=== PATIENT | female | born 1960 | race Caucasian/White ===

== ENCOUNTER → 2017-12-04 11:34 | Outpatient (POV) | payer MEDICARE, SELFPAY | PROVIDERS: Visit Provider Internal Medicine | DX: Z00.00 Encounter for general adult medical examination without abnormal findings (principal) ==

== ENCOUNTER → 2018-03-19 13:28 | Outpatient (REF) | payer MEDICARE, MEDICAID, SELFPAY ==
[2018-03-19 20:08] LABS: Amphetamine/Metha Screen,Urine Negative ng/mL (<1000); Barbiturates Screen,Urine Negative ng/mL (<200); Benzodiazepines Screen,Urine Negative ng/mL (200); Cannabinoid Screen,Urine Negative ng/mL (<50); Cocaine Screen,Urine Negative ng/g (<300); Methadone Screen,Urine Negative ng/mL (<300); Opiate Screen,Urine Negative ng/mL (<300); Phencyclidine Screen,Urine Negative ng/mL (<25)
== END ==
LOC: LAB 13:28
PROVIDERS: Visit Provider Emergency Medicine
DX: Z79.899 Other long term (current) drug therapy (principal)
CPT/HCPCS: 80305

== ENCOUNTER → 2018-03-27 09:51 | Outpatient (CLI) | payer MEDICARE, MEDICAID, SELFPAY ==
--- NOTE | 2018-03-27 09:58 | XR_ITS ---
XR hip RT 2-3V w/pelvis HISTORY: ITS.REASON: right hip pain ORDERING PHYSICIAN: Myles Ortiz MD PATIENT AGE: 57 years COMPARISON: 03/23/2017 FINDINGS: No fracture or dislocation is evident. No significant degenerative change. No lytic or blastic change. Unremarkable soft tissues . Right iliac artery stent remains present IMPRESSION: Negative hip
== END ==
PROVIDERS: PCP Emergency Medicine; Visit Provider Orthopaedic Surgery
DX: M25.551 Pain in right hip (principal)
CPT/HCPCS: 73502

== ENCOUNTER → 2018-05-22 15:12 | Outpatient (CLI) | payer MEDICARE, MEDICAID, SELFPAY ==
--- NOTE | 2018-05-22 15:18 | CT_ITS ---
CT lung screening EXAM: CT LUNG LOW DOSE WO CONTRAST HISTORY: 57-year-old female with 40 pack-year smoking history asymptomatic ITS.REASON: H/O NICOTINE DEPENDENCE ORDERING PHYSICIAN: Stanley Stroud MD PATIENT AGE: 57 years COMPARISON: None TECHNIQUE: The exam was performed on a GE Light Speed [address] scanner using 2.90 mGy CTDI. A low dose helical CT CHEST was performed on a multi-detector scanner. All CT scans at the facility use one or more dose reduction, viz: automated exposure control; ma/kV adjustment per patient size (including targeted exams where dose is matched to indication; i.e. head); or iterative reconstruction technique. The LDCT was performed in a facility that meets the criteria for the screening program. Data regarding this exam was submitted to ACR which is an approved registry. The order for this exam indicates that it came as a result of a lung cancer screening counseling shard decision-making visit that included all the elements required of such a visit including smoking cessation. The radiologist interpreting this exam meets the CMS criteria for the LDCT lung cancer screening program. The exam is reported using the Lung-RADS classification scale and reported to the ACR registry. NOTE: This study was performed for the specific purposes of lung cancer screening and is not an alternative to diagnostic chest CT. RADIATION DOSE: CTDI vol(CT dose Index-volume) = 2.90mG DLP (Dose Length Product) = 99.66 mGcm FINDINGS: There are centrilobular emphysematous changes. No suspicious pulmonary nodules are evident. Mild bronchial thickening with hyperinflation. Minimal fibrotic changes in the lung bases. Coronary artery calcifications are present. IMPRESSION: 1. Lung RADS Category: 2, benign 2. Other findings: Emphysema/COPD RECOMMENDATIONS: 12 month LDCT follow-up
== END ==
PROVIDERS: Family Provider Emergency Medicine; PCP Emergency Medicine; Visit Provider Internal Medicine
DX: Z87.891 Personal history of nicotine dependence (principal); Z12.2 Encounter for screening for malignant neoplasm of respiratory organs; F17.210 Nicotine dependence, cigarettes, uncomplicated

== ENCOUNTER → 2018-06-03 10:10 | Outpatient (CLI) | payer MEDICARE, MEDICAID, SELFPAY ==
--- NOTE | 2018-06-03 10:11 | US_ITS ---
US Arterial Ankle Brachial Ind COMPARISON: Lower arterial study 09/25/2016 HISTORY: Known peripheral vascular disease, previous angioplasty. Claudication and rest pain in both legs, current smoking history, hyperlipidemia TECHNIQUE: Segmental blood pressures were obtained in both legs along with Doppler waveform evaluation FINDINGS: The blood pressure right arm is 158. Pressures in the right leg show the thigh be 111 calf 120 posterior tibia 114 and dorsalis pedis 110. The digital pressure is 51. This represent a definite change from the previous study at which time the thigh pressure is 119 calf 126, posterior tibial 128, callus P is 124 and digital pressure 88 there is definite decrease in amplitude of the waveforms in the entire right leg also represent a change from previous study. The right AMERICO is 0.72 The left brachial pressure is 152. Pressures left leg show the thigh be 134 calf 148 posterior tibial 162 and dorsalis pedis 155. The digital pressure is 90. The Doppler waveforms are normal. The left AMERICO is 1.03 IMPRESSION: Definite interval change in size from the right leg with findings suggesting significant arterial obstructive disease right leg likely aortic bifurcation or common iliac artery in location
--- NOTE | 2018-06-03 10:11 | MR_ITS ---
MR lumbar spine wo con, MR 3-d myelogram/MRCP Ordering Physician: Binu Bowers MD Patient Age: 57 years: Female HISTORY: ITS.REASON: lower back pain Back pain for years but all leg numbness and tingling. TECHNIQUE: Sagittal STIR, T1, T2, axial T1 and T2. On 1.5T Siemens wide bore MRI. 3-D MR myelogram image set obtained & performed on MRI workstation. Additional sagittal thin section T2 weighted dataset obtained from this latter acquisition as well (---76 CPT) COMPARISON :Previous MRI lumbar spine 11/15/2013. FINDINGS Vertebral bodies appear intact throughout the lumbar spine. Conus ends appropriately at L1/L2. L5/S1. Degenerative disc space narrowing with only scant discogenic reactive endplate changes... Scant posterior osteophytic ridging and a scant disc prominence/bulge barely evident only slightly indents thecal sac but does not appear to be a significance. Only minor encroachment upon the foramen. This along with some mild facet hypertrophy. Been no significant change since prior study L4/5 disc intact with only scant foraminal disc bulge. Moderate facet hypertrophy and arthropathy. .. Mild, minor foraminal encroachment bilaterally due to these features. L3/4. Disc intact. Mild facet arthropathy. No new findings. L2/3. Disc intact. No foramen widely L1/2 disc intact neural foramen widely patent graft to 12/L1 disc intact. Unremarkable. Survey images and kidneys unremarkable no retroperitoneal findings. I would note some minimal fluid in soft tissues to the left of midline. This is seen just posterior to the left SI joint and posterior margin of the iliac bone. Actually similar appearance was seen before. This is just deep to what appear to be some injection granulomas. This may merely reflects and depending fluid collecting in this region, axial image 39 3-D MRI myelogram image set shows no prominent findings only slight tapering the spinal canal L4/5 due to the moderate facet hypertrophy Posterior atrium IMPRESSION: . No prominent findings. Minor findings both levels below No significant change since 2017 L4/5. Moderate facet hypertrophy. Very minimal foraminal disc bulge. Overall features only slightly slight tapering thecal sac but with no significant spinal stenosis stenosis. No disc herniation L5/S1 stable degenerative cystic changes.. Scant disc osteophyte features and mild facet hypertrophy. No minor foraminal encroachment. Additional note. Incidental again noted a very thin fluid collection between tissue planes., Posterior to the left SI joint and intermediate posterior to the posterior margin of palpable left iliac bone. Likely minor dependent edema.Clinical correlation required is patient tender here? There are some injection granulomas adjacent... . Most likely scant dependent edema collecting here. Doubt of significance but to be noted if patient focally tender. Similar stable, appearance dates back to February 2014 and November 2016 MR
== END ==
PROVIDERS: Family Provider Emergency Medicine; PCP Emergency Medicine; Visit Provider Internal Medicine
DX: I73.9 Peripheral vascular disease, unspecified; G25.81 Restless legs syndrome; M79.604 Pain in right leg
CPT/HCPCS: 72148; 76376; 93922

== ENCOUNTER → 2018-07-30 14:41 | Outpatient (POV) | payer MEDICARE, SELFPAY | PROVIDERS: Family Provider Emergency Medicine; PCP Emergency Medicine; Visit Provider Internal Medicine | DX: Z00.00 Encounter for general adult medical examination without abnormal findings (principal) ==

== ENCOUNTER → 2018-09-25 18:32 | Outpatient (CLI) | payer MEDICARE, SELFPAY ==
[2018-09-25 21:25] LABS: Amphetamine/Metha Screen,Urine Negative ng/mL (<1000); Barbiturates Screen,Urine Negative ng/mL (<200); Benzodiazepines Screen,Urine Negative ng/mL (<200); Cannabinoid Screen,Urine Negative ng/mL (<50); Cocaine Screen,Urine Negative ng/mL (<300); Methadone Screen,Urine Negative ng/mL (<300); Opiate Screen,Urine Negative ng/mL (<300); Phencyclidine Screen,Urine Negative ng/mL (<25)
[2018-10-03 12:14] LABS: Alprazolam Negative (Cutoff=100); Benzodiazepines Positive ng/mL (Cutoff=100); Clonazepam Positive (.); Flurazepam Negative (Cutoff=100); Lorazepam Negative (Cutoff=100); Midazolam Negative (Cutoff=100); Temazepam Negative (Cutoff=100); Triazolam Negative (Cutoff=100)
[2018-10-03 19:50] LABS: Clonazepam Confirm 533 ng/mL (Cutoff=100)
== END ==
PROVIDERS: Visit Provider Emergency Medicine
DX: Z79.899 Other long term (current) drug therapy (principal)
CPT/HCPCS: 80305; 80346

== ENCOUNTER → 2019-02-07 14:56 | Outpatient (CLI) | payer MEDICARE, SELFPAY ==
--- NOTE | 2019-02-07 14:58 | US_ITS ---
US Arterial Ankle Brachial Ind History: ITS.REASON: PAD, claudication, smoker ORDERING PHYSICIAN: Binu Bowers MD PATIENT AGE: 58 years TECHNIQUE: Segmental pressures obtained of both right and left leg. These are compared to brachial blood pressure to yield index at each level sampled including summary AMERICO. The data sheets from the procedure are available in PACS FINDINGS Rest study only performed today No prior studies available for comparison. Blood pressures reported are in millimeters mercury. RIGHT LEG AMERICO = 1.09. RIGHT LEG TBI=0.71 Brachial BP: 154 Thigh BP: 181 Calf BP: 159 Ankle PT: 178 Ankle DP : 180 Digit =116 LEFT LEG AMERICO = 1.01 LEFT LEG TBI= 0.61 Brachial BPD: 164 Thigh BP: 164 Calf BP: 174 Ankle PT:165 Ankle DP: 168 Digit = 100 Pulses and waveforms: Normal IMPRESSION: The ABIs as reported above are within normal limits. Waveforms and pulses are also unremarkable.
== END ==
PROVIDERS: PCP Emergency Medicine; Visit Provider Internal Medicine
DX: I73.9 Peripheral vascular disease, unspecified (principal)
CPT/HCPCS: 93922

== ENCOUNTER → 2019-02-18 13:48 | Outpatient (POV) | payer MEDICARE, SELFPAY | PROVIDERS: Visit Provider Internal Medicine | DX: Z00.00 Encounter for general adult medical examination without abnormal findings (principal) ==

== ENCOUNTER → 2019-03-12 12:57 | Outpatient (CLI) | payer MEDICARE, SELFPAY ==
--- NOTE | 2019-03-12 | CI_ITS ---
Cerebrovascular Exam Indications: 785.9 Bruit. IMPRESSIONS 1. The bilateral vertebral arteries are patent with normal antegrade flow. 2. Study suggests 20-49% stenosis involving the right internal carotid artery. 3. Study suggests 50-69% stenosis involving the left internal carotid artery. History: A bruit of the left carotid artery. Risk factors: Current tobacco use. Hypertension. Carotid duplex study. Complete study and Doppler flow study including spectral analysis, color and lane scale imaging. Height: Height: 170.2cm. Height: 67in. Weight: Weight: 91.6kg. Weight: 201.6lb. Body mass index: BMI: 31.6kg/m^2. Body surface area: BSA: 2.11m^2. Location: Vascular laboratory. Patient status: Outpatient. Tables: Arterial flow: + +--------+--------+ Location V sys V ed + +--------+--------+ Right CCA - proximal 85.6cm/s 25.9cm/s + +--------+--------+ Right CCA - distal 66.8cm/s 22.8cm/s + +--------+--------+ Right ECA 92.1cm/s -------- + +--------+--------+ Right ICA - proximal 73.8cm/s 38cm/s + +--------+--------+ Right ICA - mid 106cm/s 38cm/s + +--------+--------+ Right ICA - distal 124cm/s 57.9cm/s + +--------+--------+ Right vertebral 30.9cm/s -------- + +--------+--------+ Left CCA - proximal 112cm/s 25.4cm/s + +--------+--------+ Left CCA - distal 92.1cm/s 30.3cm/s + +--------+--------+ Left ECA 141cm/s -------- + +--------+--------+ Left ICA - proximal 191cm/s 65.9cm/s + +--------+--------+ Left ICA - mid 166cm/s 50.1cm/s + +--------+--------+ Left ICA - distal 96.6cm/s 33.7cm/s + +--------+--------+ Left vertebral 64cm/s -------- + +--------+--------+ Velocity ratios: + + + + + + Right, V sys Right, V ed Left, V sys Left, V ed + + + + + + Max ICA/dist CCA 1.86 2.54 2.07 2.17 + + + + + + (Report amended ) Electronically signed by: Stefano Cowan [id number]
--- NOTE | 2019-03-12 13:48 | CT_ITS ---
CT lung screening EXAM: CT LUNG LOW DOSE WO CONTRAST HISTORY: Greater than 30 pack-year smoking history asymptomatic for lung cancer ITS.REASON: H/O NICOTINE DEPENDENCE ORDERING PHYSICIAN: Stanley Stroud MD PATIENT AGE: 58 years COMPARISON: 05/22/2018 TECHNIQUE: The exam was performed on a GE Light Speed [address] scanner using 2.90 mGy CTDI. A low dose helical CT CHEST was performed on a multi-detector scanner. All CT scans at the facility use one or more dose reduction, viz: automated exposure control, ma/kV adjustment per patient size (including targeted exams where dose is matched to indication, i.e. head), or iterative reconstruction technique. The LDCT was performed in a facility that meets the criteria for the screening program. Data regarding this exam was submitted to ACR which is an approved registry. The order for this exam indicates that it came as a result of a lung cancer screening counseling shard decision-making visit that included all the elements required of such a visit including smoking cessation. The radiologist interpreting this exam meets the CMS criteria for the LDCT lung cancer screening program. The exam is reported using the Lung-RADS classification scale and reported to the ACR registry. NOTE: This study was performed for the specific purposes of lung cancer screening and is not an alternative to diagnostic chest CT. RADIATION DOSE: CTDI vol(CT dose Index-volume) = 2.90mG DLP (Dose Length Product) = 103.83 mGcm FINDINGS: COPD with centrilobular emphysema. Scattered areas of scarring. Bronchial wall thickening noted there is an 8 mm x 4 tubular opacity in the left lower lobe and may be related to a mildly dilated vessel unchanged. No new suspicious nodules are evident. Coronary artery calcifications are present. IMPRESSION: 1. Lung RADS Category: 2, benign 2. Other findings: COPD/centrilobular emphysema, coronary artery calcifications RECOMMENDATIONS: 12 month LDCT follow-up
== END ==
PROVIDERS: PCP Emergency Medicine; Visit Provider Internal Medicine
DX: R09.89 Other specified symptoms and signs involving the circulatory and respiratory systems (principal); Z12.2 Encounter for screening for malignant neoplasm of respiratory organs; Z87.891 Personal history of nicotine dependence
CPT/HCPCS: 93880

== ENCOUNTER → 2019-04-29 11:34 | Outpatient (POV) | payer MEDICARE, SELFPAY ==
[2019-04-29 11:41] VITALS: BP 128/43; PULSE 80; RESP 18; O2SAT 98; BMI 31.3
--- NOTE | 2019-04-29 12:02 | HMH.PMCON ---
Assessment and Plan (1) Right hip pain Current visit: Yes Status: Chronic Category: Medical Code(s): M25.551 - Pain in right hip (2) Bursitis Current visit: Yes Status: Chronic Qualifiers: Bursitis location: hip Hip bursitis location: trochanteric bursitis Laterality: right Qualified Code(s): M70.61 - Trochanteric bursitis, right hip Category: Medical Code(s): M71.9 - Bursopathy, unspecified - Assessment and plan all Dx Assessment and Plan for all problems:: We will start the patient on diclofenac 75 mg 1 p.o. twice daily. We will also set the patient up for a right greater trochanteric bursa injection. We will also procure a right hip x-ray. Dr. Luevano has reviewed this note and agrees with this plan of care. This note was dictated using voice recognition software and may contain errors or omissions HPI - Data of Consult Consult date: 04/29/19 Requesting Physician: Kirstie Johnson APRN Primary Care Provider: Bud Rob MD - Consult Narrative Reason for consult: Right hip pain History of present illness: Ms. Chamberlain is a 58 year old female who presents today with complaint of right hip pain. Patient has extreme point tenderness over right greater trochanteric bursa. Patient has no recent imaging of this hip. Patient and I discussed anti-inflammatories she is currently not on any. She rates her pain a 5 out of 10. She has a lot of difficulty with walking. CC: Kirstie Johnson APRN [facility] History I have reviewed the patient's past medical history: Yes Medical History: Reports:: Anxiety, Cancer, Chronic Obstructive Pulmonary Disease (COPD), Depression, Gastroesophageal Reflux Disease(GERD) *Have you ever received a pneumonia vaccine?: No *Have you received a flu vaccine this season?: No Other Surgeries: Yes: , Tubal Ligation, Other Amputation: No Fractures: Yes - *Social History Smoking Status: Light tobacco smoker Tobacco Type: cigarettes # Packs/Day (cigarettes): 1 #Yrs smoked (if former smoker): 41 Alcohol Intake: never Alcohol Intake Frequency:: other Substance Use Type: denies use *Occupational Status:: other Housing: house Household Members: spouse *Travel in the last 8 weeks: None - Psychiatric History Pschychiatric History:: Reports:: Anxiety, Depression Family Hx:: Coronary Artery Disease, Diabetes Review of Systems - Review of Systems ROS General: no recent weight change, no fever, no sleep disturbances Respiratory: no cough, no shortness of air, no recurring pulmonary infections Cardiovascular/Peripheral Vascular: No chest pain, No palpitations, no edema, no shortness of breath. Gastrointestinal: no incontinence, normal bowel movements reported Genitourinary: no incontinence Musculoskeletal: Right hip pain Psychiatric: normal mood/ affect Neurological: [denies weakness in extremities], [denies balance issues] Meds Home Medications Medication Instructions Recorded Confirmed Type albuterol sulfate 2.5 mg/3 mL 2.5 mg INHALATION TID ml 11/26/17 04/01/19 History (0.083 %) solution for nebulization aspirin 81 mg tablet,delayed 81 mg PO DAILY 06/25/18 04/01/19 History release ondansetron HCl 4 mg tablet 4 mg PO Q8H PRN #30 tab 06/26/18 04/01/19 Rx clopidogrel 75 mg tablet 75 mg PO DAILY #30 tab 10/08/18 04/01/19 Rx omeprazole 40 mg capsule,delayed 40 mg PO DAILY #90 cap 10/22/18 04/01/19 Rx release clonazepam 0.5 mg tablet 0.5 mg PO TID #90 tab 04/01/19 Rx gabapentin 800 mg tablet 800 mg PO TID #90 tab 04/01/19 Rx lovastatin 20 mg tablet 20 mg PO DAILY #90 tab 04/01/19 Rx albuterol sulfate HFA 90 2 puff INHALATION Q6H #18 g 04/09/19 Rx mcg/actuation aerosol inhaler escitalopram 20 mg tablet 20 mg PO DAILY #90 tab 04/09/19 Rx pantoprazole 40 mg tablet,delayed 40 mg PO DAILY #90 tab 04/09/19 Rx release budesonide-formoterol HFA 160 See Rx Instructions .ROUTE 04/18/19 Rx mcg-4.5 mcg/actuation aerosol .COMPLEX
--- NOTE | 2019-04-29 12:05 | P.CONS_ITS ---
Assessment and Plan (1) Right hip pain Current visit: Yes Status: Chronic Category: Medical Code(s): M25.551 - Pain in right hip (2) Bursitis Current visit: Yes Status: Chronic Qualifiers: Bursitis location: hip Hip bursitis location: trochanteric bursitis Laterality: right Qualified Code(s): M70.61 - Trochanteric bursitis, right hip Category: Medical Code(s): M71.9 - Bursopathy, unspecified - Assessment and plan all Dx Assessment and Plan for all problems:: We will start the patient on diclofenac 75 mg 1 p.o. twice daily. We will also set the patient up for a right greater trochanteric bursa injection. We will also procure a right hip x-ray. Dr. Luevano has reviewed this note and agrees with this plan of care. This note was dictated using voice recognition software and may contain errors or omissions HPI - Data of Consult Consult date: 04/29/19 Requesting Physician: Kirstie Johnson APRN Primary Care Provider: Bud Rob MD - Consult Narrative Reason for consult: Right hip pain History of present illness: Ms. Chamberlain is a 58 year old female who presents today with complaint of right hip pain. Patient has extreme point tenderness over right greater trochanteric burs a. Patient has no recent imaging of this hip. Patient and I discussed anti- inflammatories she is currently not on any. She rates her pain a 5 out of 10. She has a lot of difficulty with walking. CC: Kirstie Johnson APRN [facility] History I have reviewed the patient's past medical history: Yes Medical History: Reports:: Anxiety, Cancer, Chronic Obstructive Pulmonary Disease (COPD), Depression, Gastroesophageal Reflux Disease(GERD) *Have you ever received a pneumonia vaccine?: No *Have you received a flu vaccine this season?: No Other Surgeries: Yes: , Tubal Ligation, Other Amputation: No Fractures: Yes - *Social History Smoking Status: Light tobacco smoker Tobacco Type: cigarettes # Packs/Day (cigarettes): 1 #Yrs smoked (if former smoker): 41 Alcohol Intake: never Alcohol Intake Frequency:: other Substance Use Type: denies use *Occupational Status:: other Housing: house Household Members: spouse *Travel in the last 8 weeks: None - Psychiatric History Pschychiatric History:: Reports:: Anxiety, Depression Family Hx:: Coronary Artery Disease, Diabetes Review of Systems - Review of Systems ROS General: no recent weight change, no fever, no sleep disturbances Respiratory: no cough, no shortness of air, no recurring pulmonary infections Cardiovascular/Peripheral Vascular: No chest pain, No palpitations, no edema, no shortness of breath. Gastrointestinal: no incontinence, normal bowel movements reported Genitourinary: no incontinence Musculoskeletal: Right hip pain Psychiatric: normal mood/ affect Neurological: [denies weakness in extremities], [denies balance issues] Meds Home Medications Medication Instructions Recorded Confirmed Type albuterol sulfate 2.5 mg/3 mL 2.5 mg INHALATION TID ml 11/26/17 04/01/19 H istory (0.083 %) solution for nebulization aspirin 81 mg tablet,delayed 81 mg PO DAILY 06/25/18 04/01/19 History release ondansetron HCl 4 mg tablet 4 mg PO Q8H PRN #30 tab 06/26/18 04/01/19 Rx clopidogrel 75 mg tablet 75 mg PO DAILY #30 tab 10/08/18 04/01/19 Rx omeprazole 40 mg capsule,delayed 40 mg PO DAILY #90 cap 10/22/18 04/01/19 Rx release
--- NOTE | 2019-04-29 12:18 | XR_ITS ---
XR hip RT 2-3V w/pelvis HISTORY: ITS.REASON: RT HIP PAIN ORDERING PHYSICIAN: Kirstie Johnson APRN PATIENT AGE: 58 years COMPARISON: 03/27/2018 FINDINGS: No fracture or dislocation is evident. No significant degenerative change. No lytic or blastic change. Right iliac artery stent in place. IMPRESSION: No change with no acute finding
== END ==
PROVIDERS: PCP Emergency Medicine; Visit Provider Clinical Nurse Specialist Family Health
DX: M25.551 Pain in right hip (principal); M70.61 Trochanteric bursitis, right hip
CPT/HCPCS: 73502; 99202

== ENCOUNTER → 2019-06-03 10:21 | Outpatient (POV) | payer MEDICARE, SELFPAY ==
[2019-06-03 10:32] VITALS: BP 120/69; PULSE 80; RESP 18; O2SAT 98; BMI 31.6
--- NOTE | 2019-06-03 10:36 | HMH.PAINSOAP ---
[facility] Pain Management SOAP Note Subjective:: Patient is a pleasant 58-year-old white female who presents today for follow-up. Patient is being treated for right hip pain. She is now complaining of bilateral hip pain. She has extreme point tenderness over bilateral greater trochanteric bursa. She rates her pain at a 6 out of 10 today. She does say that she got about 70% relief with her previous injection, her pain has returned. Patient says that she thought that her pain is on the right side would relieve the pain on her left side, however since having her last right greater trochanteric bursa injection, her pain has increased on the left side. She would like to do bilateral hip injection. She is continuing an anti-inflammatory, as well as home stretching program. The patient has been taking diclofenac 75 mg 1 p.o. twice daily. She says that she was also taking this with ibuprofen and was informed by her pharmacist to stop taking ibuprofen with the medicine. Patient says that ibuprofen is more effective than diclofenac, so she will discontinue the diclofenac. Review of Systems General: No recent weight changes, no fever, no sleep disturbances Respiratory: No cough, no shortness of air, no recurring pulmonary infections Cardiovascular/peripheral vascular: No chest pain, no palpitations, no edema, no shortness of breath Gastrointestinal: No new onset incontinence, normal bowel movements reported Genitourinary: No new onset incontinence Musculoskeletal: Bilateral hip pain Psychiatric: Normal mood/affect Neurological: [Denies weakness in extremities], [denies balance issues] Objective:: Physical exam General: Alert and oriented x3, no acute distress, pleasant and cooperative, [on room air] Lungs: Respirations even and unlabored, symmetrical chest expansion Eyes: PERRL Musculoskeletal: Range of motion to bilateral lower extremities somewhat guarded secondary to pain, deep tendon reflexes normal, strength in upper and lower extremities [5/5], [abnormal gait noted] Neurological: Speech clear, data reduction technician equal, no gross sensory deficit Assessment:: Bilateral greater trochanteric bursitis Plan:: Given the patient's efficacy of the previous injection, we will schedule the patient for bilateral greater trochanteric bursa injections. The patient will continue with a home stretching program and anti-inflammatories. We will see the patient back in the office after her procedure to reassess her symptoms at that time. She has been instructed to call the office if she has any concerns prior to her next appointment. Dr. Luevano has reviewed this note and agrees with this plan of care. This note was dictated using voice recognition software and make contain errors or omissions.
--- NOTE | 2019-06-03 10:39 | P.CONS_ITS ---
[facility] Pain Management SOAP Note Subjective:: Patient is a pleasant 58-year-old white female who presents today for follow-up. Patient is being treated for right hip pain. She is now complaining of bilateral hip pain. She has extreme point tenderness over bilateral greater trochanteric bursa. She rates her pain at a 6 out of 10 today. She does say that she got about 70% relief with her previous injection, her pain has returned. Patient says that she thought that her pain is on the right side would relieve the pain on her left side, however since having her last right greater trochanteric bursa injection, her pain has increased on the left side. She would like to do bilateral hip injection. She is continuing an anti- inflammatory, as well as home stretching program. The patient has been taking diclofenac 75 mg 1 p.o. twice daily. She says that she was also taking this with ibuprofen and was informed by her pharmacist to stop taking ibuprofen with the medicine. Patient says that ibuprofen is more effective than diclofenac, so she will discontinue the diclofenac. Review of Systems General: No recent weight changes, no fever, no sleep disturbances Respiratory: No cough, no shortness of air, no recurring pulmonary infections Cardiovascular/peripheral vascular: No chest pain, no palpitations, no edema, no shortness of breath Gastrointestinal: No new onset incontinence, normal bowel movements reported Genitourinary: No new onset incontinence Musculoskeletal: Bilateral hip pain Psychiatric: Normal mood/affect Neurological: [Denies weakness in extremities], [denies balance issues] Objective:: Physical exam General: Alert and oriented x3, no acute distress, pleasant and cooperative, [on room air] Lungs: Respirations even and unlabored, symmetrical chest expansion Eyes: PERRL Musculoskeletal: Range of motion to bilateral lower extremities somewhat guarded secondary to pain, deep tendon reflexes normal, strength in upper and lower extremities [5/5], [abnormal gait noted] Neurological: Speech clear, pallet sorter equal, no gross sensory deficit Assessment:: Bilateral greater trochanteric bursitis Plan:: Given the patient's efficacy of the previous injection, we will schedule the patient for bilateral greater trochanteric bursa injections. The patient will continue with a home stretching program and anti-inflammatories. We will see the patient back in the office after her procedure to reassess her symptoms at that time. She has been instructed to call the office if she has any concerns prior to her next appointment. Dr. Luevano has reviewed this note and agrees with this plan of care. This note was dictated using voice recognition software and make contain errors or omissions.
== END ==
PROVIDERS: PCP Emergency Medicine; Visit Provider Clinical Nurse Specialist Family Health
DX: M70.61 Trochanteric bursitis, right hip; M70.62 Trochanteric bursitis, left hip
CPT/HCPCS: 99212

== ENCOUNTER → 2019-07-08 10:49 | Outpatient (POV) | payer MEDICARE, SELFPAY ==
[2019-07-08 11:31] VITALS: BP 105/63; PULSE 89; RESP 18; O2SAT 98; BMI 31.3
--- NOTE | 2019-07-08 12:26 | P.CONS_ITS ---
[facility] Pain Management SOAP Note Subjective:: Patient is a pleasant 58-year-old white female who presents today for follow-up after bilateral bursa injections. Patient is doing well in her hip however she is continually having SI joint pain. She does have an MRI from 2018 that showed SI joint issues. Patient had injections in the past with short-term relief. Patient I had a long discussion about obtaining some new diagnostic imaging. Her pain is a 6 out of 10. It is beginning to affect her activities of daily living. She is continuing home stretching program. She is tried and failed multiple medications along with other conservative measures over the last 6 months. Patient I discussed potential SI joint percutaneous fusion. However we do need to get some new diagnostic imaging prior to this. ROS General: no recent weight change, no fever, no sleep disturbances Respiratory: no cough, no shortness of air, no recurring pulmonary infections Cardiovascular/Peripheral Vascular: No chest pain, No palpitations, no edema, no shortness of breath. Gastrointestinal: no incontinence, normal bowel movements reported Genitourinary: no incontinence Musculoskeletal: Low back pain, SI joint pain, hip pain Psychiatric: normal mood/ affect Neurological: [denies weakness in extremities], [denies balance issues] Objective:: Physical Exam General: Alert and oriented x3, no acute distress, pleasant and cooperative, [on room air] Lungs: Resps E/U, Symmetrical chest expansion, Eyes: PERRL Musculoskeletal: Flexion and extension of lumbar spine somewhat guarded secondary to pain, deep tendon reflexes normal, strength in upper and lower extremities [5/5], abnormal gait noted, positive SI joint compression test positive Dionte test positive Philip's test bilaterally Neurological: speech clear, flower grader equal, no gross sensory deficits Assessment:: Degenerative disc disease lumbar spine with lumbar radiculopathy along with sacroiliitis Plan:: We will schedule an updated MRI of the lower back to determine any worsening issues. Patient I briefly percutaneous SI joint fusion. She may be interested in this in the future. I will follow-up with her after her MRI she is been instructed to call the office if she has any issues prior to her next appointment. Dr. Luevano has reviewed this note and agrees with this plan of care. This note was dictated using voice recognition software and may contain errors or omissions Pain Management Hx Components *Have you ever received a pneumonia vaccine?: Yes *Have you received a flu vaccine this season?: Yes - *Social History *Occupational Status:: other *Travel in the last 8 weeks: None
== END ==
PROVIDERS: PCP Emergency Medicine; Visit Provider Clinical Nurse Specialist Family Health
DX: M51.16 Intervertebral disc disorders with radiculopathy, lumbar region (principal); M46.1 Sacroiliitis, not elsewhere classified
CPT/HCPCS: 99212

== ENCOUNTER → 2019-07-17 12:48 | Outpatient (CLI) | payer MEDICARE, SELFPAY ==
--- NOTE | 2019-07-17 12:49 | MR_ITS ---
PROCEDURE: MR HEAD/BRAIN WO CON CLINICAL INDICATION: headache Severe headache COMPARISON: No exams were available for comparison TECHNIQUE: Routine multiplanar multi echo sequences are performed without gadolinium enhancement. FINDINGS: No midline shift, mass effect, intracranial hemorrhage, or hydrocephalus evident. No evidence of acute infarction. There nonspecific slight increased T2 signal within both right and left aspect of the rey as well as scattered areas of subcortical and periventricular T2 white matter hyperintensities. These are nonspecific and do not demonstrate restricted diffusion. The cerebellopontine angle, cerebellum, and brainstem are unremarkable. The pituitary, optic chiasm, corpus callosum, and craniocervical junction are unremarkable. No mastoid effusion or sinus air-fluid level. IMPRESSION: Nonspecific periventricular and subcortical T2 white matter hyperintensities. These may only be related to ischemic gliotic change from microvascular disease. Included in the differential diagnosis would be migraine headache and demyelinating process. Please correlate with clinical parameters. Otherwise negative MRI of the brain without contrast Dictated by: Stefano Cowan MD 07/17/2019 17:20 Electronically signed by Stefano Cowan MD in [place] 07/17/2019 17:20
--- NOTE | 2019-07-17 12:50 | MR_ITS ---
PROCEDURE: MR LUMBAR SPINE WO CON CLINICAL INDICATION: BACK PAIN Low back pain with bilateral hip and leg pain COMPARISON: SPLUMBWO MR lumbar spine wo con from 06/03/2018 TECHNIQUE: Standard multiplanar multiecho sequences are performed without contrast. 3-D MIP and myelographic images are also rendered and reviewed FINDINGS: Normal alignment. The spinal cord ends at the L1-L2 level. T11-T12: Unremarkable. T12-L1: Unremarkable. L1-L2: Unremarkable. L2-L3: Unremarkable. L3-L4: Mild facet hypertrophic change. L4-5: Mild disc desiccation with minimal bulging disc and mild facet hypertrophic change with mild left foraminal narrowing. L5-S1: Degenerate disc disease. No disc herniation or canal stenosis with no significant change from the previous exam There is a small amount of oval fluid signal intensity within the soft tissue planes posterior to the ilium on the left not significantly changed IMPRESSION: 1. Mild degenerative changes at L3-L4 L4-5 and L5-S1 as detailed above. 2. No disc herniation or canal stenosis. 3. No change in the small subcutaneous fluid collection in the left posterior iliac region Dictated by: Stefano Cowan MD 07/18/2019 08:18 Electronically signed by Stefano Cowan MD in [place] 07/18/2019 08:18
== END ==
PROVIDERS: PCP Emergency Medicine; Visit Provider Clinical Nurse Specialist Family Health
DX: R51 Headache (principal); M54.5 Low back pain
CPT/HCPCS: 70551; 72148; 76376

== ENCOUNTER → 2019-07-29 09:52 | Outpatient (POV) | payer MEDICARE, SELFPAY ==
[2019-07-29 09:59] VITALS: BP 154/64; PULSE 85; RESP 18; O2SAT 97; BMI 31.3
--- NOTE | 2019-07-29 12:32 | HMH.PAINSOAP ---
[facility] Pain Management SOAP Note Subjective:: Patient is a pleasant 58-year-old white female who presents today for follow-up. Patient is having chronic SI joint pain. Worse in the left side. Her MRI from 2018 showed SI joint issues. She is had injections in the past with short-term relief. We had a discussion in regards to a percutaneous SI joint fusion. Patient rates her pain a 7 out of 10 today. She is tried and follow-up failed multiple medications along with other conservative measures over the last 6 months. She had pain for over a year. She is tried and failed medications including anti-inflammatories she is continuing a home stretching program. She is failed physical therapy. ROS General: no recent weight change, no fever, no sleep disturbances Respiratory: no cough, no shortness of air, no recurring pulmonary infections Cardiovascular/Peripheral Vascular: No chest pain, No palpitations, no edema, no shortness of breath. Gastrointestinal: no incontinence, normal bowel movements reported Genitourinary: no incontinence Musculoskeletal: Back pain, SI joint pain Psychiatric: normal mood/ affect Neurological: [denies weakness in extremities], [denies balance issues] Objective:: Physical Exam General: Alert and oriented x3, no acute distress, pleasant and cooperative, [on room air] Lungs: Resps E/U, Symmetrical chest expansion, Eyes: PERRL Musculoskeletal: Flexion and extension of lumbar spine somewhat guarded secondary to pain, deep tendon reflexes normal, strength in upper and lower extremities [5/5], antalgic gait noted, positive SI joint compression test positive Dionte test positive Philip's test on the left side Neurological: speech clear, renal dialysis rn equal, no gross sensory deficits Assessment:: Sacroiliitis chronic SI joint dysfunction Plan:: I will schedule the patient for a left sided percutaneous SI joint fusion. I believe given the efficacy however short-lived of her SI joint blocks I believe it would be of benefit to her. She is interested in moving forward she would like to stay as functional as possible for as long as possible. I will follow-up with the patient after the procedure and reassess her symptoms at that time she is been instructed to call the office if she has any issues prior to her next appointment. Dr. Luevano has reviewed this note and agrees with this plan of care. This note was dictated using voice recognition software and may contain errors or omissions [facility] History I have reviewed the patient's past medical history: Yes Medical History: Reports:: Anxiety, Cancer, Chronic Obstructive Pulmonary Disease (COPD), Depression, Gastroesophageal Reflux Disease(GERD), Hypertension, Peripheral Artery Disease Denies:: Diabetes Mellitus Type 1, Diabetes Mellitus Type 2, Seizures *Have you ever received a pneumonia vaccine?: No *Have you received a flu vaccine this season?: No Other Surgeries: Yes: , Tubal Ligation, Other Amputation: No Fractures: Yes - *Social History Smoking Status: Current every day smoker Tobacco Type: cigarettes # Packs/Day (cigarettes): 1 #Yrs smoked (if former smoker): 41 Alcohol Intake: never Alcohol Intake Frequency:: other Substance Use Type: denies use *Occupational Status:: disabled Housing: house Household Members: none *Travel in the last 8 weeks: None - Psychiatric History Pschychiatric History:: Reports:: Anxiety, Depression Family Hx:: Coronary Artery Disease, Diabetes
--- NOTE | 2019-07-29 12:37 | P.CONS_ITS ---
[facility] Pain Management SOAP Note Subjective:: Patient is a pleasant 58-year-old white female who presents today for follow-up. Patient is having chronic SI joint pain. Worse in the left side. Her MRI from 2018 showed SI joint issues. She is had injections in the past with short-term relief. We had a discussion in regards to a percutaneous SI joint fusion. Patient rates her pain a 7 out of 10 today. She is tried and follow-up failed multiple medications along with other conservative measures over the last 6 months. She had pain for over a year. She is tried and failed medications including anti-inflammatories she is continuing a home stretching program. She is failed physical therapy. ROS General: no recent weight change, no fever, no sleep disturbances Respiratory: no cough, no shortness of air, no recurring pulmonary infections Cardiovascular/Peripheral Vascular: No chest pain, No palpitations, no edema, no shortness of breath. Gastrointestinal: no incontinence, normal bowel movements reported Genitourinary: no incontinence Musculoskeletal: Back pain, SI joint pain Psychiatric: normal mood/ affect Neurological: [denies weakness in extremities], [denies balance issues] Objective:: Physical Exam General: Alert and oriented x3, no acute distress, pleasant and cooperative, [on room air] Lungs: Resps E/U, Symmetrical chest expansion, Eyes: PERRL Musculoskeletal: Flexion and extension of lumbar spine somewhat guarded secondary to pain, deep tendon reflexes normal, strength in upper and lower extremities [5/5], antalgic gait noted, positive SI joint compression test positive Dionte test positive Philip's test on the left side Neurological: speech clear, clearance center manager equal, no gross sensory deficits Assessment:: Sacroiliitis chronic SI joint dysfunction Plan:: I will schedule the patient for a left sided percutaneous SI joint fusion. I believe given the efficacy however short-lived of her SI joint blocks I believe it would be of benefit to her. She is interested in moving forward she would like to stay as functional as possible for as long as possible. I will follow- up with the patient after the procedure and reassess her symptoms at that time she is been instructed to call the office if she has any issues prior to her next appointment. Dr. Luevano has reviewed this note and agrees with this plan of care. This note was dictated using voice recognition software and may contain errors or omissions [facility] History I have reviewed the patient's past medical history: Yes Medical History: Reports:: Anxiety, Cancer, Chronic Obstructive Pulmonary Di sease (COPD), Depression, Gastroesophageal Reflux Disease(GERD), Hypertension, Peripheral Artery Disease Denies:: Diabetes Mellitus Type 1, Diabetes Mellitus Type 2, Seizures *Have you ever received a pneumonia vaccine?: No *Have you received a flu vaccine this season?: No Other Surgeries: Yes: , Tubal Ligation, Other Amputation: No Fractures: Yes - *Social History Smoking Status: Current every day smoker Tobacco Type: cigarettes # Packs/Day (cigarettes): 1 #Yrs smoked (if former smoker): 41 Alcohol Intake: never Alcohol Intake Frequency:: other Substance Use Type: denies use *Occupational Status:: disabled Housing: house Household Members: none *Travel in the last 8 weeks: None - Psychiatric History Pschychiatric History:: Reports:: Anxiety, Depression Family Hx:: Coronary Artery Disease, Diabetes
== END ==
PROVIDERS: PCP Emergency Medicine; Visit Provider Clinical Nurse Specialist Family Health
DX: M46.1 Sacroiliitis, not elsewhere classified (principal)
CPT/HCPCS: 99212

== ENCOUNTER → 2019-09-08 11:20 | Outpatient (POV) | payer MEDICARE, MEDICAID, SELFPAY ==
[2019-09-08 12:06] VITALS: BP 127/60; PULSE 97; RESP 18; O2SAT 98; BMI 31.3
--- NOTE | 2019-09-08 12:31 | HMH.PAINSOAP ---
[facility] Pain Management SOAP Note Subjective:: Patient is a pleasant 58-year-old white female who presents today for follow-up. Patient is awaiting a percutaneous SI joint fusion. Patient has MRI diagnostic imaging that shows SI joint issues along with chronic SI joint pain. She does get short-term relief from injections. She rates her pain an 8 out of 10 she is obviously uncomfortable she is tried and failed multiple medications along with conservative measures over the last 6 months. She is had pain for over a year periodic. She is failed medications anti-inflammatories and is continuing a home stretching program she is also failed physical therapy. She is a positive Dionte test SI joint compression test and Philip's test on the left side. ROS General: no recent weight change, no fever, no sleep disturbances Respiratory: no cough, no shortness of air, no recurring pulmonary infections Cardiovascular/Peripheral Vascular: No chest pain, No palpitations, no edema, no shortness of breath. Gastrointestinal: no new onset incontinence, normal bowel movements reported Genitourinary: no new onset incontinence Musculoskeletal: SI joint pain Psychiatric: normal mood/ affect Neurological: [denies new onset weakness in extremities], [denies new onset balance issues] Objective:: Physical Exam General: Alert and oriented x3, no acute distress, pleasant and cooperative, [on room air] Lungs: Resps E/U, Symmetrical chest expansion, Eyes: PERRL Musculoskeletal: Flexion and extension of lumbar spine somewhat guarded secondary to pain, deep tendon reflexes normal, strength in upper and lower extremities [5/5], [abnormal gait noted] Neurological: speech clear, requisition approver equal, no gross sensory deficits Assessment:: Sacroiliitis chronic Plan:: We will schedule the patient for a left SI joint injection while she is awaiting her cutaneous SI joint fusion. She is been instructed to call the office if she has any issues prior to her next appointment. Dr. Luevano has reviewed this note and agrees with this plan of care. This note was dictated using voice recognition software and may contain errors or omissions [facility] History I have reviewed the patient's past medical history: Yes Medical History: Reports:: Anxiety, Cancer, Chronic Obstructive Pulmonary Disease (COPD), Depression, Gastroesophageal Reflux Disease(GERD), Hypertension, Peripheral Artery Disease Denies:: Diabetes Mellitus Type 1, Diabetes Mellitus Type 2, Seizures *Have you ever received a pneumonia vaccine?: Yes *Have you received a flu vaccine this season?: Yes Other Surgeries: Yes: , Tubal Ligation, Other Amputation: No Fractures: Yes - *Social History Smoking Status: Current every day smoker Tobacco Type: cigarettes # Packs/Day (cigarettes): 1 #Yrs smoked (if former smoker): 41 Alcohol Intake: never Alcohol Intake Frequency:: other Substance Use Type: denies use *Occupational Status:: other Housing: house Household Members: none *Travel in the last 8 weeks: None - Psychiatric History Pschychiatric History:: Reports:: Anxiety, Depression Family Hx:: Coronary Artery Disease, Diabetes
== END ==
PROVIDERS: PCP Emergency Medicine; Visit Provider Clinical Nurse Specialist Family Health
DX: M46.1 Sacroiliitis, not elsewhere classified (principal)
CPT/HCPCS: 99212

== ENCOUNTER → 2019-10-07 10:09 | Outpatient (POV) | payer MEDICARE, MEDICAID, SELFPAY ==
[2019-10-07 10:16] VITALS: BP 114/93; PULSE 91; RESP 18; O2SAT 98; BMI 31.6
--- NOTE | 2019-10-07 10:30 | HMH.PAINSOAP ---
[facility] Pain Management SOAP Note Subjective:: Patient is a pleasant 58-year-old white female presents today for follow-up after corner lock procedure. Patient was doing well for the first week however she states that she was pushing herself a little too hard. Patient had a fall and had increased pain at that time along with some muscle spasms. She we had called our office and was instructed to be seen by her primary care physician however she did not go through with this nor did she go to the emergency room. Patient rates her pain today a 7 out of 10 incisions in regards to the corner lock are well approximated. Stitches have been removed. Patient overall doing well. Patient's symptomology unrelated to the corner lock procedure. We will start her on some anti-inflammatories and muscle relaxers for a week and reassess her symptoms in a week. ROS General: no recent weight change, no fever, no sleep disturbances Respiratory: no cough, no shortness of air, no recurring pulmonary infections Cardiovascular/Peripheral Vascular: No chest pain, No palpitations, no edema, no shortness of breath. Gastrointestinal: no new onset incontinence, normal bowel movements reported Genitourinary: no new onset incontinence Musculoskeletal: Back pain left leg pain, muscle cramps Psychiatric: normal mood/ affect, Neurological: [denies new onset weakness in extremities], [denies new onset balance issues] Objective:: Physical Exam General: Alert and oriented x3, no acute distress, pleasant and cooperative, [on room air] Lungs: Resps E/U, Symmetrical chest expansion, Eyes: PERRL Musculoskeletal: Flexion and extension of lumbar spine somewhat guarded secondary to pain, deep tendon reflexes normal, strength in upper and lower extremities [5/5], [abnormal gait noted] Neurological: speech clear, od grinder operator equal, no gross sensory deficits Assessment:: SI joint dysfunction, chronic sacroiliitis, muscle spasms, recent fall Plan:: We will give the patient a Medrol Dosepak along with some Flexeril 10 mg 1 p.o. 3 times daily as needed we will see her back in 1 week reassess her symptoms at that time I encouraged her to take time to heal into the pushing herself. I will see her back in 1 week she is been instructed to call the office if she has any issues prior to her next appointment. Dr. Luevano has reviewed this note and agrees with this plan of care. This note was dictated using voice recognition software and may contain errors or omissions [facility] History I have reviewed the patient's past medical history: Yes Medical History: Reports:: Anxiety, Cancer (skin ca), Chronic Obstructive Pulmonary Disease (COPD), Depression, Gastroesophageal Reflux Disease(GERD), Hypertension, Peripheral Artery Disease, Peripheral Vascular Disease Denies:: Diabetes Mellitus Type 1, Diabetes Mellitus Type 2, Internal Pacemaker, MRSA, Seizures *Have you ever received a pneumonia vaccine?: Yes *Have you received a flu vaccine this season?: Yes Other Medical History: Denies: Blood Transfusion Reaction Other Surgeries: Yes: , Tubal Ligation, Other. No: Pacemaker Amputation: No Fractures: Yes - *Social History Smoking Status: Current every day smoker Tobacco Type: cigarettes # Packs/Day (cigarettes): 1 #Yrs smoked (if former smoker): 41 Alcohol Intake: never Alcohol Intake Frequency:: other Substance Use Type: denies use *Occupational Status:: other Housing: house Household Members: children, none *Travel in the last 8 weeks: None - Psychiatric History Pschychiatric History:: Reports:: Anxiety, Depression Family Hx:: Coronary Artery Disease, Diabetes
== END ==
PROVIDERS: PCP Emergency Medicine; Visit Provider Clinical Nurse Specialist Family Health
DX: M62.838 Other muscle spasm (principal); Z91.81 History of falling; M46.1 Sacroiliitis, not elsewhere classified
CPT/HCPCS: 99213

== ENCOUNTER → 2019-10-14 11:50 | Outpatient (POV) | payer MEDICARE, MEDICAID, SELFPAY ==
[2019-10-14 12:11] VITALS: BP 126/53; PULSE 92; RESP 18; O2SAT 98; BMI 31.6
--- NOTE | 2019-10-14 12:39 | HMH.PAINSOAP ---
[facility] Pain Management SOAP Note Subjective:: Patient is a pleasant 58-year-old white female who presents today for follow-up. She recently underwent a left SI stabilization procedure. Following the procedure, the patient did have a fall for which she did strike her left knee and her left facial area. Patient says since the fall she has had severe pain. She rates her pain a 6 out of 10 today. At her last visit the patient was given a Medrol Dosepak, along with Flexeril. Patient says she got little to no relief with these therapies. She says that her pain is still there and worsening with each day. Patient does say, however, she is no longer having any numbness or tingling to her left leg. She says she is using a walker to ambulate in her house. Patient says she has to depend on her sister to transport her and her sister is not well at this time. She says she has difficulty getting to her appointments due to no transportation. Patient says she has not had any recent physical therapy. Patient also has not undergone any type of imaging since her fall to her SI joint. She is continuing with anti-inflammatories and a home stretching program. Review of Systems General: No recent weight changes, no fever, no sleep disturbances Respiratory: No cough, no shortness of air, no recurring pulmonary infections Cardiovascular/peripheral vascular: No chest pain, no palpitations, no edema, no shortness of breath Gastrointestinal: No new onset incontinence, normal bowel movements reported Genitourinary: No new onset incontinence Musculoskeletal: Low back pain, left buttock pain Psychiatric: Normal mood/affect Neurological: [Denies weakness in extremities], [denies balance issues] Objective:: Physical exam General: Alert and oriented x3, no acute distress, pleasant and cooperative, [on room air] Lungs: Respirations even and unlabored, symmetrical chest expansion Eyes: PERRL Musculoskeletal: Flexion and extension of lumbar spine somewhat guarded secondary to pain, deep tendon reflexes normal, strength in upper and lower extremities [5/5], [abnormal gait noted] Neurological: Speech clear, radio maintainer equal, no gross sensory deficit Assessment:: SI joint dysfunction, chronic sacroiliitis, muscle spasms, recent fall Plan:: We will order the patient x-ray of her left SI joint. We will also order home health for physical therapy to evaluate and treat patient. Patient would most likely benefit from a SI stabilization belt. We will see the patient back in the clinic in 2 weeks to discuss the results of her x-ray. Patient has been instructed to contact the clinic if she has any concerns before next appointment. Dr. Luevano has reviewed this note and agrees with this plan of care. This note was dictated using voice recognition software and make contain errors or omissions. [facility] History I have reviewed the patient's past medical history: Yes Medical History: Reports:: Anxiety, Cancer, Chronic Obstructive Pulmonary Disease (COPD), Depression, Gastroesophageal Reflux Disease(GERD), Hypertension, Peripheral Artery Disease, Peripheral Vascular Disease Denies:: Diabetes Mellitus Type 1, Diabetes Mellitus Type 2, Internal Pacemaker, MRSA, Seizures *Have you ever received a pneumonia vaccine?: Yes *Have you received a flu vaccine this season?: Yes Other Medical History: Denies: Blood Transfusion Reaction Other Surgeries: Yes: , Tubal Ligation, Other. No: Pacemaker Amputation: No Fractures: Yes - *Social History Smoking Status: Current every day smoker Tobacco Type: cigarettes # Packs/Day (cigarettes): 1 #Yrs smoked (if former smoker): 41 Alcohol Intake: never Alcohol Intake Frequency:: other Substance Use Type: denies use *Occupational Status:: other Housing: house Household Members: children, none *Travel in the last 8 weeks: None - Psychiatric History Pschychiatric History:: Reports:: Anxiety, Depression Family Hx:: Coronary Artery Dise
--- NOTE | 2019-10-14 12:42 | P.CONS_ITS ---
[facility] Pain Management SOAP Note Subjective:: Patient is a pleasant 58-year-old white female who presents today for follow-up. She recently underwent a left SI stabilization procedure. Following the procedure, the patient did have a fall for which she did strike her left knee and her left facial area. Patient says since the fall she has had severe pain. She rates her pain a 6 out of 10 today. At her last visit the patient was given a Medrol Dosepak, along with Flexeril. Patient says she got little to no relief with these therapies. She says that her pain is still there and worsening with each day. Patient does say, however, she is no longer having any numbness or tingling to her left leg. She says she is using a walker to ambulate in her house. Patient says she has to depend on her sister to transport her and her sister is not well at this time. She says she has difficulty getting to her appointments due to no transportation. Patient says she has not had any recent physical therapy. Patient also has not undergone any type of imaging since her fall to her SI joint. She is continuing with anti-inflammatories and a home stretching program. Review of Systems General: No recent weight changes, no fever, no sleep disturbances Respiratory: No cough, no shortness of air, no recurring pulmonary infections Cardiovascular/peripheral vascular: No chest pain, no palpitations, no edema, no shortness of breath Gastrointestinal: No new onset incontinence, normal bowel movements reported Genitourinary: No new onset incontinence Musculoskeletal: Low back pain, left buttock pain Psychiatric: Normal mood/affect Neurological: [Denies weakness in extremities], [denies balance issues] Objective:: Physical exam General: Alert and oriented x3, no acute distress, pleasant and cooperative, [on room air] Lungs: Respirations even and unlabored, symmetrical chest expansion Eyes: PERRL Musculoskeletal: Flexion and extension of lumbar spine somewhat guarded secondary to pain, deep tendon reflexes normal, strength in upper and lower extremities [5/5], [abnormal gait noted] Neurological: Speech clear, ornamental painter equal, no gross sensory deficit Assessment:: SI joint dysfunction, chronic sacroiliitis, muscle spasms, recent fall Plan:: We will order the patient x-ray of her left SI joint. We will also order home health for physical therapy to evaluate and treat patient. Patient would most likely benefit from a SI stabilization belt. We will see the patient back in the clinic in 2 weeks to discuss the results of her x-ray. Patient has been instructed to contact the clinic if she has any concerns before next appointment. Dr. Luevano has reviewed this note and agrees with this plan of care. This note was dictated using voice recognition software and make contain errors or omissions. [facility] History I have reviewed the patient's past medical history: Yes Medical History: Reports:: Anxiety, Cancer, Chronic Obstructive Pulmonary Disease (COPD), Depression, Gastroesophageal Reflux Disease(GERD), Hypertension, Peripheral Artery Disease, Peripheral Vascular Disease Denies:: Diabetes Mellitus Type 1, Diabetes Mellitus Type 2, Internal Pacemaker, MRSA, Seizures *Have you ever received a pneumonia vaccine?: Yes *Have you received a flu vaccine this season?: Yes Other Medical History: Denies: Blood Transfusion Reaction Other Surgeries: Yes: , Tubal Ligation, Other. No: Pacemaker Amputation: No Fractures: Yes - *Social History Smoking Status: Current every day smoker Tobacco Type: cigarettes # Packs/Day (cigarettes): 1 #Yrs smoked (if former
--- NOTE | 2019-10-14 12:44 | XR_ITS ---
PROCEDURE: XR SACROILIAC JOINT BI MIN 3V CLINICAL INDICATION: LOW BCK/LEG PAIN History of sacroiliac fusion. Fall with left-sided pain COMPARISON: MR LUMBAR SPINE WO CON from 07/17/2019 XR PAIN MGT INJ from 09/09/2019 XR PAIN MGT INJ from 09/24/2019 FINDINGS: There is some mild sclerosis of the inferior aspect of the left SI joint. A small sq shaped device overlies the upper aspect of the SI joint along the sacral side. No acute fracture or dislocation is evident. There is a iliac artery stent on the right. IMPRESSION: No acute finding. Mild sclerosis of the left SI joint. A small squared density is noted over the upper aspect of the left SI joint of unknown etiology. Dictated by: Stefano Cowan MD 10/14/2019 15:58 Electronically signed by Stefano Cowan MD in [place] 10/14/2019 15:58
== END ==
LOC: SC.PAIN 11:51 → RAD 12:42
PROVIDERS: PCP Emergency Medicine; Visit Provider Clinical Nurse Specialist Family Health
DX: M54.5 Low back pain (principal); M79.605 Pain in left leg; M79.604 Pain in right leg
CPT/HCPCS: 72202; 99212

== ENCOUNTER → 2019-10-28 09:27 | Outpatient (POV) | payer MEDICARE, MEDICAID, SELFPAY ==
[2019-10-28 09:32] VITALS: BP 164/71; PULSE 86; RESP 18; O2SAT 99; BMI 32.8
--- NOTE | 2019-10-28 11:25 | HMH.PAINSOAP ---
[facility] Pain Management SOAP Note Subjective:: Patient is a pleasant 58-year-old white female who presents today for follow-up after a SI stabilization procedure. Patient is very tearful today. She is crying and having a difficult time dealing with her pa. Patient is being treated for chronic left sacroiliitis. Patient says her sister had a stroke this week and was transferred from [facility] to [facility]. Patient says that she has been walking from the drop-off with the shuttle bus to her sister's room with a walker. She says her pain has progressively gotten worse to the point that she is unable to walk more than 10 feet without having to sit on the walker. She says that her pain is severe and much worse in comparison to her pain before having the SI stabilization procedure. She says that the pain is now radiating from her low back area into her left buttock and down her entire left leg. She says she has numbness and tingli into her left great and second toe and Medial aspect of her left foot.. She says there is also numbness and tingling to Dr. Luevano has reviewed this note and agrees with this plan of care. This note was dictated using voice recognition software and make contain errors or omissions. Patient has contacted the clinic multiple times. She has taken steroids orally, but says she got no relief. She is asking for oral opiates today to get some relief. Patient says that she is not taken any type of oral opiates for more than 10 years and, they make her severely nauseous, however, she says she is willing to try anything to get some relief today. She also says she has taken muscle relaxers and has gotten no relief. Patient says she is continuing to take diclofenac twice daily, as well as Tylenol and ibuprofen every 8 hours. She rates her pain a 10 out of 10 today. Review of Systems General: No recent weight changes, no fever, no sleep disturbances Respiratory: No cough, no shortness of air, no recurring pulmonary infections Cardiovascular/peripheral vascular: No chest pain, no palpitations, no edema, no shortness of breath Gastrointestinal: No new onset incontinence, normal bowel movements reported Genitourinary: No new onset incontinence Musculoskeletal: Low back pain, left buttock pain, left leg pain, left foot pain Psychiatric: Normal mood/affect Neurological: [Denies weakness in extremities], [denies balance issues] Objective:: Physical exam General: Alert and oriented x3, no acute distress, pleasant and cooperative, lumbar Lungs: Respirations even and unlabored, symmetrical chest expansion Eyes: PERRL Musculoskeletal: Flexion and extension of [] spine somewhat guarded secondary to pain, deep tendon reflexes normal, strength in upper and lower extremities [5/5], [abnormal gait noted] Neurological: Speech clear, concrete carpenter equal, no gross sensory deficit Assessment:: Left sacroiliitis, low back pain, lumbar radiculopathy symptoms Plan:: After further discussion with Dr. Luevano, the patient may benefit from a lumbar epidural steroid injection at L4-L5. She is not on anticoagulation therapy. We will schedule her for the injection and see her back in the clinic afterwards to reassess her symptoms. The patient has been educated on taking ibuprofen with diclofenac. Patient says that she will stop taking ibuprofen and continue with diclofenac only. She will continue with a home stretching program. She has been instructed to contact the clinic if she has any concerns before next appointment. Dr. Luevano has reviewed this note and agrees with this plan of care. This note was dictated using voice recognition software and make contain errors or omissions. [facility] History I have reviewed the patient's past medical history: Yes Medical History: Reports:: Anxiety, Cancer, Chronic Obstructive Pulmonary Disease (COPD), Depression, Gastroesophageal Reflux Disease(GERD), Hypertension, Peripheral Artery Disease,
== END ==
PROVIDERS: PCP Emergency Medicine; Visit Provider Clinical Nurse Specialist Family Health
DX: M46.1 Sacroiliitis, not elsewhere classified (principal); M54.5 Low back pain; M54.16 Radiculopathy, lumbar region
CPT/HCPCS: 99212

== ENCOUNTER → 2019-12-08 09:56 | Outpatient (POV) | payer MEDICARE, MEDICAID, SELFPAY ==
[2019-12-08 10:28] VITALS: BP 109/82; PULSE 93; RESP 18; O2SAT 99; BMI 31.3
--- NOTE | 2019-12-08 12:09 | HMH.PAINSOAP ---
[facility] Pain Management SOAP Note Subjective:: Patient is pleasant 59-year-old white female who presents today for follow-up. Patient is having quite a bit of left SI joint pain. Patient had a corner lock fusion in that area. Patient's x-rays show good placement of the implant. Patient had an epidural steroid injection which was not beneficial for her. She rates her pain a 7 out of 10. ROS General: no recent weight change, no fever, no sleep disturbances Respiratory: no cough, no shortness of air, no recurring pulmonary infections Cardiovascular/Peripheral Vascular: No chest pain, No palpitations, no edema, no shortness of breath. Gastrointestinal: no new onset incontinence, normal bowel movements reported Genitourinary: no new onset incontinence Musculoskeletal: Left SI joint pain Psychiatric: normal mood/ affect Neurological: [denies new onset weakness in extremities], [denies new onset balance issues] Objective:: Physical Exam General: Alert and oriented x3, no acute distress, pleasant and cooperative, [on room air] Lungs: Resps E/U, Symmetrical chest expansion, Eyes: PERRL Musculoskeletal: Flexion and extension of lumbar spine somewhat guarded secondary to pain, deep tendon reflexes normal, strength in upper and lower extremities [5/5], [abnormal gait noted] Neurological: speech clear, blood bank technologist equal, no gross sensory deficits Assessment:: Chronic sacroiliitis, pains status post corner lock fusion Plan:: We will do a diagnostic SI joint injection for the patient tomorrow to see if it is truly SI joint pain. If so we will try to manage the symptomology until the bone graft is healed. If not patient would benefit potentially from an MRI of her low back. Dr. Luevano has reviewed this note and agrees with this plan of care. This note was dictated using voice recognition software and may contain errors or omissions [facility] History I have reviewed the patient's past medical history: Yes Medical History: Reports:: Anxiety, Cancer, Chronic Obstructive Pulmonary Disease (COPD), Depression, Gastroesophageal Reflux Disease(GERD), Hypertension, Peripheral Artery Disease, Peripheral Vascular Disease Denies:: Diabetes Mellitus Type 1, Diabetes Mellitus Type 2, Internal Pacemaker, MRSA, Seizures *Have you ever received a pneumonia vaccine?: Yes *Have you received a flu vaccine this season?: Yes Other Medical History: Denies: Blood Transfusion Reaction Other Surgeries: Yes: , Tubal Ligation, Other. No: Pacemaker Amputation: No Fractures: Yes - *Social History Smoking Status: Current every day smoker Tobacco Type: cigarettes # Packs/Day (cigarettes): 1 #Yrs smoked (if former smoker): 41 Alcohol Intake: never Alcohol Intake Frequency:: other Substance Use Type: denies use *Occupational Status:: other Housing: house Household Members: children, none *Travel in the last 8 weeks: None - Psychiatric History Pschychiatric History:: Reports:: Anxiety, Depression Family Hx:: Coronary Artery Disease, Diabetes
== END ==
PROVIDERS: PCP Emergency Medicine; Visit Provider Clinical Nurse Specialist Family Health
DX: M46.1 Sacroiliitis, not elsewhere classified (principal); G89.18 Other acute postprocedural pain; Z72.0 Tobacco use; J44.9 Chronic obstructive pulmonary disease, unspecified; I10 Essential (primary) hypertension; I73.9 Peripheral vascular disease, unspecified
CPT/HCPCS: 99212

== ENCOUNTER → 2019-12-16 10:47 | Outpatient (POV) | payer MEDICARE, SELFPAY ==
[2019-12-16 10:55] VITALS: BP 148/62; PULSE 92; RESP 18; O2SAT 99; BMI 31.3
--- NOTE | 2019-12-16 11:50 | P.CONS_ITS ---
[facility] Pain Management SOAP Note Subjective:: Patient is a pleasant 59-year-old white female who presents today for follow-up after diagnostic SI joint block. Patient got relief temporarily from her SI joint block however her pain has returned. Patient did get more relief than her lumbar epidural steroid injection. Patient rates her pain a 9 out of 10 she is having difficulty walking. Patient did not have an acute fracture we took a picture of her pelvis however I do believe an MRI may be warranted. The patient's pain is not typical for this amount of time postsurgical. An MRI might be warranted to ensure everything is well with the bone graft. Patient has been on multiple anti-inflammatories with no relief. We will start her on t ramadol. ROS General: no recent weight change, no fever, no sleep disturbances Respiratory: no cough, no shortness of air, no recurring pulmonary infections Cardiovascular/Peripheral Vascular: No chest pain, No palpitations, no edema, no shortness of breath. Gastrointestinal: no new onset incontinence, normal bowel movements reported Genitourinary: no new onset incontinence Musculoskeletal: SI joint pain Psychiatric: normal mood/ affect, [denies depression], [denies anxiety] Neurological: [denies new onset weakness in extremities], [denies new onset balance issues] Objective:: Physical Exam General: Alert and oriented x3, no acute distress, pleasant and cooperative, [on room air] Lungs: Resps E/U, Symmetrical chest expansion, Eyes: PERRL Musculoskeletal: Flexion and extension of lumbar spine somewhat guarded secondary to pain, deep tendon reflexes normal, strength in upper and lower extremities [5/5], [abnormal gait noted] positive Philip's test SI joint compression test and Dionte test on the left side Neurological: speech clear, sap bw bi developer equal, no gross sensory deficits Assessment:: Chronic sacroiliitis, post surgery SI joint fusion Plan:: We will order a left SI joint MRI to help determine if there is any issues with the graft and implant. We will start her on tramadol 50 mg 1 p.o. 3 times daily. I will follow-up with her after this reassess her symptoms at that time she is been instructed to call the office if she has any issues prior to her next appointment. Dr. Luevano has reviewed this note and agrees with this plan of care. This note was dictated using voice recognition software and may contain errors or omissions [facility] History I have reviewed the patient's past medical history: Yes Medical History: Reports:: Anxiety, Chronic Obstructive Pulmonary Disease (COPD), Depression, Gastroesophageal Reflux Disease(GERD), Hypertension, Peripheral Artery Disease, Peripheral Vascular Disease Denies:: Cancer, Diabetes Mellitus Type 1, Diabetes Mellitus Type 2, Internal Pacemaker, MRSA, Seizures *Have you ever received a pneumonia vaccine?: Yes *Have you received a flu vaccine this season?: Yes Other Medical History: Denies: Blood Transfusion Reaction Other Surgeries: Yes: , Tubal Ligation, Other. No: Pacemaker Amputation: No Fractures: Yes - *Social History Smoking Status: Current every day smoker Tobacco Type: cigarettes # Packs/Day (cigarettes): 1 #Yrs smoked (if former smoker): 41 Alcohol Intake: never Alcohol Intake Frequency:: other Substance Use Type: denies use *Occupational Status:: other Housing: house Household Members: children, none *Travel in the last 8 weeks: None - Psychiatric History Pschychiatric History:: Reports:: Anxiety, Depression Family Hx:: Coronary Artery Disease, Diabetes
== END ==
PROVIDERS: PCP Emergency Medicine; Visit Provider Clinical Nurse Specialist Family Health
DX: M46.1 Sacroiliitis, not elsewhere classified (principal); Z87.39 Personal history of other diseases of the musculoskeletal system and connective tissue; Z98.890 Other specified postprocedural states; Z72.0 Tobacco use
CPT/HCPCS: 99212

== ENCOUNTER → 2019-12-23 13:30 | Outpatient (CLI) | payer MEDICARE, SELFPAY ==
--- NOTE | 2019-12-23 13:35 | MR_ITS ---
PROCEDURE: MR PELVIS WO CON CLINICAL INDICATION: SI JOINT PAIN Sacroiliac joint pain, prior SI surgery, low back pain with left leg pain numbness and tingling COMPARISON: XR SACROILIAC JOINT BI MIN 3V from 10/14/2019 TECHNIQUE: Routine multiplanar multi echo sequences are performed without gadolinium enhancement. FINDINGS: There are mild osteoarthritic changes of the SI joints with minimal spurring. A small metallic device is noted in the superior aspect of the left SI joint on the radiograph. This shows decreased T1 and T2 signal with some minimal surrounding edema. There is some slight increase T2 signal along the iliac portion of the left SI joint. Small amount fluid signal intensity is present within the subcutaneous tissues just dorsal to the left SI joint which could be related to the recent surgery. No obvious insufficiency fracture. No destructive process. No underlying soft tissue mass in the pelvis. The overlying muscles have an unremarkable appearance. IMPRESSION: 1. Postsurgical changes with implantable metallic device along the posterior aspect of the left SI joint with some minimal surrounding edema 2. Minimal amount of edema along the iliac portion of the left SI joint superiorly. 3. Small fluid collection posterior to the left SI joint which may be postsurgical/small seroma. 4. 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 Dictated by: Stefano Cowan MD 12/25/2019 10:24 Electronically signed by Stefano Cowan MD in [place] 12/25/2019 10:24
== END ==
PROVIDERS: PCP Emergency Medicine; Visit Provider Clinical Nurse Specialist Family Health
DX: M53.3 Sacrococcygeal disorders, not elsewhere classified (principal)
CPT/HCPCS: 72195

== ENCOUNTER → 2019-12-29 10:21 | Outpatient (POV) | payer MEDICARE, MEDICAID, SELFPAY ==
[2019-12-29 10:42] VITALS: BP 111/40; PULSE 86; RESP 18; O2SAT 98; BMI 31.3
--- NOTE | 2019-12-29 11:45 | HMH.PAINSOAP ---
[facility] Pain Management SOAP Note Subjective:: Patient is a pleasant 59-year-old white female who presents today for follow-up after a right SI joint stabilization procedure. Patient is continuing severe low back pain. She underwent the SI stabilization procedure and October. She has not gotten any relief since the procedure. She has had SI injections as well as epidural steroid injections with little to no relief. Patient rates her pain a 7 out of 10 today. She is very tearful. She says that she is not getting any type of relief. She reports the pain to be in her left low back area with radiation into her left hip and left groin. She says the pain does intermittently travel down her left leg as well. She says that she is not getting any relief with [id number] anti-inflammatories or home stretching program. She is also taking tramadol 50 mg 1 tablet p.o. 3 times daily and gabapentin as prescribed by her primary care provider. Review of Systems General: No recent weight changes, no fever, no sleep disturbances Respiratory: No cough, no shortness of air, no recurring pulmonary infections Cardiovascular/peripheral vascular: No chest pain, no palpitations, no edema, no shortness of breath Gastrointestinal: No new onset incontinence, normal bowel movements reported Genitourinary: No new onset incontinence Musculoskeletal: Left low back pain, left hip pain, left leg pain Psychiatric: Normal mood/affect Neurological: [Denies weakness in extremities], [denies balance issues] Objective:: Physical exam General: Alert and oriented x3, no acute distress, pleasant and cooperative, [on room air] Lungs: Respirations even and unlabored, symmetrical chest expansion Eyes: PERRL Musculoskeletal: Flexion and extension of lumbar spine somewhat guarded secondary to pain, deep tendon reflexes normal, strength in upper and lower extremities [5/5], [abnormal gait noted] Neurological: Speech clear, patent searcher equal, no gross sensory deficit Assessment:: Chronic sacroiliitis, post surgery SI joint fusion Plan:: Patient and I had a very long discussion concerning her options. She is continuing to have pain post. She has been very tearful and very emotional at each visit. The patient and I did discuss possible medications to help with her anxiety. She will discuss this with her primary care provider. At this point, the patient and I have discussed possible spinal cord stimulation. She would like to proceed with this. If the patient does not get any relief following the spinal cord stimulator we also discussed possible intrathecal pain therapy. We will proceed with a psychological evaluation for possible intrathecal therapy for spinal cord stimulator therapy. We will see him back in the clinic after her psychological evaluation to reassess her symptoms. She has been instructed to contact the clinic if she has any concerns before her next appointment. Dr. Luevano has reviewed this note and agrees with this plan of care. This note was dictated using voice recognition software and make contain errors or omissions. [facility] History I have reviewed the patient's past medical history: Yes Medical History: Reports:: Anxiety, Chronic Obstructive Pulmonary Disease (COPD), Depression, Gastroesophageal Reflux Disease(GERD), Hypertension, Peripheral Artery Disease, Peripheral Vascular Disease Denies:: Cancer, Diabetes Mellitus Type 1, Diabetes Mellitus Type 2, Internal Pacemaker, MRSA, Seizures *Have you ever received a pneumonia vaccine?: Yes *Have you received a flu vaccine this season?: Yes Other Medical History: Denies: Blood Transfusion Reaction Other Surgeries: Yes: , Tubal Ligation, Other. No: Pacemaker Amputation: No Fractures: Yes - *Social History Smoking Status: Current every day smoker Tobacco Type: cigarettes # Packs/Day (cigarettes): 1 #Yrs smoked (if former smoker): 41 Alcohol Intake: never Alcohol Intake Frequency:: other
== END ==
PROVIDERS: PCP Emergency Medicine; Visit Provider Clinical Nurse Specialist Family Health
DX: M46.1 Sacroiliitis, not elsewhere classified (principal)
CPT/HCPCS: 99212

== ENCOUNTER 2020-02-19 14:09 | Emergency (ER) | payer MEDICARE, SELFPAY ==
[2020-02-19 14:13] VITALS: BP 160/77; PULSE 111; RESP 26; TEMP 37.1; O2SAT 89; BMI 31.6
--- NOTE | 2020-02-19 14:26 | XR_ITS ---
PROCEDURE: XR CHEST PORTABLE CLINICAL HISTORY: cough/respiratory symptoms COMPARISON: CXR CHEST(2 VIEWS-NOT PORTABLE) from 05/27/2017 XR CHEST AP from 07/13/2019 CT ANGIO CHEST from 07/13/2019 XR CHEST 2V from 11/08/2019 FINDINGS: The cardiomediastinal silhouette and pulmonary vascularity are within normal limits. The lungs are clear without infiltrates, suspicious nodules, or pleural effusions. No acute bony abnormalities. IMPRESSION: No acute findings. Dictated by: Stefano Cowan MD 02/19/2020 15:06 Electronically signed by Stfeano Cowan MD in [facility] 02/19/2020 15:06
[2020-02-19 14:39] LABS: Basophils % 0.4 % (0.1-2.0); Eosinophils # 0.1 K/mm3 (0.0-0.4); Eosinophils % 0.7 % (0.1-12.0); Hematocrit 40.5 % (37.0-47.0); Hemoglobin 13.1 g/dL (12.2-16.2); Lymphocytes # 1.6 K/mm3 (0.7-4.5); Lymphocytes % 13.9 % (10-50); Mean Corpuscular HGB Conc 32.2 g/dL (31.8-35.4); Mean Corpuscular Hemoglobin 32.7 pg (27.0-31.2); Mean Corpuscular Volume 101.3 fl (81-99); Mean Platelet Volume 9.9 fl (7.4-10.4); Monocytes # 0.8 K/mm3 (0.1-1.0); Monocytes % 7.2 % (1.7-9.3); Neutrophils % 77.7 % (37.0-80.0); Platelet Count 228 K/mm3 (142-424); Red Cell Distribution Width 14.6 % (11.5-17.5); White Blood Count 11.6 K/mm3 (4.8-10.8)
--- NOTE | 2020-02-19 14:39 | HMH.COUGH ---
Cough Clinic HPI - History of Present Illness Complaint:: Chronic lung disease. Worsening shortness of breath and cough HPI:: The patient has chronic lung disease. She is a smoker. She uses a nebulizer. Her cough and congestion has been worse over the past 5 days. She is a patient Dr. Gonzales. She has not seen him in the office. She has used her nebulizer. Her sputum has yellow-green color. She has had some low-grade fever. She uses nasal O2 at night. Onset (ago): day(s) Severity: similar to prior episodes Treatments prior to arrival: other (She used her nebulizer early this morning) Home Medications: Home Medications Medication Instructions Recorded Confirmed Type albuterol sulfate 2.5 mg INHALATION TID ml 11/26/17 02/19/20 History aspirin 81 mg tablet,delayed 81 mg PO DAILY 06/25/18 02/19/20 History release Diclofenac Sodium [Diclofenac 75mg 75 mg PO BID 05/13/19 02/19/20 History Tab] albuterol sulfate 90 mcg/actuation 2 puff INHALATION Q6H #18 g 10/06/19 02/19/20 Rx aerosol inhaler Cyclobenzaprine HCl [Flexeril 10mg 10 mg PO TID PRN #15 tab 10/07/19 02/19/20 Rx tablet] budesonide-formoterol HFA 160 2 puff INHALATION BID #1 device 10/07/19 02/19/20 Rx mcg-4.5 mcg/actuation aerosol inhaler Escitalopram Oxalate See Rx Instructions .ROUTE .COMPLEX 12/09/19 02/19/20 History Ipratropium/Albuterol Sulfate 3 ml IH Q4H 12/09/19 02/19/20 History [Duoneb 3mL neb] Methocarbamol [Robaxin 500mg Tab*] 500 mg PO TID PRN #90 tab 12/09/19 02/19/20 Rx clonazepam 0.5 mg tablet 0.5 mg PO TID #90 tab 01/05/20 02/19/20 Rx gabapentin 800 mg tablet 800 mg PO TID #90 tab 01/05/20 02/19/20 Rx lovastatin 20 mg tablet See Rx Instructions .ROUTE 02/02/20 02/19/20 Rx .COMPLEX #90 tab Cefdinir [Omnicef 300mg Capsule] 300 mg PO BID #20 cap 02/19/20 Rx Celecoxib [Celebrex 200mg cap] 200 mg PO DAILY 02/19/20 02/19/20 History Omeprazole See Rx Instructions .ROUTE .COMPLEX 02/19/20 02/19/20 History Tramadol HCl [Tramadol 50mg 50 mg PO TID 02/19/20 02/19/20 History Tab] Tramadol HCl [Tramadol 50mg 50 mg PO TID 02/19/20 02/19/20 History Tab] levoFLOXacin [Levaquin 500mg 500 mg PO DAILY 02/19/20 02/19/20 History tab] predniSONE [Deltasone 10mg tablet] 10 mg PO BID 02/19/20 02/19/20 History predniSONE [Deltasone 20mg 20 mg PO BID 02/19/20 02/19/20 History tablet] Allergies/Adverse Reactions: Allergies Allergy/AdvReac Type Severity Reaction Status Date / Time tetanus and diphtheria Allergy Severe I-HIVES Verified 02/19/20 14:13 toxoids [TETANUS & DIPHTHERIA TOXOIDS] atorvastatin AdvReac Intermediate Headache Verified 02/19/20 14:13 Cough Clinic Triage - Symptoms Fever History: Yes Chills: Yes Myalgia: Yes Nasal Drainage: Yes Sore Throat: Yes Productive Cough: Yes Non-productive Cough: No Ear or Sinus Pain: No Joint Pain: No Chest Pain: No Rash: No Shortness of Breath: Yes Nausea or Vomitting: No Headache: Yes Abdominal Pain: No Diarrhea: No - Exposure History Foreign Travel: No Direct Contact with COVID-19 Patient: No - Risk Factors Greater than 60 Years Old: No COPD: Yes Diabetes: No Heart Disease: No Home Oxygen Use: Yes (2) Chronic Renal Disease: No Chronic Liver Disease: No Neurologic/Neurodevelopmental/intellectual disability: No Other Chronic Diseases: No If Female, currently : No Current Smoker: Yes Former Smoker: No [facility] History I have reviewed the patient's past medical history: Yes Medical History: Reports:: Anxiety, Chronic Obstructive Pulmonary Disease (COPD), Depression, Gastroesophageal Reflux Disease(GERD), Hypertension, Peripheral Artery Disease, Peripheral Vascular Disease Denies:: Cancer, Diabetes Mellitus Type 1, Diabetes Mellitus Type 2, Internal Pacemaker, MRSA, Seizures Other Medical History: Denies: Blood Transfusion Reaction Comment: emphysema,depression,DDD Laterality Cases: Left: Other
[2020-02-19 14:40] LABS: Basophils # 0.1 K/mm3 (0-0.2)
[2020-02-19 15:19] LABS: Adenovirus,PCR Not Detected (NotDetected); Bordetella Pertussis Not Detected (NotDetected); Chlamydophila Pneumoniae, PCR Not Detected (NotDetected); Coronavirus 229E Not Detected (NotDetected); Coronavirus NL63 Not Detected (NotDetected); Coronavirus OC43 Not Detected (NotDetected); Coronovirus HKU1,PCR Not Detected (NotDetected); Human Metapneumovirus Not Detected (NotDetected); Influenza A, PCR Not Detected (NotDetected); Influenza AH1, 2009 Not Detected (NotDetected); Influenza AH1, PCR Not Detected (NotDetected); Influenza AH3,PCR Not Detected (NotDetected); Influenza B, PCR Not Detected (NotDetected); Mycoplasma Pneumoniae, PCR Not Detected (NotDetected); Parainfluenza 1, PCR Not Detected (NotDetected); Parainfluenza 2, PCR Not Detected (NotDetected); Parainfluenza 3, PCR Not Detected (NotDetected); Parainfluenza 4, PCR Not Detected (NotDetected); Respiratory Syncytial Virus Not Detected (NotDetected); Rhinovirus/Enterovirus Not Detected (NotDetected)
[2020-02-19 15:44] VITALS: BP 160/77; PULSE 100; RESP 22; TEMP 37.1; O2SAT 92
[2020-02-20 18:04] LABS: Covid-19 Nasal PCR Sendout Lex NOT DETECTED
--- NOTE | 2020-02-20 18:05 | PC.NURSE ---
Notified patient of NEGATIVE COVID results. Attempted to notify Dr Mcmahon as he was ordering physician of COVID swab, no answer, left message. Notified Dr Rob and results fax[facility].
== END 2020-02-19 15:40 | disposition home or self-care (01) ==
PROVIDERS: Emergency Provider Family Medicine; PCP Emergency Medicine
DX: J44.1 Chronic obstructive pulmonary disease with (acute) exacerbation (principal); F41.8 Other specified anxiety disorders; K21.9 Gastro-esophageal reflux disease without esophagitis; I10 Essential (primary) hypertension; F17.210 Nicotine dependence, cigarettes, uncomplicated; Z79.899 Other long term (current) drug therapy; Z88.7 Allergy status to serum and vaccine; Z88.8 Allergy status to other drugs, medicaments and biological substances
CPT/HCPCS: 36415; 71045; 85025; 87275; 87276; 87486; 87581; 87633; 87798; 99201; 99213

== ENCOUNTER → 2020-03-01 09:53 | Outpatient (POV) | payer MEDICARE, SELFPAY ==
[2020-03-01 10:17] VITALS: BP 105/69; PULSE 89; RESP 18; TEMP 36.6; O2SAT 98; BMI 31.3
--- NOTE | 2020-03-01 12:18 | HMH.PAINSOAP ---
[facility] Pain Management SOAP Note Subjective:: Patient is a pleasant 59-year-old white female who presents today for follow-up. Patient had a right SI joint stabilization procedure and since then has had quite severe pain in that area. Her MRI did not show anything acute. Patient is tried and failed injections, anti-inflammatories, steroids, gabapentin, epidural injections. Patient has a unique pain and is unable to tolerate things in that area such as clothing. She will have swelling and discoloration in the area. Patient and I have discussed neurostimulator and she is interested in pursuing this. I do believe it would be of benefit to her. ROS General: no recent weight change, no fever, no sleep disturbances Respiratory: no cough, no shortness of air, no recurring pulmonary infections Cardiovascular/Peripheral Vascular: No chest pain, No palpitations, no edema, no shortness of breath. Gastrointestinal: no new onset incontinence, normal bowel movements reported Genitourinary: no new onset incontinence Musculoskeletal: Left SI joint pain Psychiatric: normal mood/ affect Neurological: [denies new onset weakness in extremities], [denies new onset balance issues] Objective:: Physical Exam General: Alert and oriented x3, no acute distress, pleasant and cooperative, [on room air] Lungs: Resps E/U, Symmetrical chest expansion, Eyes: PERRL Musculoskeletal: Flexion and extension of lumbar spine somewhat guarded secondary to pain, deep tendon reflexes normal, strength in upper and lower extremities [5/5], [abnormal gait noted] Neurological: speech clear, inspector floor sub assembly equal, no gross sensory deficits Assessment:: CRPS, sacroiliitis, postsurgical SI joint fusion Plan:: We will schedule patient for psychological evaluation if she is appropriate we will move forward with a [employer] neurostimulator trial. It is severely impacting her life and her ability to care for herself and others. I will follow-up with the patient after reassess her symptoms at that time. She is not on any anticoagulation therapy. We specifically discussed risk factors for Covid-19 including age, heart or lung disease, diabetes, immunosuppression and travel. We also discussed that NSAIDs may worsen Covid-19 infection symptoms and that they should not be used to treat Covid-19 symptoms. Patient was also informed that corticosteroids in any form oral or injectable will decrease immune response and may increase risk of Covid-[address] Luevano has reviewed this patient's chart and this note and agrees with plan of care. Patient has been instructed to call the office if they have any issues prior to the next appointment. Dr. Luevano has reviewed this note and agrees with this plan of care. This note was dictated using voice recognition software and may contain errors or omissions [facility] History I have reviewed the patient's past medical history: Yes Medical History: Reports:: Anxiety, Chronic Obstructive Pulmonary Disease (COPD), Depression, Gastroesophageal Reflux Disease(GERD), Hypertension, Peripheral Artery Disease, Peripheral Vascular Disease Denies:: Cancer, Diabetes Mellitus Type 1, Diabetes Mellitus Type 2, Internal Pacemaker, MRSA, Seizures *Have you ever received a pneumonia vaccine?: Yes *Have you received a flu vaccine this season?: Yes Other Medical History: Denies: Blood Transfusion Reaction Laterality Cases: Left: Other (SI joint treatment by Dr. Luevano September 2019) Other Surgeries: Yes: , Tubal Ligation, Other. No: Pacemaker Amputation: No Fractures: Yes - *Social History Smoking Status: Current every day smoker Tobacco Type: cigarettes # Packs/Day (cigarettes): 1 #Yrs smoked (if former smoker): 41 Alcohol Intake: never Alcohol Intake Frequency:: other Substance Use Type: denies use *Occupational Status:: other Housing: house Household Members: children, none *Travel in the last 8 weeks: None - Psychiatric History
== END ==
PROVIDERS: PCP Emergency Medicine; Visit Provider Clinical Nurse Specialist Family Health
DX: M46.1 Sacroiliitis, not elsewhere classified (principal); Z98.1 Arthrodesis status
CPT/HCPCS: 99212

== ENCOUNTER → 2020-03-31 16:44 | Outpatient (CLI) | payer MEDICARE, MEDICAID, SELFPAY ==
[2020-03-31 17:29] LABS: Basophils # 0.1 K/mm3 (0-0.2); Basophils % 1.1 % (0.1-2.0); Eosinophils # 0.1 K/mm3 (0.0-0.4); Eosinophils % 0.8 % (0.1-12.0); Hematocrit 47.9 % (37.0-47.0); Lymphocytes # 1.7 K/mm3 (0.7-4.5); Lymphocytes % 20.9 % (10-50); Mean Corpuscular HGB Conc 31.3 g/dL (31.8-35.4); Mean Corpuscular Hemoglobin 31.5 pg (27.0-31.2); Mean Corpuscular Volume 100.8 fl (81-99); Mean Platelet Volume 8.2 fl (7.4-10.4); Monocytes # 0.5 K/mm3 (0.1-1.0); Monocytes % 6.6 % (1.7-9.3); Neutrophils # 5.8 K/mm3 (1.8-7.8); Neutrophils % 70.7 % (37.0-80.0); Platelet Count 265 K/mm3 (142-424); Red Blood Count 4.75 M/mm3 (4.20-5.40); Red Cell Distribution Width 14.5 % (11.5-17.5); White Blood Count 8.1 K/mm3 (4.8-10.8)
[2020-03-31 19:31] LABS: Chloride 96 mmol/L (98-107); Potassium 4.6 mmoL/L (3.5-5.1); Sodium 134 mmol/L (136-145)
[2020-03-31 19:34] LABS: Alanine Aminotransferase 17 U/L (12-78); Albumin Level 4.4 g/dl (3.5-5.0); Albumin/Globulin Ratio 1.6 (1.1-1.8); Alkaline Phosphatase 87 U/L (38-126); Anion Gap 15.6 mEq/L (5-15); Aspartate Amino Transferase 22 U/L (14-36); Bilirubin,Total 0.7 mg/dl (0.2-1.3); Blood Urea Nitrogen 13 mg/dl (7-17); Calcium 9.8 mg/dl (8.4-10.2); Carbon Dioxide 27 mmol/L (22.0-30.0); Cholesterol 246 mg/dl (140-200); Estimated Glomerular Filt Rate 86 ml/min (>60); GFR (African American) 104 ML/MIN (>60); Globulin 2.8 g/dL (1.3-3.2); Glucose 111 mg/dl (74-100); Total Protein,Serum 7.2 g/dl (6.3-8.2); Triglycerides 337 mg/dl (30-150); VLDL Cholesterol 67 mg/dL (0-40)
[2020-03-31 19:35] LABS: HDL Cholesterol 41 mg/dl (40-60)
[2020-03-31 19:46] LABS: Direct LDL Cholesterol 167.08 mg/dL (100-129)
[2020-03-31 19:53] LABS: T4 (Thyroxine) 8.4 ug/dl (5.53-11.0)
[2020-04-01 15:00] LABS: Hemoglobin A1C 5.8 % (4.0-6.0)
[2020-04-02 05:37] LABS: Vitamin B12 245 pg/mL (232-1245)
[2020-04-02 09:29] LABS: Folate 8.7 ng/mL (>3.0); Vitamin D 25 Hydroxy 12.4 ng/mL (30.0-100.0)
== END ==
PROVIDERS: Visit Provider Physician Assistant
DX: I10 Essential (primary) hypertension (principal); D64.9 Anemia, unspecified; R73.09 Other abnormal glucose; E55.9 Vitamin D deficiency, unspecified
CPT/HCPCS: 80053; 80061; 82607; 82652; 82746; 83036; 84436; 85025

== ENCOUNTER → 2020-04-19 13:07 | Outpatient (CLI) | payer MEDICARE, MEDICAID, SELFPAY ==
--- NOTE | 2020-04-19 13:07 | MM_ITS ---
PROCEDURE: MM DIG SCREENING MAMM BI W/CAD Digital Breast Tomosynthesis Included CLINICAL INDICATION: Breast cancer screening There is a history of breast cancer patient's mother. COMPARISON: DIG MAMMO BILAT SCREENING from 07/07/2013 [facility] DIG MAMM-SCREEN GISEL from 07/27/2015 [facility] DIG MAMM-SCREEN GISEL W/CAD from 12/22/2016 TECHNIQUE: Standard CC and MLO images and 3D Tomosynthesis was obtained. R2 CAD reviewed. FINDINGS: The breasts are composed primarily of fat with minimal scattered fibroglandular densities in each breast. There are scattered benign-appearing microcalcifications in each breast. There is stable asymmetric glandular elements upper-outer quadrant left breast. There are fatty replaced nodes in both axilla. There is no suspicious lesion and no suspicious microcalcifications. IMPRESSION: Fibrofatty parenchyma with no suspicious lesions seen BI-RAD Category: 2 Benign Finding(s) FOLLOW-UP: 1YR 1 Year Follow-up (A letter has been sent to the patient regarding results of the study.) Dictated by: Dr. Car Cole MD 04/20/2020 11:[address] Car Cole MD in [place] 04/20/2020 11:01
== END ==
PROVIDERS: PCP Physician Assistant; Visit Provider Emergency Medicine
DX: Z12.31 Encounter for screening mammogram for malignant neoplasm of breast (principal)
CPT/HCPCS: 77063; 77067

== ENCOUNTER → 2020-04-26 14:45 | Outpatient (POV) | payer MEDICARE, MEDICAID, SELFPAY ==
--- NOTE | 2020-04-26 15:31 | HMH.PAINSOAP ---
[facility] Pain Management SOAP Note Subjective:: She is pleasant 59-year-old white female who presents today for follow-up. She had a left SI joint stabilization procedure and since then has had quite severe pain in the area her MRI shows nothing acute. She is tried and failed injective therapy. Anti-inflammatory steroids gabapentin and epidural injections. She did get temporary relief from her epidural injections. We discussed both a neurostimulator and an intrathecal pain pump. She is had an appropriate psychological evaluation. We will move forward with a intrathecal pain pump trial. She is not on any oral opioids. She rates her pain an 8 out of 10. ROS General: no recent weight change, no fever, no sleep disturbances Respiratory: no cough, no shortness of air, no recurring pulmonary infections Cardiovascular/Peripheral Vascular: No chest pain, No palpitations, no edema, no shortness of breath. Gastrointestinal: no new onset incontinence, normal bowel movements reported Genitourinary: no new onset incontinence Musculoskeletal: Back pain, left leg pain Psychiatric: normal mood/ affect, [denies depression], [denies anxiety] Neurological: [denies new onset weakness in extremities], [denies new onset balance issues] Objective:: Physical Exam General: Alert and oriented x3, no acute distress, pleasant and cooperative, [on room air] Lungs: Resps E/U, Symmetrical chest expansion, Eyes: PERRL Musculoskeletal: Flexion and extension of lumbar spine somewhat guarded secondary to pain, deep tendon reflexes normal, strength in upper and lower extremities [5/5], [abnormal gait noted] Neurological: speech clear, radiation safety officer equal, no gross sensory deficits Assessment:: Degenerative disc disease lumbar spine lumbar radiculopathy, postsurgical SI joint fusion, sacroiliitis Plan:: We will move forward with a intrathecal pain pump trial. She has been instructed to call the office if she has any issues prior to next appointment. She is not on any anticoagulation therapy. I will follow-up with her after this reassess her symptoms at that time. Dr. Luevano has reviewed this note and agrees with this plan of care. This note was dictated using voice recognition software and may contain errors or omissions [facility] History I have reviewed the patient's past medical history: Yes Medical History: Reports:: Anxiety, Chronic Obstructive Pulmonary Disease (COPD), Depression, Gastroesophageal Reflux Disease(GERD), Hypertension, Peripheral Artery Disease, Peripheral Vascular Disease Denies:: Cancer, Diabetes Mellitus Type 1, Diabetes Mellitus Type 2, Internal Pacemaker, MRSA, Seizures *Have you ever received a pneumonia vaccine?: No *Have you received a flu vaccine this season?: Yes Other Medical History: Denies: Blood Transfusion Reaction Laterality Cases: Left: Other Other Surgeries: Yes: , Tubal Ligation, Other. No: Pacemaker Amputation: No Fractures: Yes - *Social History Smoking Status: Current every day smoker Tobacco Type: cigarettes # Packs/Day (cigarettes): 1 #Yrs smoked (if former smoker): 41 Alcohol Intake: never Alcohol Intake Frequency:: other Substance Use Type: denies use *Occupational Status:: other Housing: house Household Members: children, none *Travel in the last 8 weeks: None - Psychiatric History Pschychiatric History:: Reports:: Anxiety, Depression Family Hx:: Coronary Artery Disease, Diabetes
[2020-04-26 15:32] VITALS: BP 100/68; PULSE 52; RESP 18; O2SAT 98; BMI 31.3
== END ==
PROVIDERS: PCP Physician Assistant; Visit Provider Clinical Nurse Specialist Family Health
DX: M51.16 Intervertebral disc disorders with radiculopathy, lumbar region (principal); M46.1 Sacroiliitis, not elsewhere classified
CPT/HCPCS: 99212

== ENCOUNTER → 2020-05-03 13:11 | Outpatient (CLI) | payer MEDICARE, MEDICAID, SELFPAY ==
--- NOTE | 2020-05-03 13:11 | CT_ITS ---
PROCEDURE: CT LUNG SCREENING CLINICAL INDICATION: Smoker Forty pack-year smoking history, asymptomatic for lung cancer COMPARISON: LDCTLCAS LDCT FOR LUNG CA SCREEN from 04/23/2017 CT ANGIO CHEST from 07/13/2019 TECHNIQUE: The exam was performed on a GE Light Speed [address] scanner using 2.90 mGy CTDI. A low dose helical CT CHEST was performed on a multi-detector scanner. All CT scans at the facility use one or more dose reduction, viz: automated exposure control, ma/kV adjustment per patient size (including targeted exams where dose is matched to indication, i.e. head), or iterative reconstruction technique. The LDCT was performed in a facility that meets the criteria for the screening program. Data regarding this exam was submitted to ACR which is an approved registry. The order for this exam indicates that it came as a result of a lung cancer screening counseling shard decision-making visit that included all the elements required of such a visit including smoking cessation. The radiologist interpreting this exam meets the CMS criteria for the LDCT lung cancer screening program. The exam is reported using the Lung-RADS classification scale and reported to the ACR registry. NOTE: This study was performed for the specific purposes of lung cancer screening and is not an alternative to diagnostic chest CT. RADIATION DOSE: CTDI vol(CT dose Index-volume) = 2.90mG DLP (Dose Length Product) = 106.03 mGcm Lung Rads Category: FINDINGS: COPD with scattered areas of scarring. Mild bronchial thickening. Old granulomatous disease. 3 mm nodule along the right minor fissure laterally not readily apparent on the previous exam. 6 mm noncalcified nodule left lower lobe image 54 series 4 not significantly changed. The OTHER FINDINGS: Coronary artery calcifications IMPRESSION: Lung rads category 2, benign Recommend annual LD CT Other findings as described above Dictated by: Stefano Cowan MD 05/10/2020 09:31 Electronically signed by Stefano Cowan MD in [facility] 05/10/2020 09:31
== END ==
PROVIDERS: PCP Physician Assistant; Visit Provider Physician Assistant
DX: Z87.891 Personal history of nicotine dependence; Z12.2 Encounter for screening for malignant neoplasm of respiratory organs
CPT/HCPCS: 94060; 94640; 94726; 94729

== ENCOUNTER 2020-05-07 08:32 | Day surgery (SDC) | payer MEDICARE, MEDICAID, SELFPAY ==
[2020-05-07 09:06] VITALS: BP 87/40; PULSE 67; RESP 18; TEMP 36.3; O2SAT 93; BMI 31.3
[2020-05-07 09:40] VITALS: BP 133/52; PULSE 65; RESP 18; TEMP 36.8; O2SAT 97
[2020-05-07 09:41] VITALS: BP 135/58; PULSE 65; RESP 18; TEMP 36.9; O2SAT 98
--- NOTE | 2020-05-07 09:45 | P.PCN_ITS ---
- Procedure Date: 05/07/20 Time: 09:45 Anesthesiologist:: Usama Luevano MD Complications:: None Pre-procedure Diagnosis:: Degenerative disc disease of lumbar spine with lumbar radicular symptoms and sacroiliitis Post-procedure Diagnosis:: Same Indications for Procedure:: This patient is a pleasant 59-year-old white female who we have been treating for left-sided sacroiliitis and low back pain with lumbar radicular symptoms. She is status post left SI joint stabilization. She continues to have some pain down her left leg. She is failed all other therapies including injections, oral medications, physical therapy. She has had a successful psychological evaluation. She presents for intrathecal pump trial today to see if this will help with her residual pain symptoms. Procedure Details:: Pain pump trial Informed consent was obtained and the risk and benefits of the procedure was explained to the patient. The patient was taken to the procedure room and placed prone on the procedure table. Patient was prepped and draped in sterile fashion. C-arm fluoroscopy was used to view the lumbar spine. The skin and subcutaneous tissues were anesthetized using lidocaine. I placed a 18-gauge spinal needle into the L4-5 interspace and advanced until clear CSF was obtained. After this intrathecal catheter was inserted and advanced very easily to the L1 vertebral body. The needle was withdrawn. We were able to freely withdraw clear CSF through the catheter. We then injected intrathecal fentanyl single shot bolus of 25 mcg followed by saline and followed by the previous CSF that was withdrawn. The needle and catheter were then removed and a Band-Aid was placed. Patient tolerated the procedure well with no complications. We reevaluated the patient after 30 minutes to 1 hour. She was also reassessed by physical therapy. This patient did get significant relief of her pain symptoms however she still had some pain while walking. She is better however she is not sure she wants to proceed with intrathecal pain pump at this time. She would like to investigate other options including spinal cord stimulation. I will have her talk to the [employer] sales representative here and we will plan on spinal cord stimulator trial to see if this would help better with her pain symptoms. Plan and Disposition:: We will seek approval and plan on spinal cord stimulator trial to see if this helps better with her left leg pain symptoms.
[2020-05-07 11:25] VITALS: BP 98/50; PULSE 78; RESP 16; O2SAT 93
--- NOTE | 2020-05-07 11:48 | PC.NURSE ---
0945-pt returned to by nursing staff. alert and oriented. c/o pain 8 on a scale 0-10. VS-101/45, 68 ,18, 93%. pt offered breakfast tray and accepted. family at bedside. 0955-pt alert and oriented. assisted to reclining chair. no c/o pain. VS-103/59, 69, 18, 93%. tolerated breakfast with no c/o 1010-pt resting in chair. alert and oriented. no c/o pain VS-100/63, 69, 18, 93%. no needs or concerns at this time 1025-pt resting. no c/o pain. VS 90/52, 74, 18, 92%. without needs or concerns at this time. family at bedside 1047-Dr. Luevano at bedside. 1050-pt ambulating independently with nursing staff. Gait steady. rates pain a 6 on scale of 0-10 with ambulation. MD notified. 1100-PT at bedside for evaluation 1111-Dr. Luevano at bedside to discuss options. 1120-pt sitting in chair. family at bedside. VS 95/48, 76, 18, 93%. no c/o pain with sitting.
== END 2020-05-07 11:25 | disposition home or self-care (01) ==
LOC: SC.PAINP 08:33
PROVIDERS: PCP Physician Assistant; Visit Provider Anesthesiology
DX: M51.16 Intervertebral disc disorders with radiculopathy, lumbar region (principal); M46.1 Sacroiliitis, not elsewhere classified; I10 Essential (primary) hypertension; Z72.0 Tobacco use; J44.9 Chronic obstructive pulmonary disease, unspecified; Z99.81 Dependence on supplemental oxygen; Z95.818 Presence of other cardiac implants and grafts; F41.9 Anxiety disorder, unspecified; F32.9 Major depressive disorder, single episode, unspecified; Z85.828 Personal history of other malignant neoplasm of skin; Z79.899 Other long term (current) drug therapy; Z88.8 Allergy status to other drugs, medicaments and biological substances
CPT/HCPCS: 62323; 96365

== ENCOUNTER → 2020-06-14 07:21 | Outpatient (CLI) | payer MEDICARE, MEDICAID, SELFPAY ==
--- NOTE | 2020-06-14 | CA_ITS ---
APPROVED REPORT Exam: Pharmacologic Technologist: Yelena Jiménez Ht: 5 ft 7 in Wt: 200 lbs BSA: 2.02 m2 HR: 66 bpm BP: 95/58 mmHg Indications: Abnormal lung CT, Leg pain, Shortness of Breath Medical History Medications: Omeprazole,,,,, Aspirin,,,,, Lovastatin,,,,, Gabapentin,,,,, Vitamin B12,,,,, Vitamin D3,,,,, Duoneb,,,,, ClonAZEPAM,,,,, Albuterol,,,,, Vitamin D2,,,,, Umeclidinium,,,,, Budesonide,,,,, Stress Test Details Test: LEXISCAN HR Resting HR: 72 bpm Max Heart Rate (APMHR): 161 bpm Max HR Achieved: 88 bpm Target HR (85% APMHR): 136 bpm % of APMHR: 54 Recovery HR: 75 bpm BP Resting BP: 95.0/58.0 mmHg Max BP: 102.0/54.0 mmHg Recovery BP: 99.0/63.0 mmHg ECG Clinical Exercise duration: 04:06 min Highest Stage Achieved: Stress ECG Conclusion Resting ECG: Sinus rhythm Lexiscan portion completed. Patient complained of shortness of breath during peak infusion. Symptoms: No ectopy Arrhythmias/Ectopy: No ectopy ST-T Changes: Less than 1.[address] depression. Conclusion: Images to follow. Test Summary REST 02:51 . . 72 . 95/ 58 . . Stage 1 . . . . . . . Myoview Injected Stage 1 01:00 . . 85 . . . . Stage 2 01:00 . . 85 . 82/ 61 . . Stage 3 01:00 . . 82 . 91/ 64 . . Stage 4 01:00 . . 81 . 93/ 65 . . Stage 4 01:06 . . 79 . 93/ 65 . Stop exercise at 04:06 RECOVERY 01:00 . . 78 . . . . RECOVERY 02:00 . . 79 . 102/ 54 . . RECOVERY 03:00 . . 78 . 95/ 56 . . RECOVERY 04:00 . . 77 . 95/ 56 . . RECOVERY 04:35 . . 76 . 95/ 56 . . Electronically signed by : Justin Holland, 06/14/2020 19:09:15
--- NOTE | 2020-06-14 07:21 | NM_ITS ---
APPROVED REPORT Exam: Nuclear Stress Test Indication: SOB, CAD, High cholesterol, Tobacco use, Family history Patient Location: Outpatient Stress Tech: Yelena Jiménez SC Tech:Sahara Benton, ARRT, RT (R)(N) Ht: 5 ft 7 in Wt: 200 lbs Bra Size: 40D HR: 66 bpm BP: 95/58 mmHg BSA: 2.02 m2 BMI: 31.3 History: SOB, CAD, High cholesterol, Tobacco use, Family history Procedure: Patient received a 0.4 mg of intravenous Lexiscan, resting heart rate 66 bpm, resting blood pressure 95/58 mmHg, with Lexiscan maximum heart rate achived was 91 bpm which is Less than 85 % of the maximum predicted heart rate and blood pressure was 93/65 mmHg. With Lexiscan, patient denied any complaint of chest pain. Electrocardiogram Resting electrocardiogram showed sinus rhythm, with Lexiscan there is less than 1.[address] segment depression noted from the baseline EKG. The EKG portion of the Lexiscan Myoview is nondiagnostic. Cardiac Stress and Resting SPECT Images: Cardiac Stress and Resting SPECT images were obtained using technetium 99m Myoview 31.6 mCi stress and 10.78 mCi at rest. Gated SPECT for the analysis of segmental wall motion and calculation of the ejection fraction also done. Cardiac stress and resting SPECT images show uniform myocardial activity without segmental perfusion abnormality, computer derived ejection fraction is 61% with no regional wall motion abnormality, right ventricle is normal size and contractility. Conclusion: 1. The EKG portion of the Lexiscan Myoview is nondiagnostic. 2. No scintigraphic evidence of reversible ischemia seen, computer derived ejection fraction is 61% with no regional wall motion abnormality, right ventricle is normal size and contractility. 3. Normal Lexiscan Myoview study. Electronically signed by : Justin Holland, 06/14/2020 19:10:56
--- NOTE | 2020-06-14 07:43 | HMH.ITSHM ---
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 []UMECLIDINIUM OMEPRAZOLE GABAPENTIN ESCITALOPRAM CLONAZEPAM BUDESONIDE ASA ALBUTEROL LOVASTATIN VITMAIN D2 VITAMIN B12 VITAMIN D3
--- NOTE | 2020-06-14 08:54 | CA_ITS ---
APPROVED REPORT EXAM: Comprehensive 2D, Doppler, and color-flow Echocardiogram Poster: Otilia Gibson CRT Ht: 5 ft 7 in Wt: 207lbs BSA: 2.05 BP: 143/60 mmHg Indications: COPD, Shortness of Breath, Hyperlipidemia 2D Dimensions LVOT 1.76 cm (M/F) 1.5-2.5 M-Mode Dimensions RVDd 2.89 cm (0.9-2.6) LVDd 4.28 cm (3.5-5.7) LVDs 2.75 cm (3.5-5.7) IVSd 1.50 cm (0.6-1.1) PWd 0.71 cm (0.6-1.1) EF (Teich) 65.60% FS 35.70% EDV (Teich) 82.20 mL ESV (Teich) 28.30 mL LV Diastology E/A Ratio 0.91 Mitral Valve MV A Velocity 76.00 (40-130 cm/s) Left Ventricle Left atrium is mildly enlarged, left ventricle is normal size, mild concentric left ventricular hypertrophy, visually estimated ejection fraction 55% with no regional wall motion abnormality, grade 1 diastolic dysfunction seen without tissue Doppler evidence of raise left atrial pressure. Right Ventricle Right atrium and right ventricle mildly enlarged with normal contractility. Aortic Valve Aortic valve is minimally thickened and fibrosed, there is no aortic stenosis or aortic insufficiency. Mitral Valve Mitral valve is grossly normal, there is mild mitral regurgitation. Tricuspid Valve Tricuspid valve is grossly normal, there is mild tricuspid regurgitation, tricuspid regurgitation jet velocity is inadequate for calculation of the right ventricular systolic pressure. Pulmonic Valve Pulmonic valve is poorly visualized. Great Vessels Aortic root is normal size. Pericardium No significant pericardial effusion noted. Conclusion 1. Mild biatrial enlargement, normal left ventricular size, mild concentric left ventricular hypertrophy, visually estimated ejection fraction 55% with no regional wall motion abnormality, grade 1 diastolic dysfunction seen without tissue Doppler evidence of raise left atrial pressure. 2. Mildly enlarged right ventricle with normal contractility. 3. Mild mitral and tricuspid regurgitation. 4. No significant pericardial effusion noted. Electronically signed by : Justin Holland, 06/14/2020 18:06:12
--- NOTE | 2020-06-14 08:54 | US_ITS ---
APPROVED REPORT Exam Type: Lower Extremity Segmental Pressures Color Specialist: Otilia Gibson CRT Indications Claudication: PAD Current Smoker Stents in the RLE. Risk Factors History of PAD: Right Hypertension Obesity Current Smoker Pressures/Indices Right Indices Left Indices Brachial 110.00 mmHg Brachial 134.00 mmHg Low Thigh 133.00 mmHg 0.99 Low Thigh 59.00 mmHg 0.44 Calf 157.00 mmHg 1.17 Calf 62.00 mmHg 0.46 Ankle(PT) 165.00 mmHg 1.23 Ankle(PT) 68.00 mmHg 0.51 Ankle(DP) 148.00 mmHg 1.10 Ankle(DP) 83.00 mmHg 0.62 Digit 106.00 mmHg 0.79 Digit 48.00 mmHg 0.36 Findings R AMERICO 1.2 L AMERICO 0.5 R TBI 0.8 L TDI 0.4 Diminished WF and pulses in LLE. Conclusion R AMERICO 1.2 L AMERICO 0.5 R TBI 0.8 L TDI 0.4 Diminished WF and pulses in LLE. Normal WF and pulses in RLE. Moderate arterial disease on the left Electronically signed by : Stefano Cowan MD 06/14/2020 15:30:07
== END ==
PROVIDERS: PCP Emergency Medicine; Visit Provider Urology
DX: E78.5 Hyperlipidemia, unspecified (principal); I10 Essential (primary) hypertension; I25.10 Atherosclerotic heart disease of native coronary artery without angina pectoris; I73.9 Peripheral vascular disease, unspecified; J44.9 Chronic obstructive pulmonary disease, unspecified; R06.02 Shortness of breath; Z72.0 Tobacco use
CPT/HCPCS: 78452; 93017; 93306; 93923; A9502; J2785

== ENCOUNTER 2020-06-28 08:13 | Day surgery (SDC) | payer MEDICARE, MEDICAID, SELFPAY ==
[2020-06-28] VITALS (42 sets, daily range): BP systolic 97–155; BP diastolic 52–84; PULSE 67–89; RESP 15–20; TEMP 36.7–37.6; O2SAT 2–99; BMI 32.4
[2020-06-28 09:03] LABS: Basophils % 0.4 % (0.1-2.0); Eosinophils # 0.1 K/mm3 (0.0-0.4); Eosinophils % 1.3 % (0.1-12.0); Hematocrit 43.8 % (37.0-47.0); Hemoglobin 14.6 g/dL (12.2-16.2); Lymphocytes # 1.9 K/mm3 (0.7-4.5); Lymphocytes % 22.7 % (10-50); Mean Corpuscular HGB Conc 33.3 g/dL (31.8-35.4); Mean Corpuscular Hemoglobin 33.1 pg (27.0-31.2); Mean Corpuscular Volume 99.2 fl (81-99); Monocytes # 0.6 K/mm3 (0.1-1.0); Monocytes % 7.1 % (1.7-9.3); Neutrophils # 5.7 K/mm3 (1.8-7.8); Neutrophils % 68.4 % (37.0-80.0); Platelet Count 258 K/mm3 (142-424); Red Blood Count 4.42 M/mm3 (4.20-5.40); Red Cell Distribution Width 14.6 % (11.5-17.5); White Blood Count 8.4 K/mm3 (4.8-10.8)
[2020-06-28 09:05] LABS: Chloride 101 mmol/L (98-107); Sodium 140 mmol/L (136-145)
[2020-06-28 09:08] LABS: Blood Urea Nitrogen 14 mg/dl (7-17); Creatinine Clearance Estimated 128 mL/min (50-200); Estimated Glomerular Filt Rate 86 ml/min (>60); GFR (African American) 104 ML/MIN (>60)
[2020-06-28 09:09] LABS: Calcium 10.2 mg/dl (8.4-10.2); Carbon Dioxide 27 mmol/L (22.0-30.0); Glucose 109 mg/dl (74-100)
[2020-06-28 09:31] LABS: Coronavirus 19 IgG Antibody Negative (Negative); Coronavirus 19 IgM Antibody Negative (Negative)
--- NOTE | 2020-06-28 10:00 | IR_ITS ---
APPROVED REPORT Mint Wafer Depositor: MIO Fink RT (R) PROCEDURES Catheter placed in the abdominal aorta Bilateral iliofemoral angiogram Left femoral arterial access Left retrograde femoral angiogram Stent deployment to the distal abdominal aorta Stent deployment to the ostial proximal right common iliac artery Stent deployment to th ostial proximal left common iliac artery INDICATION Occluded left common iliac artery, AMERICO 0.5, Louisa class III claudication Informed consent was obtained prior to the procedure. COMPLICATIONS None Estimated Blood Loss: less than 10ml TECHNIQUE 1% lidocaine used anesthetize the right groin right femoral artery was accessed via the Salinger technique and the 5 Guamanian sheath was placed in the right femoral artery. Pigtail catheter was advanced into the abdominal aorta and bilateral iliofemoral angiography was performed. Following this 1% lidocaine used anesthetize the left groin and the left femoral artery was accessed via the Salinger technique. A 6 Guamanian sheath was placed in the left femoral artery. Therapeutic heparin was administered after retrograde femoral angiogram. An advantage wire was used to push in a retrograde manner however could not cannulate back into the aorta therefore a rim catheter was advanced into the right groin and then used to cannulate the left common iliac artery. An advantage wire was then used to push through the occlusion. A balloon was then advanced into the left common femoral artery the wire was removed and antegrade angiography was performed. This demonstrated the balloon was in the true lumen the femoral artery. A 7 mm x 60 mm balloon was deployed in the left common iliac artery. Following this it was pulled back and a wire was placed into the aorta via the right groin. An advantage wire was then used to traverse the opening now created in the left common iliac artery. Following this an 8 mm x 57 mm balloon mounted stent was placed in the ostial left common iliac artery and deployed at 10 nilam reducing the stenosis. Wires were then advanced and a 8 mm x 37 mm stent was placed in the abdominal aorta extending to the ostium of the left common iliac artery and an 8 mm x 57 mm balloon mounted stent was then placed in the aorta extending to the right common iliac artery. Both were simultaneously deployed at 10 nilam opening the aorta and giving antegrade flow into the bilateral common iliac arteries. Excellent angiographic results were obtained. At the end of the procedure the apparatus was removed the groin was reprepped gloves were changed sheath was removed good hemostasis was achieved in the right femoral artery using Perclose device. 2 Perclose devices would not capture the left common femoral artery therefore a 6 Guamanian sheath was upsized to a 7 Guamanian sheath patient was transferred to the postop holding area in stable condition for sheath removal ANGIOGRAPHIC RESULTS The distal abdominal aorta is mildly atheromatous The right common iliac artery has a stent in the ostial proximal segment which is widely patent. The distal segment of the common iliac artery is patent. The right internal iliac artery is patent. The right external iliac artery has a stent in its proximal segment which is widely patent. The right common femoral artery has a mid vessel 50% stenosis. The right profunda femoris and right superficial femoral artery are proximally widely patent The left common iliac artery is ostially and proximally occluded. There is reconstitution in the left external iliac artery which extends the left common femoral artery both of which are widely patent. The left internal iliac artery is patent. The left profunda fe
[2020-06-28 15:02] LABS: CATHL Activated Clotting Time 247 SEC (74-125)
--- NOTE | 2020-06-28 15:55 | HMH.PHACLD ---
Martina Chamberlain has received discharge medication counseling on the following medications: PLAVIX 75MG DAILY. PATIENT HAD PERIPHERAL STENT. BETA SERGIO AND ACEI NOT APPLICABLE. PATIENT ALREADY TAKING ASPIRIN AND LOVASTATIN. PATIENT VERBALIZED UNDERSTANDING AND HAD NO QUESTIONS AT THIS TIME. -THEO CAMPO, PHARMD
--- NOTE | 2020-06-28 18:05 | PC.NURSE ---
PT IS AO*4, SHE ARRIVED TO THE FLOOR FOLLOWING A HEART CATH PROCEDURE INVOLVING BILATERAL FEMORAL APPROACHES. DURING THE PROCEDURE PT RECIEVED 2 STENTS, ONE TO THE RIGHT ILIAC AND ONE TO LEFT ILIAC. STENT SITES ARE CURRENTLY COVERED WITH TEGADERM AND 4*4's, DRESSINGS C/D/I, SITE TO THE LEFT GROIN HAS SOME BRUISING BUT IS SOFT AND NON-TENDER ON PALPATION, NO HEMATOMA NOTED AND HAS NOT EXPERIENCED BLEEDING SINCE ARRIVAL TO THE FLOOR, THE RIGHT GROIN SITE IS SOFT AND NON-TENDER ON PALPATION, NO DRAINAGE OR S/S OF BLEEDING NOTED, PT SPEECH IS CLEAR AND APPROPRIATE. PT DISPLAYS EXPIRATORY WHEEZES BUT DOES NOT C/O SOA. PT HAS SATED IN THE HIGH 90'S ON 2L NC, PT HAS URINATED USING BEDPAN WITH CLEAR YELLOW URINE NOTED, PT WAS KEPT SUPINE UNTIL 545 IN ACCORDANCE WITH PROTOCOL, PT DID NOT NOT TOLERATE WELL C/O BACK PAIN, MEDICATED WITH TYLENOL PER MAR, EFFECTIVENESS NOTED. PT IS NOW RESTING COMFORTABLY WITH HOB AT 30 DEGREES, NO NEEDS AT THIS TIME, WILL CONTINUE TO MONITOR.
--- NOTE | 2020-06-28 21:02 | PC.NURSE ---
RT obtained RA sat=81% at rest, returned pt to 3L NC
[2020-06-29 03:47] VITALS: BMI 32.8
[2020-06-29 03:57] VITALS: BP 123/52; PULSE 71; RESP 18; TEMP 37.1; O2SAT 92
[2020-06-29 07:42] VITALS: BP 132/67; PULSE 80; RESP 17; TEMP 36.5; O2SAT 97
--- NOTE | 2020-06-29 09:05 | PC.NURSE ---
Discharge teaching done with patient and family member, both stated understanding. Patient's bilateral groins checked, noted bruising to left groin that extended to pubic area, soft without hematoma.
[2020-08-26 08:23] LABS: CATHL Activated Clotting Time 173 SEC (74-125)
== END 2020-06-29 09:09 | disposition home or self-care (01) ==
LOC: CATHLAB 08:14 → 2ND 13:00
PROVIDERS: PCP Physician Assistant; Visit Provider Internal Medicine
DX: I74.5 Embolism and thrombosis of iliac artery (principal); I77.1 Stricture of artery; E78.5 Hyperlipidemia, unspecified; I10 Essential (primary) hypertension; I25.10 Atherosclerotic heart disease of native coronary artery without angina pectoris; I70.212 Atherosclerosis of native arteries of extremities with intermittent claudication, left leg; J44.9 Chronic obstructive pulmonary disease, unspecified; Z72.0 Tobacco use; Z88.8 Allergy status to other drugs, medicaments and biological substances; Z88.7 Allergy status to serum and vaccine; Z79.899 Other long term (current) drug therapy; Z79.52 Long term (current) use of systemic steroids
CPT/HCPCS: 37221; 37236; 80048; 85025; 85347; 86328; 99152; 99153; C1725; C1760; C1769; C1876; C1894; J1644; J2405; J2720; Q9966

== ENCOUNTER → 2020-07-07 09:17 | Outpatient (CLI) | payer MEDICARE, MEDICAID, SELFPAY ==
--- NOTE | 2020-07-07 09:19 | CA_ITS ---
APPROVED REPORT [employer] Art Teacher: Holly Jimenes RT(R) Indications Leg Pain Current Smoker CAD Patient had LE angiogram 06/28/20. Patient states she has had a knot in her left groin since the procedure. Risk Factors Hyperlipidemia Current Smoker Findings Groin: Left Negative Findings No evidence of pseudoaneurysm, hematoma, or AV fistula of the left groin. Conclusion No evidence of pseudoaneurysm, hematoma, or AV fistula of the left groin. Electronically signed by : Stefano Cowan MD 07/07/2020 15:58:35
== END ==
PROVIDERS: PCP Physician Assistant; Visit Provider Urology
DX: E78.2 Mixed hyperlipidemia (principal); I10 Essential (primary) hypertension; I25.10 Atherosclerotic heart disease of native coronary artery without angina pectoris; I73.9 Peripheral vascular disease, unspecified; R10.32 Left lower quadrant pain; Z72.0 Tobacco use
CPT/HCPCS: 93926

== ENCOUNTER → 2020-07-12 10:50 | Outpatient (POV) | payer MEDICARE, MEDICAID, SELFPAY ==
[2020-07-12 11:14] VITALS: BP 132/88; PULSE 74; RESP 18; O2SAT 98; BMI 32.8
--- NOTE | 2020-07-12 11:21 | HMH.PAINSOAP ---
[facility] Pain Management SOAP Note Subjective:: Patient is a pleasant 59-year-old white female who presents today for follow-up. Patient had a coronary lock procedure on her left SI joint. Patient continually had pain and difficulty with walking post procedure. Patient failed injections oral medications physical therapy and if intrathecal pain pump trial. An incidental finding showed that she had a significant blockage in her left femoral artery she since has had a stent placed and is doing much better she states that her pain in that left leg has completely resolved. She rates her pain a 4 out of 10 mostly in her low back. At this time she is on Plavix and unable to come off of it. We discussed doing some SI joint injections to benefit her until we will be able to do low back procedures. She would like to move forward with this. Patient is no longer utilizing a walker. ROS General: no recent weight change, no fever, no sleep disturbances Respiratory: no cough, no shortness of air, no recurring pulmonary infections Cardiovascular/Peripheral Vascular: No chest pain, No palpitations, no edema, no shortness of breath. Gastrointestinal: no new onset incontinence, normal bowel movements reported Genitourinary: no new onset incontinence Musculoskeletal: Back pain, SI joint pain Psychiatric: normal mood/ affect Neurological: [denies new onset weakness in extremities], [denies new onset balance issues] Objective:: Physical Exam General: Alert and oriented x3, no acute distress, pleasant and cooperative, [on room air] Lungs: Resps E/U, Symmetrical chest expansion, Eyes: PERRL Musculoskeletal: Flexion and extension of lumbar spine somewhat guarded secondary to pain, deep tendon reflexes normal, strength in upper and lower extremities [5/5], antalgic gait noted Neurological: speech clear, gauge inspector equal, no gross sensory deficits Assessment:: Degenerative disc disease lumbar spine lumbar radiculopathy, sacroiliitis Plan:: We will set the patient for bilateral SI joint injections. We will contact her logistics lead to see how long she will be on her anticoagulation therapy. After this we will move forward with epidural injections. I will follow-up with her after her SI joint injections and reassess her symptoms at that time she has been instructed to call the office if she has any issues prior to her next appointment. Dr. Luevano has reviewed this note and agrees with this plan of care. This note was dictated using voice recognition software and may contain errors or omissions [facility] History I have reviewed the patient's past medical history: Yes Medical History: Reports:: Anxiety, Chronic Obstructive Pulmonary Disease (COPD), Depression, Gastroesophageal Reflux Disease(GERD), Hyperlipidemia, Hypertension, Peripheral Artery Disease, Peripheral Vascular Disease Denies:: Cancer, Diabetes Mellitus Type 1, Diabetes Mellitus Type 2, Internal Pacemaker, MRSA, Seizures *Have you ever received a pneumonia vaccine?: Yes *Have you received a flu vaccine this season?: Yes Other Medical History: Denies: Blood Transfusion Reaction Laterality Cases: Left: Other Other Surgeries: Yes: Angiogram, Cancer Surgery (skin cancer removed from chest and shoulder), , Tubal Ligation, Other (si joint fusion). No: Pacemaker Amputation: No Fractures: Yes - *Social History Smoking Status: Current every day smoker Tobacco Type: cigarettes # Packs/Day (cigarettes): 1 #Yrs smoked (if former smoker): 41 Alcohol Intake: never Alcohol Intake Frequency:: other Substance Use Type: denies use *Occupational Status:: other Housing: apartment Household Members: spouse *Travel in the last 8 weeks: None - Psychiatric History Pschychiatric History:: Reports:: Anxiety, Depression Family Hx:: Cancer, Diabetes, Heart Attack, Hypertension
== END ==
PROVIDERS: PCP Physician Assistant; Visit Provider Clinical Nurse Specialist Family Health
DX: M51.16 Intervertebral disc disorders with radiculopathy, lumbar region (principal); M46.1 Sacroiliitis, not elsewhere classified
CPT/HCPCS: 99212

== ENCOUNTER 2020-07-16 12:01 | Day surgery (SDC) | payer MEDICARE, MEDICAID, SELFPAY ==
[2020-07-16 12:50] VITALS: BP 100/62; PULSE 79; RESP 18; TEMP 36.2; O2SAT 94; BMI 31.3
[2020-07-16 13:15] VITALS: BP 132/87; PULSE 85; RESP 18; O2SAT 98
[2020-07-16 13:17] VITALS: BP 140/74; PULSE 85; RESP 18; O2SAT 98
[2020-07-16 13:28] VITALS: BP 115/66; PULSE 72; RESP 18; O2SAT 97
--- NOTE | 2020-07-16 13:43 | P.PCN_ITS ---
- Procedure Date: 07/16/20 Time: 13:43 Anesthesiologist:: Usama Luevano MD Complications:: None Pre-procedure Diagnosis:: Sacroiliitis Post-procedure Diagnosis:: Same Indications for Procedure:: This patient is a pleasant 59-year-old white female who we have been treating for sacroiliitis. She has had SI joint stabilization of her left SI joint. She did have pain post procedure which radiated to her hip. It was found that she had significant blockage in her left femoral artery. She has a stent that is placed her pain has now resolved down her leg. She has pain across her low renetta k. We will do bilateral SI joint injections today. I am not completely convinced that this may be the source of her pain symptoms. If she does not get any benefit from this we will asked that she come off her Plavix in order to do a lumbar epidural steroid injection under fluoroscopy. Procedure Details:: B/L SI joint injection under fluoroscopy Informed consent was obtained and the risks and benefits of the procedure was explained to the patient. The patient was taken to the procedure room and placed prone on the procedure table. The patient was prepped using ChloraPrep. The skin and subcutaneous tissues overlying the SI joints were anesthetized using lidocaine. I placed a 22-gauge needle first in the left SI joint and second in the right SI joint. Needle placement was confirmed with dye. After this we injected 5 mL bupivacaine 0.25% and Depo-Medrol 40 mg into each SI joint. Patient tolerated the procedure well with no complication. Plan and Disposition:: We will follow-up with her in 2 weeks. Will reevaluate her symptoms at that time. If she does not get any benefit. We will asked that she come off her Plavix for a lumbar epidural steroid injection. This may be the source of her pain as opposed to her SI joints.
== END 2020-07-16 13:29 | disposition home or self-care (01) ==
LOC: SC.PAINP 12:03
PROVIDERS: PCP Physician Assistant; Visit Provider Anesthesiology
DX: M46.1 Sacroiliitis, not elsewhere classified (principal); I10 Essential (primary) hypertension; J44.9 Chronic obstructive pulmonary disease, unspecified; I73.9 Peripheral vascular disease, unspecified; K21.9 Gastro-esophageal reflux disease without esophagitis; I25.10 Atherosclerotic heart disease of native coronary artery without angina pectoris; E78.5 Hyperlipidemia, unspecified; F41.9 Anxiety disorder, unspecified; Z99.81 Dependence on supplemental oxygen; Z72.0 Tobacco use; G25.81 Restless legs syndrome; Z79.899 Other long term (current) drug therapy
CPT/HCPCS: 27096; G0260; J1030; Q9966

== ENCOUNTER 2020-08-13 11:31 | Day surgery (SDC) | payer MEDICARE, MEDICAID, SELFPAY ==
[2020-08-13 12:09] VITALS: BP 90/58; PULSE 67; RESP 18; TEMP 36.7; O2SAT 94; BMI 31.3
[2020-08-13 12:28] VITALS: BP 135/78; PULSE 85; RESP 18; O2SAT 98
[2020-08-13 12:29] VITALS: BP 138/78; PULSE 78; RESP 18
--- NOTE | 2020-08-13 12:32 | HMH.PMPROC ---
- Procedure Date: 08/13/20 Time: 12:32 Anesthesiologist:: Usama Luevano MD Complications:: None Pre-procedure Diagnosis:: Degenerative disc disease of lumbar spine with lumbar radiculopathy symptoms Post-procedure Diagnosis:: Same Indications for Procedure:: This patient is a pleasant 59-year-old white female who we are treating for low back pain with lumbar radiculopathy symptoms. She does have some increasing back pain radiating to both hips. She is doing very well from her SI joint pain. She is walking upright however now when she stands and walks she has some increasing back pain where her back gives out. We will do lumbar epidural steroid injection today to see if this will help with her pain symptoms. She has been off her Plavix for 1 week. Procedure Details:: Lumbar epidural steroid injection under fluoroscopy Informed consent was obtained and the risk and benefits of the procedure was explained to the patient. The patient was taken to the procedure room. The patient was placed prone on the procedure table. The patient was prepped and draped in sterile fashion. C-arm fluoroscopy was used to view the lumbar spine. Skin and subcutaneous tissues were anesthetized using lidocaine. I placed an 18-gauge epidural needle and advanced into the L4-L5 interspace using fluoroscopic guidance and [id number] to air. After confirmation of needle placement in the epidural space with dye I injected 2 mL of lidocaine 1.5% with Depo-Medrol 80 mg. Patient tolerated the procedure well with no complications. Plan and Disposition:: We will follow-up with her in 2 weeks. Will reevaluate her symptoms at that time. She can resume her Plavix tomorrow.
[2020-08-13 12:37] VITALS: BP 98/63; PULSE 68; RESP 20; O2SAT 94
== END 2020-08-13 12:38 | disposition home or self-care (01) ==
LOC: SC.PAINP 11:33
PROVIDERS: PCP Physician Assistant; Visit Provider Anesthesiology
DX: M51.16 Intervertebral disc disorders with radiculopathy, lumbar region (principal); J44.9 Chronic obstructive pulmonary disease, unspecified; I10 Essential (primary) hypertension; Z72.0 Tobacco use; E78.5 Hyperlipidemia, unspecified; F41.9 Anxiety disorder, unspecified; F32.9 Major depressive disorder, single episode, unspecified; Z95.9 Presence of cardiac and vascular implant and graft, unspecified; Z88.7 Allergy status to serum and vaccine; Z88.8 Allergy status to other drugs, medicaments and biological substances; Z79.82 Long term (current) use of aspirin; Z79.899 Other long term (current) drug therapy
CPT/HCPCS: 62323; J1040; Q9966

== ENCOUNTER → 2020-09-02 10:40 | Outpatient (POV) | payer MEDICARE, MEDICAID, SELFPAY ==
[2020-09-02 10:54] VITALS: BP 138/88; PULSE 68; RESP 18; TEMP 36.6; O2SAT 98; BMI 31.3
--- NOTE | 2020-09-02 12:57 | HMH.PAINSOAP ---
[facility] Pain Management SOAP Note Subjective:: Patient is a 59-year-old year presents today for follow-up. The patient is being treated for chronic low back pain with lumbar radiculopathy symptoms. Patient has been undergoing multiple modalities of therapy for her low back pain. She did present to the clinic with increasing low back pain that radiated into both of her hips. She was positive for sacroiliitis at that time and did undergo SI injections which did give her relief. As a result, the patient did have an SI stabilization procedure. Following the SI stabilization procedure, however, the patient's pain did return. As a result, she did undergo lumbar epidural steroid injections for which she did not get any relief. Patient continued to has significant pain in her bilateral lower extremities following the injections and the corner lock procedure. Due to the fact that the server software engineer therapies were not beneficial for her pain, the patient did undergo a psychological evaluation for possible spinal cord stimulation or intrathecal therapy. She did undergo a trial for intrathecal therapy. The trial was successful at that time. Her psychological evaluation was also successful. The patient was having some hesitation at that time undergoing implant of the device. As result, she did follow-up with her primary care provider. She was later found to have an arterial blockage that has since had surgical intervention to the area. Patient has now returned to the clinic for complaints of continued low back pain with radiation into her bilateral hips and lower extremities. Patient's pain is worse with standing and walking or any type of activity. The pain does improve with sitting, however, prolonged sitting causes her to have pain as well. The patient did undergo physical therapy for greater than 6 weeks. She is continuing with a home stretching program. Patient is not interested in oral medications. She says she does not want to get addicted to oral opiates . She has used ice and heat therapies with no benefit. None of the conservative therapies have been beneficial for the patient's pain. Patient says she would like to proceed with the intrathecal pain pump. She has given it a great deal of thought and she thinks this will be beneficial for her pain long-term. Patient says that she did get up to 90% relief during the intrathecal pain pump trial. Patient says that she did do some research regarding the device and has decided that she would like to proceed at this point. The patient is on Xarelto per Dr. Bowers. Patient rates her pain a 7 out of 10 today. Review of Systems General: No recent weight changes, no fever, no sleep disturbances Respiratory: No cough, no shortness of air, no recurring pulmonary infections Cardiovascular/peripheral vascular: No chest pain, no palpitations, no edema, no shortness of breath Gastrointestinal: No new onset incontinence, normal bowel movements reported Genitourinary: No new onset incontinence Musculoskeletal: Low back pain with radiation into bilateral hips and lower extremities Psychiatric: Normal mood/affect Neurological: [Denies weakness in extremities], [denies balance issues] Objective:: Physical exam General: Alert and oriented x3, no acute distress, pleasant and cooperative, [on room air] Lungs: Respirations even and unlabored, symmetrical chest expansion Eyes: PERRL Musculoskeletal: Flexion and extension of lumbar spine somewhat guarded secondary to pain, deep tendon reflexes normal, strength in upper and lower extremities [5/5], [abnormal gait noted] Neurological: Speech clear, material control clerk equal, no gross sensory deficit Assessment:: Degenerative disc disease lumbar spine with lumbar radiculopathy symptoms Plan:: The patient has tried and failed conservative therapies of ice and heat therapies, physical therapy for greater than 6 weeks, and a continued home stretching program. The patient
== END ==
PROVIDERS: PCP Physician Assistant; Visit Provider Clinical Nurse Specialist Family Health
DX: M51.16 Intervertebral disc disorders with radiculopathy, lumbar region (principal)
CPT/HCPCS: 99212

== ENCOUNTER → 2020-09-28 10:19 | Outpatient (CLI) | payer MEDICARE, MEDICAID, SELFPAY ==
[2020-09-28 11:18] LABS: Basophils % 0.4 % (0.1-2.0); Eosinophils # 0.1 K/mm3 (0.0-0.4); Eosinophils % 1.6 % (0.1-12.0); Hematocrit 38.4 % (37.0-47.0); Hemoglobin 14.3 g/dL (12.2-16.2); Lymphocytes % 24.3 % (10-50); Mean Corpuscular HGB Conc 37.2 g/dL (31.8-35.4); Mean Corpuscular Hemoglobin 36.9 pg (27.0-31.2); Mean Corpuscular Volume 99.1 fl (81-99); Mean Platelet Volume 8.1 fl (7.4-10.4); Monocytes # 0.3 K/mm3 (0.1-1.0); Monocytes % 6.4 % (1.7-9.3); Neutrophils # 2.8 K/mm3 (1.8-7.8); Neutrophils % 67.3 % (37.0-80.0); Platelet Count 199 K/mm3 (142-424); Red Blood Count 3.88 M/mm3 (4.20-5.40); Red Cell Distribution Width 14.7 % (11.5-17.5); White Blood Count 4.1 K/mm3 (4.8-10.8)
[2020-09-28 11:51] LABS: Chloride 104 mmol/L (98-107); Potassium 3.9 mmoL/L (3.5-5.1); Sodium 138 mmol/L (136-145)
[2020-09-28 11:54] LABS: Anion Gap 8.9 mEq/L (5-15); Blood Urea Nitrogen 14 mg/dl (7-17); Carbon Dioxide 29 mmol/L (22.0-30.0); Estimated Glomerular Filt Rate 73 ml/min (>60); GFR (African American) 89 ML/MIN (>60)
[2020-09-28 11:55] LABS: Calcium 9.2 mg/dl (8.4-10.2); Glucose 124 mg/dl (74-100)
[2020-09-28 15:26] LABS: Coronavirus 19 IgG Antibody Negative (Negative); Coronavirus 19 IgM Antibody Negative (Negative)
[2020-09-28 16:11] LABS: Amphetamine/Metha Screen,Urine Negative ng/ml (<1000)
[2020-09-28 16:12] LABS: Barbiturates Screen,Urine Negative ng/ml (<200)
[2020-09-28 16:13] LABS: Benzodiazepines Screen,Urine Negative ng/ml (<200)
[2020-09-28 16:15] LABS: Cocaine Screen,Urine Negative ng/ml (<300)
[2020-09-28 17:25] LABS: Cannabinoid Screen,Urine Negative ng/ml (<50)
[2020-09-28 17:26] LABS: Methadone Screen,Urine Negative ng/ml (<300); Opiate Screen,Urine Negative ng/ml (<300)
[2020-09-28 17:29] LABS: Phencyclidine Screen,Urine Negative ng/ml (<25)
== END ==
PROVIDERS: Visit Provider Anesthesiology
DX: Z01.818 Encounter for other preprocedural examination (principal); M51.36 Other intervertebral disc degeneration, lumbar region
CPT/HCPCS: 36415; 80048; 80305; 85025; 86328

== ENCOUNTER 2020-09-29 08:57 | Day surgery (SDC) | payer MEDICARE, MEDICAID, SELFPAY ==
[2020-09-27 14:01] VITALS: BMI 32.4
[2020-09-29 09:20] VITALS: BP 82/62; PULSE 83; RESP 18; TEMP 36.6; O2SAT 96
--- NOTE | 2020-09-29 09:44 | HMH.PMCON ---
Assessment and Plan - Assessment and plan all Dx Assessment and Plan for all problems:: Impression-degenerative disc disease of the lumbar spine with radiculopathy Plan-placement of intrathecal pain pump system today HPI - Data of Consult Patient: new to practice Consult date: 09/29/20 Requesting Physician: Usama Luevano MD Primary Care Provider: CHRIS Mondragon - Consult Narrative History of present illness: Ms. Chamberlain is a 59 year old female with degenerative disc disease of the lumbar spine with radiculopathy. Multiple attempts at pain relief unsuccessful. Patient had a pain pump trial with improvement and she comes in today for placement of that system CC: Usama Luevano MD Chronic back pain [facility] History Medical History: Reports:: Anxiety, Chronic Obstructive Pulmonary Disease (COPD), Coronary Artery Disease, Depression, Gastroesophageal Reflux Disease(GERD), Hyperlipidemia, Hypertension, Peripheral Artery Disease, Peripheral Vascular Disease Denies:: Cancer, Diabetes Mellitus Type 1, Diabetes Mellitus Type 2, Internal Pacemaker, MRSA, Seizures *Have you ever received a pneumonia vaccine?: No *Have you received a flu vaccine this season?: Yes Other Medical History: Denies: Blood Transfusion Reaction Comment:: , Hyperlipidemia COPD with home oxygen at night, anxiety and depression, restless leg syndrome, GERD Laterality Cases: Left: Other Other Surgeries: Yes: Angiogram, Cancer Surgery (skin cancer removed from chest and shoulder), , Tubal Ligation, Other (si joint stabalization). No: Pacemaker Amputation: No Fractures: Yes Comment: Operations, static joint stabilization with cadaver bone, stents and leg placement - *Social History Last grade of school completed: GED Smoking Status: Current every day smoker Tobacco Type: cigarettes # Packs/Day (cigarettes): 1 #Yrs smoked (if former smoker): 41 Alcohol Intake: never Alcohol Intake Frequency:: other Substance Use Type: denies use *Occupational Status:: other Housing: house Household Members: children *Travel in the last 8 weeks: None - Psychiatric History Pschychiatric History:: Reports:: Anxiety, Depression Family Hx:: Cancer, Diabetes, Heart Attack, Hypertension Review of Systems - Review of Systems Review of systems:: pertinent systems reviewed and negative unless documented below Meds Home Medications Medication Instructions Recorded Confirmed Type aspirin 81 mg tablet,delayed 81 mg PO DAILY 06/25/18 09/29/20 History release Ipratropium/Albuterol Sulfate 3 ml IH Q4H 12/09/19 09/27/20 History [Duoneb 3mL neb] Cholecalciferol (Vitamin D3) 1,000 unit PO DAILY 05/07/20 09/27/20 History [Vitamin D3 1,000 Unit Cap] Cyanocobalamin (Vitamin B-12) See Rx Instructions .ROUTE .COMPLEX 05/07/20 09/27/20 History [Vitamin B-12] Ergocalciferol (Vitamin D2) 50,000 unit PO QWEEK 05/07/20 09/27/20 History [Drisdol] Umeclidinium [place] [Incruse 1 inh INHALATION DAILY 06/28/20 09/27/20 History Ellipta] lovastatin 40 mg tablet 40 mg PO QPM #90 tab 07/01/20 09/27/20 Rx budesonide-formoterol HFA 160 2 puff INHALATION BID #1 device 07/06/20 09/27/20 Rx mcg-4.5 mcg/actuation aerosol inhaler clonazepam 0.5 mg tablet 0.5 mg PO TID #90 tab 07/06/20 09/27/20 Rx escitalopram oxalate 20 mg tablet See Rx Instructions .ROUTE 07/06/20 09/29/20 Rx .COMPLEX #90 tab gabapentin 800 mg tablet 800 mg PO TID #90 tab 07/06/20 09/27/20 Rx omeprazole 40 mg capsule,delayed See Rx Instructions .ROUTE 07/06/20 09/29/20 Rx release .COMPLEX #90 cap Rivaroxaban [Xarelto] 2.5 mg PO BID 08/13/20 09/29/20 History Albuterol Sulfate [Proventil Hfa] See Rx Instructions .ROUTE .COMPLEX 09/27/20 09/27/20 History Allergies Allergy/AdvReac Type Severity Reaction Status Date / Time tetanus and diphtheria Allergy Severe I-HIVES Verified 09/27/20 14:05 toxoids [TETANUS & DIPHTHERIA TOXOIDS] atorvastatin AdvReac Intermediate Head
--- NOTE | 2020-09-29 10:27 | SUR.PREOP ---
Stopped Vancomycin at 0921 do to reddness and itching. notified MD. Antibiotic changed to Ancef 2gm
--- NOTE | 2020-09-29 10:30 | HMH.ANESCL ---
[facility] Anesthesia Checklist - Patient Identification Patient Identification: Arm Band, Verbal (Name & ) - Structural Data Admitted From: Home Planned Operative Procedure/s: Placement of intrathecal pain pump Consent for Planned Operative Procedure(s) Verified: Yes Verified Documents: Surgical Consent, History and Physical - NPO Status Verified Time NPO: 20:30 - Chart Verification Results Verified: CBC, BMP - Additional verifications Anesthesia Reactions: Yes (PONV) Hx Blood Transfusions: No Blood Transfusion Reaction: No - Airway Assessment C-Spine Mobility Assessed: Yes (MP 2, ) TMJ Mobility Assessed: Yes Dentition: Poor Dentition (Chipped, broken teeth) - Neurological Assessment Level of Consciousness: Awake, Alert, Appropriate, Follows Commands Hx Seizures: No Numbness or tingling in extremities: No - Anesthesia Plan Anesthesia Risk discussed: Yes ASA Class: III Anesthesia Type: MAC [facility] History I have reviewed the patient's past medical history: Yes Medical History: Reports:: Anxiety, Chronic Obstructive Pulmonary Disease (COPD), Coronary Artery Disease, Depression, Gastroesophageal Reflux Disease(GERD), Hyperlipidemia, Hypertension, Peripheral Artery Disease, Peripheral Vascular Disease Denies:: Cancer, Diabetes Mellitus Type 1, Diabetes Mellitus Type 2, Internal Pacemaker, MRSA, Seizures *Have you ever received a pneumonia vaccine?: No *Have you received a flu vaccine this season?: Yes Other Medical History: Denies: Blood Transfusion Reaction Comment:: Chronic pain Anesthesia experience/problems:: PONV Laterality Cases: Left: Other Other Surgeries: Yes: Angiogram, Cancer Surgery (skin cancer removed from chest and shoulder), , Tubal Ligation, Other (si joint stabalization). No: Pacemaker Amputation: No Fractures: Yes - *Social History Last grade of school completed: GED Smoking Status: Current every day smoker Tobacco Type: cigarettes # Packs/Day (cigarettes): 1 #Yrs smoked (if former smoker): 41 Alcohol Intake: never Alcohol Intake Frequency:: other Substance Use Type: denies use *Occupational Status:: other Housing: house Household Members: children *Travel in the last 8 weeks: None - Psychiatric History Pschychiatric History:: Reports:: Anxiety, Depression Family Hx:: Cancer, Diabetes, Heart Attack, Hypertension
--- NOTE | 2020-09-29 11:58 | HMH.OPNOTE ---
Date of procedure: 09/29/20 Pre-op Diagnosis:: Degenerative disc disease of the lumbar spine with radiculopathy Post-op Diagnosis:: Same Procedure performed:: Placement of pain pump generator Surgeon:: Stevenson Cho MD CLOSED CIRCUIT SCREEN WATCHER:: Christo De La Cruz, Michael Chapman, Prashanth Manzano, Louie Coleman, Other Anesthesia: MAC Estimated blood loss (mL): 5 Operative findings:: Not applicable Operative note:: Once adequate IV sedation was obtained via anesthesia, the patient was placed prone on the table and her back and flank regions were prepped and draped in sterile fashion. Paraspinal incision made by Dr. Vee there which an intrathecal catheter was passed into the intrathecal space to the area desired by Dr. Vee. A left flank incision was then made in which made a pocket for placement of the reservoir. Utilizing the tunneling device the catheter was passed from the paraspinal incision of the pocket incision. Both pockets irrigated with antibiotic solution. Catheter fixed the generator which was placed in the pocket. CSF was aspirated from the generator noting patency of the system. Generator sutured to the fascia with 2-0 Prolene suture. Subcutaneous tissue was then closed with interrupted stitches of 2-0 Vicryl. Skin closed with arm stitches of 4-0 nylon. Wound VAC dressings and a binder applied to the incision. The patient taught procedure well and was taken to the recovery room in stable condition. Upon recovery the patient be discharged home and will follow-up 1 week for removal of the wound VAC dressings in 2 weeks for removal of the sutures. Antibiotic x1 week per protocol. The patient tolerated the procedure well Condition: stable Disposition: PACU Complications:: None
[2020-09-29 12:00] VITALS: BP 152/66; PULSE 91; RESP 16; TEMP 36.4; O2SAT 92
[2020-09-29 12:15] VITALS: BP 131/67; PULSE 86; RESP 16; TEMP 36.4; O2SAT 93
--- NOTE | 2020-09-29 12:15 | HMH.OPNOTE ---
Date of procedure: 09/29/20 Pre-op Diagnosis:: Degenerative disc disease of lumbar spine with lumbar radiculopathy symptoms Post-op Diagnosis:: Same Procedure performed:: Intrathecal catheter placement with tunneling for permanent intrathecal pain pump placement Surgeon:: Usama Luevano MD SCREW MACHINE TOOL SETTER:: Louie Coleman Anesthesia: MAC Estimated blood loss (mL): 5 Clinical Note:: This patient is a pleasant 59-year-old white female who we have been treating for sacroiliitis and low back pain with lumbar radiculopathy symptoms. She has had SI joint stabilization with good relief of her pain symptoms however she still has significant low back pain and leg pain while standing and walking. She has failed all previous conservative therapy including physical therapy, oral medications, injections and she is not a candidate for surgery. She has been off of her Xarelto for 7 days. She has had a successful psychological evaluation. She is had a successful intrathecal pump trial with 80 to 90% relief in her symptoms. She presents for permanent placement of intrathecal pain pump today. Operative findings:: None Operative note:: Informed consent was obtained and the risk and benefits of the procedure was explained to the patient. The patient was taken to the operating room placed prone on the procedure table. She was prepped and draped in sterile fashion. C-arm fluoroscopy was used to view the lumbar spine. The skin and subcutaneous tissues adjacent to the L4-5 and L5-S1 interspace were anesthetized using lidocaine. I made an incision and dissected down to the lumbar paraspinous fascia. A 14-gauge spinal needle was inserted and advanced into the L4-5 interspace until clear CSF obtained. After this intrathecal catheter was inserted and advanced very easily to the L1 vertebral body. The stylette of the catheter and the needle were withdrawn. We were able to freely withdraw clear CSF through the catheter. The catheter was secured to the fascia with anchoring devices and 2-[address] Cho prepared the pump pocket while I prepared the pump with intrathecal morphine 5 mg/mL, 20 mL. I tunneled the catheter from the back to the pump pocket and attached the catheter to the pump. We were able to freely withdraw clear CSF through the side-port. The pump was placed in the pocket and secured to the fascia with 2-0 Prolene. Both incisions were irrigated with bacitracin solution. Both incisions were closed with 2-0 Vicryl followed by 4-0 nylon. A wound VAC was placed over both incisions. Patient was placed in an abdominal binder taken recovery in stable condition. Patient tolerated the procedure well with no complications. Patient was programmed and started at 0.25 mg/day of intrathecal morphine. Patient was discharged home neurologically intact with good relief of pain symptoms. Plan and disposition: We will follow-up with this patient in 1 week for wound check and reprogramming. We will follow-up in 2 weeks for suture removal. If patient has any problems or questions she is to call us back in the pain clinic. Condition: stable Disposition: PACU Complications:: None
[2020-09-29 12:30] VITALS: BP 113/61; PULSE 79; RESP 18; TEMP 36.4; O2SAT 97
[2020-09-29 12:45] VITALS: BP 123/65; PULSE 86; RESP 18; TEMP 36.4; O2SAT 97
[2020-09-29 12:59] VITALS: BP 123/61; PULSE 86; RESP 18; TEMP 36.4; O2SAT 96
== END 2020-09-29 12:59 | disposition home or self-care (01) ==
LOC: OR 08:59
PROVIDERS: PCP Physician Assistant; Visit Provider Anesthesiology
DX: M51.16 Intervertebral disc disorders with radiculopathy, lumbar region (principal); Z87.39 Personal history of other diseases of the musculoskeletal system and connective tissue; Z79.01 Long term (current) use of anticoagulants; J44.9 Chronic obstructive pulmonary disease, unspecified; I10 Essential (primary) hypertension; E78.5 Hyperlipidemia, unspecified; K21.9 Gastro-esophageal reflux disease without esophagitis; I25.10 Atherosclerotic heart disease of native coronary artery without angina pectoris; F41.9 Anxiety disorder, unspecified; I73.9 Peripheral vascular disease, unspecified; F32.9 Major depressive disorder, single episode, unspecified
CPT/HCPCS: 62350; 62362; 96374; C1755; C1772; J3370

== ENCOUNTER → 2020-10-08 11:07 | Outpatient (POV) | payer MEDICARE, MEDICAID, SELFPAY ==
[2020-10-08 11:21] VITALS: BP 144/47; PULSE 96; RESP 20; TEMP 35.7; O2SAT 91; BMI 31.3
--- NOTE | 2020-10-08 13:10 | HMH.PMPROC ---
- Procedure Date: 10/08/20 Time: 13:10 Anesthesiologist:: Usama Luevano MD Complications:: None Pre-procedure Diagnosis:: Degenerative disc disease of lumbar spine with lumbar radiculopathy symptoms Post-procedure Diagnosis:: Same Indications for Procedure:: This patient is a pleasant 59-year-old white female who we have been treating for sacroiliitis and low back pain with lumbar radiculopathy symptoms. She continues to have low back pain and leg pain. She is 1 week status post permanent placement of an intrathecal morphine pain pump. Her pain symptoms are unchanged worse with activity. We will increase her intrathecal morphine infusion from 0.25 mg/day to 0.5 mg/day. We will also do a wound check today. Procedure Details:: Informed consent was obtained the risk and benefits of the procedure was explained to the patient. Patient was taken to the procedure room. The intrathecal morphine pain pump was interrogated. Intrathecal morphine infusion was increased from 0.25 mg/day to 0.5 mg/day. PTC boluses were initiated at 0.05 mg up to 4 times a day. Patient tolerated procedure well with no complications. Patient's incision is healing very nicely. Plan and Disposition:: We will follow-up with her in 1 week. This will be for suture removal. We will make further adjustments to her intrathecal pain pump at that time if needed. She also did complain of some swelling and some side effects with intrathecal morphine infusion. If she continues to have the side effects we may consider switching her to intrathecal Dilaudid.
== END ==
PROVIDERS: PCP Physician Assistant; Visit Provider Anesthesiology
DX: M51.16 Intervertebral disc disorders with radiculopathy, lumbar region (principal); Z45.1 Encounter for adjustment and management of infusion pump
CPT/HCPCS: 62368

== ENCOUNTER → 2020-10-21 14:23 | Outpatient (POV) | payer MEDICARE, MEDICAID, SELFPAY ==
[2020-10-21 14:58] VITALS: BP 144/74; PULSE 85; RESP 18; O2SAT 98; BMI 32.8
--- NOTE | 2020-10-21 15:01 | P.PCN_ITS ---
- Procedure Date: 10/21/20 Time: 15:01 Anesthesiologist:: Kirstie Johnson APRN Complications:: None Pre-procedure Diagnosis:: Degenerative disc disease lumbar spine lumbar radiculopathy Post-procedure Diagnosis:: Same Indications for Procedure:: She is a pleasant 59-year-old white female who presents today for intrathecal pain pump adjustment. She is status post implant. She is currently 8.5 mg of morphine a day. Patient states her pain is an 8 out of 10. Patient incision is red there is no drainage noted no heat noted. Patient states it is somewhat sore. We will start her back on Bactrim for 1 week. Patient will have an increase today. [facility] #[id number] reviewed. Physical Exam General: Alert and oriented x3, no acute distress, pleasant and cooperative, [on room air] Lungs: Resps E/U, Symmetrical chest expansion, Eyes: PERRL Musculoskeletal: Flexion and extension of lumbar spine somewhat guarded secondary to pain, deep tendon reflexes normal, strength in upper and lower extremities [5/5], [abnormal gait noted] Neurological: speech clear, aircraft engine technician equal, no gross sensory deficits Procedure Details:: Informed consent was obtained and the risk and benefits of the procedure were explained to the patient. The patient was taken to the procedure room where noninvasive monitoring was placed including noninvasive blood pressure cuff and pulse oximeter. Patient's pump was interrogated and reprogrammed. The infusion rate was increased to 0.75 mg/day. The patient tolerated the procedure well. Plan and Disposition:: We will see the patient back in 2 weeks reassess her symptoms at that time she has been instructed to call the office if she has any issues prior to her next appointment. Dr. Luevano has reviewed this note and agrees with this plan of care. This note was dictated using voice recognition software and may contain errors or omissions
== END ==
PROVIDERS: PCP Physician Assistant; Visit Provider Clinical Nurse Specialist Family Health
DX: M51.16 Intervertebral disc disorders with radiculopathy, lumbar region (principal)
CPT/HCPCS: 99213

== ENCOUNTER → 2020-11-08 11:06 | Outpatient (POV) | payer MEDICARE, MEDICAID, SELFPAY ==
[2020-11-08 11:23] VITALS: BP 135/74; PULSE 77; RESP 18; TEMP 36.3; O2SAT 98; BMI 32.8
--- NOTE | 2020-11-08 12:26 | HMH.PMPROC ---
- Procedure Date: 11/08/20 Time: 12:26 Anesthesiologist:: Kirstie Johnson APRN Complications:: None Pre-procedure Diagnosis:: Degenerative disc disease lumbar spine lumbar radiculopathy Post-procedure Diagnosis:: Same Indications for Procedure:: Patient is a pleasant 59-year-old white female who presents today for intrathecal pain pump adjustment. Patient is currently on 0.75 mg of morphine a day. Patient states she is having no relief she rates her pain a 10 out of 10. She is having swelling in her right lower extremity. She is also having color changes. Patient was given a 0.5 mg bolus with no relief. Patient and I discussed potential blood clot. Patient has had this issue in the past concerning her left leg. It presented very similarly. We discussed this with her emergency room registered nurse she will be seen today. Procedure Details:: Informed consent was obtained and the risk and benefits of the procedure were explained to the patient. The patient was taken to the procedure room where noninvasive monitoring was placed including noninvasive blood pressure cuff and pulse oximeter. Patient's pump was interrogated and reprogrammed. A one-time bolus of 0.5 mg was given over 5 minutes. The infusion rate was continued at 0.75 mg/day. The patient tolerated the procedure well. Plan and Disposition:: Patient is to be see her emergency room registered nurse today. If she is cleared by cardiology we will move forward with a potential catheter dye study. I will follow-up with her after cardiology. Dr. Luevano has reviewed this note and agrees with this plan of care. This note was dictated using voice recognition software and may contain errors or omissions
--- NOTE | 2020-11-08 13:43 | CA_ITS ---
APPROVED REPORT Right Lower Extremity Venous Study for DVT. Freight Manager: Neisha Ortega RVT Indications Lower Extremity Pain: Right Lower Extremity Edema: Right Shortness of breath Current Smoker pain pump implant x 5 weeks ago/leg swell 3 wks Risk Factors Obesity Current Smoker Medications PT ON XARELTO Vein Imaging CFV (R): compressive, spontaneous, phasic, augmentation FEM (R): compressive, spontaneous, phasic, augmentation POP (R): compressive, spontaneous, phasic, augmentation PTV (R): Compressible GSV (R): Compressible Peroneals (R):Compressible GAS (R): Compressible Findings Study suggests no evidence of DVT of the right lower extremity. Study suggests no evidence of SVT of the right lower extremity. Conclusion Study suggests no evidence of DVT of the right lower extremity. Study suggests no evidence of SVT of the right lower extremity. Critical Notification Date: 11/08/2020 Time: 14:09 [facility] Electron[facility] signed by : Mariusz Karimi MD 11/09/2020 19:59:22
[2020-11-08 14:59] LABS: Basophils # 0.1 K/mm3 (0-0.2); Basophils % 0.7 % (0.1-2.0); Eosinophils # 0.1 K/mm3 (0.0-0.4); Eosinophils % 0.9 % (0.1-12.0); Hematocrit 45.3 % (37.0-47.0); Hemoglobin 14.2 g/dL (12.2-16.2); Lymphocytes # 1.8 K/mm3 (0.7-4.5); Mean Corpuscular HGB Conc 31.3 g/dL (31.8-35.4); Mean Corpuscular Hemoglobin 31.1 pg (27.0-31.2); Mean Corpuscular Volume 99.4 fl (81-99); Mean Platelet Volume 8.1 fl (7.4-10.4); Monocytes # 0.6 K/mm3 (0.1-1.0); Monocytes % 7.3 % (1.7-9.3); Neutrophils # 5.9 K/mm3 (1.8-7.8); Neutrophils % 70.2 % (37.0-80.0); Platelet Count 312 K/mm3 (142-424); Red Blood Count 4.56 M/mm3 (4.20-5.40); Red Cell Distribution Width 14.7 % (11.5-17.5); White Blood Count 8.5 K/mm3 (4.8-10.8)
[2020-11-08 15:49] LABS: Chloride 100 mmol/L (98-107); Potassium 3.9 mmoL/L (3.5-5.1); Sodium 138 mmol/L (136-145)
[2020-11-08 15:52] LABS: Anion Gap 14.9 mEq/L (5-15); Blood Urea Nitrogen 14 mg/dl (7-17); Calcium 9.6 mg/dl (8.4-10.2); Carbon Dioxide 27 mmol/L (22.0-30.0); Creatinine Clearance Estimated 130 mL/min (50-200); Estimated Glomerular Filt Rate 86 ml/min (>60); GFR (African American) 104 ML/MIN (>60); Glucose 94 mg/dl (74-100)
[2020-11-08 17:59] LABS: Coronavirus 19 IgG Antibody Negative (Negative); Coronavirus 19 IgM Antibody Negative (Negative)
== END ==
PROVIDERS: PCP Physician Assistant; Visit Provider Clinical Nurse Specialist Family Health
DX: M79.604 Pain in right leg (principal); M79.89 Other specified soft tissue disorders; R20.0 Anesthesia of skin; M51.16 Intervertebral disc disorders with radiculopathy, lumbar region
CPT/HCPCS: 36415; 62368; 80048; 85025; 86328; 93971

== ENCOUNTER 2020-11-09 09:37 | Day surgery (SDC) | payer MEDICARE, MEDICAID, SELFPAY ==
[2020-11-09] VITALS (22 sets, daily range): BP systolic 127–203; BP diastolic 69–169; PULSE 69–956; RESP 14–20; TEMP 36.7; O2SAT 87–100; BMI 34.4
--- NOTE | 2020-11-09 06:59 | IR_ITS ---
APPROVED REPORT Patient Location: Outpatient Dairy Store Manager: MIO Fink RT (R) PROCEDURES Catheter placed in the abdominal aorta Bilateral iliofemoral runoff INDICATION Known peripheral artery disease with aortoiliac stenting, Elicia class III claudication Informed consent was obtained prior to the procedure. COMPLICATIONS None Estimated Blood Loss: less than 10ml TECHNIQUE 1% lidocaine used anesthetize the right groin the right femoral artery was accessed via the Salinger technique and a 5 Arabic sheath was placed in the right femoral artery. The pigtail catheter was advanced to the abdominal aorta and abdominal aortography was performed with bilateral iliofemoral runoff. At the end of the procedure the patient was transferred to the postop holding area in stable condition for sheath removal ANGIOGRAPHIC RESULTS The distal abdominal aorta has bifurcating stents which are widely patent going into the bilateral common iliac arteries The bilateral common iliac arteries are normal The bilateral external iliac arteries are widely patent with excellent flow The bilateral internal acral arteries are patent The bilateral common femoral arteries are patent The bilateral profunda femoris arteries are patent The bilateral superficial femoral arteries are widely patent with mild atheromatous plaque The bilateral popliteal arteries are patent The right leg has three-vessel runoff below the knee with small vessel vasculopathy in the distal segment The left leg has three-vessel runoff below the knee with small vessel vasculopathy in the distal segment IMPRESSION Widely patent stents as described above Small vessel vascular disease in the distal bilateral feet which are too small for percutaneous intervention and require medical management PLAN 1. Medical management Electronically signed by : Binu Bowers, 11/09/2020 12:42:11
== END 2020-11-09 15:57 ==
LOC: CATHLAB 09:40
PROVIDERS: PCP Physician Assistant; Visit Provider Internal Medicine
DX: M79.604 Pain in right leg (principal); I70.213 Atherosclerosis of native arteries of extremities with intermittent claudication, bilateral legs; Z95.828 Presence of other vascular implants and grafts; I10 Essential (primary) hypertension; J44.9 Chronic obstructive pulmonary disease, unspecified; I25.10 Atherosclerotic heart disease of native coronary artery without angina pectoris; Z72.0 Tobacco use; Z88.8 Allergy status to other drugs, medicaments and biological substances; Z79.82 Long term (current) use of aspirin; Z79.51 Long term (current) use of inhaled steroids; Z79.899 Other long term (current) drug therapy; Z79.01 Long term (current) use of anticoagulants
CPT/HCPCS: 36247; 75630; 99152; C1725; C1769; C1894; Q9966

== ENCOUNTER 2020-11-19 10:20 | Day surgery (SDC) | payer MEDICARE, MEDICAID, SELFPAY ==
[2020-11-19 11:02] VITALS: BP 121/79; PULSE 94; RESP 18; TEMP 36.8; O2SAT 92; BMI 33.0
[2020-11-19 11:16] VITALS: BP 174/80; PULSE 70; RESP 18
[2020-11-19 11:19] VITALS: BP 179/85; PULSE 75; RESP 18; O2SAT 91
--- NOTE | 2020-11-19 11:24 | HMH.PMPROC ---
- Procedure Date: 11/19/20 Time: 11:24 Anesthesiologist:: Usama Luevano MD Complications:: None Pre-procedure Diagnosis:: Degenerative disc disease of lumbar spine with lumbar radiculopathy symptoms with increasing low back pain and hip pain Post-procedure Diagnosis:: Same Indications for Procedure:: This patient is a pleasant 60-year-old white female who has an intrathecal morphine pain pump currently going at 0.75 mg/day. She is having some increasing right hip pain. We will do an intrathecal catheter dye study today to assess patency of her intrathecal catheter and proper placement to make sure her pump is functioning appropriately. Procedure Details:: Intrathecal catheter dye study and pump study Informed consent was obtained and the risk and benefits of the procedure were explained to the patient. Patient was taken to the procedure room. The area over the pump was prepped using ChloraPrep. The side-port of the pump was accessed with a 22-gauge needle. We were able to freely pull medication and CSF through the side-port. We did inject dye there was good spread of dye through the intrathecal space with the catheter tip at the L1 vertebral body. The catheter was patent and in proper location. The pump appeared to be functioning appropriately. The pump was interrogated and the patient was given a 0.35 mg bolus over 5 minutes. The intrathecal morphine infusion was increased to 1 mg/day. Patient tolerated the procedure well with no complications. Plan and Disposition:: We will follow-up with her next week. We will plan on a right SI joint injection under fluoroscopy. She also may need lumbar epidural steroid injection under fluoroscopy to help with her low back pain. She is tender over her right SI joint. She is positive Tatyana's test on the right side. She has positive SI joint compression test on the right side. She has a positive distraction test on the right side.
[2020-11-19 11:50] VITALS: BP 136/55; PULSE 75; RESP 18; O2SAT 98
== END 2020-11-19 11:50 | disposition home or self-care (01) ==
LOC: SC.PAINP 10:21
PROVIDERS: PCP Physician Assistant; Visit Provider Anesthesiology
DX: M51.16 Intervertebral disc disorders with radiculopathy, lumbar region (principal); Z45.1 Encounter for adjustment and management of infusion pump; I10 Essential (primary) hypertension; E78.5 Hyperlipidemia, unspecified; I25.10 Atherosclerotic heart disease of native coronary artery without angina pectoris; J44.9 Chronic obstructive pulmonary disease, unspecified; I73.9 Peripheral vascular disease, unspecified; M19.90 Unspecified osteoarthritis, unspecified site; Z99.81 Dependence on supplemental oxygen; Z72.0 Tobacco use; Z79.82 Long term (current) use of aspirin; Z79.899 Other long term (current) drug therapy
CPT/HCPCS: 61070; C1772; Q9966

== ENCOUNTER 2020-12-03 09:51 | Day surgery (SDC) | payer MEDICARE, MEDICAID, SELFPAY ==
[2020-12-03 10:11] VITALS: BP 105/69; PULSE 100; RESP 20; TEMP 36.6; O2SAT 93; BMI 32.8
[2020-12-03 10:51] VITALS: BP 165/52; PULSE 90; RESP 18
[2020-12-03 10:52] VITALS: BP 179/55; PULSE 90; RESP 18; O2SAT 98
--- NOTE | 2020-12-03 10:55 | P.PCN_ITS ---
- Procedure Date: 12/03/20 Time: 10:55 Anesthesiologist:: Usama Luevano MD Complications:: None Pre-procedure Diagnosis:: Sacroiliitis Post-procedure Diagnosis:: Same Indications for Procedure:: Pleasant 60-year-old white female who we are treating for low back pain with lumbar radiculopathy symptoms and right hip pain. She is tender over her SI joint. She has a positive Dwaine's test on the right side. She is positive Dionte test on the right side. She has positive SI joint compression test on the right side. We will do a right SI joint injection under fluoroscopy today to help her with her pain symptoms. We did increase her intrathecal morphine infusion milligram per day at her last visit this did not help at all however she is having some increasing swelling in her legs. We will decrease her infusion back down to 0.75 mg/day. Procedure Details:: Right SI joint injection under fluoroscopy Informed consent was obtained and the risks and benefits of the procedure was going to the patient. Patient was taken to the procedure room. Patient was placed prone on the procedure table. The right hip was prepped using ChloraPrep. The skin and subcutaneous tissues were anesthetized using lidocaine. I placed a 22-gauge spinal needle into the inferior aspect of the right SI joint. Needle placement was confirmed with dye. After this we inject ed 5 mL bupivacaine 0.25% and Depo-Medrol 40 mg into the right SI joint. The patient tolerated the procedure well with no complication. Plan and Disposition:: We will follow-up with her in 2 weeks. Will reevaluate symptoms at that time. We will also follow-up on her primary care visit to see other causes for her lower extremity edema. She may have cellulitis of her lower extremities. Hopefully decreasing her intrathecal morphine infusion will help. If she is cleared by her primary care physician we may consider switching her to intrathecal Dilaudid to start at 0.1 mg/day.
[2020-12-03 11:05] VITALS: BP 119/81; PULSE 98; RESP 20; O2SAT 93
== END 2020-12-03 11:05 | disposition home or self-care (01) ==
LOC: SC.PAINP 09:53
PROVIDERS: PCP Physician Assistant; Visit Provider Anesthesiology
DX: M46.1 Sacroiliitis, not elsewhere classified (principal); I10 Essential (primary) hypertension; I73.9 Peripheral vascular disease, unspecified; J44.9 Chronic obstructive pulmonary disease, unspecified; Z72.0 Tobacco use; I25.10 Atherosclerotic heart disease of native coronary artery without angina pectoris; E78.5 Hyperlipidemia, unspecified; K21.9 Gastro-esophageal reflux disease without esophagitis; F41.9 Anxiety disorder, unspecified; F32.9 Major depressive disorder, single episode, unspecified; Z79.82 Long term (current) use of aspirin; Z79.899 Other long term (current) drug therapy
CPT/HCPCS: 27096; G0260; J1040; Q9966

== ENCOUNTER 2020-12-10 12:15 | Day surgery (SDC) | payer MEDICARE, MEDICAID, SELFPAY ==
[2020-12-10 12:34] VITALS: BP 139/62; PULSE 94; RESP 18; TEMP 36.4; O2SAT 98; BMI 32.8
[2020-12-10 13:20] VITALS: BP 150/89; PULSE 79; RESP 18
[2020-12-10 13:21] VITALS: BP 148/89; PULSE 80; RESP 18; O2SAT 96
--- NOTE | 2020-12-10 13:28 | HMH.PMPROC ---
- Procedure Date: 12/10/20 Time: 13:28 Anesthesiologist:: Usama Luevano MD Complications:: None Pre-procedure Diagnosis:: Degenerative disc disease of lumbar spine with lumbar radiculopathy symptoms with increasing side effects with current intrathecal morphine pain pump Post-procedure Diagnosis:: Same Indications for Procedure:: Patient is a pleasant 60-year-old white female who we are treating for low back pain with lumbar radiculopathy symptoms. We did decrease her intrathecal morphine pain pump. She is also placed on antibiotics for cellulitis of her lower extremities. Her leg swelling has decreased significantly. She is feeling somewhat better however she still has some increasing pain. Since she has such severe side effects with her intrathecal morphine infusion we will switch her over to intrathecal Dilaudid today. We will refill her pump and switch her over to intrathecal Dilaudid and start her at 0.1 mg/day. Procedure Details:: Informed consent was obtained and the risks and benefits of the procedure was explained to the patient. The patient was taken to the procedure room. The pump was interrogated. The area over the pump was prepped using ChloraPrep. The pump was accessed with a 22-gauge needle. Approximately 8 mL mL's of the intrathecal solution was withdrawn and discarded. The pump was then refilled with 20 mL's of intrathecal Dilaudid 1 mg/mL. After double aspiration at the catheter access port the pump was interrogated and the infusion was started at 0.1 mg/day. The patient tolerated the procedure well with no complication. Plan and Disposition:: We will follow-up with her in 2 weeks. Will reevaluate symptoms at that time.
[2020-12-10 13:55] VITALS: BP 120/70; PULSE 80; RESP 18; O2SAT 98
== END 2020-12-10 13:55 | disposition home or self-care (01) ==
LOC: SC.PAINP 12:15
PROVIDERS: PCP Physician Assistant; Visit Provider Anesthesiology
DX: M51.16 Intervertebral disc disorders with radiculopathy, lumbar region (principal); T40.2X5A Adverse effect of other opioids, initial encounter; I10 Essential (primary) hypertension; J44.9 Chronic obstructive pulmonary disease, unspecified; I73.9 Peripheral vascular disease, unspecified; Z72.0 Tobacco use; I25.10 Atherosclerotic heart disease of native coronary artery without angina pectoris; E78.5 Hyperlipidemia, unspecified; K21.9 Gastro-esophageal reflux disease without esophagitis; F41.9 Anxiety disorder, unspecified; F32.9 Major depressive disorder, single episode, unspecified; Z88.8 Allergy status to other drugs, medicaments and biological substances
CPT/HCPCS: 62370; C1772

== ENCOUNTER 2020-12-11 13:57 | Emergency (ER) | payer MEDICARE, MEDICAID, SELFPAY ==
[2020-12-11 13:58] VITALS: BP 113/92; PULSE 82; RESP 16; TEMP 36.6; O2SAT 95; BMI 32.8
--- NOTE | 2020-12-11 14:14 | HMH.EDGENADL ---
ED Disposition Clinical Impression: Opiate withdrawal Disposition: Home, Self-Care Condition on Discharge: Good Instructions: DI for Chronic Pain -- Adult Prescriptions: Ondansetron [Zofran 4mg ODT] 4 mg PO Q6 PRN #10 tab.rapdis PRN Reason: Nausea Transmission Status: Pending to [facility]/pharmacy #[id number] Referrals: Usama Luevano MD [Staff Physician] - 12/13/20 - Critical Care Critical Care Time: No Attestation: On 12/11/20, the high probability of a clinically significant, sudden or life threatening deterioration of the following system(s) required my full and direct attention, intervention and personal management. The time I documented below is in addition to time spent performing reported procedures but includes the following listed in this critical care notation. Medical Decision Making - Medical Records Medical records reviewed: Yes: I reviewed the patient's medical records. - Isidro Inquiry Pt receiving controlled substance: Yes Isidro was queried for this patient: No Risks and benefits of using a controlled substance: were discussed with pt by me Vital Signs: 12/11/20 13:58 12/11/20 14:46 Temperature 98 F Temperature Source Oral Pulse Rate [Right] 82 81 Respiratory Rate 16 18 Blood Pressure [Right Arm] 113/92 H 130/80 Blood Pressure Mean [Right Arm] 99 96 Blood Pressure Source [Right Arm] Automatic Cuff Blood Pressure Position [Right Arm] Sitting 02 Sat by Pulse Oximetry 95 90 L Oxygen Delivery Method Room Air Orders (Tests/Meds): ED MEDICATIONS Discontinued Medications Generic Name Dose Route Start Last Admin Trade Name Freq PRN Reason Stop Dose Admin Morphine Sulfate 8 mg 12/11/20 14:28 12/11/20 14:31 Morphine 8mg/Ml Syringe IM 12/11/20 14:29 8 mg ONCE ONE Administration Ondansetron HCl 4 mg 12/11/20 14:47 12/11/20 14:48 Ondansetron 4mg Odt SL 12/11/20 14:48 4 mg ONCE ONE Administration Medical Decision Narrative: I discussed this patient's case with her pain medicine doctor, Dr. Luevano. He states that this sounds classic for withdrawal symptoms from morphine. He advised giving morphine. We have given 8 mg morphine IM and Zofran ODT and patient is feeling somewhat better. Dr. Luevano advised following up in his office on Sunday morning. Discharged home. General Adult HPI - General Stated complaint: reaction to medication Time Seen by Provider: 12/11/20 14:10 Mode of Arrival: Ambulatory Source of Information: Patient Limitations: No Limitations - History of Present Illness HPI narrative: This is a 60-year-old female with a past medical history significant for chronic pain who presents to the emergency department for altered sensorium since having Dilaudid placed in her pain pump yesterday. She sees Dr. Luevano for pain management and had previously been maintained with morphine and her pain pump, but this had quit working so Dilaudid was placed yesterday. Shortly after returning home from the procedure she began to feel like her skin was on fire and things tasted bad . She wants the Dilaudid out and feels distraught over how badly she feels the Dilaudid. No vomiting though she is nauseous. She does not have any chest pain or shortness of breath. No rash. - Related Data Home Medications Medication Instructions Recorded Confirmed aspirin 81 mg tablet,delayed 81 mg PO DAILY 06/25/18 12/10/20 release Ipratropium/Albuterol Sulfate 3 ml IH Q4H 12/09/19 12/10/20 [Duoneb 3mL neb] Cholecalciferol (Vitamin D3) 1,000 unit PO DAILY 05/07/20 12/10/20 [Vitamin D3 1,000 Unit Cap] Cyanocobalamin (Vitamin B-12) See Rx Instructions .ROUTE .COMPLEX 05/07/20 12/10/20 [Vitamin B-12] Ergocalciferol (Vitamin D2) 50,000 unit PO QWEEK 05/07/20 12/10/20 [Drisdol] Umeclidinium [place] [Incruse 1 inh INHALATION DAILY 06/28/20 12/10/20 Ellipta] Rivaroxaban [Xarelto] 2.5 mg PO BID 08/13/20 12/10/20 Albuterol Sulfate [Proventil Hfa] See Rx Instruct
--- NOTE | 2020-12-11 14:25 | PC.NURSE ---
speaking with Dr. Luevano
[2020-12-11 14:46] VITALS: BP 130/80; PULSE 81; RESP 18; O2SAT 90
[2020-12-11 15:30] VITALS: BP 137/74; PULSE 74; PULSE 79; RESP 16; RESP 18; TEMP 36.6; O2SAT 92; O2SAT 94
== END 2020-12-11 15:31 | disposition home or self-care (01) ==
PROVIDERS: Emergency Provider Emergency Medicine; PCP Emergency Medicine
DX: F11.23 Opioid dependence with withdrawal (principal); T40.2X5A Adverse effect of other opioids, initial encounter; Y92.019 Unspecified place in single-family (private) house as the place of occurrence of the external cause; Z88.7 Allergy status to serum and vaccine; F41.8 Other specified anxiety disorders; K21.9 Gastro-esophageal reflux disease without esophagitis; E78.5 Hyperlipidemia, unspecified; I10 Essential (primary) hypertension; F17.210 Nicotine dependence, cigarettes, uncomplicated
CPT/HCPCS: 96372; 99282

== ENCOUNTER → 2020-12-13 11:21 | Outpatient (POV) | payer MEDICARE, MEDICAID, SELFPAY ==
--- NOTE | 2020-12-13 11:47 | HMH.PMPROC ---
- Procedure Date: 12/13/20 Time: 11:47 Anesthesiologist:: Kirstie Johnson APRN Complications:: None Pre-procedure Diagnosis:: Degenerative disc disease lumbar spine lumbar radiculopathy symptoms Post-procedure Diagnosis:: Same Indications for Procedure:: Patient is a pleasant 60-year-old white female who presents today for intrathecal pain pump adjustment. Patient was started on Dilaudid 0.1 mg/day. She has gone through some withdrawal in regard to this switch over. Patient is nauseous and anxious however she does state that her pain has improved. She rates it a 1 out of 10 at this time. Patient has been taking Zofran which is beneficial for her. Patient has not had any other side effects to the Dilaudid. We will increase her today. Procedure Details:: Informed consent was obtained and the risk and benefits of the procedure were explained to the patient. The patient was taken to the procedure room where noninvasive monitoring was placed including noninvasive blood pressure cuff and pulse oximeter. Patient's pump was interrogated and reprogrammed. The infusion rate was 0.15 mg of Dilaudid today and her PTC was set up at 0.015 mg every 6 hours as needed. The patient tolerated the procedure well. Plan and Disposition:: I will follow-up with the patient on reassess her symptoms at that time she has been instructed to call the office if she has any issues prior to her next appointment. Dr. Luevano has reviewed this note and agrees with this plan of care. This note was dictated using voice recognition software and may contain errors or omissions
[2020-12-13 12:14] VITALS: BP 133/89; PULSE 77; RESP 18; TEMP 36.8; O2SAT 99; BMI 36.0
== END ==
PROVIDERS: PCP Physician Assistant; Visit Provider Clinical Nurse Specialist Family Health
DX: M51.16 Intervertebral disc disorders with radiculopathy, lumbar region (principal)
CPT/HCPCS: 62368

== ENCOUNTER → 2020-12-16 14:45 | Outpatient (POV) | payer MEDICARE, MEDICAID, SELFPAY ==
--- NOTE | 2020-12-16 15:25 | HMH.PMPROC ---
- Procedure Date: 12/16/20 Time: 15:25 Anesthesiologist:: Kirstie Johnson APRN Complications:: None Pre-procedure Diagnosis:: Degenerative disc disease lumbar spine lumbar radiculopathy symptoms Post-procedure Diagnosis:: Same Indications for Procedure:: Patient is a pleasant 60-year-old white female who presents today for follow-up. Patient was switched to Dilaudid. She was having some withdrawal symptoms these have since resolved. She is rating her pain a 7 out of 10 and would like an increase today. She is currently on a Dilaudid infusion of 0.15 mg of Dilaudid a day. We will increase her to 0.2. We will follow up with her in 1 week reassess her at that time. Procedure Details:: Informed consent was obtained and the risk and benefits of the procedure were explained to the patient. The patient was taken to the procedure room where noninvasive monitoring was placed including noninvasive blood pressure cuff and pulse oximeter. Patient's pump was interrogated and reprogrammed. The infusion rate was increased to 0.2 mg of Dilaudid a day. The patient tolerated the procedure well. Plan and Disposition:: We will see the patient back in 1 week and increase her dose if necessary. She has been instructed to call the office if she has any issues prior to her next appointment. Dr. Luevano has reviewed this note and agrees with this plan of care. This note was dictated using voice recognition software and may contain errors or omissions
[2020-12-16 15:28] VITALS: BP 142/74; PULSE 85; RESP 18; TEMP 36.8; O2SAT 99; BMI 34.4
== END ==
PROVIDERS: PCP Physician Assistant; Visit Provider Clinical Nurse Specialist Family Health
DX: M51.16 Intervertebral disc disorders with radiculopathy, lumbar region (principal); Z45.1 Encounter for adjustment and management of infusion pump
CPT/HCPCS: 62368

== ENCOUNTER 2021-01-08 12:36 | Emergency (ER) | payer MEDICARE, MEDICAID, SELFPAY ==
[2021-01-08 12:48] VITALS: BP 120/57; PULSE 82; RESP 16; TEMP 36.8; O2SAT 93; BMI 31.3
[2021-01-08 12:52] VITALS: BMI 31.3
--- NOTE | 2021-01-08 12:59 | HMH.EDEXTP ---
ED Disposition Clinical Impression: Right foot pain, Obesity (BMI 30.0-34.9) Disposition: Home, Self-Care Condition on Discharge: Good Instructions: DI for Foot Pain Additional Instructions: use meds and see pcp for follow up as planned Prescriptions: levoFLOXacin [Levaquin 500mg tab] 500 mg PO DAILY #7 tab Transmission Status: Pending to [facility]pharmacy #[id number] predniSONE [Prednisone 20mg Tab] 20 mg PO BID #10 tab Transmission Status: Pending to [id number] Ketorolac Tromethamine [Toradol 10mg tablet] 10 mg PO Q6H 3 Days #10 tab Transmission Status: Pending to [facility]acy #[id number] Referrals: Lila Yan PA [Primary Care Provider] - - Critical Care Critical Care Time: No Attestation: On 01/08/21, the high probability of a clinically significant, sudden or life threatening deterioration of the following system(s) required my full and direct attention, intervention and personal management. The time I documented below is in addition to time spent performing reported procedures but includes the following listed in this critical care notation. Medical Decision Making - Medical Records Medical records reviewed: Yes: I reviewed the patient's medical records. - Isidro Inquiry Pt receiving controlled substance: No Vital Signs: 01/08/21 12:48 01/08/21 13:40 01/08/21 13:55 Temperature 98.2 F Temperature Source Oral Pulse Rate [Radial] 82 76 Respiratory Rate 16 18 Blood Pressure [Right Arm] 120/57 L 100/64 L Blood Pressure Mean [Right Arm] 78 76 Blood Pressure Source [Right Arm] Automatic Cuff Blood Pressure Position [Right Arm] Sitting 02 Sat by Pulse Oximetry 93 L 88 L 91 L Oxygen Delivery Method Room Air Room Air Nasal Cannula Oxygen Flow Rate (LPM) 2 01/08/21 14:44 Temperature Temperature Source Pulse Rate [Radial] 75 Respiratory Rate 18 Blood Pressure [Right Arm] 136/108 H Blood Pressure Mean [Right Arm] 117 Blood Pressure Source [Right Arm] Blood Pressure Position [Right Arm] 02 Sat by Pulse Oximetry 96 Oxygen Delivery Method Nasal Cannula Oxygen Flow Rate (LPM) 2 - Lab Data Lab results reviewed: Yes: I reviewed the patient's lab results. Lab Results 01/08/21 12:49: WBC 6.6, RBC 4.53, Hgb 13.7, Hct 43.1, MCV 95.1, MCH 30.3, MCHC 31.9, RDW 15.1, Plt Count 253, MPV 7.8, Neut % (Auto) 64.4, Lymph % (Auto) 26.5, Sebastian % (Auto) 7.2, Eos % (Auto) 1.3, Baso % (Auto) 0.7, Neut # (Auto) 4.2, Lymph # (Auto) 1.7, Sebastian # (Auto) 0.5, Eos # (Auto) 0.1, Baso # (Auto) 0.1, ESR 17 01/08/21 12:49: Sodium 138, Potassium 3.8, Chloride 101, Carbon Dioxide 30, Anion Gap 10.8, BUN 11, Creatinine 0.70, Estimated Creat Clear 122, Estimated GFR 85, Est GFR ( Amer) 103, Glucose 159 H, Calcium 9.8, Total Bilirubin 0.4, AST 23, ALT 20, Alkaline Phosphatase 102, C-Reactive Protein 19.4 H, Total Protein 7.3, Albumin 4.2, Globulin 3.1, Albumin/Globulin Ratio 1.4 Result diagrams: 01/08/21 12:49 01/08/21 12:49 Orders (Tests/Meds): ORDERS Category Date Time Status Covid-19 Nasal PCR ([facility]) Routine Lab 01/08/21 14:04 Ordered Medical Decision Narrative: pt with red swollen tender rt foot - possible gout Extremity Problem HPI - General Chief complaint: Extremity Problem,Nontraumatic Stated complaint: v/d chills, ankle swollen Time Seen by Provider: 01/08/21 12:59 Mode of Arrival: Ambulatory Source of Information: Patient, Medical Record Limitations: No Limitations Description of Symptoms (Recalled from ER Triage Doc. by RN): TO ED PER PVT CAR C/O NAUSEA, FEVER, ABD CRAMPING WEDS, THURS SYMPTOMS HAVE RESOLVED. PT NOW C/O RT FOOT REDNESS AND SWELLING. STATES HX OF CELLULITIS 1MONTH AGO AND FINISHED COURSE OF ANTIBIOTICS. PT STATES SHE IS WORRIED THAT SHE IS GETTING CELLULITIS AGAIN. - History of Present Illness HPI Narrative: rt foot swollen over the last few days with no fever or trauma - hx of recent cellulitis rt lower leg - better on abx MD Complaint:
[2021-01-08 13:05] LABS: Basophils # 0.1 K/mm3 (0-0.2); Basophils % 0.7 % (0.1-2.0); Eosinophils # 0.1 K/mm3 (0.0-0.4); Eosinophils % 1.3 % (0.1-12.0); Hematocrit 43.1 % (37.0-47.0); Hemoglobin 13.7 g/dL (12.2-16.2); Lymphocytes # 1.7 K/mm3 (0.7-4.5); Lymphocytes % 26.5 % (10-50); Mean Corpuscular HGB Conc 31.9 g/dL (31.8-35.4); Mean Corpuscular Hemoglobin 30.3 pg (27.0-31.2); Mean Corpuscular Volume 95.1 fl (81-99); Mean Platelet Volume 7.8 fl (7.4-10.4); Monocytes # 0.5 K/mm3 (0.1-1.0); Monocytes % 7.2 % (1.7-9.3); Neutrophils # 4.2 K/mm3 (1.8-7.8); Neutrophils % 64.4 % (37.0-80.0); Platelet Count 253 K/mm3 (142-424); Red Blood Count 4.53 M/mm3 (4.20-5.40); Red Cell Distribution Width 15.1 % (11.5-17.5); White Blood Count 6.6 K/mm3 (4.8-10.8)
[2021-01-08 13:07] LABS: Chloride 101 mmol/L (98-107); Potassium 3.8 mmoL/L (3.5-5.1); Sodium 138 mmol/L (136-145)
[2021-01-08 13:10] LABS: Alanine Aminotransferase 20 U/L (12-78); Albumin Level 4.2 g/dl (3.5-5.0); Albumin/Globulin Ratio 1.4 (1.1-1.8); Alkaline Phosphatase 102 U/L (38-126); Anion Gap 10.8 mEq/L (5-15); Aspartate Amino Transferase 23 U/L (14-36); Bilirubin,Total 0.4 mg/dl (0.2-1.3); Blood Urea Nitrogen 11 mg/dl (7-17); Calcium 9.8 mg/dl (8.4-10.2); Carbon Dioxide 30 mmol/L (22.0-30.0); Creatinine Clearance Estimated 122 mL/min (50-200); Estimated Glomerular Filt Rate 85 ml/min (>60); GFR (African American) 103 ML/MIN (>60); Globulin 3.1 g/dL (1.3-3.2); Glucose 159 mg/dl (74-100); Total Protein,Serum 7.3 g/dl (6.3-8.2)
[2021-01-08 13:16] LABS: C-Reactive Protein 19.4 mg/L (0-4)
[2021-01-08 13:32] LABS: Erythrocyte Sedimentation Rate 17 mm/hr (0-30)
[2021-01-08 13:40] VITALS: BP 100/64; PULSE 76; RESP 18; O2SAT 88
[2021-01-08 13:55] VITALS: O2SAT 91
--- NOTE | 2021-01-08 13:56 | PC.NURSE ---
O2 SAT 88% O2 @ 2 LPM VIA CANNULA APPLIED O2 SAT INCREASED TO 91%
[2021-01-08 14:44] VITALS: BP 136/108; PULSE 75; RESP 18; O2SAT 96
--- NOTE | 2021-01-08 15:17 | XR_ITS ---
PROCEDURE: XR FOOT RT MIN 3V CLINICAL INDICATION: PAIN SWELLING COMPARISON: No exams were available for comparison FINDINGS: And nonspecific longitudinal lucency is present through the proximal aspect of 5th metatarsal. This could represent a nondisplaced fracture. Please correlate as patient's area of pain and tenderness. A triangular-shaped calcific density is present along the tarsal metatarsal junction dorsally on the lateral view. This could represent an avulsion injury age indeterminate. There is some mild soft tissue swelling along the dorsal aspect of the foot at the metatarsal region. IMPRESSION: 1. Longitudinal lucency at the base of the 5th metatarsal which could represent a nondisplaced fracture. 2. Avulsion fracture at the tarsal metatarsal junction dorsally age indeterminate. 3. Please correlate with patient's area of pain and tenderness regarding the above findings. CT may provide further evaluation if clinically desired. Dictated by: Stefano Cowan MD 01/09/2021 07:33 Stefano Cowan MD in [place] 01/09/2021 07:33
[2021-01-08 15:46] VITALS: BP 114/80; PULSE 78; RESP 16; TEMP 36.8; O2SAT 98
[2021-01-08 15:48] LABS: Uric Acid 5.9 mg/dl (2.5-6.2)
== END 2021-01-08 15:47 | disposition home or self-care (01) ==
PROVIDERS: Emergency Provider Emergency Medicine; PCP Physician Assistant
DX: M79.671 Pain in right foot (principal); L03.115 Cellulitis of right lower limb; F41.8 Other specified anxiety disorders; E78.5 Hyperlipidemia, unspecified; K21.9 Gastro-esophageal reflux disease without esophagitis; I10 Essential (primary) hypertension; F17.210 Nicotine dependence, cigarettes, uncomplicated; Z79.899 Other long term (current) drug therapy; Z88.7 Allergy status to serum and vaccine; Z20.822 Contact with and (suspected) exposure to COVID-19
CPT/HCPCS: 73630; 80053; 84550; 85025; 85651; 86140; 99283; U0003

== ENCOUNTER → 2021-01-17 08:02 | Outpatient (CLI) | payer MEDICARE, MEDICAID, SELFPAY ==
--- NOTE | 2021-01-17 08:03 | CT_ITS ---
PROCEDURE: CT FOOT RT WO CON CLINICAL HISTORY: R Foot edema Right foot swelling. Follow up abnormal radiograph suggesting a 5th metatarsal fracture COMPARISON: CR XR FOOT RT MIN 3V from 01/08/2021 TECHNIQUE: Axial images obtained with sagittal and coronal reformats. All CT scans at the facility use one or more dose reduction, viz: automated exposure control, ma/kV adjustment per patient size (including targeted exams where dose is matched to indication, i.e. head), or iterative reconstruction technique. FINDINGS: There is a sclerotic focus within the distal aspect of the calcaneus laterally. This area measures 8 mm and may represent a bone island. Previous radiograph demonstrated a longitudinal lucency at the proximal aspect of the 5th metatarsal. This is not duplicated on the CT scan. No evidence fracture. There is a type 1 os navicularis. A calcific density is present along the lateral aspect of the talus anterior to the distal fibula measuring 7 mm and could be due to an old fracture. There is diffuse subcutaneous soft tissue swelling of the ankle and foot. No loculated fluid collections. No radiopaque foreign bodies. IMPRESSION: 1. No acute bony findings. See above for detail 2. Diffuse subcutaneous soft tissue swelling of the ankle and foot Dictated by: Stefano Cowan MD 01/17/2021 14:01 Stefano Cowan MD in [place] 01/17/2021 14:01
== END ==
PROVIDERS: PCP Physician Assistant; Visit Provider Nurse Practitioner Family
DX: M79.89 Other specified soft tissue disorders (principal); R60.0 Localized edema
CPT/HCPCS: 73700

== ENCOUNTER → 2021-01-17 10:28 | Outpatient (POV) | payer MEDICARE, MEDICAID, SELFPAY ==
--- NOTE | 2021-01-17 11:05 | P.CONS_ITS ---
[facility] History Medical History: Reports:: Anxiety, Chronic Obstructive Pulmonary Disease (COPD), Coronary Artery Disease, Depression, Gastroesophageal Reflux Disease(GERD), Hyperlipidemia, Hypertension, Peripheral Artery Disease, Peripheral Vascular Disease Denies:: Cancer, Diabetes Mellitus Type 1, Diabetes Mellitus Type 2, Internal Pacemaker, MRSA, Seizures *Have you ever received a pneumonia vaccine?: No *Have you received a flu vaccine this season?: Yes Other Medical History: Reports: Arthritis. Denies: Blood Transfusion Reaction Laterality Cases: Left: Other Other Surgeries: Yes: Angiogram, Cancer Surgery (skin cancer removed from chest and shoulder), Cardiac Catheterization, , Tubal Ligation, Other (pain pump implant). No: Pacemaker Amputation: No Fractures: Yes - *Social History Smoking Status: Current every day smoker Tobacco Type: cigarettes # Packs/Day (cigarettes): 1 #Yrs smoked (if former smoker): 41 Alcohol Intake: never Alcohol Intake Frequency:: other Substance Use Type: denies use *Occupational Status:: other Housing: house Household Members: other - Psychiatric History Pschychiatric History:: Reports:: Anxiety, Depression Family Hx:: Cancer, Diabetes, Heart Attack, Hypertension
--- NOTE | 2021-01-17 11:18 | HMH.PMPROC ---
- Procedure Date: 01/17/21 Time: 11:20 Anesthesiologist:: Kirstie Johnson APRN Complications:: None Pre-procedure Diagnosis:: Degenerative disc disease lumbar spine lumbar radiculopathy symptoms Post-procedure Diagnosis:: Same Indications for Procedure:: Patient is a pleasant 60-year-old white female today for follow-up. She is currently prescribed Dilaudid or intrathecal pain pump therapy. She was seen on 12/16/2020 and her Dilaudid was increased to 0.2 mg/day. She continues to have increase in pain. She rates her pain today a 10 out of 10 and she states that she is unable to raise up straight due to increasing low back pain. She was given a one-time bolus of 0.1 mg over 5 minutes which significantly decreased her pain. We discussed periodic flow. Procedure Details:: Informed consent was obtained and the risk and benefits of the procedure were explained to the patient. The patient was taken to the procedure room where noninvasive monitoring was placed including noninvasive blood pressure cuff and pulse oximeter. Patient's pump was interrogated and reprogrammed. The infusion rate was [changed to basal rate of 0.24 mg/day with 0.05 mg boluses every 6 hours]. The patient tolerated the procedure well. Plan and Disposition:: We will see the patient back in 2 weeks for reassessment. she was instructed to continue to keep her PTC device in case the periodic flow does not work well for the patient. She has been instructed to call the office if she has any issues prior to her next appointment. Dr. Luevano has reviewed this note and agrees with this plan of care. This note was dictated using voice recognition software and may contain errors or omissions
[2021-01-17 11:28] VITALS: BP 132/88; PULSE 74; RESP 18; TEMP 36.6; O2SAT 98; BMI 34.4
== END ==
PROVIDERS: PCP Physician Assistant; Visit Provider Clinical Nurse Specialist Family Health
DX: M51.16 Intervertebral disc disorders with radiculopathy, lumbar region (principal); Z45.1 Encounter for adjustment and management of infusion pump; M79.671 Pain in right foot
CPT/HCPCS: 62368; 73700

== ENCOUNTER 2021-01-18 11:12 | Observation (INO) | payer MEDICARE, MEDICAID, SELFPAY ==
[2021-01-18] VITALS (10 sets, daily range): BP systolic 80–129; BP diastolic 49–86; PULSE 75–95; RESP 18–20; TEMP 36.7–37.1; O2SAT 90–99; BMI 31.3; BMI 34.4
--- NOTE | 2021-01-18 11:17 | ECG_ITS ---
APPROVED REPORT Exam: Resting ECG HR:91 bpm ECG Measurements Heart Rate 91 AXES MT 146 P 70 QRSd 72 QRS 59 QT 364 T 65 QTc 447 Conclusion Normal sinus rhythm Normal ECG Electronically signed by : Michael Saab, 01/18/2021 20:52:30
--- NOTE | 2021-01-18 11:17 | XR_ITS ---
PROCEDURE: XR CHEST PORTABLE CLINICAL HISTORY: short of breath COMPARISON: CR XR CHEST AP from 07/13/[address] ANGIO CHEST from 07/13/2019 CR XR CHEST 2V from 11/08/2019 CR XR CHEST PORTABLE from 02/19/2020 FINDINGS: Mild cardiomegaly without failure. The The lungs are clear without infiltrates, suspicious nodules, or pleural effusions. No acute bony abnormalities. IMPRESSION: Cardiomegaly otherwise negative Dictated by: Stefano Cowan MD 01/18/2021 13:12 Stefano Cowan MD in [place] 01/18/2021 13:12
--- NOTE | 2021-01-18 11:23 | HMH.EDGENADL ---
ED Disposition Clinical Impression: Altered mental status Qualifiers: Altered mental status type: delirium Qualified Code(s): R41.0 - Disorientation, unspecified Chronic back pain Qualifiers: Back pain location: low back pain Back pain laterality: unspecified Sciatica presence: unspecified whether sciatica present Qualified Code(s): M54.5 - Low back pain Disposition: Admitted as Observation Condition on Discharge: Fair Time of Disposition: 14:11 - Critical Care Critical Care Time: No Attestation: On 01/18/21, the high probability of a clinically significant, sudden or life threatening deterioration of the following system(s) required my full and direct attention, intervention and personal management. The time I documented below is in addition to time spent performing reported procedures but includes the following listed in this critical care notation. Medical Decision Making - Medical Records Medical records reviewed: Yes: I reviewed the patient's medical records. - Isidro Inquiry Pt receiving controlled substance: No Vital Signs: 01/18/21 11:12 01/18/21 11:25 01/18/21 12:12 Temperature 98.8 F Temperature Source Oral Pulse Rate Pulse Rate [Left Radial] 82 95 H 89 Respiratory Rate 18 Blood Pressure Blood Pressure [Right Arm] 88/55 L 85/56 L 80/57 L Blood Pressure Mean [Right Arm] 66 65 64 Blood Pressure Source [Right Arm] Automatic Cuff Automatic Cuff Automatic Cuff Blood Pressure Position [Right Arm] Sitting Sitting Sitting 02 Sat by Pulse Oximetry 95 95 93 L Oxygen Delivery Method Nasal Cannula Nasal Cannula Room Air Oxygen Flow Rate (LPM) 4 3 01/18/21 12:59 01/18/21 13:56 01/18/21 14:30 Temperature Temperature Source Pulse Rate Pulse Rate [Left Radial] 90 88 82 Respiratory Rate 18 Blood Pressure Blood Pressure [Right Arm] 80/49 L 83/54 L 80/52 L Blood Pressure Mean [Right Arm] 59 63 61 Blood Pressure Source [Right Arm] Automatic Cuff Automatic Cuff Blood Pressure Position [Right Arm] Sitting Sitting 02 Sat by Pulse Oximetry 90 L 94 L 92 L Oxygen Delivery Method Nasal Cannula Room Air Nasal Cannula Oxygen Flow Rate (LPM) 3 4 01/18/21 14:59 01/18/21 15:10 Temperature 98.1 F Temperature Source Oral Pulse Rate 82 Pulse Rate [Left Radial] 81 Respiratory Rate 20 Blood Pressure 87/55 L Blood Pressure [Right Arm] 84/54 L Blood Pressure Mean [Right Arm] 64 Blood Pressure Source [Right Arm] Automatic Cuff Blood Pressure Position [Right Arm] Sitting 02 Sat by Pulse Oximetry 92 L Oxygen Delivery Method Nasal Cannula Nasal Cannula Oxygen Flow Rate (LPM) 3 4 - Lab Data Lab Results 01/18/21 11:17: VBG pH 7.35, VBG pCO2 47.3, VBG pO2 94.5 H, VBG HCO3 25.7, VBG Total CO2 27.2 H, VBG O2 Saturation 96.9 H, VBG Base Excess 0.1 01/18/21 11:50: WBC 7.3, RBC 3.97 L, Hgb 11.9 L, Hct 38.5, MCV 96.9, MCH 30.1, MCHC 31.0 L, RDW 15.7, Plt Count 225, MPV 8.4, Neut % (Auto) 68.4, Lymph % (Auto) 21.8, [place] % (Auto) 8.8, Eos % (Auto) 0.4, Baso % (Auto) 0.5, Neut # (Auto) 5.0, Lymph # (Auto) 1.6, [place] # (Auto) 0.6, Eos # (Auto) 0.0, Baso # (Auto) 0.0 01/18/21 11:50: Sodium 136, Potassium 4.4, Chloride 102, Carbon Dioxide 32 H, Anion Gap 6.4, BUN 15, Creatinine 0.70, Estimated Creat Clear 122, Estimated GFR 85, Est GFR ( Amer) 103, Glucose 128 H, Calcium 8.7, Total Bilirubin 0.3, AST 51 H, ALT 18, Alkaline Phosphatase 92, Troponin I 0.22 H, Total Protein 6.4, Albumin 3.6, Globulin 2.8, Albumin/Globulin Ratio 1.3 01/18/21 11:50: Lactate 0.7 01/18/21 11:50: Procalcitonin 0.100 01/18/21 12:20: Chlamy pneumoniae PCR Not detected, Adenovirus (PCR) Not detected, B. pertussis DNA (PCR) Not detected, Coronavirus OC43 (PCR) Not detected, Coronavirus HKU1 (PCR) Not detected, Coronavirus 229E (PCR) Not detected, SARS-CoV-2 (PCR) Not detected, Coronavirus NL63 (PCR) Not detected, Human Metapneumovir PCR Not detected, Influenza A (H1) PCR Not detected, Influ A (H1N1/09) PCR Not detected, Influ
--- NOTE | 2021-01-18 11:28 | PC.NURSE ---
Pain management to turn down Dilaudid pain pump at this time per provider request.
--- NOTE | 2021-01-18 11:30 | PC.NURSE ---
Pain management nurse at bedside
[2021-01-18 12:09] LABS: Basophils % 0.5 % (0.1-2.0); Chloride 102 mmol/L (98-107); Eosinophils % 0.4 % (0.1-12.0); Hematocrit 38.5 % (37.0-47.0); Hemoglobin 11.9 g/dL (12.2-16.2); Lymphocytes # 1.6 K/mm3 (0.7-4.5); Lymphocytes % 21.8 % (10-50); Mean Corpuscular Hemoglobin 30.1 pg (27.0-31.2); Mean Corpuscular Volume 96.9 fl (81-99); Mean Platelet Volume 8.4 fl (7.4-10.4); Monocytes # 0.6 K/mm3 (0.1-1.0); Monocytes % 8.8 % (1.7-9.3); Neutrophils % 68.4 % (37.0-80.0); Platelet Count 225 K/mm3 (142-424); Red Blood Count 3.97 M/mm3 (4.20-5.40); Red Cell Distribution Width 15.7 % (11.5-17.5); White Blood Count 7.3 K/mm3 (4.8-10.8)
[2021-01-18 12:10] LABS: Potassium 4.4 mmoL/L (3.5-5.1); Sodium 136 mmol/L (136-145)
[2021-01-18 12:12] LABS: Alanine Aminotransferase 18 U/L (12-78); Albumin Level 3.6 g/dl (3.5-5.0); Albumin/Globulin Ratio 1.3 (1.1-1.8); Alkaline Phosphatase 92 U/L (38-126); Anion Gap 6.4 mEq/L (5-15); Aspartate Amino Transferase 51 U/L (14-36); Bilirubin,Total 0.3 mg/dl (0.2-1.3); Blood Urea Nitrogen 15 mg/dl (7-17); Calcium 8.7 mg/dl (8.4-10.2); Carbon Dioxide 32 mmol/L (22.0-30.0); Creatinine Clearance Estimated 122 mL/min (50-200); Estimated Glomerular Filt Rate 85 ml/min (>60); GFR (African American) 103 ML/MIN (>60); Globulin 2.8 g/dL (1.3-3.2); Glucose 128 mg/dl (74-100); Total Protein,Serum 6.4 g/dl (6.3-8.2)
[2021-01-18 12:16] LABS: Lactic Acid 0.7 mmol/L (0.7-2.1)
[2021-01-18 12:25] LABS: Troponin I 0.22 ng/ml (0.00-0.034)
[2021-01-18 12:41] LABS: Adenovirus,PCR Not Detected (NotDetected); Bordetella Pertussis Not Detected (NotDetected); Chlamydophila Pneumoniae, PCR Not Detected (NotDetected); Coronavirus 19, PCR Not Detected (NotDetected); Coronavirus 229E Not Detected (NotDetected); Coronavirus NL63 Not Detected (NotDetected); Coronavirus OC43 Not Detected (NotDetected); Coronovirus HKU1,PCR Not Detected (NotDetected); Human Metapneumovirus Not Detected (NotDetected); Influenza A, PCR Not Detected (NotDetected); Influenza AH1, 2009 Not Detected (NotDetected); Influenza AH1, PCR Not Detected (NotDetected); Influenza AH3,PCR Not Detected (NotDetected); Influenza B, PCR Not Detected (NotDetected); Mycoplasma Pneumoniae, PCR Not Detected (NotDetected); Parainfluenza 1, PCR Not Detected (NotDetected); Parainfluenza 2, PCR Not Detected (NotDetected); Parainfluenza 3, PCR Not Detected (NotDetected); Parainfluenza 4, PCR Not Detected (NotDetected); Respiratory Syncytial Virus Not Detected (NotDetected); Rhinovirus/Enterovirus Not Detected (NotDetected)
[2021-01-18 12:49] LABS: Microscopic, Urine URINE MICROSCOPIC (MICROSCOPIC)
[2021-01-18 12:54] LABS: Appearance,Urine CLEAR (Clear); Bilirubin,Urine Negative (Negative); Blood, Urine Negative (Negative); Color,Urine YELLOW (Yellow); Glucose,Urine (UA) Negative (Negative); Ketones,Urine Negative (Negative); Leukocyte Esterase,Urine Negative (Negative); Nitrate,Urine Negative (Negative); Protein,Urine Negative (Negative); Specific Gravity, Urine 1.025 (1.005-1.030); Urobilinogen,Urine 0.2 EU/dl (0.2)
[2021-01-18 14:11] LABS: VBG Base Excess 0.1 mmol/L (-2.4-2.3); VBG HCO3 25.7 mmol/L (23-30); VBG Oxygen Saturation 96.9 % (50-70); VBG PCO2 47.3 mmol/L (35-51); VBG PH 7.35 mmol/L (7.31-7.41); VBG PO2 94.5 mmol/L (28-40); VBG Total CO2 27.2 mmol/L (23-27)
--- NOTE | 2021-01-18 15:36 | PC.NURSE ---
Pt arrived to the floor at this time.
--- NOTE | 2021-01-18 16:14 | PC.NURSE ---
DR TREVINO CHANGED FLUIDS TO NS@75 ML/HR
--- NOTE | 2021-01-18 17:09 | PC.NURSE ---
COMPLETED MED REC WITH PT. SHE STATED THAT HER SON WOULD BRING IN MEDS TOMORROW. SHE STATES THAT SHE IS UNSURE ABOUT TAKING VENLAFAXINE.
[2021-01-18 17:24] LABS: POC Glucose,Bedside 152 (70-110)
[2021-01-18 21:07] LABS: POC Glucose,Bedside 123 (70-110)
--- NOTE | 2021-01-18 21:10 | HMH.HP ---
*Admission Date: 01/18/21 *Chief complaint: mental status changes *History of present illness: Patient is a 60-year-old white female, patient of Dr. Rob, admitted through the emergency room earlier today with mental status changes associated with long-term opiates administered for chronic pain. Patient is followed by the pain management team here, is status post implantation of a pump, was initially placed on morphine been changed to Dilaudid. Indication for the pump was intractable back pain. By her account the titration rate had been recently changed. She complained to her son of confusion and increasing weakness, was taken to the ER via EMS services. She was given Narcan in route. Patient is followed in the office, was recently seen for redness and swelling in the right lower leg. She was on antibiotics for cellulitis. She is awake, lucid, and clear tonight. She has no significant pain, no suggestion of withdrawal. [facility] History Medical History: Reports:: Anxiety, Chronic Obstructive Pulmonary Disease (COPD), Coronary Artery Disease, Depression, Gastroesophageal Reflux Disease(GERD), Hyperlipidemia, Hypertension, Peripheral Artery Disease, Peripheral Vascular Disease Denies:: Cancer, Diabetes Mellitus Type 1, Diabetes Mellitus Type 2, Internal Pacemaker, MRSA, Seizures *Have you ever received a pneumonia vaccine?: No *Have you received a flu vaccine this season?: Yes Other Medical History: Reports: Arthritis. Denies: Blood Transfusion Reaction Laterality Cases: Left: Other Other Surgeries: Yes: Angiogram, Cancer Surgery (skin cancer removed from chest and shoulder), Cardiac Catheterization, , Tubal Ligation, Other (pain pump implant). No: Pacemaker Amputation: No Fractures: Yes - *Social History Last grade of school completed: GED Smoking Status: Current every day smoker Tobacco Type: cigarettes # Packs/Day (cigarettes): 1 #Yrs smoked (if former smoker): 41 Alcohol Intake: never Alcohol Intake Frequency:: other Substance Use Type: denies use *Occupational Status:: unemployed Housing: house Household Members: other *Travel in the last 8 weeks: None - Psychiatric History Pschychiatric History:: Reports:: Anxiety, Depression Family Hx:: Cancer, Diabetes, Heart Attack, Hypertension Review of Systems - Constitutional Reports fatigue, Reports lack of energy - Eyes Reports blurry vision - ENT Reports dizziness - *Cardiovascular Reports leg swelling, Denies chest pain - *Respiratory Reports shortness of breath with activity - *Gastrointestinal Denies change in bowel habits - *Genitourinary Denies painful urination - *Musculoskeletal Reports abnormal walking, Reports joint pain, Reports limited joint movement, Reports muscle weakness, Reports radiating pain into limb, Reports stiffness - Integumentary/Breasts Denies yellowing of the skin - *Neurologic Reports abnormal walking, Reports behavioral changes, Reports confusion, Reports unsteadiness, Reports lack of coordination, Reports fainting, Reports dizziness, Reports weakness, Denies dizziness, Denies headache(s) - Psychiatric Reports memory loss - Endocrine Denies increased hunger - Hematologic/Lymphatic Denies easy bleeding - Allergic/Immunologic Denies hives Meds Home Medications Medication Instructions Recorded Confirmed Type Ipratropium/Albuterol Sulfate 3 ml IH Q4H 12/09/19 01/18/21 History [Duoneb 3mL neb] Ondansetron [Zofran 4mg ODT] 4 mg PO Q6 PRN #10 tab.rapdis 12/11/20 01/18/21 Rx ondansetron HCL [Zofran 4mg Tab*] 4 mg PO TIDP PRN #20 tab 12/13/20 01/18/21 Rx albuterol sulfate 90 mcg/actuation See Rx Instructions .ROUTE 01/17/21 01/18/21 Rx aerosol inhaler .COMPLEX #8.5 g aspirin 81 mg tablet,delayed 81 mg PO DAILY #90 tab 01/17/21 01/18/21 Rx release budesonide-formoterol HFA 160 2 puff INHALATION BID #1 device 01/17/21 01/18/21 Rx mcg-4.5 mcg/actuation aerosol inhaler cholecalciferol (crystal
[2021-01-19 04:00] VITALS: BP 107/61; PULSE 79; RESP 20; TEMP 36.8; O2SAT 92
[2021-01-19 05:19] VITALS: BMI 35.7
--- NOTE | 2021-01-19 05:33 | PC.NURSE ---
shift summary pts lung sounds are clear with sats maintained above 90% on room air with a rate ranging from 18-20. pt is able to get up and walk to bathroom with a standby assist pt is alert and oriented X4. pt was very anxious at the beginning of shift but has since calmed down.
[2021-01-19 07:31] LABS: Basophils % 0.5 % (0.1-2.0); Eosinophils % 0.3 % (0.1-12.0); Hematocrit 38.1 % (37.0-47.0); Hemoglobin 11.7 g/dL (12.2-16.2); Lymphocytes # 1.3 K/mm3 (0.7-4.5); Mean Corpuscular HGB Conc 30.8 g/dL (31.8-35.4); Mean Corpuscular Hemoglobin 30.3 pg (27.0-31.2); Mean Corpuscular Volume 98.5 fl (81-99); Mean Platelet Volume 7.9 fl (7.4-10.4); Monocytes # 0.7 K/mm3 (0.1-1.0); Monocytes % 11.3 % (1.7-9.3); Neutrophils # 3.9 K/mm3 (1.8-7.8); Neutrophils % 65.8 % (37.0-80.0); Platelet Count 190 K/mm3 (142-424); Red Blood Count 3.87 M/mm3 (4.20-5.40); Red Cell Distribution Width 15.6 % (11.5-17.5); White Blood Count 5.9 K/mm3 (4.8-10.8)
--- NOTE | 2021-01-19 07:36 | HMH.PHAVTE ---
[facility] Pharmacy VTE Monitoring - Patient Demographics Admission date: 01/18/21 Report Date: 01/19/21 Time: 07:36 Allergies/Adverse Reactions: Patient Allergies tetanus and diphtheria toxoids [TETANUS & DIPHTHERIA TOXOIDS] Allergy (Severe, Verified 01/17/21 13:14) I-HIVES atorvastatin Adverse Reaction (Intermediate, Verified 01/17/21 13:14) Headache Height: 1.7 m Weight: 103.419 kg Patient Problems: Current Active Problems Altered mental status (Acute) Chronic back pain (Chronic) Back Pain (Chronic) Obesity (BMI 30.0-34.9) (Chronic) COPD (chronic obstructive pulmonary disease) (Chronic) - VTE Risk Labs: VTE Related Lab Results Hgb 11.7 g/dL (12.2-16.2) L 01/19/21 07:01 Hct 38.1 % (37.0-47.0) 01/19/21 07:01 Plt Count 190 K/mm3 (142-424) 01/19/21 07:01 BUN 15 mg/dl (7-17) 01/18/21 11:50 Creatinine 0.70 mg/dl (0.52-1.04) 01/18/21 11:50 Estimated Creat Clear 122 mL/min (50-200) 01/18/21 11:50 VTE Score: 8 VTE Risk Level: Moderate Risk - Prophylaxis VTE Prophylaxis Ordered?: Yes Types of VTE Prophylaxis: TEDS Knee High Location of Applied Device: Bilateral Lower Extremeties
[2021-01-19 07:37] LABS: Anion Gap 8.2 mEq/L (5-15); Blood Urea Nitrogen 8 mg/dl (7-17); Calcium 8.4 mg/dl (8.4-10.2); Carbon Dioxide 31 mmol/L (22.0-30.0); Chloride 105 mmol/L (98-107); Creatinine Clearance Estimated 163 mL/min (50-200); Estimated Glomerular Filt Rate 102 ml/min (>60); GFR (African American) 123 ML/MIN (>60); Glucose 108 mg/dl (74-100); Potassium 4.2 mmoL/L (3.5-5.1); Sodium 140 mmol/L (136-145)
[2021-01-19 08:00] VITALS: BP 120/75; PULSE 78; RESP 18; TEMP 36.8; O2SAT 91
[2021-01-19 08:30] LABS: POC Glucose,Bedside 108 (70-110)
--- NOTE | 2021-01-19 09:36 | HMH.DCSUM ---
General - General Admission date:: 01/18/21 Discharge date: 01/19/21 HPI HPI: Patient is a 60-year-old white female, patient of Dr. Rob, admitted through the emergency room earlier today with mental status changes associated with long-term opiates administered for chronic pain. Patient is followed by the pain management team here, is status post implantation of a pump, was initially placed on morphine been changed to Dilaudid. Indication for the pump was intractable back pain. By her account the titration rate had been recently changed. She complained to her son of confusion and increasing weakness, was taken to the ER via EMS services. She was given Narcan in route. Patient is followed in the office, was recently seen for redness and swelling in the right lower leg. She was on antibiotics for cellulitis. She is awake, lucid, and clear tonight. She has no significant pain, no suggestion of withdrawal. Hospital Course Hospital Course: Patient is a 60-year-old white female, patient of Dr. Rob, admitted through the emergency room earlier today with mental status changes associated with long-term opiates administered for chronic pain. Patient is followed by the pain management team here, is status post implantation of a pump, was initially placed on morphine been changed to Dilaudid. Indication for the pump was intractable back pain. By her account the titration rate had been recently changed. She complained to her son of confusion and increasing weakness, was taken to the ER via EMS services. She was given Narcan in route. Patient is followed in the office, was recently seen for redness and swelling in the right lower leg. She was on antibiotics for cellulitis. She is awake, lucid, and clear tonight. She has no significant pain, no suggestion of withdrawal (Per Dr. Sigala). Chest x-ray revealed cardiomegaly and no acute findings While in the emergency department patient received 2 L IV fluids and IV steroids for concern of adrenal insufficiency. Pain management team arrived in the ER to turn off her Dilaudid pain pump. After IV fluids and Dilaudid pump stoppage patient had a rapid improvement in mental status, she was alert and oriented x3 and admitted to the hospital A.M. lab work is unremarkable, UA is negative 60-year-old female patient resting in bed quietly with eyes open, awakens to verbal stimuli. She reports she is feeling better, she is alert and oriented x3, denies any pain or symptoms of withdrawal. Discussed discharge home today with patient, she is agreeable to this. Discussed patient with pain clinic instructed to discharge patient with no pain medicine will see in office tomorrow at 11:45 AM. Plan: 1. We will discharge home today 2. Follow-up with PCP in 1 week 3. Follow-up with pain management 01/20/2021 at 1145 4. No pain medicine until appointment with pain management Objective Vital signs: Temp Pulse Resp BP Pulse Ox 98.2 F 78 18 120/75 91 L 01/19/21 08:00 01/19/21 08:00 01/19/21 08:00 01/19/21 08:00 01/19/21 08:00 no acute distress - *Routine HEENT Exam Head: Present: normocephalic Eye: Present: EOMI ENT: Present: mucous membranes moist - *Routine Neck Exam Present: trachea midline. Absent: tracheal deviation - *Routine Respiratory Exam Present: CTA bilaterally. Absent: accessory muscle use - *Routine Cardiovascular Exam Present: RRR, murmur - *Routine Abdominal Exam Present: soft, normoactive bowel sounds, obese. Absent: tenderness, firm - *Routine Extremities Exam Present: edema, full ROM, pulses intact. Absent: cyanosis, calf tenderness - *Routine Skin Exam Present: intact, dry, warm. Absent: cyanosis, erythema - *Routine Neurological Exam Present: alert, oriented X3. Absent: altered mental status - Routine Psychiatric Exam Present: normal affect, normal thought process. Absent: auditory hallucinations, visual halluci
== END 2021-01-19 10:28 | disposition home or self-care (01) ==
LOC: ER 14:04 → 2ND 14:48
PROVIDERS: Admitting Provider Emergency Medicine; Emergency Provider Emergency Medicine; PCP Emergency Medicine; Visit Provider Emergency Medicine
DX: R41.82 Altered mental status, unspecified (principal); T40.2X5A Adverse effect of other opioids, initial encounter; M51.16 Intervertebral disc disorders with radiculopathy, lumbar region; J44.9 Chronic obstructive pulmonary disease, unspecified; I25.10 Atherosclerotic heart disease of native coronary artery without angina pectoris; I10 Essential (primary) hypertension; Z79.899 Other long term (current) drug therapy; Z79.51 Long term (current) use of inhaled steroids
CPT/HCPCS: 71045; 80048; 80053; 81001; 82533; 82803; 82962; 83605; 84145; 84484; 85025; 87040; 87581; 87633; 87798; 93005; 96365; 96366; 96375; 99285; G0378

== ENCOUNTER → 2021-01-20 11:44 | Outpatient (POV) | payer MEDICARE, MEDICAID, SELFPAY ==
[2021-01-20 11:54] VITALS: BP 172/82; PULSE 77; RESP 20; TEMP 36.4; O2SAT 93; BMI 34.6
--- NOTE | 2021-01-20 12:52 | HMH.PMPROC ---
- Procedure Date: 01/20/21 Time: 12:52 Anesthesiologist:: Kirstie Johnson APRN Complications:: None Pre-procedure Diagnosis:: Degenerative disc disease lumbar spine lumbar radiculopathy, status post pain pump turned off secondary to overmedication Post-procedure Diagnosis:: Same Indications for Procedure:: Patient is a pleasant 60-year-old white female who presents today for follow-up. At her last visit she had an increase in her intrathecal therapy. Patient states that she did well all day with no issues including after her bolus in the office. Patient states at 4 AM she woke up with nausea. Patient states that prior to this she had taken her nighttime medicine which included her Klonopin. I discussed with her if she had taken it during the day she states she does not typically take that dose and had not taken it that day. Patient currently has her intrathecal pain pump off. She did have a inpatient stay where her pump was turned off. Patient seemingly in withdrawals at this time patient is anxious nervous, nauseous. Patient rates her pain a 0 however she states is because she has no ability to decide what is painful when she is is anxious that she is. Of note patient's troponin was 0.22. Patient has a cardiac history. Patient does have a fish dressing machine feeder I encouraged her to follow-up with her fish dressing machine feeder as well. Patient I discussed switching of the medication to a nonnarcotic medication because I do not believe that she can come off of her Klonopin. She is agreeable. At this time we gave her a 0.025 mg bolus which relaxed her and calmed her nerves. Patient was able to sit and have a discussion in regards to plan of care. We discussed switching to bupivacaine. She is agreeable. We will give her a short-term dose of oral narcotics and keep her pump turned off. Procedure Details:: Informed consent was obtained and the risk and benefits of the procedure were explained to the patient. The patient was taken to the procedure room where noninvasive monitoring was placed including noninvasive blood pressure cuff and pulse oximeter. Patient's pump was interrogated and reprogrammed. The infusion rate was left at 0 mg/day and is currently off. The patient tolerated the procedure well. Plan and Disposition:: Patient will be given [place] 5 mg 3 times daily. We will switch her to bupivacaine 5 mg/mL we will do this with catheter aspiration. Patient's intrathecal therapy is turned off at this time. She has been instructed to call the office. She has been given Zofran as well for any nausea. Dr. Luevano has reviewed this note and agrees with this plan of care. This note was dictated using voice recognition software and may contain errors or omissions
== END ==
PROVIDERS: PCP Physician Assistant; Visit Provider Clinical Nurse Specialist Family Health
DX: M51.16 Intervertebral disc disorders with radiculopathy, lumbar region (principal); Z45.1 Encounter for adjustment and management of infusion pump
CPT/HCPCS: 62368

== ENCOUNTER 2021-01-28 10:23 | Day surgery (SDC) | payer MEDICARE, MEDICAID, SELFPAY ==
[2021-01-28 10:34] VITALS: BP 122/75; PULSE 73; RESP 18; TEMP 36.7; O2SAT 98; BMI 34.4
[2021-01-28 10:44] VITALS: BP 185/98; PULSE 75; RESP 18; O2SAT 98
[2021-01-28 10:45] VITALS: BP 188/74; PULSE 72; RESP 18; O2SAT 96
--- NOTE | 2021-01-28 10:59 | HMH.PMPROC ---
- Procedure Date: 01/28/21 Time: 10:59 Anesthesiologist:: Usama Luevano MD Complications:: None Pre-procedure Diagnosis:: Degenerative disc disease of lumbar spine with lumbar radiculopathy symptoms with issues of overmedication with current intrathecal Dilaudid infusion. Pain pump is currently off. Post-procedure Diagnosis:: Same Indications for Procedure:: This patient is a pleasant 60-year-old white female who we are treating for low back pain with lumbar radiculopathy symptoms. She does have an intrathecal Dilaudid pain pump in place. She was recently admitted to the hospital with overmedication as she took Klonopin that was prescribed by her primary care physician. We believe that this episode of over medication was due to interaction with her intrathecal narcotic infusion and her Klonopin. Patient continues to take her Klonopin. Her pump is currently off. We will switch her out to intrathecal bupivacaine today to help with her back pain symptoms. Procedure Details:: Pain pump refill Informed consent was obtained and the risks and benefits of the procedure was explained to the patient. The patient was taken to the procedure room. The pump was interrogated. The area over the pump was prepped using ChloraPrep. The pump was accessed with a 22-gauge needle. Approximately 11 mL's of the intrathecal solution was withdrawn and discarded. The pump was then refilled with 20 mL's of intrathecal bupivacaine 5 mg/mL. After double catheter aspiration with a priming bolus of 9 minutes the pump was interrogated and the infusion was started at 2.5 mg/day of intrathecal bupivacaine. The patient tolerated the procedure well with no complication. Plan and Disposition:: We will follow-up with her and 1 week. Will reevaluate symptoms at that time.
[2021-01-28 11:13] VITALS: BP 111/77; PULSE 74; RESP 18; O2SAT 98
== END 2021-01-28 11:14 | disposition home or self-care (01) ==
LOC: SC.PAINP 10:24
PROVIDERS: PCP Physician Assistant; Visit Provider Anesthesiology
DX: M51.16 Intervertebral disc disorders with radiculopathy, lumbar region (principal); Z45.1 Encounter for adjustment and management of infusion pump; I25.10 Atherosclerotic heart disease of native coronary artery without angina pectoris; I10 Essential (primary) hypertension; F41.9 Anxiety disorder, unspecified; Z72.0 Tobacco use; E78.5 Hyperlipidemia, unspecified; I73.9 Peripheral vascular disease, unspecified; K21.9 Gastro-esophageal reflux disease without esophagitis; G43.909 Migraine, unspecified, not intractable, without status migrainosus; Z88.7 Allergy status to serum and vaccine; Z88.8 Allergy status to other drugs, medicaments and biological substances
CPT/HCPCS: 62370; C1772

== ENCOUNTER → 2021-02-07 10:23 | Outpatient (POV) | payer MEDICARE, MEDICAID, SELFPAY ==
--- NOTE | 2021-02-07 10:45 | HMH.PMPROC ---
- Procedure Date: 02/07/21 Time: 10:45 Anesthesiologist:: Kirstie Johnson APRN Complications:: None Pre-procedure Diagnosis:: Degenerative disc disease lumbar spine lumbar radiculopathy symptoms, back pain Post-procedure Diagnosis:: Same Indications for Procedure:: Patient is a pleasant 60-year-old white female who presents today for follow-up after intrathecal pain pump medication replacement to bupivacaine she is currently on 2.5 mg/day. She rates her pain a 7 out of 10 she states her pain is good when she is not moving and sitting. She states that the medication has significantly helped her leg pain. Patient does have some back pain. We will set her PTC up today. We will make some adjustments. Procedure Details:: Informed consent was obtained and the risk and benefits of the procedure were explained to the patient. The patient was taken to the procedure room where noninvasive monitoring was placed including noninvasive blood pressure cuff and pulse oximeter. Patient's pump was interrogated and reprogrammed. The infusion rate was increased to 3 mg of bupivacaine a day and her PTC was set up at 0.3 mg every 6 hours as needed. The patient tolerated the procedure well. Plan and Disposition:: I will see the patient back in 2 weeks reassess her symptoms at that time she has been instructed to call the office if she has any issues prior to her next appointment. Dr. Luevano has reviewed this note and agrees with this plan of care. This note was dictated using voice recognition software and may contain errors or omissions
[2021-02-07 10:53] VITALS: BP 130/68; PULSE 89; RESP 18; O2SAT 98; BMI 32.8
== END ==
PROVIDERS: PCP Physician Assistant; Visit Provider Clinical Nurse Specialist Family Health
DX: M51.16 Intervertebral disc disorders with radiculopathy, lumbar region (principal); Z45.1 Encounter for adjustment and management of infusion pump
CPT/HCPCS: 62368

== ENCOUNTER 2021-02-14 13:42 | Day surgery (SDC) | payer MEDICARE, MEDICAID, SELFPAY ==
[2021-02-14 13:51] VITALS: BP 188/52; PULSE 94; RESP 18; TEMP 36.6; O2SAT 98; BMI 32.8
[2021-02-14 14:12] VITALS: BP 117/71; PULSE 80; RESP 18; O2SAT 98
[2021-02-14 14:14] VITALS: BP 118/74; PULSE 85; RESP 18; O2SAT 98
[2021-02-14 14:15] VITALS: BP 126/81; PULSE 78; RESP 18; O2SAT 98
--- NOTE | 2021-02-14 14:19 | HMH.PMPROC ---
- Procedure Date: 02/14/21 Time: 14:19 Anesthesiologist:: Kirstie Johnson APRN Complications:: None Pre-procedure Diagnosis:: Degenerative disc disease lumbar spine lumbar radiculopathy, back pain Post-procedure Diagnosis:: Same Indications for Procedure:: Patient is a very pleasant 60-year-old white female who presents today for intrathecal pain pump refill and reprogram. Patient is doing well on her bupivacaine infusion. She states she is much more active. Patient states that her pain is about a 3. Isidro #[id number] reviewed and appropriate. We will increase her concentration today to 10 mg/mL Procedure Details:: Informed consent was obtained and the risk and benefits of the procedure were explained to the patient. The patient was taken to the procedure room where noninvasive monitoring was placed including noninvasive blood pressure cuff and pulse oximeter. Patient's pump was interrogated. The area over the pump was cleansed with chlorhexidine as a cleansing solution. In sterile fashion the pump was accessed with a 22-gauge needle. Approximately 10 mL's were removed of the pump solution and discarded appropriately. The pump was then refilled with 20 mL's of bupivacaine 10 mg/mL. The needle was withdrawn and a bandage was placed over the puncture site. The infusion rate was reprogrammed to 3.5 mg/day. The patient tolerated the procedure well. Plan and Disposition:: We will see the patient back at her next intrathecal pain pump refill and reprogram she has been instructed to call the office if she has any issues prior to her next appointment. Dr. Luevano has reviewed this note and agrees with this plan of care. This note was dictated using voice recognition software and may contain errors or omissions
== END 2021-02-14 14:20 | disposition home or self-care (01) ==
LOC: SC.PAINP 13:43
PROVIDERS: PCP Physician Assistant; Visit Provider Clinical Nurse Specialist Family Health
DX: M51.16 Intervertebral disc disorders with radiculopathy, lumbar region (principal); J44.9 Chronic obstructive pulmonary disease, unspecified; I10 Essential (primary) hypertension; E78.5 Hyperlipidemia, unspecified; I25.10 Atherosclerotic heart disease of native coronary artery without angina pectoris; I73.9 Peripheral vascular disease, unspecified; K21.9 Gastro-esophageal reflux disease without esophagitis; Z87.448 Personal history of other diseases of urinary system; Z88.7 Allergy status to serum and vaccine; Z88.8 Allergy status to other drugs, medicaments and biological substances; Z72.0 Tobacco use; Z99.81 Dependence on supplemental oxygen
CPT/HCPCS: 62370

== ENCOUNTER 2021-03-14 13:13 | Day surgery (SDC) | payer MEDICARE, MEDICAID, SELFPAY ==
[2021-03-14 14:08] VITALS: BP 176/47; PULSE 86; RESP 20; TEMP 36.6; O2SAT 98; BMI 32.8
[2021-03-14 14:41] VITALS: BP 110/87; PULSE 83; RESP 18; O2SAT 94
--- NOTE | 2021-03-14 14:46 | HMH.PMPROC ---
- Procedure Date: 03/14/21 Time: 14:49 Anesthesiologist:: Kirstie Johnson APRN Complications:: None Pre-procedure Diagnosis:: Degenerative disc disease lumbar spine lumbar radiculopathy and back pain Post-procedure Diagnosis:: Same Indications for Procedure:: Patient is a pleasant 60-year-old white female who presents today for thecal pain pump refill and reprogram. [facility] [place] #[id number] reviewed and appropriate. Patient rates her pain an 8 out of 10. She is currently on bupivacaine 3.5 mg/day. She has had a recent EMG which shows sciatic nerve injury she will be moving forward with an MRI. We will follow up with her after her MRI. We will get increase her pain pump infusion today. Procedure Details:: Informed consent was obtained and the risk and benefits of the procedure were explained to the patient. The patient was taken to the procedure room where noninvasive monitoring was placed including noninvasive blood pressure cuff and pulse oximeter. Patient's pump was interrogated. The area over the pump was cleansed with chlorhexidine as a cleansing solution. In sterile fashion the pump was accessed with a 22-gauge needle. Approximately 10 mL's were removed of the pump solution and discarded appropriately. The pump was then refilled with 20 mL's of bupivacaine 10 mg/mL. The needle was withdrawn and a bandage was placed over the puncture site. The infusion rate was reprogrammed to 4 mg/day. The patient tolerated the procedure well. Plan and Disposition:: We will see the patient after her MRI reassess her symptoms at that time she has been instructed to call the office if she has any issues prior to her next appointment. Dr. Luevano has reviewed this note and agrees with this plan of care. This note was dictated using voice recognition software and may contain errors or omissions
[2021-03-14 14:54] VITALS: BP 111/87; PULSE 85; RESP 18; O2SAT 95
[2021-03-14 15:00] VITALS: BP 158/69; PULSE 73; RESP 20; O2SAT 94
== END 2021-03-14 15:10 | disposition home or self-care (01) ==
PROVIDERS: PCP Physician Assistant; Visit Provider Clinical Nurse Specialist Family Health
DX: M51.16 Intervertebral disc disorders with radiculopathy, lumbar region (principal); Z45.1 Encounter for adjustment and management of infusion pump; J44.9 Chronic obstructive pulmonary disease, unspecified; K21.9 Gastro-esophageal reflux disease without esophagitis; M19.90 Unspecified osteoarthritis, unspecified site; F32.9 Major depressive disorder, single episode, unspecified; F41.9 Anxiety disorder, unspecified; I82.409 Acute embolism and thrombosis of unspecified deep veins of unspecified lower extremity; Z88.7 Allergy status to serum and vaccine; Z88.8 Allergy status to other drugs, medicaments and biological substances
CPT/HCPCS: 62370

== ENCOUNTER → 2021-03-16 07:45 | Outpatient (CLI) | payer MEDICARE, MEDICAID, SELFPAY ==
--- NOTE | 2021-03-16 07:45 | MR_ITS ---
PROCEDURE: MR LUMBAR SPINE WO CON CLINICAL INDICATION: chronic LBP, abnl EMG/NCV Bilateral leg pain, numbness and tingling. Numbness rt foot. Symptoms x2yrs. COMPARISON: MR MR LUMBAR SPINE WO CON from 07/17/2019 XA CL BOLUS EMILE UNILAT AORTA from 11/09/2020 RF XR PAIN MGT INJ from 01/28/2021 TECHNIQUE: Standard multiplanar multiecho sequences are performed without contrast. 3-D MIP and myelographic images are also rendered and reviewed FINDINGS: There is normal alignment. The spinal cord ends at the L2 level. There is mild lumbar scoliosis convex right. Artifact is present from the patient's pain pump in the left lower lumbar region posteriorly L1-L2: Unremarkable. L2-L3: Unremarkable. L3-L4: Mild facet and ligamentum hypertrophy L4-5: Mild bulging disc with mild facet and ligamentum hypertrophy and mild bilateral lateral recess and foraminal narrowing L5-S1: Degenerative disc disease with minimal bulging disc and mild facet and ligamentum hypertrophy with mild left-sided foraminal narrowing. No extruded herniated disc. No canal stenosis. Overall no significant change from the previous exam aside from artifact from the left sided pain pump IMPRESSION: 1. Mild lumbar spondylosis. Please see above for detailed description at each level. Overall no significant change. 2. Artifact now present from a left-sided pain pump. 3. Mild lumbar curvature convex right. Dictated by: Stefano Cowan MD 03/17/2021 12:25 Stefano Cowan MD in [place] 03/17/2021 12:25
== END ==
PROVIDERS: PCP Physician Assistant; Visit Provider Physician Assistant
DX: M54.10 Radiculopathy, site unspecified (principal)
CPT/HCPCS: 72148; 76376

== ENCOUNTER → 2021-03-30 14:56 | Outpatient (CLI) | payer MEDICARE, MEDICAID, SELFPAY ==
--- NOTE | 2021-03-30 15:00 | CA_ITS ---
APPROVED REPORT Bilateral Lower Extremity Venous Study for DVT. Electric Crane Operator: CORTEZ Indications edema, pain in LLE, SMOKER, KNOT ON ANTERIOR THIGH PALPATED X 1 WEEK Vein Imaging CFV (L): compressive, spontaneous, phasic, augmentation FEM (L): compressive, spontaneous, phasic, augmentation POP (L): compressive, spontaneous, phasic, augmentation DFV (L): compressive, spontaneous, phasic, augmentation PTV (L): compressive, spontaneous, phasic, augmentation GSV (L): compressive, spontaneous, phasic, augmentation SSV (L): compressive, spontaneous, phasic, augmentation Peroneals (L):compressive, spontaneous, phasic, augmentation GAS (L): compressive, spontaneous, phasic, augmentation Findings Color flow duplex demonstrates no evidence of DVT of the following left lower extremity Veins:Common Femoral Vein, Femoral Vein, Popliteal Vein, Posterior Tibial Veins, Peroneal Veins, Deep Femoral Vein. Negative for DVT. Electronically signed by : Stefano Cowan MD 03/30/2021 16:13:00
== END ==
PROVIDERS: PCP Physician Assistant; Visit Provider Urology
DX: I73.9 Peripheral vascular disease, unspecified (principal); M79.605 Pain in left leg; R60.9 Edema, unspecified
CPT/HCPCS: 93971

== ENCOUNTER → 2021-04-06 11:04 | Outpatient (CLI) | payer MEDICARE, MEDICAID, SELFPAY ==
--- NOTE | 2021-04-06 11:08 | MR_ITS ---
PROCEDURE: MR PELVIS WO CON CLINICAL INDICATION: sciatic nerve neuropathy on EMG Bilateral LBP x2yrs. No injury or trauma. Weakness and pain bilateral legs. COMPARISON: CR XR SACROILIAC JOINT BI MIN 3V from 10/14/2019 MR MR PELVIS WO CON from 12/23/2019 RF XR PAIN MGT INJ from 01/28/2021 TECHNIQUE: Routine multiplanar multi echo sequences are performed without gadolinium enhancement. FINDINGS: There is significant susceptibility artifact coming from the left hemipelvic region. This obscures evaluation of the left ilium and gluteal muscles. There are minimal osteoarthritic changes of the hips. There is a small right hip joint effusion. No evidence of avascular necrosis, fracture, or dislocation. No obvious pelvic mass. IMPRESSION: Susceptibility artifact obscuring the left hemipelvis. No focal abnormalities apparent of the included anatomy aside from mild osteoarthritis of the hips and small right hip joint effusion.. Dictated by: Stefano Cowan MD 04/07/2021 12:18 Stefano Cowan MD in [place] 04/07/2021 12:18
--- NOTE | 2021-04-06 12:56 | US_ITS ---
APPROVED REPORT Exam Type: Lower Extremity Segmental Pressures Frame Stripper And Crusher: Neisha Ortega RVT Indications Claudication: Bilaterally Rest Pain: Bilaterally Current Smoker PRIOR STENTING BLE'S,PAD,CLAUDICATION Risk Factors Hyperlipidemia Current Smoker Pressures/Indices Right Indices Left Indices Brachial 96.00 mmHg Brachial 155.00 mmHg Low Thigh 136.00 mmHg 0.88 Low Thigh 152.00 mmHg 0.98 Calf 138.00 mmHg 0.89 Calf 150.00 mmHg 0.97 Ankle(PT) 136.00 mmHg 0.88 Ankle(PT) 165.00 mmHg 1.06 Ankle(DP) 136.00 mmHg 0.88 Ankle(DP) 162.00 mmHg 1.05 Digit 87.00 mmHg 0.56 Digit 120.00 mmHg 0.77 Findings RT AMERICO:0.88 LT AMERICO:1.06 RT TBI:0.56 LT TBI:0.77 NORMAL PULSES BILATERAL NORMAL WAVEFORMS BILATERAL DISCREPENCY BETWEEN RT AND LT BRACHIAL PRESSURE RT-96 LT-155, NEED FUTHER EVALUATION Conclusion RT AMERICO:0.88 LT AMERICO:1.06 RT TBI:0.56 LT TBI:0.77 MILD RIGHT ARTERIAL DISEASE NORMAL PULSES BILATERAL NORMAL WAVEFORMS BILATERAL DISCREPENCY BETWEEN RT AND LT BRACHIAL PRESSURE RT-96 LT-155, NEED FUTHER EVALUATION. SUGGEST CTA THORACIC AORTA AND GREAT VESSELS Electronically signed by : Stefano Cowan MD 04/06/2021 16:31:48
== END ==
PROVIDERS: PCP Physician Assistant; Visit Provider Physician Assistant
DX: G57.00 Lesion of sciatic nerve, unspecified lower limb (principal); I73.9 Peripheral vascular disease, unspecified
CPT/HCPCS: 72195; 93923

== ENCOUNTER 2021-04-18 13:24 | Day surgery (SDC) | payer MEDICARE, MEDICAID, SELFPAY ==
[2021-04-18 13:30] VITALS: BP 139/71; PULSE 80; RESP 20; TEMP 36.6; O2SAT 98; BMI 32.1
[2021-04-18 13:35] VITALS: BP 133/87; BP 135/88; PULSE 81; PULSE 85; RESP 18; RESP 20; O2SAT 94
--- NOTE | 2021-04-18 13:41 | P.PCN_ITS ---
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 She is being treated for degenerative disc disease lumbar spine with lumbar radiculopathy symptoms. She rates her pain a 6 out of 10 today. Patient recently had an MRI of her pelvis and of her lumbar spine. She is requesting to see a neurosurgeon. Her primary care provider has referred her to an orthopedic surgeon for her hip. Patient has requested today a neurosurgical evaluation. We will be happy to refer her. She does rate her pain an 8 out of 10 today. She is currently with bupivacaine at 4 mg/day and denies any side effects. She is asking for an increase today. Her drug screens have been appropriate. Physical exam General: Alert and oriented x3, no acute distress, pleasant and cooperative, [on room air] Lungs: Respirations even and unlabored, symmetrical chest expansion Eyes: PERRL Musculoskeletal: Flexion and extension of lumbar spine somewhat guarded secondary to pain, deep tendon reflexes normal, strength in upper and lower extremities [5/5], [abnormal gait noted] Neurological: Speech clear, diesel plant operator equal, no gross sensory deficit Procedure Details:: Informed consent was obtained and the risk and benefits of the procedure were explained to the patient. The patient was taken to the procedure room where noninvasive monitoring was placed including noninvasive blood pressure cuff and pulse oximeter. Patient's pump was interrogated. The area over the pump was cleansed with chlorhexidine as a cleansing solution. In sterile fashion the pump was accessed with a 22-gauge needle. Approximately 3 mL mls of the pump solution was removed and discarded appropriately. The pump was then refilled with 20 mL's of bupivacaine 10 mg/mL. The needle was withdrawn and a bandage was placed over the puncture site. The infusion rate was reprogrammed at increased to bupivacaine at 4.25 mg/day. The patient tolerated well with no complication. Plan and Disposition:: We will see the patient back at the next intrathecal refill. Patient has been instructed to contact clinic if any questions or concerns before the next appointment. Dr. Luevano has reviewed this note and agrees with this plan of care. This note was dictated using voice recognition software and make contain errors or omissions.
[2021-04-18 13:45] VITALS: BP 123/88; PULSE 80; RESP 20; O2SAT 97
== END 2021-04-18 13:45 | disposition home or self-care (01) ==
LOC: SC.PAINP 13:25
PROVIDERS: PCP Physician Assistant; Visit Provider Clinical Nurse Specialist Family Health
DX: M51.16 Intervertebral disc disorders with radiculopathy, lumbar region (principal); Z45.1 Encounter for adjustment and management of infusion pump; I25.10 Atherosclerotic heart disease of native coronary artery without angina pectoris; I73.9 Peripheral vascular disease, unspecified; E78.5 Hyperlipidemia, unspecified; J44.9 Chronic obstructive pulmonary disease, unspecified; K21.9 Gastro-esophageal reflux disease without esophagitis; M19.90 Unspecified osteoarthritis, unspecified site; F32.9 Major depressive disorder, single episode, unspecified; F41.9 Anxiety disorder, unspecified; Z72.0 Tobacco use; Z79.899 Other long term (current) drug therapy
CPT/HCPCS: 62370

== ENCOUNTER → 2021-04-27 12:58 | Outpatient (CLI) | payer MEDICARE, MEDICAID, SELFPAY ==
--- NOTE | 2021-04-27 13:07 | CT_ITS ---
PROCEDURE: CT ANGIO CHEST CLINCIAL INDICATION: abnormal AMERICO COMPARISON: CT CT ANGIO CHEST from 07/13/2019 TECHNIQUE: IV Contrast: 70ML Isovue 370 Axial images obtained with sagittal and coronal reformats. All CT scans at the facility use one or more dose reduction, viz: automated exposure control, ma/kV adjustment per patient size (including targeted exams where dose is matched to indication, i.e. head), or iterative reconstruction technique. FINDINGS: Mild emphysematous changes with mild scar versus atelectasis in the right middle lobe. Single small nonspecific subcentimeter pulmonary nodule in the right upper lobe abutting the minor fissure is small calcified granuloma in the left base. No other discrete pulmonary nodules. PE chest CT in 6 months recommended for close follow-up. There are no contrast filling defects in the pulmonary arteries to suggest pulmonary embolism. Heart is not enlarged. No pericardial effusion or thickening. No enlarged hilar mediastinal or axillary lymph nodes. Some diffuse calcification of the thoracic aorta without aneurysm. Mild enlargement of the central pulmonary artery consistent with changes of mild pulmonary hypertension. Images of the upper abdomen show mild diffuse fatty infiltration of the visualized liver. No adrenal mass. IMPRESSION: No CT evidence of pulmonary embolism. Mild emphysematous change with mild scar versus atelectasis in the right middle lobe. Single small subcentimeter pulmonary nodule right upper lobe. PA chest CT in 6 months recommended for close follow-up. Some mild calcification of the thoracic aorta without aneurysm. Mild enlargement of the central pulmonary artery consistent with changes of mild pulmonary arterial hypertension. Dictated by: Stanley Montenegro MD 04/27/2021 14:38 Stanley Montenegro MD in [place] 04/27/2021 14:38
[2021-04-27 13:20] LABS: Blood Urea Nitrogen 13 mg/dl (7-17); Estimated Glomerular Filt Rate 85 ml/min (>60); GFR (African American) 103 ML/MIN (>60)
== END ==
PROVIDERS: PCP Physician Assistant; Visit Provider Physician Assistant
DX: R68.89 Other general symptoms and signs (principal)
CPT/HCPCS: 36415; 71275; 82565; 84520; Q9967

== ENCOUNTER 2021-05-16 15:15 | Day surgery (SDC) | payer MEDICARE, MEDICAID, SELFPAY ==
[2021-05-16 15:18] VITALS: BP 154/63; PULSE 99; RESP 19; TEMP 36.7; O2SAT 97; BMI 32.1
--- NOTE | 2021-05-16 15:32 | HMH.PMPROC ---
- Procedure Date: 05/16/21 Time: 15:32 Anesthesiologist:: Adrienne Stubbs APRN Complications:: None Pre-procedure Diagnosis:: Degenerative disc disease lumbar spine with lumbar radiculopathy symptoms, chronic back pain Post-procedure Diagnosis:: Same Indications for Procedure:: Patient is a 60-year-old white female who presents today for intrathecal pain pump refill and reprogram. She is being treated for degenerative disc disease lumbar spine with lumbar radiculopathy symptoms. She rates her pain a 7 out of 10. Patient has been referred to orthopedic surgeon for her hip pain. She is also requested a neurosurgical evaluation. She does report that her primary care provider also referred her for neurosurgical evaluation. She plans to see Dr. Plummer in 1 week. She is currently on bupivacaine at 4.25 mg/day and denies any side effects. Would like an increase in her medication. She is complaining of numbness and tingling to her bilateral feet. Physical exam General: Alert and oriented x3, no acute distress, pleasant and cooperative, [on room air] Lungs: Respirations even and unlabored, symmetrical chest expansion Eyes: PERRL Musculoskeletal: Flexion and extension of lumbar spine somewhat guarded secondary to pain, deep tendon reflexes normal, strength in upper and lower extremities [5/5], [abnormal gait noted] Neurological: Speech clear, personnel technician equal, no gross sensory deficit Procedure Details:: Informed consent was obtained and the risk and benefits of the procedure were explained to the patient. The patient was taken to the procedure room where noninvasive monitoring was placed including noninvasive blood pressure cuff and pulse oximeter. Patient's pump was interrogated. The area over the pump was cleansed with chlorhexidine as a cleansing solution. In sterile fashion the pump was accessed with a 22-gauge needle. Approximately 8 mls of the pump solution was removed and discarded appropriately. The pump was then refilled with 20 mL's of bupivacaine 10 mg per male. The needle was withdrawn and a bandage was placed over the puncture site. The infusion rate was reprogrammed at bupivacaine at 4.5 mg/day. The patient tolerated well with no complication. Plan and Disposition:: We will plan to see the patient back at her next intrathecal refill. We will plan to increase the patient's concentration to bupivacaine 20 mg per mill at her next refill. Patient has been instructed to contact the clinic with any concerns before the next appointment. Dr. Luevano has reviewed this note and agrees with this plan of care. This note was dictated using voice recognition software and make contain errors or omissions.
[2021-05-16 15:36] VITALS: BP 113/69; PULSE 72; RESP 18; O2SAT 95
[2021-05-16 15:38] VITALS: BP 113/69; PULSE 84; RESP 18; O2SAT 95
[2021-05-16 15:48] VITALS: BP 128/56; PULSE 84; RESP 18; O2SAT 97
== END 2021-05-16 15:49 | disposition home or self-care (01) ==
LOC: SC.PAINP 15:18
PROVIDERS: PCP Physician Assistant; Visit Provider Clinical Nurse Specialist Family Health
DX: M51.16 Intervertebral disc disorders with radiculopathy, lumbar region (principal); G89.29 Other chronic pain; Z45.1 Encounter for adjustment and management of infusion pump
CPT/HCPCS: 62370

== ENCOUNTER 2021-06-06 13:42 | Day surgery (SDC) | payer MEDICARE, MEDICAID, SELFPAY ==
[2021-06-06 13:55] VITALS: BP 103/66; PULSE 93; RESP 18; TEMP 36.6; O2SAT 98; BMI 32.8
[2021-06-06 14:31] VITALS: BP 103/66; PULSE 93; RESP 18; O2SAT 98
--- NOTE | 2021-06-06 14:32 | PC.NURSE ---
patient left without having her procedure.
--- NOTE | 2021-06-06 14:47 | HMH.PAINSOAP ---
[facility] Pain Management SOAP Note Subjective:: A 60-year-old white female who presents today for intrathecal pain pump adjustment. She has been treated for degenerative disc disease lumbar spine with lumbar radiculopathy symptoms. Patient was supposed to undergo intrathecal pain pump refill today, however, she says she does not want bupivacaine in her pump any. She has tried her pain along with Dilaudid. Dilaudid caused oversedation for the patient. She does not want fentanyl in her pump. She and I did discuss possible morphine once again. She would like to try this. She says that she did not feel like morphine gave her enough pain relief, however, she also admits she did not give the medication a chance. She says that she expected it to work immediately. She did not reach therapeutic dose of the medication. She would like to try it once more. Isidro and drug screen are appropriate. Review of Systems General: No recent weight changes, no fever, no sleep disturbances Respiratory: No cough, [no shortness of air], no recurring pulmonary infections Cardiovascular/peripheral vascular: No chest pain, no palpitations, [no edema], no shortness of breath Gastrointestinal: No new onset incontinence, normal bowel movements reported Genitourinary: No new onset incontinence Musculoskeletal: low back pain Psychiatric: [Normal mood/affect] Neurological: [Denies weakness in extremities], [denies balance issues] Objective:: Physical exam General: Alert and oriented x3, no acute distress, pleasant and cooperative, [on room air] Lungs: Respirations even and unlabored, symmetrical chest expansion Eyes: PERRL Musculoskeletal: Flexion and extension of lumbar [spine] somewhat guarded secondary to pain, strength in upper and lower extremities [5/5], [antalgic gait noted] Neurological: Speech clear, [gravity prospector equal], no gross sensory deficit Assessment:: Degenerative disc disease lumbar spine with lumbar radiculopathy symptoms Plan:: We will schedule the patient to return for change out of medication. She will go to morphine 5 mg per mill to start at 0.25 mg/day. She is not getting any relief with bupivacaine. Patient has been instructed to contact the clinic with any concerns before the next appointment. Dr. Luevano has reviewed this note and agrees with this plan of care. This note was dictated using voice recognition software and make contain errors or omissions. [facility] History I have reviewed the patient's past medical history: Yes Medical History: Reports:: Anxiety, Chronic Obstructive Pulmonary Disease (COPD), Coronary Artery Disease, Depression, Gastroesophageal Reflux Disease(GERD), Hyperlipidemia, Hypertension, Peripheral Artery Disease, Peripheral Vascular Disease Denies:: Cancer, Diabetes Mellitus Type 1, Diabetes Mellitus Type 2, Internal Pacemaker, MRSA, Seizures *Have you ever received a pneumonia vaccine?: No *Have you received a flu vaccine this season?: No Other Medical History: Reports: Arthritis. Denies: Blood Transfusion Reaction Laterality Cases: Left: Other Other Surgeries: Yes: Angiogram, Cancer Surgery (skin cancer removed from chest and shoulder), Cardiac Catheterization, , Hysterectomy-Total, Tubal Ligation, Other (stents in legs). No: Pacemaker Amputation: No Fractures: Yes - *Social History Smoking Status: Current every day smoker Tobacco Type: cigarettes # Packs/Day (cigarettes): 1 #Yrs smoked (if former smoker): 41 Alcohol Intake: never Alcohol Intake Frequency:: other Substance Use Type: denies use *Occupational Status:: unemployed, disabled Housing: house Household Members: spouse *Travel in the last 8 weeks: None - Psychiatric History Pschychiatric History:: Reports:: Anxiety, Depression Family Hx:: Cancer, Diabetes, Heart Attack, Hypertension
== END 2021-06-06 14:32 | disposition home or self-care (01) ==
LOC: SC.PAINP 13:43
PROVIDERS: PCP Physician Assistant; Visit Provider Clinical Nurse Specialist Family Health
DX: M51.16 Intervertebral disc disorders with radiculopathy, lumbar region (principal)
CPT/HCPCS: 99212; G0463

== ENCOUNTER 2021-06-20 15:15 | Day surgery (SDC) | payer MEDICARE, MEDICAID, SELFPAY ==
[2021-06-20 15:20] VITALS: BP 116/78; BP 118/86; PULSE 86; PULSE 87; RESP 20; TEMP 36.6; O2SAT 93; BMI 33.6
--- NOTE | 2021-06-20 15:21 | HMH.PMPROC ---
- Procedure Date: 06/20/21 Time: 15:22 Anesthesiologist:: Adrienne Stubbs APRN Complications:: None Pre-procedure Diagnosis:: Degenerative disc disease lumbar spine with lumbar radiculopathy symptoms Post-procedure Diagnosis:: Same Indications for Procedure:: Patient is a 60-year-old white female who presents today for intrathecal pain pump refill and reprogram. She complained, at last visit that her intrathecal pump was not giving her any relief. She has bupivacaine in her pump. She has tried Dilaudid which caused oversedation. She does not want fentanyl in her pump. Did try morphine in her pump in the past but says she did not get much relief. After last discussion the patient had decided that she wanted to try morphine once again. After ordering the medication, the patient did contact the clinic and reported that she had a change of mind and does not want morphine in her intrathecal pump. We will continue her with bupivacaine today. Currently at bupivacaine at 4.5 mg/day. She would like an increase in her dosing today. Her pain is a 7 out of 10 today. 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 The patient was taken to the procedure room where noninvasive monitoring was placed including noninvasive blood pressure cuff and pulse oximeter. Patient's pump was interrogated. The area over the pump was cleansed with chlorhexidine as a cleansing solution. In sterile fashion the pump was accessed with a 22-gauge needle. Approximately [] mls of the pump solution was removed and discarded appropriately. The pump was then refilled with 20 mL's of bupivacaine 20 mg per mill. The needle was withdrawn and a bandage was placed over the puncture site. The infusion rate was reprogrammed at bupivacaine 5 mg/day. The patient tolerated well with no complication. Plan and Disposition:: Patient has been advised she has undergone a concentration change as well as medication increase. She may experience some numbness. If she develops significant numbness, she will need to contact the clinic for a decrease in her dosing. She understands this places her at a high risk for falls. Otherwise, we will see the patient back at the next refill. If the patient has any questions, contact the clinic.
[2021-06-20 15:25] VITALS: BP 132/80; PULSE 84; RESP 18; O2SAT 96
[2021-06-20 15:26] VITALS: BP 132/80; PULSE 85; RESP 18; O2SAT 94
== END 2021-06-20 15:43 | disposition home or self-care (01) ==
LOC: SC.PAINP 15:16
PROVIDERS: PCP Physician Assistant; Visit Provider Clinical Nurse Specialist Family Health
DX: M51.16 Intervertebral disc disorders with radiculopathy, lumbar region (principal); Z45.1 Encounter for adjustment and management of infusion pump; I25.10 Atherosclerotic heart disease of native coronary artery without angina pectoris; I73.9 Peripheral vascular disease, unspecified; E78.5 Hyperlipidemia, unspecified; I10 Essential (primary) hypertension; J44.9 Chronic obstructive pulmonary disease, unspecified; K21.9 Gastro-esophageal reflux disease without esophagitis; M19.90 Unspecified osteoarthritis, unspecified site; F32.9 Major depressive disorder, single episode, unspecified; F41.9 Anxiety disorder, unspecified; Z72.0 Tobacco use
CPT/HCPCS: 62323

== ENCOUNTER → 2021-06-24 08:40 | Outpatient (CLI) | payer MEDICARE, MEDICAID, SELFPAY ==
--- NOTE | 2021-06-24 08:40 | CA_ITS ---
APPROVED REPORT Hairspring Studder: Neisha Ortega RVT Study Quality: Good Indications: HTN Risk Factors Hypertension Obesity Smoking Renal Artery Doppler Origin (R) 183.5/ cm/sec Proximal (R) 189.3/ cm/sec Mid (R) 193.6/ cm/sec Distal (R) 221.3/ cm/sec Renal Aorta Ratio (R) 1.87 Segmental A. (R) 52.9/11.9 cm/sec RI: 0.77 Segmental A. Sup (R) 46.4/16.2 cm/sec Segmental A. Mid (R) 45.3/13.0 cm/sec Segmental A. Inf (R) 52.9/11.9 cm/sec Origin (L) 124.8/ cm/sec Proximal (L) 176.7/ cm/sec Mid (L) 191.8/ cm/sec Distal (L) 246.3/ cm/sec Renal Aorta Ratio (L) 2.08 Segmental A. (L) 83.1/13.9 cm/sec RI: 0.83 Segmental A. Sup (L) 83.1/13.9 cm/sec Segmental A. Mid (L) 59.2/16.4 cm/sec Segmental A. Inf (L) 55.4/18.9 cm/sec Renal Measurements Kidney Size (R) 11.2x6.0 cm Cortical Thickness (R) 1.1 cm Kidney Size (L) 11.4x7.6 cm Cortical Thickness (L) 1.8 cm Findings Study suggests greater ronni 60% stenosis of the right renal artery. Study suggests greater than 60% stenosis of the left renal artery. Conclusion Study suggests greater ronni 60% stenosis of the right renal artery. Study suggests greater than 60% stenosis of the left renal artery. Electronically signed by : Stefano Cowan MD 06/24/2021 16:33:45
== END ==
PROVIDERS: PCP Physician Assistant; Visit Provider Physician Assistant
DX: I10 Essential (primary) hypertension (principal); Z20.822 Contact with and (suspected) exposure to COVID-19
CPT/HCPCS: 93976; U0003

== ENCOUNTER → 2021-06-24 10:34 | Outpatient (CLI) | payer MEDICARE, MEDICAID, SELFPAY | PROVIDERS: PCP Physician Assistant; Visit Provider Physician Assistant | DX: Z20.822 Contact with and (suspected) exposure to COVID-19 (principal) | CPT/HCPCS: U0003 ==

== ENCOUNTER 2021-06-26 15:19 | Inpatient (IN) | payer MEDICARE, MEDICAID, SELFPAY ==
[2021-06-26] VITALS (9 sets, daily range): BP systolic 139–178; BP diastolic 69–82; PULSE 71–90; RESP 18–26; TEMP 36.5–36.9; O2SAT 90–98; BMI 37.5; BMI 33.4
--- NOTE | 2021-06-26 15:30 | ECG_ITS ---
APPROVED REPORT Exam: Resting ECG HR:73 bpm ECG Measurements Heart Rate 73 AXES NV 156 P 71 QRSd 70 QRS 47 QT 420 T 60 QTc 462 Conclusion Normal sinus rhythm Normal ECG Electronically signed by : Michael Saab MD 06/29/2021 11:51:34
--- NOTE | 2021-06-26 15:38 | XR_ITS ---
PROCEDURE INFORMATION: Exam: XR Chest Exam date and time: 06/26/2021 3:38 PM Age: 60 years old Clinical indication: Chest pressure; Patient HX: Chest pain. Copd. Smoker TECHNIQUE: Imaging protocol: XR of the chest. Views: 1 view. COMPARISON: CR XR CHEST PORTABLE 01/18/2021 11:29 AM FINDINGS: Tubes, catheters and devices: Overlying EKG wires Lungs: Unremarkable. No consolidation. Pleural spaces: Unremarkable. No pleural effusion. No pneumothorax. Heart/Mediastinum: Unremarkable. No cardiomegaly. Bones/joints: Unremarkable. IMPRESSION: No acute process
[2021-06-26 15:42] LABS: Basophils # 0.1 K/mm3 (0-0.2); Eosinophils # 0.2 K/mm3 (0.0-0.4); Hematocrit 44.5 % (37.0-47.0); Hemoglobin 14.5 g/dL (12.2-16.2); Lymphocytes # 2.3 K/mm3 (0.7-4.5); Lymphocytes % 28.1 % (10-50); Mean Corpuscular HGB Conc 32.5 g/dL (31.8-35.4); Mean Corpuscular Hemoglobin 31.9 pg (27.0-31.2); Mean Corpuscular Volume 98.2 fl (81-99); Mean Platelet Volume 8.2 fl (7.4-10.4); Monocytes # 0.4 K/mm3 (0.1-1.0); Monocytes % 5.3 % (1.7-9.3); Neutrophils # 5.3 K/mm3 (1.8-7.8); Neutrophils % 63.7 % (37.0-80.0); Platelet Count 288 K/mm3 (142-424); Red Blood Count 4.53 M/mm3 (4.20-5.40); Red Cell Distribution Width 14.8 % (11.5-17.5); White Blood Count 8.3 K/mm3 (4.8-10.8)
[2021-06-26 15:43] LABS: Chloride 103 mmol/L (98-107); Sodium 141 mmol/L (136-145)
[2021-06-26 15:44] LABS: Potassium 4.1 mmoL/L (3.5-5.1)
[2021-06-26 15:46] LABS: Blood Urea Nitrogen 15 mg/dl (7-17); Creatinine Clearance Estimated 147 mL/min (50-200); Estimated Glomerular Filt Rate 85 ml/min (>60); GFR (African American) 103 ML/MIN (>60)
[2021-06-26 15:47] LABS: Anion Gap 15.1 mEq/L (5-15); Calcium 9.2 mg/dl (8.4-10.2); Carbon Dioxide 27 mmol/L (22.0-30.0); Glucose 133 mg/dl (74-100)
--- NOTE | 2021-06-26 15:49 | HMH.EDSOB ---
ED Disposition Clinical Impression: COPD with exacerbation, Acute exacerbation of chronic obstructive airways disease, Acute and chronic respiratory failure with hypoxia Disposition: Admitted As Inpatient Condition on Discharge: Fair Referrals: Lila Yan PA [Primary Care Provider] - - Critical Care Critical Care Time: No Attestation: On 06/26/21, the high probability of a clinically significant, sudden or life threatening deterioration of the following system(s) required my full and direct attention, intervention and personal management. The time I documented below is in addition to time spent performing reported procedures but includes the following listed in this critical care notation. Medical Decision Making - Medical Records Medical records reviewed: Yes: I reviewed the patient's medical records. - Isidro Inquiry Pt receiving controlled substance: No Vital Signs: 06/26/21 15:20 06/26/21 16:01 06/26/21 16:32 Temperature 98.2 F Temperature Source Oral Pulse Rate 71 73 Pulse Rate [Radial] 80 Respiratory Rate 26 H 18 20 Blood Pressure 139/74 167/81 H Blood Pressure [Right Arm] 149/82 H Blood Pressure Mean [Right Arm] 104 Blood Pressure Position [Right Arm] Sitting 02 Sat by Pulse Oximetry 90 L 98 98 Oxygen Delivery Method Room Air 06/26/21 17:01 Temperature Temperature Source Pulse Rate 86 Pulse Rate [Radial] Respiratory Rate 22 Blood Pressure 168/70 H Blood Pressure [Right Arm] Blood Pressure Mean [Right Arm] Blood Pressure Position [Right Arm] 02 Sat by Pulse Oximetry 91 L Oxygen Delivery Method - Lab Data Lab Results 06/26/21 15:30: WBC 8.3, RBC 4.53, Hgb 14.5, Hct 44.5, MCV 98.2, MCH 31.9 H, MCHC 32.5, RDW 14.8, Plt Count 288, MPV 8.2, Neut % (Auto) 63.7, Lymph % (Auto) 28.1, Saunders % (Auto) 5.3, Eos % (Auto) 2.0, Baso % (Auto) 1.0, Neut # (Auto) 5.3, Lymph # (Auto) 2.3, Saunders # (Auto) 0.4, Eos # (Auto) 0.2, Baso # (Auto) 0.1 06/26/21 15:30: Sodium 141, Potassium 4.1, Chloride 103, Carbon Dioxide 27, Anion Gap 15.1 H, BUN 15, Creatinine 0.70, Estimated Creat Clear 147, Estimated GFR 85, Est GFR ( Amer) 103, Glucose 133 H, Calcium 9.2, Troponin I < 0.01 06/26/21 15:42: Specimen Source Left radial, O2 % Ra, ABG pH 7.40, ABG pCO2 45.3 H, ABG pO2 70.9 L, ABG HCO3 27.2 H, ABG Total CO2 28.6 H, ABG O2 Saturation 95, ABG Base Excess 2.3, Stefano Test Acceptable 06/26/21 16:30: SARS-CoV-2 (PCR) Not detected, Influenza A Untype (PCR) Not detected, Influenza Type B (PCR) Not detected Result diagrams: 06/26/21 15:30 06/26/21 15:30 Orders (Tests/Meds): ED MEDICATIONS Generic Name Dose Route Start Last Admin Trade Name Freq PRN Reason Stop Dose Admin Doxycycline Hyclate 100 mg/ 250 mls @ 166.667 mls/hr 06/26/21 17:30 Sodium Chloride IV 07/10/21 17:29 Q12H JANAK Discontinued Medications Generic Name Dose Route Start Last Admin Trade Name Freq PRN Reason Stop Dose Admin Albuterol/Ipratropium 3 ml 06/26/21 15:42 06/26/21 15:55 Ipratropium/Albuterol 3 Ml [facility] 06/26/21 15:43 3 ml ONCE ONE Administration Albuterol/Ipratropium 3 ml 06/26/21 16:28 06/26/21 16:54 Ipratropium/Albuterol 3 Ml [facility] 06/26/21 16:29 3 ml ONCE ONE Administration Dexamethasone Sodium Phosphate 10 mg 06/26/21 15:42 06/26/21 15:55 Dexamethasone 4mg/Ml 5ml Mdv IV 06/26/21 15:43 10 mg ONCE ONE Administration ORDERS Category Date Time Status Troponin I Q3H Lab 06/26/21 18:45 Ordered Troponin I Q3H Lab 06/26/21 21:45 Ordered - Radiology Data #1 Image(s): Chest Image Reviewed: Yes I reviewed the patient's radiology results, Yes I reviewed the patient's radiology image, Yes I have reviewed radiologist's interpretation Preliminary Findings: Normal/NAD - ECG Data Tracing #1 I reviewed this ECG and interpreted as documented below: ECG initial impression date: 06/26/21 ECG initial impression time: 15:30 ECG normal wit
[2021-06-26 15:59] LABS: Troponin I < 0.01 ng/ml (0.00-0.034)
[2021-06-26 16:17] LABS: ABG Base Excess 2.3 mmol/L (-2.4-2.3); ABG HCO3 27.2 mmhg (22.0-26.0); ABG Oxygen Saturation 95 % (90-100); ABG PCO2 45.3 mmhg (35.0-45.0); ABG PO2 70.9 mmhg (80-100); ABG TCO2 28.6 mmhg (23-27)
[2021-06-26 16:18] LABS: Allen's Test Acceptable; Oxygen RA %; Source Left Radial
[2021-06-26 16:38] LABS: Coronavirus 19, PCR Not Detected (NotDetected); Influenza A, PCR Not Detected (NotDetected); Influenza B, PCR Not Detected (NotDetected)
--- NOTE | 2021-06-26 17:26 | PC.NURSE ---
Paging Dr Palomo at this time. Dr Palomo is control manager for Dr Rob.
--- NOTE | 2021-06-26 17:31 | PC.NURSE ---
speaking with Dr Palomo at this time.
--- NOTE | 2021-06-26 18:10 | PC.NURSE ---
REPORT CALLED TO FLOOR
[2021-06-27] VITALS (14 sets, daily range): BP systolic 139–155; BP diastolic 64–93; PULSE 66–94; RESP 20–22; TEMP 36.5–36.8; O2SAT 88–97; BMI 33.4
--- NOTE | 2021-06-27 04:46 | PC.NURSE ---
Patient has had uneventful night; no s/s of acute distress noted, call light within reach, bed at lowest level for safety; will continue to monitor.
[2021-06-27 06:08] LABS: Basophils % 0.2 % (0.1-2.0); Eosinophils % 0.1 % (0.1-12.0); Hematocrit 42.7 % (37.0-47.0); Hemoglobin 14.1 g/dL (12.2-16.2); Lymphocytes # 1.2 K/mm3 (0.7-4.5); Lymphocytes % 15.3 % (10-50); Mean Corpuscular HGB Conc 32.9 g/dL (31.8-35.4); Mean Corpuscular Hemoglobin 32.1 pg (27.0-31.2); Mean Corpuscular Volume 97.4 fl (81-99); Mean Platelet Volume 8.2 fl (7.4-10.4); Monocytes # 0.4 K/mm3 (0.1-1.0); Monocytes % 4.6 % (1.7-9.3); Neutrophils # 6.3 K/mm3 (1.8-7.8); Neutrophils % 79.8 % (37.0-80.0); Platelet Count 262 K/mm3 (142-424); Red Blood Count 4.38 M/mm3 (4.20-5.40); Red Cell Distribution Width 14.7 % (11.5-17.5); White Blood Count 7.9 K/mm3 (4.8-10.8)
[2021-06-27 06:27] LABS: Chloride 103 mmol/L (98-107); Potassium 4.1 mmoL/L (3.5-5.1); Sodium 142 mmol/L (136-145)
[2021-06-27 06:30] LABS: Anion Gap 13.1 mEq/L (5-15); Blood Urea Nitrogen 13 mg/dl (7-17); Carbon Dioxide 30 mmol/L (22.0-30.0); Creatinine Clearance Estimated 152 mL/min (50-200); Estimated Glomerular Filt Rate 102 ml/min (>60); GFR (African American) 123 ML/MIN (>60); Glucose 121 mg/dl (74-100)
--- NOTE | 2021-06-27 08:09 | HMH.PHAVTE ---
[facility] Pharmacy VTE Monitoring - Patient Demographics Admission date: 06/26/21 Report Date: 06/27/21 Time: 08:09 Allergies/Adverse Reactions: Patient Allergies tetanus and diphtheria toxoids [TETANUS & DIPHTHERIA TOXOIDS] Allergy (Severe, Verified 06/26/21 18:39) I-HIVES atorvastatin Adverse Reaction (Intermediate, Verified 06/26/21 18:39) Headache Height: 1.7 m Weight: 96.615 kg Patient Problems: Current Active Problems Acute and chronic respiratory failure with hypoxia (Acute) Acute exacerbation of chronic obstructive airways disease (Acute) COPD with exacerbation (Acute) - VTE Risk Labs: VTE Related Lab Results Hgb 14.1 g/dL (12.2-16.2) 06/27/21 05:33 Hct 42.7 % (37.0-47.0) 06/27/21 05:33 Plt Count 262 K/mm3 (142-424) 06/27/21 05:33 BUN 13 mg/dl (7-17) 06/27/21 05:33 Creatinine 0.60 mg/dl (0.52-1.04) 06/27/21 05:33 Estimated Creat Clear 152 mL/min (50-200) 06/27/21 05:33 - Prophylaxis VTE Prophylaxis Ordered?: Yes Types of VTE Prophylaxis: TEDS Knee High, Pharmacological Location of Applied Device: Bilateral Lower Extremeties Pharmacologic Type: Heparin
--- NOTE | 2021-06-27 09:37 | SW/DCPLANNER ---
This patient currently receives home O2 from [facility]. I will continue to follow up with this patient until medically stable for discharge.
--- NOTE | 2021-06-27 11:13 | HMH.PULMCON ---
*Admission Date: 06/26/21 *Reason for consult:: COPD exacerbation *History of present illness: Ms. Chamberlain is a 60-year-old female carries a diagnosis COPD currently on Symbicort and albuterol as needed as an outpatient disease, usually following Dr. Stroud previously presented to the hospital with worsening chest congestion and worsening shortness of breath and pulmonary was called for further management [facility] History Medical History: Reports:: Anxiety, Chronic Obstructive Pulmonary Disease (COPD), Coronary Artery Disease, Depression, Gastroesophageal Reflux Disease(GERD), Hyperlipidemia, Hypertension, Peripheral Artery Disease, Peripheral Vascular Disease Denies:: Cancer, Diabetes Mellitus Type 1, Diabetes Mellitus Type 2, Internal Pacemaker, MRSA, Seizures *Have you ever received a pneumonia vaccine?: Yes *Have you received a flu vaccine this season?: Yes Other Medical History: Reports: Arthritis. Denies: Blood Transfusion Reaction Laterality Cases: Left: Other Other Surgeries: Yes: Angiogram, Cancer Surgery (skin cancer removed from chest and shoulder), Cardiac Catheterization, , Hysterectomy-Total, Tubal Ligation, Other (pain pump implant). No: Pacemaker Amputation: No Fractures: Yes - *Social History Last grade of school completed: GED Smoking Status: Current every day smoker Tobacco Type: cigarettes # Packs/Day (cigarettes): 1 #Yrs smoked (if former smoker): 41 Alcohol Intake: never Alcohol Intake Frequency:: other Substance Use Type: denies use *Occupational Status:: disabled Housing: apartment Household Members: family *Travel in the last 8 weeks: None - Psychiatric History Pschychiatric History:: Reports:: Anxiety, Depression Family Hx:: Cancer, Coronary Artery Disease, Diabetes, Heart Attack, Hyperlipidemia, Hypertension ROS - Cons Denies anorexia, Denies body ache(s), Denies chills - ENT Denies abnormal hearing - Card Reports shortness of breath, Reports shortness of breath with activity - Resp Respiratory: Reports chest congestion, Reports cough, Reports excessive phlegm production, Denies pain with breathing - GI Gastrointestingal: Denies: abdominal pain - Psych Reports abnormal sleep pattern Meds Home Medications Medication Instructions Recorded Confirmed Type Ipratropium/Albuterol Sulfate 3 ml IH Q4H 12/09/19 06/26/21 History [Duoneb 3mL neb] albuterol sulfate 90 mcg/actuation See Rx Instructions .ROUTE 01/17/21 06/26/21 Rx aerosol inhaler .COMPLEX #8.5 g aspirin 81 mg tablet,delayed 81 mg PO DAILY #90 tab 01/17/21 06/26/21 Rx release budesonide-formoterol HFA 160 2 puff INHALATION BID #1 device 01/17/21 06/26/21 Rx mcg-4.5 mcg/actuation aerosol inhaler cholecalciferol (vitamin D3) 25 1,000 unit PO DAILY #90 cap 01/17/21 06/26/21 Rx mcg (1,000 unit) capsule ergocalciferol (vitamin D2) 1,250 50,000 unit PO QWEEK #14 cap 01/17/21 06/26/21 Rx mcg (50,000 unit) capsule rivaroxaban 2.5 mg tablet 2.5 mg PO BID #180 tab 01/17/21 06/26/21 Rx umeclidinium 62.5 mcg/actuation 1 inh INHALATION DAILY #30 each 01/17/21 06/26/21 Rx blister powder for inhalation Bupivacaine HCl/Pf [Bupivacaine 4.25 mg IT CONT 02/14/21 06/26/21 History 0.5% 10mL Vial] cyanocobalamin (vitamin B-12) 500 500 mcg PO DAILY each 03/30/21 06/26/21 History mcg lozenges omeprazole 40 mg capsule,delayed 40 mg PO DAILY cap 03/30/21 06/26/21 History release lovastatin 40 mg tablet 40 mg PO HS #90 tab 04/27/21 06/26/21 Rx gabapentin 800 mg tablet 800 mg PO TID #90 tab 05/30/21 06/26/21 Rx clonazepam 0.5 mg tablet 0.5 mg PO TID #90 tab 06/13/21 06/26/21 Rx cariprazine 1.5 mg capsule 1.5 mg PO DAILY 06/21/21 06/26/21 History Losartan/Hydrochlorothiazide 1 tab PO DAILY 06/26/21 06/26/21 History [Losartan-Hctz 50-12.5 mg Tab] Metoprolol Succinate [Metoprolol 50 mg PO DAILY 06/26/21 06/26/21 History Succinate 50mg Tablet*] Quetiapine Fumarate See Rx Instructions .ROUTE .COMPLEX
--- NOTE | 2021-06-27 11:28 | HMH.PHAINT ---
MEDICATION RECONCILIATION COMPLETED ON PATIENT USING EXTERNAL FILL HISTORY FROM PHARMACY AND MEDICATION LISTS FROM PCP AND CARDIOLOGY OFFICES. -JIM PEÑAD
--- NOTE | 2021-06-27 13:12 | HMH.HP ---
*Admission Date: 06/26/21 *Chief complaint: soa *History of present illness: 60-year-old female presented to the emergency department with some cough and difficulty breathing. History of COPD and wears oxygen at nighttime. Patient states that she started having some cough and difficulty breathing on Sunday. She states that is progressed throughout the week and on sunday was covid tested- was neg. She states she has been having coughing spells where she is unable to catch her breath and feels like she cannot get in a deep breath. Pt admitted for COPD ex and pulmonary consult. [facility] History I have reviewed the patient's past medical history: Yes Medical History: Reports:: Anxiety, Chronic Obstructive Pulmonary Disease (COPD), Coronary Artery Disease, Depression, Gastroesophageal Reflux Disease(GERD), Hyperlipidemia, Hypertension, Peripheral Artery Disease, Peripheral Vascular Disease Denies:: Cancer, Diabetes Mellitus Type 1, Diabetes Mellitus Type 2, Internal Pacemaker, MRSA, Seizures *Have you ever received a pneumonia vaccine?: Yes *Have you received a flu vaccine this season?: Yes Other Medical History: Reports: Arthritis. Denies: Blood Transfusion Reaction Laterality Cases: Left: Other Other Surgeries: Yes: Angiogram, Cancer Surgery (skin cancer removed from chest and shoulder), Cardiac Catheterization, , Hysterectomy-Total, Tubal Ligation, Other (pain pump implant). No: Pacemaker Amputation: No Fractures: Yes - *Social History Last grade of school completed: GED Smoking Status: Current every day smoker Tobacco Type: cigarettes # Packs/Day (cigarettes): 1 #Yrs smoked (if former smoker): 41 Alcohol Intake: never Alcohol Intake Frequency:: other Substance Use Type: denies use *Occupational Status:: disabled Housing: apartment Household Members: family *Travel in the last 8 weeks: None - Psychiatric History Pschychiatric History:: Reports:: Anxiety, Depression Family Hx:: Cancer, Coronary Artery Disease, Diabetes, Heart Attack, Hyperlipidemia, Hypertension Review of Systems - Review of Systems Review of systems:: pertinent systems reviewed and negative unless documented below - Constitutional Reports fatigue, Denies body ache(s) - Eyes Denies blurry vision - ENT Denies bleeding gums, Denies headache(s) - *Cardiovascular Reports shortness of breath with activity, Denies chest pain, Denies excessive sweating - *Respiratory Reports chest congestion, Reports cough, Reports shortness of breath, Reports shortness of breath with activity - *Gastrointestinal Denies abdominal pain, Denies belching - *Genitourinary Denies abnormal periods - *Musculoskeletal Denies abnormal walking - Integumentary/Breasts Denies bleeding lesions - *Neurologic Denies abnormal hearing, Denies headache(s) - Psychiatric Denies lack of enjoyment - Endocrine Denies excessive sweating - Hematologic/Lymphatic Denies easy bruising - Allergic/Immunologic Denies itchy eyes Meds Home Medications Medication Instructions Recorded Confirmed Type Ipratropium/Albuterol Sulfate 3 ml IH Q4H 12/09/19 06/26/21 History [Duoneb 3mL neb] albuterol sulfate 90 mcg/actuation See Rx Instructions .ROUTE 01/17/21 06/26/21 Rx aerosol inhaler .COMPLEX #8.5 g aspirin 81 mg tablet,delayed 81 mg PO DAILY #90 tab 01/17/21 06/26/21 Rx release budesonide-formoterol HFA 160 2 puff INHALATION BID #1 device 01/17/21 06/26/21 Rx mcg-4.5 mcg/actuation aerosol inhaler cholecalciferol (vitamin D3) 25 1,000 unit PO DAILY #90 cap 01/17/21 06/26/21 Rx mcg (1,000 unit) capsule ergocalciferol (vitamin D2) 1,250 50,000 unit PO QWEEK #14 cap 01/17/21 06/26/21 Rx mcg (50,000 unit) capsule rivaroxaban 2.5 mg tablet 2.5 mg PO BID #180 tab 01/17/21 06/26/21 Rx umeclidinium 62.5 mcg/actuation 1 inh INHALATION DAILY #30 each 01/17/21 06/26/21 Rx blister powder for inhalation Bupivacaine HCl/Pf [Bupivacaine 4.25 mg IT CONT
--- NOTE | 2021-06-27 18:19 | PC.NURSE ---
PT IS SITTING UP ON THE SOB. NO COMPLAINTS OF DISCOMFORT. EATING AND DRINKING WELL. AMBULATING TO THE BATHROOM. LUNG SOUNDS HAVE WHEEZES T/O. ABDOMEN SOFT/NON TENDER WITH ACTIVE BOWEL SOUNDS. NO SWELLING NOTED TO BLE. WILL CONTINUE TO MONITOR.
[2021-06-28] VITALS: BP 130/71; PULSE 60; PULSE 80; RESP 20; TEMP 36.6; O2SAT 98
[2021-06-28 04:00] VITALS: BP 135/65; PULSE 75; RESP 18; TEMP 36.7; O2SAT 97
--- NOTE | 2021-06-28 04:34 | PC.NURSE ---
Patient is alert and oriented x4. Patient is on 2.5LNC. She ambulates independently. No acute changes this shift. Vital signs are stable, call light within reach, will continue to monitor.
[2021-06-28 04:57] VITALS: BMI 33.4
[2021-06-28 06:23] VITALS: PULSE 80; O2SAT 98
[2021-06-28 07:06] LABS: Basophils % 0.3 % (0.1-2.0); Eosinophils % 0.3 % (0.1-12.0); Hematocrit 41.4 % (37.0-47.0); Hemoglobin 13.3 g/dL (12.2-16.2); Lymphocytes # 1.8 K/mm3 (0.7-4.5); Lymphocytes % 19.7 % (10-50); Mean Corpuscular HGB Conc 32.2 g/dL (31.8-35.4); Mean Corpuscular Hemoglobin 32.1 pg (27.0-31.2); Mean Corpuscular Volume 99.7 fl (81-99); Mean Platelet Volume 8.2 fl (7.4-10.4); Monocytes # 0.5 K/mm3 (0.1-1.0); Monocytes % 5.6 % (1.7-9.3); Neutrophils # 6.8 K/mm3 (1.8-7.8); Neutrophils % 74.1 % (37.0-80.0); Platelet Count 250 K/mm3 (142-424); Red Blood Count 4.15 M/mm3 (4.20-5.40); White Blood Count 9.1 K/mm3 (4.8-10.8)
[2021-06-28 07:16] LABS: Chloride 104 mmol/L (98-107); Potassium 3.9 mmoL/L (3.5-5.1); Sodium 143 mmol/L (136-145)
[2021-06-28 07:19] LABS: Anion Gap 11.9 mEq/L (5-15); Blood Urea Nitrogen 13 mg/dl (7-17); Calcium 8.8 mg/dl (8.4-10.2); Carbon Dioxide 31 mmol/L (22.0-30.0); Creatinine Clearance Estimated 130 mL/min (50-200); Estimated Glomerular Filt Rate 85 ml/min (>60); GFR (African American) 103 ML/MIN (>60); Glucose 96 mg/dl (74-100)
[2021-06-28 08:00] VITALS: BP 161/74; PULSE 89; RESP 22; TEMP 36.7; O2SAT 89
--- NOTE | 2021-06-28 11:37 | HMH.PULMPN ---
Internal Medicine - PN: Subj *Date: 06/28/21 *Time: 11:37 Interval history: No acute respiratory vents overnight. Patient admits improvement in her symptoms. Exam - Constitutional Constitutional:: Present: no acute distress, comfortable - HENMT Exam HENMT: Present: normocephalic, atraumatic - Eye Exam Eyes:: Present: normal appearance both eyes and related structures - Neck Exam Neck:: Present: normal visual inspection - Respiratory Exam Respiratory:: Present: able to speak in complete sentences, no respiratory distress, wheezing - Cardiovascular Exam Cardiac:: Present: S1, S2 - GI Exam GI:: Present: soft - Skin Exam Skin: Present: warm, no rash, dry - Neurological Exam Neurological: Present: alert, awake, normal cognition - Extremities Exam Extremities: Present: no cyanosis, no clubbing, no edema Assessment and Plan (1) Acute exacerbation of chronic obstructive airways disease Status: Acute Category: Medical Code(s): J44.1 - Chronic obstructive pulmonary disease with (acute) exacerbation (2) COPD with exacerbation Status: Acute Category: Medical Code(s): J44.1 - Chronic obstructive pulmonary disease with (acute) exacerbation - Assessment and plan all Dx Assessment and Plan for all problems:: #COPD exacerbation: 60-year-old female carries a diagnosis of COPD on Symbicort and presented to hospital with worsening respiratory distress and chest tightness and was admitted to the hospital has been managed for COPD exacerbation. Patient was initiated on doxycycline along with nebulization treatments for her COPD exacerbation. Patient admits significant improvement in her symptoms of aspiration with significant wheezing today. Patient also using nocturnal oxygen therapy and she told me that she recently qualified for daytime oxygen therapy as her saturations were 88% on room air at rest. Chest x-ray on admission did not show any acute pulmonary infiltrates. No evidence of leukocytosis. Interval update: Patient continues with doxycycline prednisone but admits improvement in her symptoms. Plan: -Continue doxycycline for total of 5 days, prednisone 40 mg daily for 5 days -DuoNebs every 6 scheduled Budesonide every 12 schedule, add Spiriva inhaler and provide inhaler technique training before discharge . -Continue LTOT to maintain O2 saturation goal of 88 and above, currently receiving 2 to 3 L with saturations maintained at 89 to 90% #Patient recent CT chest from April 2021 showed small subcentimeter pulmonary nodule right upper lobe that will be followed as an outpatient basis. CT also reported to have a large PA. Most recent echo was from June 2020, mild TR inadequate to measure RVSP. RV mildly enlarged with normal contractility. Grade 1 LV diastolic dysfunction. Along with Doppler evidence of raised LA pressure. #Thank you involving pulmonary in this patient care. Follow the patient as an outpatient basis in 2-3 weeks with repeat PFTs and 6-minute walk testing.
[2021-06-28 11:48] VITALS: BP 142/69; PULSE 72; RESP 20; TEMP 36.6; O2SAT 94
--- NOTE | 2021-06-28 11:54 | HMH.DCSUM ---
General - General Admission date:: 06/26/21 Discharge date: 06/28/21 HPI HPI: 60-year-old female presented to the emergency department with some cough and difficulty breathing. History of COPD and wears oxygen at nighttime. Patient states that she started having some cough and difficulty breathing on Sunday. She states that is progressed throughout the week and on sunday was covid tested- was neg. She states she has been having coughing spells where she is unable to catch her breath and feels like she cannot get in a deep breath. Pt admitted for COPD ex and pulmonary consult. Hospital Course Hospital Course: 60-year-old female presented to the emergency department with some cough and difficulty breathing. History of COPD and wears oxygen at nighttime. Patient states that she started having some cough and difficulty breathing on Sunday. She states that is progressed throughout the week and on sunday was covid tested- was neg. She states she has been having coughing spells where she is unable to catch her breath and feels like she cannot get in a deep breath. Pt admitted for COPD ex and pulmonary consult. 06/26/21 CXR: FINDINGS: Tubes, catheters and devices: Overlying EKG wires Lungs: Unremarkable. No consolidation. Pleural spaces: Unremarkable. No pleural effusion. No pneumothorax. Heart/Mediastinum: Unremarkable. No cardiomegaly. Bones/joints: Unremarkable. IMPRESSION: No acute process Electronically signed by Mariama Matt MD Pulmonoary has seen and recommends: #COPD exacerbation: 60-year-old female carries a diagnosis of COPD on Symbicort and presented to hospital with worsening respiratory distress and chest tightness and was admitted to the hospital has been managed for COPD exacerbation. Patient was initiated on doxycycline along with nebulization treatments for her COPD exacerbation. Patient admits significant improvement in her symptoms of aspiration with significant wheezing today. Patient also using nocturnal oxygen therapy and she told me that she recently qualified for daytime oxygen therapy as her saturations were 88% on room air at rest. Chest x-ray on admission did not show any acute pulmonary infiltrates. No evidence of leukocytosis. Interval update: Patient continues with doxycycline prednisone but admits improvement in her symptoms. Plan: -Continue doxycycline for total of 5 days, prednisone 40 mg daily for 5 days -DuoNebs every 6 scheduled Budesonide every 12 schedule, add Spiriva inhaler and provide inhaler technique training before discharge . -Continue LTOT to maintain O2 saturation goal of 88 and above, currently receiving 2 to 3 L with saturations maintained at 89 to 90% #Patient recent CT chest from April 2021 showed small subcentimeter pulmonary nodule right upper lobe that will be followed as an outpatient basis. CT also reported to have a large PA. Most recent echo was from June 2020, mild TR inadequate to measure RVSP. RV mildly enlarged with normal contractility. Grade 1 LV diastolic dysfunction. Along with Doppler evidence of raised LA pressure. #Thank you involving pulmonary in this patient care. Follow the patient as an outpatient basis in 2-3 weeks with repeat PFTs and 6-minute walk testing. 60-year-old female patient sitting up in the side of bed, denies any chest pain or shortness of breath during the night. Current oxygenation 98% on 3 L per nasal cannula, she does have oxygen at home also. She reports she is feeling better today, discussed discharge home and she is agreeable to this. PLAN: 1. We will discharge home today 2. Doxycycline 100 mg twice daily x4 days 3. Prednisone 40 mg daily x4 days 4. Add Spiriva inhaler 5. Follow-up with pulmonology in 2 to 3 weeks 6. Follow-up with PCP in 1 week I think I got a new thing Objective Vital signs: Temp Pulse Resp BP Pulse Ox 97.9 F 72 20 142/69 H 94 L 06/28/21 11:
--- NOTE | 2021-06-28 13:02 | HMH.PHAINT ---
MEDICATION DISCHARGE COUNSELING REVIEWED WITH PATIENT. PATIENT STATED SHE HAD BEEN ON ALL 3 NEW MEDICATIONS BEFORE. SHE HAD NO QUESTIONS. I REVIEWED ROUTE AND DOSE FOR EACH MEDICATION, ALONG WITH SIDE EFFECTS TO WATCH OUT FOR.
== END 2021-06-28 13:28 | disposition home or self-care (01) | DRG 189 ==
LOC: ER 17:33 → 2ND 17:43
PROVIDERS: Nurse Practitioner Family; Admitting Provider Emergency Medicine; Emergency Provider Emergency Medicine; PCP Physician Assistant; Visit Provider Emergency Medicine
DX: J96.21 Acute and chronic respiratory failure with hypoxia (principal); J44.1 Chronic obstructive pulmonary disease with (acute) exacerbation; Z20.822 Contact with and (suspected) exposure to COVID-19; F17.210 Nicotine dependence, cigarettes, uncomplicated; Z79.899 Other long term (current) drug therapy; Z88.8 Allergy status to other drugs, medicaments and biological substances; Z99.81 Dependence on supplemental oxygen; I25.10 Atherosclerotic heart disease of native coronary artery without angina pectoris; F32.9 Major depressive disorder, single episode, unspecified; K21.9 Gastro-esophageal reflux disease without esophagitis; E78.5 Hyperlipidemia, unspecified; I10 Essential (primary) hypertension; I73.9 Peripheral vascular disease, unspecified; Z85.828 Personal history of other malignant neoplasm of skin; F41.9 Anxiety disorder, unspecified; M19.90 Unspecified osteoarthritis, unspecified site
CPT/HCPCS: 36415; 71045; 80048; 82803; 84484; 85025; 93005; 93976; 94640; 94760; 94761; 96365; 96375; 99284; J2405; U0003

== ENCOUNTER → 2021-07-22 10:05 | Outpatient (CLI) | payer MEDICARE, MEDICAID, SELFPAY ==
[2021-07-22 10:35] VITALS: PULSE 71; PULSE 75
== END ==
PROVIDERS: PCP Physician Assistant; Visit Provider Internal Medicine Pulmonary Disease
DX: J44.9 Chronic obstructive pulmonary disease, unspecified (principal)
CPT/HCPCS: 94060; 94618; 94640; 94727; 94729

== ENCOUNTER 2021-07-25 11:43 | Emergency (ER) | payer MEDICARE, MEDICAID, SELFPAY ==
[2021-07-25 13:00] VITALS: BP 95/55; PULSE 88; RESP 18; TEMP 36.7; O2SAT 95; BMI 33.0
--- NOTE | 2021-07-25 13:29 | HMH.EDUTC ---
[facility] [place] Impression: Viral syndrome Disposition: Home, Self-Care Condition on Discharge: Good Instructions: DI for COVID-19 (Suspected or Confirmed ), Preventing the Spread of Coronavirus Discharge Instructions Additional Instructions: *Monitor Temp, Over the counter Motrin or Tylenol as directed/as needed Tylenol every 4 hours and Motrin every 6 hours (as long as your family doctor has told you that you can take it) for fever or pain. and straight to ER if unable to lower temp less than 101.0 after medication given *Warm salt water gargles may help to soothe the throat *Throat Lozenges *Warm fluids like tea with honey may help to soothe the throat *Sleep elevated *Humidifier/Vaporizer Meclizine as prescribed for dizziness Follow up IMMEDIATELY for new or worsening symptoms or no Noticeable improvement over the next 48-72 hours. 911 for difficulty breathing or swallowing You were tested for today for COVID19 your test result should be back in the next 24-48 hours, you was given handout on how to check [facility] your [facility] on [facility] [employer] Portal if you have issues or no internet access you may call the [facility] You was given a handout with instructions for Self Quarantine and Self isolation for while you wait on test results and what to do if they are positive If you are positive the Health Dept will be contacting you also Make sure to take your Vitamins Vit. C Vit D and Zinc if you can take them Prescriptions: Ondansetron [Zofran 4mg ODT] 4 mg PO TIDP PRN #6 tab PRN Reason: Nausea Transmission Status: Received by [facility]/pharmacy #[id number] Referrals: Lila Yan PA [Primary Care Provider] - As needed Time of Disposition: 13:47 Medical Decision Making - Isidro Inquiry Pt receiving controlled substance: No Isidro was queried for this patient: No Vital Signs: 07/25/21 13:00 07/25/21 13:50 Temperature 98.0 F 98.0 F Temperature Source Oral Pulse Rate 88 Pulse Rate [Left Brachial] 88 Respiratory Rate 18 18 Blood Pressure 104/58 L Blood Pressure [Left Arm] 95/55 L Blood Pressure Mean [Left Arm] 68 Blood Pressure Source [Left Arm] Automatic Cuff Blood Pressure Position [Left Arm] Sitting 02 Sat by Pulse Oximetry 95 Oxygen Delivery Method Room Air Orders (Tests/Meds): ORDERS Category Date Time Status Covid-19 Nasal PCR ([facility]) Routine Lab 07/25/21 13:51 Ordered Medical Decision Narrative: Patient states that she has taken zofran before without reactions or complications and still has some Meclizine at home fpor dizziness [facility] [place] - General Stated complaint: fever,body aches,headache Time Seen by Provider: 07/25/21 13:35 Mode of Arrival: Ambulatory Source of Information: Patient Limitations: No Limitations Description of Symptoms (Recalled from Triage Doc. by RN): PATIENT C/O FEVER, BODY ACHES, AND HEADACHE HEENT Symptoms (Recalled from RN notes): Yes Resp Symptoms (Recalled from RN notes): No Skin Symptoms (Recalled from RN notes): No MS Symptoms (Recalled from RN notes): No Functional Status (Recalled from RN notes): WNL - History of Present Illness Provider Complaint: Patient states that she started feeling bad yesterday States that she was suppose to get a COVID test today for a procedure that she has to get done States that she has been having body aches, chills, headache and fever States that she had some N/V this morning and vomited x 2 so they told her that they wanted to have her come in and get checked for COVID - Related Data Home Medications Medication Instructions Recorded Confirmed Ipratropium/Albuterol Sulfate 3 ml IH Q4H 12/09/19 07/12/21 [Duoneb 3mL neb] Bupivacaine HCl/Pf [Bupivacaine 4.25 mg IT CONT 02/14/21 07/12/21 0.5% 10mL Vial] cyanocobalamin (vitamin B-12) 500 500 mcg PO DAILY each 03/30/21 07/12/21 mcg lozenges cariprazine 1.5 mg capsule 1.5 mg PO DAILY 06/21/21 07/12/21 Losartan/Hydrochlorothiazide 1 tab PO DAILY 06/26/21
[2021-07-25 13:50] VITALS: BP 104/58; PULSE 88; RESP 18; TEMP 36.7; O2SAT 95
[2021-07-25 21:06] LABS: UTC Influenza A Antigen Negative (Negative); UTC Influenza B Antigen Negative (Negative)
== END 2021-07-25 13:56 | disposition home or self-care (01) ==
PROVIDERS: Emergency Provider Nurse Practitioner; PCP Physician Assistant
DX: B34.9 Viral infection, unspecified (principal); Z20.822 Contact with and (suspected) exposure to COVID-19; F41.8 Other specified anxiety disorders; K21.9 Gastro-esophageal reflux disease without esophagitis; I10 Essential (primary) hypertension; E78.5 Hyperlipidemia, unspecified; F17.210 Nicotine dependence, cigarettes, uncomplicated
CPT/HCPCS: 87804; 99202; C9803; G0463; U0003; U0005

== ENCOUNTER 2021-07-26 03:12 | Inpatient (IN) | payer MEDICARE, MEDICAID, SELFPAY ==
[2021-07-26] VITALS (63 sets, daily range): BP systolic 61–138; BP diastolic 24–92; PULSE 72–98; RESP 18–30; TEMP 36.7; O2SAT 86–100; BMI 33.0; BMI 51.0
--- NOTE | 2021-07-26 03:05 | ECG_ITS ---
APPROVED REPORT Exam: Resting ECG HR:83 bpm ECG Measurements Heart Rate 83 AXES NC 188 P 67 QRSd 86 QRS 43 QT 414 T 54 QTc 486 Conclusion Normal sinus rhythm Prolonged QT Abnormal ECG Electronically signed by : Michael Saab MD 07/27/2021 20:52:12
--- NOTE | 2021-07-26 03:18 | XR_ITS ---
PROCEDURE INFORMATION: Exam: XR Chest Exam date and time: 07/26/2021 3:18 AM Age: 60 years old Clinical indication: Shortness of breath; Additional info: SOA TECHNIQUE: Imaging protocol: XR of the chest. Views: 1 view. COMPARISON: CR XR CHEST PORTABLE 06/26/2021 3:46 PM FINDINGS: Lungs: Left mid lung field /left basilar opacity, may represent pneumonia inappropriate clinical setting. Pleural spaces: No pleural effusion. No pneumothorax. Heart/Mediastinum: Unremarkable cardiomediastinal silhouette. Bones/joints: No acute osseous findings. IMPRESSION: Left mid lung field / left basilar opacity, may represent pneumonia in appropriate clinical setting. Recommend close clinical and imaging follow-up to document complete resolution as malignancy may have a similar appearance
[2021-07-26 03:28] LABS: Basophils % 0.3 % (0.1-2.0); Eosinophils % 0.4 % (0.1-12.0); Hematocrit 39.5 % (37.0-47.0); Hemoglobin 12.5 g/dL (12.2-16.2); Lymphocytes % 11.9 % (10-50); Mean Corpuscular HGB Conc 31.6 g/dL (31.8-35.4); Mean Corpuscular Hemoglobin 32.9 pg (27.0-31.2); Mean Corpuscular Volume 104.1 fl (81-99); Mean Platelet Volume 9.1 fl (7.4-10.4); Monocytes # 0.5 K/mm3 (0.1-1.0); Monocytes % 5.6 % (1.7-9.3); Neutrophils # 6.7 K/mm3 (1.8-7.8); Neutrophils % 81.8 % (37.0-80.0); Platelet Count 244 K/mm3 (142-424); Red Blood Count 3.79 M/mm3 (4.20-5.40); Red Cell Distribution Width 14.3 % (11.5-17.5); White Blood Count 8.2 K/mm3 (4.8-10.8)
[2021-07-26 03:31] LABS: Chloride 95 mmol/L (98-107); Potassium 4.1 mmoL/L (3.5-5.1); Sodium 133 mmol/L (136-145)
[2021-07-26 03:33] LABS: Alanine Aminotransferase 26 U/L (12-78); Aspartate Amino Transferase 26 U/L (14-36); Bilirubin,Unconjugated 0.3 mg/dL (0.0-1.1); Blood Urea Nitrogen 22 mg/dl (7-17); Creatinine Clearance Estimated 36 mL/min (50-200); Estimated Glomerular Filt Rate 20 ml/min (>60); GFR (African American) 24 ML/MIN (>60)
[2021-07-26 03:34] LABS: Albumin Level 3.2 g/dl (3.5-5.0); Alkaline Phosphatase 57 U/L (38-126); Anion Gap 21.1 mEq/L (5-15); Bilirubin,Direct 0.1 mg/dl (0.0-0.4); Bilirubin,Indirect 0.3 mg/dL (0.0-0.9); Bilirubin,Total 0.4 mg/dl (0.2-1.3); Calcium 8.2 mg/dl (8.4-10.2); Carbon Dioxide 21 mmol/L (22.0-30.0); Glucose 116 mg/dl (74-100); Total Protein,Serum 5.7 g/dl (6.3-8.2)
[2021-07-26 03:34] LABS: Adenovirus,PCR Not Detected (NotDetected); Bordetella Pertussis Not Detected (NotDetected); Chlamydophila Pneumoniae, PCR Not Detected (NotDetected); Coronavirus 19, PCR Not Detected (NotDetected); Coronavirus 229E Not Detected (NotDetected); Coronavirus NL63 Not Detected (NotDetected); Coronavirus OC43 Not Detected (NotDetected); Coronovirus HKU1,PCR Not Detected (NotDetected); Human Metapneumovirus Not Detected (NotDetected); Influenza A, PCR Not Detected (NotDetected); Influenza AH1, 2009 Not Detected (NotDetected); Influenza AH1, PCR Not Detected (NotDetected); Influenza AH3,PCR Not Detected (NotDetected); Influenza B, PCR Not Detected (NotDetected); Mycoplasma Pneumoniae, PCR Not Detected (NotDetected); Parainfluenza 1, PCR Not Detected (NotDetected); Parainfluenza 2, PCR Not Detected (NotDetected); Parainfluenza 3, PCR Not Detected (NotDetected); Parainfluenza 4, PCR Not Detected (NotDetected); Respiratory Syncytial Virus Not Detected (NotDetected); Rhinovirus/Enterovirus Not Detected (NotDetected)
[2021-07-26 03:39] LABS: C-Reactive Protein 244.6 mg/L (0-4); Lactic Acid 7.8 mmol/L (0.7-2.1)
[2021-07-26 03:44] LABS: ABG Base Excess -9.9 mmol/L (-2.4-2.3); ABG HCO3 16.8 mmhg (22.0-26.0); ABG Oxygen Saturation 91 % (90-100); ABG PCO2 35.9 mmhg (35.0-45.0); ABG PH 7.29 mmol/L (7.35-7.45); ABG PO2 65.3 mmhg (80-100); ABG TCO2 17.9 mmhg (23-27)
[2021-07-26 03:45] LABS: NT Pro Brain Natriuretic Pep. 12800 pg/mL (0-125)
[2021-07-26 03:47] LABS: Allen's Test Acceptable; Oxygen 24 %; Source Left Radial
[2021-07-26 04:10] LABS: Troponin I < 0.01 ng/ml (0.00-0.034)
--- NOTE | 2021-07-26 04:10 | HMH.EDSOB ---
ED Disposition Clinical Impression: PAD (peripheral artery disease), Tobacco abuse, Obesity (BMI 30.0-34.9), Severe sepsis with acute organ dysfunction, Septic shock, Subclavian arterial stenosis, Renal artery stenosis, AYANA (acute kidney injury) CAP (community acquired pneumonia) Qualifiers: Laterality: left Lung location: lower lobe of lung Qualified Code(s): J18.9 - Pneumonia, unspecified organism Disposition: Admitted As Inpatient Condition on Discharge: Serious - Critical Care Critical Care Time: Yes Attestation: On 07/26/21, the high probability of a clinically significant, sudden or life threatening deterioration of the following system(s) required my full and direct attention, intervention and personal management. The time I documented below is in addition to time spent performing reported procedures but includes the following listed in this critical care notation. Total Critical Care Time: 60 Vital system(s) involved:: Shock (Septic) My critical care processes included: Assessment & monitoring of V/S, Data Review/Interpretation, Coordinating Care, Medication Orders and management, Documentation Medical Decision Making - Medical Records Medical records reviewed: Yes: I reviewed the patient's medical records. - Isidro Inquiry Pt receiving controlled substance: No Vital Signs: 07/26/21 03:09 07/26/21 03:30 07/26/21 04:00 Temperature 98.0 F Temperature Source Rectal Pulse Rate 72 88 Pulse Rate [Apical] 84 Respiratory Rate 26 H 29 H 26 H Blood Pressure 63/48 L 62/41 L Blood Pressure [Right Arm] 70/40 L Blood Pressure Mean [Right Arm] 50 Blood Pressure Source Blood Pressure Source [Right Arm] Manual Cuff/ Doppler Blood Pressure Position Blood Pressure Position [Right Arm] Supine 02 Sat by Pulse Oximetry 92 L 92 L 91 L Oxygen Delivery Method Nasal Cannula Nasal Cannula Oxygen Flow Rate (LPM) 2 2 3.5 07/26/21 04:35 07/26/21 04:45 07/26/21 05:00 Temperature Temperature Source Pulse Rate 84 81 74 Pulse Rate [Apical] Respiratory Rate 24 Blood Pressure 83/39 L 125/92 H 73/37 L Blood Pressure [Right Arm] Blood Pressure Mean [Right Arm] Blood Pressure Source Blood Pressure Source [Right Arm] Blood Pressure Position Blood Pressure Position [Right Arm] 02 Sat by Pulse Oximetry 100 99 91 L Oxygen Delivery Method Nasal Cannula Oxygen Flow Rate (LPM) 3.5 3.5 07/26/21 05:15 07/26/21 05:30 07/26/21 06:00 Temperature Temperature Source Pulse Rate 82 88 86 Pulse Rate [Apical] Respiratory Rate 25 H 22 28 H Blood Pressure 70/41 L 68/34 L 87/42 L Blood Pressure [Right Arm] Blood Pressure Mean [Right Arm] Blood Pressure Source Manual Cuff/ Auscultation Automatic Cuff Blood Pressure Source [Right Arm] Blood Pressure Position Supine Sitting Blood Pressure Position [Right Arm] 02 Sat by Pulse Oximetry 91 L 93 L 90 L Oxygen Delivery Method Nasal Cannula Nasal Cannula Oxygen Flow Rate (LPM) 3 3 07/26/21 06:30 07/26/21 07:00 Temperature Temperature Source Pulse Rate 88 87 Pulse Rate [Apical] Respiratory Rate 30 H 23 Blood Pressure 92/41 L 80/42 L Blood Pressure [Right Arm] Blood Pressure Mean [Right Arm] Blood Pressure Source Manual Cuff/ Auscultation Blood Pressure Source [Right Arm] Blood Pressure Position Supine Blood Pressure Position [Right Arm] 02 Sat by Pulse Oximetry 95 92 L Oxygen Delivery Method Nasal Cannula Nasal Cannula Oxygen Flow Rate (LPM) 3 3 - Lab Data Lab results reviewed: Yes: I reviewed the patient's lab results. Lab Results 07/26/21 03:17: WBC 8.2, RBC 3.79 L, Hgb 12.5, Hct 39.5, MCV 104.1 H, MCH 32.9 H, MCHC 31.6 L, RDW 14.3, Plt Count 244, MPV 9.1, Neut % (Auto) 81.8 H, Lymph % (Auto) 11.9, [place] % (Auto) 5.6, Eos % (Auto) 0.4, Baso % (Auto) 0.3, Neut # (Auto) 6.7, Lymph # (Auto) 1.0, [place] # (Auto) 0.5, Eos # (Auto) 0.0, Baso # (Auto) 0.0, ESR 57 H 07/26/21 03:17: Sodium 133 L, Po
[2021-07-26 04:14] LABS: Erythrocyte Sedimentation Rate 57 mm/hr (0-30)
[2021-07-26 05:09] LABS: Procalcitonin > 100 ng/mL (0.0-2.0)
--- NOTE | 2021-07-26 05:12 | CT_ITS ---
PROCEDURE: CT CHEST WO CON CLINICAL INDICATION: Rib pain COMPARISON: CT CT ANGIO CHEST from 04/27/2021 TECHNIQUE: Axial images obtained with sagittal and coronal reformats. All CT scans at the facility use one or more dose reduction, viz: automated exposure control, ma/kV adjustment per patient size (including targeted exams where dose is matched to indication, i.e. head), or iterative reconstruction technique. FINDINGS: HEART AND MEDIASTINAL STRUCTURES: Mild prominence of the main pulmonary arteries. Coronary artery calcification. No mediastinal or hilar mass or enlarged lymph nodes. LUNGS AND PLEURAL SPACES: Scattered areas of scarring. Stable 4 mm nodule right upper lobe image 01/28. Stable fissural nodule in the right minor fissure. Atelectatic changes are present in the right middle lobe and in the lung bases. There is evidence of old granulomatous disease. There is dense consolidation in the left lower lobe with some sparing of the superior segment and medial basilar and posterior basilar segment. Trace left pleural effusion. BONY STRUCTURES: No acute bony abnormalities apparent. UPPER ABDOMEN: Artifact is present from a subcutaneous metallic implanted device in the left flank. ADDITIONAL FINDINGS: No other significant abnormalities. IMPRESSION: Left lower lobe pneumonia Dictated by: Stefano Cowan MD 07/26/2021 07:38 Stefano Cowan MD in [facility] 07/26/2021 07:38
[2021-07-26 06:49] LABS: Microscopic, Urine URINE MICROSCOPIC (MICROSCOPIC)
[2021-07-26 06:52] LABS: Appearance,Urine CLEAR (Clear); Blood, Urine TRACE-I (Negative); Color,Urine YELLOW (Yellow); Glucose,Urine (UA) Negative (Negative); Ketones,Urine TRACE (Negative); Leukocyte Esterase,Urine Negative (Negative); Nitrate,Urine Negative (Negative); PH,Urine 5.5 (5.0-8.5); Protein,Urine 1+ (Negative); Specific Gravity, Urine >= 1.030 (1.005-1.030)
[2021-07-26 06:53] LABS: Bilirubin,Urine Negative (Negative)
[2021-07-26 07:23] LABS: Reflex Lactic Add Lactic Reflex
[2021-07-26 07:24] LABS: Troponin I < 0.01 ng/ml (0.00-0.034)
--- NOTE | 2021-07-26 07:32 | PC.NURSE ---
[facility] contacted about admission, due to high census at this time pt will be boarded in the ER. When bed is available pt will be moved.
--- NOTE | 2021-07-26 07:47 | CA_ITS ---
APPROVED REPORT EXAM: Comprehensive 2D, Doppler, and color-flow Echocardiogram Phototypesetting Equipment Monitor: Holly Jimenes, RT(R) Ht: 5 ft 7 in Wt: 211lbs BSA: 2.07 BP: 80/42 mmHg Indications: SOA, COPD, Emphysema, smoker, obesity, HTN, hyperlipidemia, pneumonia, sepsis, fever, CAD, fever, DIONICIO, subclavian stenosis 2D Dimensions LVOT 1.97 cm (M/F) 1.5-2.5 M-Mode Dimensions RVDd 3.53 cm (0.9-2.6) LA Diam 3.50 cm (1.9-4.0) LVDd 3.26 cm (3.5-5.7) Ao Diam 2.33 cm (2.0-3.7) LVDs 2.50 cm (3.5-5.7) IVSd 1.25 cm (0.6-1.1) PWd 1.03 cm (0.6-1.1) EF (Teich) 47.90% FS 23.30% EDV (Teich) 42.80 mL ESV (Teich) 22.30 mL LV Diastology E Decel Time 190.00 (160-240 msec) E/A Ratio 1.3 MED E' 7.70 (< 7 cm/sec) E'/MED E' Ratio 13.51 (>14) LAT E' 8.70 (<10 cm/sec) E/LAT E' Ratio 11.95 (>14) Mitral Valve MV E Max Rafa. 104.00 (40-130 cm/s) MV A Velocity 81.00 (40-130 cm/s) E/A Ratio 1.29 MV Decel. Time 190.00 (160-240 ms) MV PHT 56.00 ms Left Ventricle Left atrium is mildly enlarged, left ventricle is normal size, mild concentric left ventricular hypertrophy, visually estimated ejection fraction 55% with no regional wall motion abnormality, diastolic parameters are inconclusive in the study. Right Ventricle Right atrium and right ventricle are mildly enlarged with normal contractility. Aortic Valve Aortic valve is minimally thickened and fibrosed, there is no aortic stenosis or aortic insufficiency. Mitral Valve Mitral valve grossly normal, there is trace mitral regurgitation. Tricuspid Valve Tricuspid valve grossly normal, there is trace tricuspid regurgitation, tricuspid regurgitation jet velocity is inadequate for calculation of the right ventricular systolic pressure. Pulmonic Valve Pulmonic valve is poorly visualized. Great Vessels Aortic root is normal size. Inferior vena cava is not well visualized. Pericardium No significant pericardial effusion noted. Conclusion 1. Normal left ventricular size, mild concentric left ventricular hypertrophy, visually estimated ejection fraction 55% with no regional wall motion abnormality, diastolic parameters are inconclusive. 2. Mildly enlarged right ventricle with normal contractility. 3. Trace mitral and tricuspid regurgitation. 4. No significant pericardial effusion noted. Electronically signed by : Justin Holland MD 07/26/2021 17:42:01
[2021-07-26 07:48] LABS: Bacteria,Urine 2+ /lpf; RBC,Urine Occasional #/hpf (0-3)
--- NOTE | 2021-07-26 07:49 | PC.NURSE ---
notified [facility] lab staff of doppler order
[2021-07-26 08:04] LABS: Lactic Acid Follow Up (RFLX 1) 7.7 mmol/L (0.7-2.1)
--- NOTE | 2021-07-26 08:07 | PC.NURSE ---
Pulmonology and cardiology aware of consult for pt
--- NOTE | 2021-07-26 09:25 | HMH.HP ---
*Admission Date: 07/26/21 *Chief complaint: Shortness of breath *History of present illness: 60-year-old female patient presented to the emergency department with complaints of shortness of breath, productive thick yellow/green cough, nausea/vomiting/diarrhea, temperature 102 yesterday, and negative Covid 19 PCR and flu negative. She reports she is a longtime smoker of 1 pack/day as well as peripheral artery disease, renal artery stenosis, and subclavian arterial stenosis. She was scheduled for stenting tomorrow She does report shortness of breath started yesterday morning and increased shortness of breath and productive cough until last night when she called EMS 07/26/21 CXR: FINDINGS: Lungs: Left mid lung field /left basilar opacity, may represent pneumonia inappropriate clinical setting. Pleural spaces: No pleural effusion. No pneumothorax. Heart/Mediastinum: Unremarkable cardiomediastinal silhouette. Bones/joints: No acute osseous findings. IMPRESSION: Left mid lung field / left basilar opacity, may represent pneumonia in appropriate clinical setting. Recommend close clinical and imaging follow-up to document complete resolution as malignancy may have a similar appearance Electronically signed by Adan Prasad MD 07/26/[address]: FINDINGS: HEART AND MEDIASTINAL STRUCTURES: Mild prominence of the main pulmonary arteries. Coronary artery calcification. No mediastinal or hilar mass or enlarged lymph nodes. LUNGS AND PLEURAL SPACES: Scattered areas of scarring. Stable 4 mm nodule right upper lobe image 01/28. Stable fissural nodule in the right minor fissure. Atelectatic changes are present in the right middle lobe and in the lung bases. There is evidence of old granulomatous disease. There is dense consolidation in the left lower lobe with some sparing of the superior segment and medial basilar and posterior basilar segment. Trace left pleural effusion. BONY STRUCTURES: No acute bony abnormalities apparent. UPPER ABDOMEN: Artifact is present from a subcutaneous metallic implanted device in the left flank. ADDITIONAL FINDINGS: No other significant abnormalities. IMPRESSION: Left lower lobe pneumonia Dictated by: Stefano Cowan MD 60-year-old female patient sitting up in bed, she does become short of breath when talking oxygenation currently 94% on 4 L per nasal cannula. She was experiencing hypotension and Levophed was started and is currently infusing. [facility] History I have reviewed the patient's past medical history: Yes Medical History: Reports:: Anxiety, Chronic Obstructive Pulmonary Disease (COPD), Coronary Artery Disease, Depression, Gastroesophageal Reflux Disease(GERD), Hyperlipidemia, Hypertension, Peripheral Artery Disease, Peripheral Vascular Disease Denies:: Cancer, Diabetes Mellitus Type 1, Diabetes Mellitus Type 2, Internal Pacemaker, MRSA, Seizures *Have you ever received a pneumonia vaccine?: Yes *Have you received a flu vaccine this season?: No Other Medical History: Reports: Arthritis. Denies: Blood Transfusion Reaction Laterality Cases: Bilateral: Other Other Surgeries: Yes: Angiogram, Cancer Surgery (skin cancer removed from chest and shoulder), Cardiac Catheterization, , Hysterectomy-Total, Tubal Ligation, Other. No: Pacemaker Amputation: No Fractures: Yes - *Social History Smoking Status: Current every day smoker Tobacco Type: cigarettes # Packs/Day (cigarettes): 1 #Yrs smoked (if former smoker): 41 Alcohol Intake: never Alcohol Intake Frequency:: other Substance Use Type: denies use *Occupational Status:: disabled Housing: apartment Household Members: family *Travel in the last 8 weeks: None - Psychiatric History Pschychiatric History:: Reports:: Anxiety, Depression Family Hx:: Cancer, Coronary Artery Disease, Diabetes, Heart Attack, Hyperlipidemia, Hypertension Review of Systems - Review of Systems Review of systems:: pertinent systems re
[2021-07-26 09:36] LABS: Reflex Lactic (2 hrs) Add Lactic Reflex
--- NOTE | 2021-07-26 10:05 | PC.NURSE ---
dr. ayers at [facility] for consult
[2021-07-26 10:20] LABS: Lactic Acid Follow up (RFLX 2) 4.5 mmol/L (0.7-2.1)
[2021-07-26 10:23] LABS: Occult Blood,Stool Positive (Negative)
[2021-07-26 10:34] LABS: Troponin I 0.01 ng/ml (0.00-0.034)
--- NOTE | 2021-07-26 10:37 | HMH.CNCARD ---
History of Present Illness Consult date: 07/26/21 Requesting physician: Bud Rob Consult reason: shortness of breath Chief complaint: Pneumonia, sepsis Additional Medical History:: 1. Chronic tobacco use with COPD A. Pulmonary Artery Hypertension noted on CT of chest, 04/2021 2. History of GERD 3. Hypertension A. Echocardiogram, 06/2020, mild biatrial enlargement, normal LV size, mild concentric LVH, EF 55%, grade 1 diastolic dysfunction, mild RV enlargement with normal contractility. Mild MR and TR. 4. Hyperlipidemia, on statin 5. Peripheral vascular disease with evidence of right subclavian artery stenosis, CT of chest 04/2021, and bilateral renal artery stenosis, 06/2021, with plans for angiogram and intervention, 07/2021. 6. Obesity 7. Anxiety/depression 8. PAD A. History of stent to right external iliac, 2015 B. BMS to right common iliac artery, 2017 C. BMS to left common iliac artery, 06/2020 D. Widely patent stents in the distal abdominal aorta bifurcation into the iliac arteries, 10/2020 9. History of normal coronaries, 09/2016 A. Danie myoview, 06/2020, no ischemia, EF 61% B. Coronary artery calcifications noted on CT of chest, 07/2021 10. History of headache A. MRI of brain, 07/2019, Nonspecific periventricular and subcortical T2 white matter hyperintensities. These may only be related to ischemic gliotic change from microvascular disease. Included in the differential diagnosis would be migraine headache and demyelinating process. Please correlate with clinical parameters. Otherwise negative MRI of the brain without contrast Dictated by: Stefano Cowan MD 07/17/2019 17:20 Electronically signed by Stefano Cowan MD in [facility] 07/17/2019 17:20 History of present illness: 60-year-old female patient presented to the emergency department with complaints of shortness of breath, productive thick yellow/green cough, nausea/vomiting/diarrhea, temperature 102 yesterday, and negative Covid 19 PCR and flu negative. She reports she is a longtime smoker of 1 pack/day as well as peripheral artery disease, renal artery stenosis, and subclavian arterial stenosis. She was scheduled for stenting tomorrow She does report shortness of breath started yesterday morning and increased shortness of breath and productive cough until last night when she called EMS. The above per Sai Schumacher APRN, for Dr. Rob Pt is in ER at time of my exam. She is not mentating at her normal baseline. She denies any chest pain. Resp Rate is about 30 per minute with SBP at 91 mm Hg in left arm. Cardiology consulted for known PVD for which she was scheduled to undergo angiogram and possible stenting of her right subclavian artery and bilateral renal arteries. We will postpone these procedures until she is hemodynamically stable and her sepsis has been adequately treated. [facility] History Medical History: Reports:: Anxiety, Chronic Obstructive Pulmonary Disease (COPD), Coronary Artery Disease, Depression, Gastroesophageal Reflux Disease(GERD), Hyperlipidemia, Hypertension, Peripheral Artery Disease, Peripheral Vascular Disease Denies:: Cancer, Diabetes Mellitus Type 1, Diabetes Mellitus Type 2, Internal Pacemaker, MRSA, Seizures *Have you ever received a pneumonia vaccine?: Yes *Have you received a flu vaccine this season?: No Other Medical History: Reports: Arthritis. Denies: Blood Transfusion Reaction Laterality Cases: Bilateral: Other Other Surgeries: Yes: Angiogram, Cancer Surgery (skin cancer removed from chest and shoulder), Cardiac Catheterization, , Hysterectomy-Total, Tubal Ligation, Other. No: Pacemaker Amputation: No Fractures: Yes - *Social History Smoking Status: Current every day smoker Tobacco Type: cigarettes # Packs/Day (cigarettes): 1 #Yrs smoked (if former smoker): 41 Alcohol Intake: never Alcohol Intake Frequency:: other Substance Use Type: denies use *Occupational Status:: disabled Housing: apartment Household M
--- NOTE | 2021-07-26 11:03 | PC.NURSE ---
educated pt multiple times that sitting up on the side of the bed is not safe. Pt is resting against a bed rail currently, pt states she is more comfortable sitting up like this. Staff has readjusted pt in bed multiple times. will continue to monitor bed rails x2 in place.
--- NOTE | 2021-07-26 11:03 | PC.NURSE ---
attempted to call report, nurse unavailable at this time, will call back when she can take report.
--- NOTE | 2021-07-26 12:05 | PC.NURSE ---
pt trying to get up out of bed again this time, put pulling her oxygen off, Sao2 drops to 70s quickly, pt diaphoretic, getting confused
--- NOTE | 2021-07-26 12:06 | PC.NURSE ---
contacted dr. virk office at this time, waiting production consultant back
--- NOTE | 2021-07-26 12:10 | PC.NURSE ---
pt placed on NRB at this time r/t Low SaO2
--- NOTE | 2021-07-26 12:11 | PC.NURSE ---
levophed increased to 8mcg at this time
--- NOTE | 2021-07-26 12:18 | PC.NURSE ---
levophed gtt increased to 10 mcg at this time
--- NOTE | 2021-07-26 12:25 | PC.NURSE ---
spoke with edvin hernandez notified him that pt is confused, pt is keeps trying to get up out of bed, pulling her oxygen off, increased levophed drip 10 mcg at this time, pt on 100% NRB. edvin Hernandez gave verbal order for clonazepam 0.5 mg po one time dose at this time. States to leave pt on NRB at this time, states hopefully clonazepam will help pt calm down and then we can reassess oxygenation status.
--- NOTE | 2021-07-26 13:00 | PC.NURSE ---
Levophed drip increased to 15 mcg/min per RN Manish
--- NOTE | 2021-07-26 13:04 | HMH.PULMCON ---
*Admission Date: 07/26/21 *Reason for consult:: Acute hypoxic respiratory failure, community-acquired pneumonia *History of present illness: Ms. Chamberlain is a 60-year-old female carries a diagnosis COPD currently on Symbicort and albuterol recently admitted to the hospital in June 2016 with COPD exacerbation during which she was treated with nebulizer steroids and was discharged home on doxycycline for 5 days presented to hospital again with worsening respiratory distress and pulmonary was called for further management. [facility] History Medical History: Reports:: Anxiety, Chronic Obstructive Pulmonary Disease (COPD), Coronary Artery Disease, Depression, Gastroesophageal Reflux Disease(GERD), Hyperlipidemia, Hypertension, Peripheral Artery Disease, Peripheral Vascular Disease Denies:: Cancer, Diabetes Mellitus Type 1, Diabetes Mellitus Type 2, Internal Pacemaker, MRSA, Seizures *Have you ever received a pneumonia vaccine?: Yes *Have you received a flu vaccine this season?: No Other Medical History: Reports: Arthritis. Denies: Blood Transfusion Reaction Laterality Cases: Bilateral: Other Other Surgeries: Yes: Angiogram, Cancer Surgery (skin cancer removed from chest and shoulder), Cardiac Catheterization, , Hysterectomy-Total, Tubal Ligation, Other. No: Pacemaker Amputation: No Fractures: Yes - *Social History Smoking Status: Current every day smoker Tobacco Type: cigarettes # Packs/Day (cigarettes): 1 #Yrs smoked (if former smoker): 41 Alcohol Intake: never Alcohol Intake Frequency:: other Substance Use Type: denies use *Occupational Status:: disabled Housing: apartment Household Members: family *Travel in the last 8 weeks: None - Psychiatric History Pschychiatric History:: Reports:: Anxiety, Depression Family Hx:: Cancer, Coronary Artery Disease, Diabetes, Heart Attack, Hyperlipidemia, Hypertension ROS - Cons Reports anorexia, Reports body ache(s), Reports chills - ENT Denies abnormal hearing - Card Reports shortness of breath, Reports shortness of breath with activity - Resp Respiratory: Reports chest congestion, Reports cough, Reports dyspnea on exertion, Reports excessive phlegm production, Denies coughing up blood, Denies pain on inspiration - GI Gastrointestingal: Reports: abdominal pain, change in bowel habits, diarrhea, dyspepsia - [place] Musculoskeletal: Denies decreased muscle mass - Psych Denies change in appetite Meds Home Medications Medication Instructions Recorded Confirmed Type Ipratropium/Albuterol Sulfate 3 ml IH Q4H 12/09/19 07/12/21 History [Duoneb 3mL neb] albuterol sulfate 90 mcg/actuation See Rx Instructions .ROUTE 01/17/21 07/12/21 Rx aerosol inhaler .COMPLEX #8.5 g aspirin 81 mg tablet,delayed 81 mg PO DAILY #90 tab 01/17/21 07/12/21 Rx release budesonide-formoterol HFA 160 2 puff INHALATION BID #1 device 01/17/21 07/12/21 Rx mcg-4.5 mcg/actuation aerosol inhaler cholecalciferol (vitamin D3) 25 1,000 unit PO DAILY #90 cap 01/17/21 07/12/21 Rx mcg (1,000 unit) capsule ergocalciferol (vitamin D2) 1,250 50,000 unit PO QWEEK #14 cap 01/17/21 07/12/21 Rx mcg (50,000 unit) capsule rivaroxaban 2.5 mg tablet 2.5 mg PO BID #180 tab 01/17/21 07/12/21 Rx umeclidinium 62.5 mcg/actuation 1 inh INHALATION DAILY #30 each 01/17/21 07/12/21 Rx blister powder for inhalation Bupivacaine HCl/Pf [Bupivacaine 4.25 mg IT CONT 02/14/21 07/12/21 History 0.5% 10mL Vial] cyanocobalamin (vitamin B-12) 500 500 mcg PO DAILY each 03/30/21 07/12/21 History mcg lozenges lovastatin 40 mg tablet 40 mg PO HS #90 tab 04/27/21 07/12/21 Rx cariprazine 1.5 mg capsule 1.5 mg PO DAILY 06/21/21 07/12/21 History Losartan/Hydrochlorothiazide 1 tab PO DAILY 06/26/21 07/12/21 History [Losartan-Hctz 50-12.5 mg Tab] Metoprolol Succinate [Metoprolol 50 mg PO DAILY 06/26/21 07/12/21 History Succinate 50mg Tablet*] Quetiapine Fumarate 25 ng PO HS 06/26/21 07/12/21 History Venlafaxine HCl [
--- NOTE | 2021-07-26 13:39 | PC.NURSE ---
decreased levophed drip to 12 mcg/min at this time
--- NOTE | 2021-07-26 13:40 | PC.NURSE ---
RT at BS contacted Dr. Fried per RT request to clarify orders on pt. Dr. Fried gave verbal order for ABG, states she does not want pt on NRB pt needs to either be on regular nasal cannula, high flow cannula or bipap.
--- NOTE | 2021-07-26 13:43 | PC.NURSE ---
Respiratory at bs
[2021-07-26 13:53] LABS: ABG Base Excess -11.9 mmol/L (-2.4-2.3); ABG HCO3 17.8 mmhg (22.0-26.0); ABG Oxygen Saturation 91 % (90-100); ABG PO2 76.4 mmhg (80-100); ABG TCO2 19.6 mmhg (23-27)
[2021-07-26 13:54] LABS: Allen's Test Acceptable; Oxygen 100 %; Source Right Brachial
[2021-07-26 13:57] LABS: ABG PCO2 58.8 mmhg (35.0-45.0)
--- NOTE | 2021-07-26 14:03 | PC.NURSE ---
updated son about pt status
--- NOTE | 2021-07-26 14:13 | PC.NURSE ---
Pt placed on bipap
--- NOTE | 2021-07-26 15:00 | PC.NURSE ---
Received report from Tiera Diaz RN @ this time. S OMAYRA Rodgers to bring pt up.
--- NOTE | 2021-07-26 15:45 | HMH.PHAVTE ---
[facility] Pharmacy VTE Monitoring - Patient Demographics Admission date: 07/26/21 Report Date: 07/26/21 Time: 15:45 Allergies/Adverse Reactions: Patient Allergies tetanus and diphtheria toxoids [TETANUS & DIPHTHERIA TOXOIDS] Allergy (Severe, Verified 07/12/21 11:46) I-HIVES atorvastatin Adverse Reaction (Intermediate, Verified 07/12/21 11:46) Headache Height: 1.6 m Weight: 130.663 kg Patient Problems: Current Active Problems Altered mental status (Acute) Acute and chronic respiratory failure with hypoxia (Acute) CAP (community acquired pneumonia) (Acute) Severe sepsis with acute organ dysfunction (Acute) Septic shock (Acute) Subclavian arterial stenosis (Acute) Renal artery stenosis (Acute) AYANA (acute kidney injury) (Acute) Occult blood in stools (Acute) BMI 33.0-33.9,adult (Chronic) Tobacco dependence syndrome (Chronic) Hyperlipidemia (Chronic) Obesity (BMI 30.0-34.9) (Chronic) Tobacco abuse (Chronic) COPD (chronic obstructive pulmonary disease) (Chronic) HTN (hypertension) (Chronic) PAD (peripheral artery disease) (Chronic) - VTE Risk Labs: VTE Related Lab Results Hgb 12.5 g/dL (12.2-16.2) 07/26/21 03:17 Hct 39.5 % (37.0-47.0) 07/26/21 03:17 Plt Count 244 K/mm3 (142-424) 07/26/21 03:17 BUN 22 mg/dl (7-17) H 07/26/21 03:17 Creatinine 2.50 mg/dl (0.52-1.04) H 07/26/21 03:17 Estimated Creat Clear 36 mL/min (50-200) 07/26/21 03:17 Clinical Trial Participant: No - Prophylaxis VTE Prophylaxis Ordered?: Yes Types of VTE Prophylaxis: TEDS Knee High
--- NOTE | 2021-07-26 16:21 | PC.NURSE ---
Unable to complete med rec @ this time. Pt on BIPAP and lethargic.
--- NOTE | 2021-07-26 16:23 | PC.NURSE ---
FIO2 decreased to 30% on BIPAP by RT @ this time.
[2021-07-26 17:28] LABS: ABG Base Excess -10.6 mmol/L (-2.4-2.3); ABG HCO3 16.9 mmhg (22.0-26.0); ABG Oxygen Saturation 90 % (90-100); ABG PCO2 40.8 mmhg (35.0-45.0); ABG PH 7.23 mmol/L (7.35-7.45); ABG TCO2 18.1 mmhg (23-27); Allen's Test Acceptable; Oxygen 30 %; PEEP 18/10; Source Right Radial
--- NOTE | 2021-07-26 17:42 | PC.NURSE ---
Addendum entered by Katlyn Springer RN 07/26/21 18:41: correction, Levo titrated to 6 mcg/min @ 1819 1840 - Levo titrated to 4 mcg/min Addendum entered by Katlyn Springer RN 07/26/21 18:19: 181 - Levo titrated to 8 mcg/min Original Note: 1630 - Levo titrated to 10 mcg/min 1730 - Levo titrated to 8 mcg/min
[2021-07-27] VITALS (44 sets, daily range): BP systolic 74–179; BP diastolic 36–109; PULSE 67–97; RESP 18–25; TEMP 36.6–37.3; O2SAT 84–97; BMI 51.0; BMI 51.1
--- NOTE | 2021-07-27 00:10 | PC.NURSE ---
Levo turned off at 2044, BP 128/52, HR 81 pt became restless and agitated. not wanting to leave bipap mask on and requested something to help her sleep. Dr. Rob gave prn order for 1 mg ativan q6h. 2340- BP 127/59, 1 mg ativan given, pt resting comfortably. 0045- pt BP dropped, BP- 69/48 MAP (55), Levophed restarted at 4 mcg/kg. 0100 BP- 97/48
[2021-07-27 06:24] LABS: Basophils % 0.3 % (0.1-2.0); Eosinophils % 0.1 % (0.1-12.0); Hematocrit 36.1 % (37.0-47.0); Hemoglobin 11.8 g/dL (12.2-16.2); Lymphocytes # 0.4 K/mm3 (0.7-4.5); Lymphocytes % 4.5 % (10-50); Mean Corpuscular HGB Conc 32.7 g/dL (31.8-35.4); Mean Corpuscular Hemoglobin 33.5 pg (27.0-31.2); Mean Corpuscular Volume 102.6 fl (81-99); Mean Platelet Volume 8.3 fl (7.4-10.4); Monocytes # 0.2 K/mm3 (0.1-1.0); Monocytes % 2.3 % (1.7-9.3); Neutrophils # 8.9 K/mm3 (1.8-7.8); Neutrophils % 92.8 % (37.0-80.0); Platelet Count 200 K/mm3 (142-424); Red Blood Count 3.52 M/mm3 (4.20-5.40); Red Cell Distribution Width 14.5 % (11.5-17.5); White Blood Count 9.6 K/mm3 (4.8-10.8)
--- NOTE | 2021-07-27 06:36 | PC.NURSE ---
pt A&O but has had periods of confusion through the night. At 0300 pt became agitated and refused to keep bipap mask on and was placed on 5 L NC. Sats has ranged from 90-94%. Lungs are diminished with crackles. Pathak draining clear yellow urine. pt has had several episodes of diarrhea through the night. she reports having this for several days prior to admission. Levo gtt at 4mcg/kg, BP 88/53.
[2021-07-27 06:44] LABS: MANUAL DIFFERENTIAL MANUAL DIFFERENTIAL (MANUAL DIFF)
[2021-07-27 08:08] LABS: Blood Urea Nitrogen 30 mg/dl (7-17); Calcium 6.7 mg/dl (8.4-10.2); Carbon Dioxide 18 mmol/L (22.0-30.0); Chloride 106 mmol/L (98-107); Creatinine Clearance Estimated 35 mL/min (50-200); Estimated Glomerular Filt Rate 38 ml/min (>60); GFR (African American) 46 ML/MIN (>60); Glucose 135 mg/dl (74-100); Sodium 135 mmol/L (136-145)
[2021-07-27 08:44] LABS: Magnesium 0.9 mg/dl (1.6-2.3)
--- NOTE | 2021-07-27 08:50 | HMH.PNCARD ---
Subjective Date: 07/27/21 Time: 08:50 Principal diagnosis: Pneumonia, AYANA Interval history: 60-year-old white female sitting up in bed in no acute distress. More alert and looks to be in better spirits today. Still requiring low-dose Levophed for blood pressure support. Nursing relates a low magnesium level which we will supplement. Patient relates 1 day of vomiting and diarrhea prior to admission which would account for her acute renal insufficiency. Exam Vital signs and Labs for Last 24 Hours: Temp Pulse Resp BP Pulse Ox 98.8 F 79 20 104/71 L 97 07/27/21 04:00 07/27/21 08:00 07/27/21 08:00 07/27/21 08:00 07/27/21 08:00 Laboratory Results - last 24 hr 07/26/21 09:35: Stool Occult Blood Positive A 07/26/21 09:50: Troponin I 0.01 07/26/21 09:50: Lactate 4.5 H 07/26/21 13:51: Specimen Source Right brachial, O2 % 100, ABG pH 7.10 L*, ABG pCO2 58.8 H, ABG pO2 76.4 L, ABG HCO3 17.8 L, ABG Total CO2 19.6 L, ABG O2 Saturation 91, ABG Base Excess -11.9 L, Stefano Test Acceptable 07/26/21 16:42: Specimen Source Right radial, O2 % 30, ABG pH 7.23 L*, ABG pCO2 40.8, ABG pO2 65.0 L, ABG HCO3 16.9 L, ABG Total CO2 18.1 L, ABG O2 Saturation 90, ABG Base Excess -10.6 L, Stefano Test Acceptable, PEEP 18/10 07/27/21 06:02: WBC 9.6, RBC 3.52 L, Hgb 11.8 L, Hct 36.1 L, MCV 102.6 H, MCH 33.5 H, MCHC 32.7, RDW 14.5, Plt Count 200, MPV 8.3, Neut % (Auto) 92.8 H, Lymph % (Auto) 4.5 L, [place] % (Auto) 2.3, Eos % (Auto) 0.1, Baso % (Auto) 0.3, Neut # (Auto) 8.9 H, Lymph # (Auto) 0.4 L, [place] # (Auto) 0.2, Eos # (Auto) 0.0, Baso # (Auto) 0.0 07/27/21 06:02: Sodium 135 L, Potassium 5.0 D, Chloride 106, Carbon Dioxide 18 L, Anion Gap 16.0 H, BUN 30 H D, Creatinine 1.40 H D, Estimated Creat Clear 35, Estimated GFR 38 L, Est GFR ( Amer) 46 L D, Glucose 135 H, Calcium 6.7 L, Magnesium 0.9 L I & O for Last 24 hours: Intake & Output 07/24/21 07/25/21 07/26/21 07/27/21 11:59 11:59 11:59 11:59 Intake Total 636 / 636 Output Total 1500 / 1500 Balance -864 / -864 Weight 211 lb 288 lb 1 oz Microbiology Reports for the Last 24 Hours: Microbiology 07/26/21 04:08 Urine,Catheterized Urine Culture - Preliminary NO GROWTH AFTER 24 HOURS - Constitutional no acute distress - *Routine HEENT Exam Head: Present: normocephalic Eye: Present: EOMI, PERRL ENT: Present: mucous membranes moist - *Routine Neck Exam Present: supple. Absent: lymphadenopathy - *Routine Respiratory Exam Present: rhonchi Comments: Left lower lobe rhonchi - *Routine Cardiovascular Exam Present: RRR - *Routine Abdominal Exam Present: soft, normoactive bowel sounds. Absent: tenderness - *Routine Extremities Exam Absent: cyanosis, clubbing, edema - *Routine Skin Exam Present: warm. Absent: rash - *Routine Neurological Exam Present: alert, oriented X3 Progress Note: A&P (1) CAP (community acquired pneumonia) Status: Acute (2) Renal artery stenosis Status: Acute (3) AYANA (acute kidney injury) Status: Acute (4) Acute and chronic respiratory failure with hypoxia Status: Acute (5) Altered mental status Status: Acute (6) Septic shock Status: Acute (7) Subclavian arterial stenosis Status: Acute (8) Tobacco dependence syndrome Status: Chronic (9) Occult blood in stools Status: Acute (10) BMI 33.0-33.9,adult Status: Chronic (11) Hyperlipidemia Status: Chronic (12) COPD (chronic obstructive pulmonary disease) Status: Chronic (13) HTN (hypertension) Status: Chronic Assessment and Plan for All Diagnoses:: 1. Left lower lobe pneumonia with sepsis, on antibiotic therapy per Dr. Rob. Urine culture negative at this time. Blood cultures pending. 2. Acute renal insufficiency secondary to vomiting and diarrhea, improving with IV fluids. Creatinine down to 1.4 today 3. Hypotension, still requiring Levophed support. Continue IV fluids at current
[2021-07-27 08:59] LABS: Chloride, Arterial 101 mmol/L (98-107); Lactate Arterial 2.6 mmol/L (0.4-2.0); Potassium, Arterial 5.4 mmoL/L (3.5-5.1); Sodium Arterial 129 mmol/L (137-145)
--- NOTE | 2021-07-27 09:12 | HMH.PHAINT ---
MEDICATION RECONCILIATION COMPLETED USING EXTERNAL FILL HISTORY AND RECENT DISCHARGE SUMMARY.
--- NOTE | 2021-07-27 09:38 | HMH.PULMPN ---
Internal Medicine - PN: Subj *Date: 07/27/21 *Time: 12:06 Interval history: Patient admits significant improvement in her respiratory symptoms. Exam - Constitutional Constitutional:: Present: no acute distress, comfortable - HENMT Exam HENMT: Present: normocephalic, atraumatic - Eye Exam Eyes:: Present: normal appearance both eyes and related structures - Neck Exam Neck:: Present: normal visual inspection - Respiratory Exam Respiratory:: Present: able to speak in complete sentences, respiratory distress, crackles, wheezing - Cardiovascular Exam Cardiac:: Present: S1, S2 - GI Exam GI:: Present: soft - Skin Exam Skin: Present: warm, no rash - Neurological Exam Neurological: Present: alert, awake, normal cognition Assessment and Plan (1) CAP (community acquired pneumonia) Status: Acute Qualifiers: Laterality: left Lung location: lower lobe of lung Qualified Code(s): J18.9 - Pneumonia, unspecified organism Category: Medical Code(s): J18.9 - Pneumonia, unspecified organism (2) Renal artery stenosis Status: Acute Category: Medical Code(s): I70.1 - Atherosclerosis of renal artery (3) AYANA (acute kidney injury) Status: Acute Category: Medical Code(s): N17.9 - Acute kidney failure, unspecified (4) Acute and chronic respiratory failure with hypoxia Status: Acute Category: Medical Code(s): J96.21 - Acute and chronic respiratory failure with hypoxia (5) Altered mental status Status: Acute Qualifiers: Altered mental status type: delirium Qualified Code(s): R41.0 - Disorientation, unspecified Category: Medical Code(s): R41.82 - Altered mental status, unspecified (6) Septic shock Status: Acute Category: Medical Code(s): A41.9 - Sepsis, unspecified organism; R65.21 - Severe sepsis with septic shock (7) Subclavian arterial stenosis Status: Acute Category: Medical Code(s): I77.1 - Stricture of artery (8) Tobacco dependence syndrome Status: Chronic Category: Medical Code(s): F17.200 - Nicotine dependence, unspecified, uncomplicated (9) Occult blood in stools Status: Acute Category: Medical Code(s): R19.5 - Other fecal abnormalities (10) BMI 33.0-33.9,adult Status: Chronic Category: Medical Code(s): Z68.33 - Body mass index [BMI] 33.0-33.9, adult (11) Hyperlipidemia Status: Chronic Qualifiers: Hyperlipidemia type: mixed hyperlipidemia Qualified Code(s): E78.2 - Mixed hyperlipidemia Category: Medical Code(s): E78.5 - Hyperlipidemia, unspecified (12) COPD (chronic obstructive pulmonary disease) Status: Chronic Qualifiers: COPD type: unspecified COPD Qualified Code(s): J44.9 - Chronic obstructive pulmonary disease, unspecified Category: Medical Code(s): J44.9 - Chronic obstructive pulmonary disease, unspecified (13) HTN (hypertension) Status: Chronic Qualifiers: Hypertension type: essential hypertension Category: Medical Code(s): I10 - Essential (primary) hypertension - Assessment and plan all Dx Assessment and Plan for all problems:: #Acute hypoxic respiratory failure: #Pneumonia: Ms. Chamberlain is a 60-year-old female carries a diagnosis of COPD on dual inhaler therapy on an outpatient basis recently admitted to the hospital for COPD exacerbation during which she received doxycycline along with steroids presented to the hospital with worsening respiratory tract distress along with subjective fevers chills and productive phlegm for the last 48 hours. Patient also complains of abdominal distress and diarrhea. Patient had a CTA that showed left lung lower lobe lobar pneumonia. Patient also found to be in shock received sepsis protocol fluid bolus and was initiated on pressors. Patient also have significant peripheral vascular disease. Interval update: Patient respiratory significantly improved, weaned from BiPAP to nasal cannula 3 L this morning adequate saturation but appears to be only m
[2021-07-27 11:42] LABS: Hypochromasia 2+; Lymphocytes % 3 % (10-50); Macrocytosis 2+; Monocytes % 5 % (2-9); Neutrophils % 92 % (42-76); Platelet Estimate Normal; Total Cells Counted 100
--- NOTE | 2021-07-27 14:25 | PC.NURSE ---
Decreased levo gtt to 3mcg/kg/min
--- NOTE | 2021-07-27 14:37 | HMH.ACPN2 ---
Internal Medicine - PN: Subj *Date: 07/27/21 *Time: 09:00 Interval history: pt laying in bed states she wants to go home. harley draining to bedside Exam Vital signs and Labs for Last 24 Hours: Temp Pulse Resp BP Pulse Ox 99.2 F 85 20 89/43 L 94 L 07/27/21 12:00 07/27/21 14:00 07/27/21 14:00 07/27/21 14:00 07/27/21 14:00 Laboratory Results - last 24 hr 07/26/21 16:42: ABG Sodium 129 L, ABG Potassium 5.4 H, ABG Chloride 101, ABG Lactate 2.6 H, Arterial Blood Potassium 5.4 H, Arterial Blood Chloride 101 07/26/21 16:42: Specimen Source Right radial, O2 % 30, ABG pH 7.23 L*, ABG pCO2 40.8, ABG pO2 65.0 L, ABG HCO3 16.9 L, ABG Total CO2 18.1 L, ABG O2 Saturation 90, ABG Base Excess -10.6 L, Stefano Test Acceptable, PEEP 18/10 07/27/21 06:02: WBC 9.6, RBC 3.52 L, Hgb 11.8 L, Hct 36.1 L, MCV 102.6 H, MCH 33.5 H, MCHC 32.7, RDW 14.5, Plt Count 200, MPV 8.3, Neut % (Auto) 92.8 H, Lymph % (Auto) 4.5 L, [place] % (Auto) 2.3, Eos % (Auto) 0.1, Baso % (Auto) 0.3, Neut # (Auto) 8.9 H, Lymph # (Auto) 0.4 L, [place] # (Auto) 0.2, Eos # (Auto) 0.0, Baso # (Auto) 0.0, Total Counted 100, Neutrophils % (Manual) 92 H, Lymphocytes % (Manual) 3 L, Monocytes % (Manual) 5, Platelet Estimate Normal, Hypochromasia 2+, Macrocytosis 2+ 07/27/21 06:02: Sodium 135 L, Potassium 5.0 D, Chloride 106, Carbon Dioxide 18 L, Anion Gap 16.0 H, BUN 30 H D, Creatinine 1.40 H D, Estimated Creat Clear 35, Estimated GFR 38 L, Est GFR ( Amer) 46 L D, Glucose 135 H, Calcium 6.7 L, Magnesium 0.9 L I & O for Last 24 hours: Intake & Output 07/25/21 07/26/21 07/27/21 07/28/21 11:59 11:59 11:59 11:59 Intake Total 2158 / 2158 Output Total 2300 / 2300 Balance -142 / -142 Weight 211 lb 288 lb 1 oz Microbiology Reports for the Last 24 Hours: Microbiology 07/26/21 04:08 Urine,Catheterized Urine Culture - Preliminary NO GROWTH AFTER 24 HOURS - Constitutional no acute distress, obese, chronically ill appearing - *Routine HEENT Exam Head: Present: normocephalic Eye: Present: PERRL ENT: Present: mucous membranes moist - *Routine Neck Exam Present: supple. Absent: lymphadenopathy - *Routine Respiratory Exam Present: decreased breath sounds, wheezes - *Routine Cardiovascular Exam Present: RRR - *Routine Abdominal Exam Present: soft, normoactive bowel sounds. Absent: tenderness - *Routine Extremities Exam Absent: cyanosis, clubbing, edema - *Routine Skin Exam Present: warm. Absent: rash - *Routine Neurological Exam Present: alert, oriented X3 - Routine Psychiatric Exam Present: normal affect Assessment and Plan (1) CAP (community acquired pneumonia) Status: Acute Qualifiers: Laterality: left Lung location: lower lobe of lung Qualified Code(s): J18.9 - Pneumonia, unspecified organism Category: Medical Code(s): J18.9 - Pneumonia, unspecified organism (2) Renal artery stenosis Status: Acute Category: Medical Code(s): I70.1 - Atherosclerosis of renal artery (3) AYANA (acute kidney injury) Status: Acute Category: Medical Code(s): N17.9 - Acute kidney failure, unspecified (4) Acute and chronic respiratory failure with hypoxia Status: Acute Category: Medical Code(s): J96.21 - Acute and chronic respiratory failure with hypoxia (5) Altered mental status Status: Acute Qualifiers: Altered mental status type: delirium Qualified Code(s): R41.0 - Disorientation, unspecified Category: Medical Code(s): R41.82 - Altered mental status, unspecified (6) Septic shock Status: Acute Category: Medical Code(s): A41.9 - Sepsis, unspecified organism; R65.21 - Severe sepsis with septic shock (7) Subclavian arterial stenosis Status: Acute Category: Medical Code(s): I77.1 - Stricture of artery (8) Tobacco dependence syndrome Status: Chronic Category: Medical Code(s): F17.200 - Nicotine dependence, unspecified, uncomplicated (9) Oc
[2021-07-28] VITALS: BP 150/78; PULSE 80; RESP 20; TEMP 36.8; O2SAT 92
[2021-07-28 02:00] VITALS: BP 138/88; PULSE 83; RESP 16; TEMP 36.6; O2SAT 93
[2021-07-28 02:27] VITALS: PULSE 84; PULSE 86
[2021-07-28 04:00] VITALS: BP 167/93; PULSE 82; RESP 22; TEMP 36.6; O2SAT 92
--- NOTE | 2021-07-28 04:22 | PC.NURSE ---
Patient is alert and oriented x4. She is on 3LNC with oxygen saturation between 90-95%. Patient has rested well this RN's shift. Patient is able to ambulate with assistance to the bathroom. She is unsteady on her feet and states I just hurt all over . VSS have been stable, call light within reach, will continue to monitor.
[2021-07-28 05:08] VITALS: BMI 51.0
[2021-07-28 06:00] VITALS: BP 148/78; PULSE 68; RESP 22; TEMP 36.6; O2SAT 95
[2021-07-28 06:25] LABS: Basophils % 0.1 % (0.1-2.0); Hematocrit 34.5 % (37.0-47.0); Hemoglobin 10.8 g/dL (12.2-16.2); Lymphocytes # 0.6 K/mm3 (0.7-4.5); Lymphocytes % 4.8 % (10-50); Mean Corpuscular HGB Conc 31.3 g/dL (31.8-35.4); Mean Corpuscular Hemoglobin 32.4 pg (27.0-31.2); Mean Corpuscular Volume 103.5 fl (81-99); Mean Platelet Volume 8.5 fl (7.4-10.4); Monocytes # 0.5 K/mm3 (0.1-1.0); Monocytes % 4.2 % (1.7-9.3); Neutrophils # 10.9 K/mm3 (1.8-7.8); Neutrophils % 90.8 % (37.0-80.0); Platelet Count 199 K/mm3 (142-424); Red Blood Count 3.34 M/mm3 (4.20-5.40); Red Cell Distribution Width 14.7 % (11.5-17.5)
[2021-07-28 06:35] LABS: Anion Gap 12.3 mEq/L (5-15); Blood Urea Nitrogen 24 mg/dl (7-17); Calcium 7.5 mg/dl (8.4-10.2); Carbon Dioxide 23 mmol/L (22.0-30.0); Chloride 107 mmol/L (98-107); Creatinine Clearance Estimated 59 mL/min (50-200); Estimated Glomerular Filt Rate 73 ml/min (>60); GFR (African American) 89 ML/MIN (>60); Glucose 148 mg/dl (74-100); Potassium 4.3 mmoL/L (3.5-5.1); Sodium 138 mmol/L (136-145)
[2021-07-28 06:45] LABS: MANUAL DIFFERENTIAL MANUAL DIFFERENTIAL (MANUAL DIFF)
[2021-07-28 07:07] LABS: Hypochromasia 2+; Lymphocytes % 3 % (10-50); Macrocytosis 2+; Monocytes % 4 % (2-9); Neutrophils % 93 % (42-76); Nucleated Red Blood Cells 1; Platelet Estimate Normal; Total Cells Counted 100
[2021-07-28 08:00] VITALS: O2SAT 91
--- NOTE | 2021-07-28 08:09 | HMH.PNCARD ---
Subjective Date: 07/28/21 Time: 08:09 Principal diagnosis: Pneumonia, AYANA Interval history: 60-year-old white female sitting up at bedside in no acute distress. States she feels much better than admission. She is no longer on blood pressure support. Exam Vital signs and Labs for Last 24 Hours: Temp Pulse Resp BP Pulse Ox 98 F 68 22 148/78 H 95 07/28/21 06:00 07/28/21 06:00 07/28/21 06:00 07/28/21 06:00 07/28/21 06:00 Laboratory Results - last 24 hr 07/26/21 16:42: ABG Sodium 129 L, ABG Potassium 5.4 H, ABG Chloride 101, ABG Lactate 2.6 H, Arterial Blood Potassium 5.4 H, Arterial Blood Chloride 101 07/27/21 06:02: Total Counted 100, Neutrophils % (Manual) 92 H, Lymphocytes % (Manual) 3 L, Monocytes % (Manual) 5, Platelet Estimate Normal, Hypochromasia 2+, Macrocytosis 2+ 07/27/21 06:02: Sodium 135 L, Potassium 5.0 D, Chloride 106, Carbon Dioxide 18 L, Anion Gap 16.0 H, BUN 30 H D, Creatinine 1.40 H D, Estimated Creat Clear 35, Estimated GFR 38 L, Est GFR ( Amer) 46 L D, Glucose 135 H, Calcium 6.7 L, Magnesium 0.9 L 07/28/21 05:44: WBC 12.0 H, RBC 3.34 L, Hgb 10.8 L, Hct 34.5 L, MCV 103.5 H, MCH 32.4 H, MCHC 31.3 L, RDW 14.7, Plt Count 199, MPV 8.5, Neut % (Auto) 90.8 H, Lymph % (Auto) 4.8 L, [place] % (Auto) 4.2, Eos % (Auto) 0.0 L, Baso % (Auto) 0.1, Neut # (Auto) 10.9 H, Lymph # (Auto) 0.6 L, [place] # (Auto) 0.5, Eos # (Auto) 0.0, Baso # (Auto) 0.0, Total Counted 100, Neutrophils % (Manual) 93 H, Lymphocytes % (Manual) 3 L, Monocytes % (Manual) 4, Nucleated RBCs 1, Platelet Estimate Normal, Hypochromasia 2+, Macrocytosis 2+ 07/28/21 05:44: Sodium 138, Potassium 4.3, Chloride 107, Carbon Dioxide 23, Anion Gap 12.3, BUN 24 H, Creatinine 0.80 D, Estimated Creat Clear 59, Estimated GFR 73, Est GFR ( Amer) 89 D, Glucose 148 H, Calcium 7.5 L I & O for Last 24 hours: Intake & Output 07/25/21 07/26/21 07/27/21 07/28/21 11:59 11:59 11:59 11:59 Intake Total 2158 / 2158 360 / 360 Output Total 2300 / 2300 Balance -142 / -142 360 / 360 Weight 211 lb 288 lb 1 oz 288 lb Microbiology Reports for the Last 24 Hours: Microbiology 07/26/21 04:08 Urine,Catheterized Urine Culture - Final NO GROWTH AFTER 48 HOURS 07/26/21 03:17 Blood Blood Culture - Preliminary NO GROWTH AFTER 48 HOURS 07/26/21 03:17 Blood Blood Culture - Preliminary NO GROWTH AFTER 48 HOURS - *Routine Respiratory Exam Present: decreased breath sounds, rhonchi - *Routine Cardiovascular Exam Present: RRR Progress Note: A&P (1) CAP (community acquired pneumonia) Status: Acute (2) Renal artery stenosis Status: Acute (3) AYANA (acute kidney injury) Status: Acute (4) Acute and chronic respiratory failure with hypoxia Status: Acute (5) Altered mental status Status: Acute (6) Septic shock Status: Acute (7) Subclavian arterial stenosis Status: Acute (8) Tobacco dependence syndrome Status: Chronic (9) Occult blood in stools Status: Acute (10) BMI 33.0-33.9,adult Status: Chronic (11) Hyperlipidemia Status: Chronic (12) COPD (chronic obstructive pulmonary disease) Status: Chronic (13) HTN (hypertension) Status: Chronic Assessment and Plan for All Diagnoses:: 1. Left lower lobe pneumonia with sepsis, on antibiotic therapy per Dr. Rob. Urine culture and blood cultures negative at this time. 2. Acute renal insufficiency secondary to vomiting and diarrhea, improving with IV fluids. Creatinine down to 0.8 today 3. Hypotension, resolved. Will restart ARB, HCTZ and beta-liss therapy at reduced doses. 4. Tobacco dependence, continue nicotine patch 5. Hypomagnesemia, supplementation given yesterday. We will repeat lab work today. 6. Peripheral arterial disease with right subclavian artery stenosis and suspected bilateral renal artery stenosis by recent renal duplex with pl
[2021-07-28 08:26] LABS: Magnesium 1.9 mg/dl (1.6-2.3)
--- NOTE | 2021-07-28 09:28 | SW/DCPLANNER ---
This patient will discharge home today. Patient confirmed that she already has home O2 and portable device (family will bring at pick up man) from [facility]. Patient has no further needs at this time and states that her son resides at home with her and will assist her.
--- NOTE | 2021-07-28 09:37 | HMH.PULMPN ---
Internal Medicine - PN: Subj *Date: 07/28/21 *Time: 11:50 Interval history: No acute respite events overnight. Patient continued to improve. Exam - Constitutional Constitutional:: Present: no acute distress, comfortable - HENMT Exam HENMT: Present: normocephalic, moist mucous membranes - Eye Exam Eyes:: Present: normal appearance both eyes and related structures - Neck Exam Neck:: Present: normal visual inspection - Respiratory Exam Respiratory:: Present: able to speak in complete sentences, no respiratory distress, crackles, wheezing - Cardiovascular Exam Cardiac:: Present: S1, S2 - GI Exam GI:: Present: soft - Skin Exam Skin: Present: warm, no rash - Neurological Exam Neurological: Present: alert, normal cognition - Extremities Exam Extremities: Present: no cyanosis, no clubbing, no edema Assessment and Plan (1) CAP (community acquired pneumonia) Status: Acute Qualifiers: Laterality: left Lung location: lower lobe of lung Qualified Code(s): J18.9 - Pneumonia, unspecified organism Category: Medical Code(s): J18.9 - Pneumonia, unspecified organism (2) Renal artery stenosis Status: Acute Category: Medical Code(s): I70.1 - Atherosclerosis of renal artery (3) AYANA (acute kidney injury) Status: Acute Category: Medical Code(s): N17.9 - Acute kidney failure, unspecified (4) Acute and chronic respiratory failure with hypoxia Status: Acute Category: Medical Code(s): J96.21 - Acute and chronic respiratory failure with hypoxia (5) Altered mental status Status: Acute Qualifiers: Altered mental status type: delirium Qualified Code(s): R41.0 - Disorientation, unspecified Category: Medical Code(s): R41.82 - Altered mental status, unspecified (6) Septic shock Status: Acute Category: Medical Code(s): A41.9 - Sepsis, unspecified organism; R65.21 - Severe sepsis with septic shock (7) Subclavian arterial stenosis Status: Acute Category: Medical Code(s): I77.1 - Stricture of artery (8) Tobacco dependence syndrome Status: Chronic Category: Medical Code(s): F17.200 - Nicotine dependence, unspecified, uncomplicated (9) Occult blood in stools Status: Acute Category: Medical Code(s): R19.5 - Other fecal abnormalities (10) BMI 33.0-33.9,adult Status: Chronic Category: Medical Code(s): Z68.33 - Body mass index [BMI] 33.0-33.9, adult (11) Hyperlipidemia Status: Chronic Qualifiers: Hyperlipidemia type: mixed hyperlipidemia Qualified Code(s): E78.2 - Mixed hyperlipidemia Category: Medical Code(s): E78.5 - Hyperlipidemia, unspecified (12) COPD (chronic obstructive pulmonary disease) Status: Chronic Qualifiers: COPD type: unspecified COPD Qualified Code(s): J44.9 - Chronic obstructive pulmonary disease, unspecified Category: Medical Code(s): J44.9 - Chronic obstructive pulmonary disease, unspecified (13) HTN (hypertension) Status: Chronic Qualifiers: Hypertension type: essential hypertension Category: Medical Code(s): I10 - Essential (primary) hypertension - Assessment and plan all Dx Assessment and Plan for all problems:: #Acute hypoxic respiratory failure: #Pneumonia: Ms. Chamberlain is a 60-year-old female carries a diagnosis of COPD on dual inhaler therapy on an outpatient basis recently admitted to the hospital for COPD exacerbation during which she received doxycycline along with steroids presented to the hospital with worsening respiratory tract distress along with subjective fevers chills and productive phlegm for the last 48 hours. Patient also complains of abdominal distress and diarrhea. Patient had a CTA that showed left lung lower lobe lobar pneumonia. Patient also found to be in shock received sepsis protocol fluid bolus and was initiated on pressors. Patient also have significant peripheral vascular disease. BC and UC NG x 48 hrs Plan: -Sputum induction with sputum cultures b
--- NOTE | 2021-07-28 10:16 | HMH.PTEV ---
Physical Therapy Evaluation Rehab PT IP Evaluation Start: 07/28/21 07:17 Freq: ONCE Status: Active Protocol: Document 07/28/21 10:05 MAURICIO (Rec: 07/28/21 10:16 [id number] [id number]) Subjective/History History History Pt is 60 year old female admitted to [facility] for CAP. Pt reports living with on ground level duplex with no stairs to enter. Pt states she was independent with no use of AD prior to admittance at [facility]. Pt states one of her two sons will be staying with her when she returns home. Eval completed by MACIEJ Juarez . Subjective Subjective Pt reports feeling well this morning and states she has been out of bed and walking in her room independently. Rehab PT IP Eval Objective Appearance Patient Behavior Appropriate,Cooperative Patient Orientation Place,Birthday,Year Speech Pattern Clear,Appropriate,Coherent Ambulation Patient Able to Ambulate Yes Ambulation Observation IP General Gait Pattern Observation Wide Based Gait Ambulation Distance (feet) 30 Ambulation Assistive Device None Ambulation Ability Supervision/Stand by Balance Ability to Arise Able, uses arms to help Sitting Balance Steady, safe Standing Balance Steady, wide stance Dynamic Sitting Balance Ability Good Dynamic Standing Balance Ability Good Transfers Bed Transfer Ability Supervision/Stand by Chair Transfer Ability Supervision/Stand by Sit to Stand Bed Transfer Ability Supervision/Stand by Sit to Stand Chair Transfer Ability Supervision/Stand by ROM All Extremities PT ROM Status WFL MMT All Extremities PT MMT WFL Rehab PT IP prob,goals,plan Problems Date of Evaluation: 07/28/21 Discharge Plan PT Discharge Plan Pt would be safe to d/c home when medically stable. Pt is ambulating in her room independently at baseline. Pt does not need inpatient PT. G -code Required No Eval Complexity Eval Charge Codes 36449 - Moderate Complexity PHYSICIAN CERTIFICATION: I certify the specified therapy services for Martina Chamberlain are required, authorized, and reviewed every 30 days.
--- NOTE | 2021-07-28 10:18 | HMH.DCSUM ---
General - General Admission date:: 07/26/21 Discharge date: 07/28/21 HPI HPI: 60-year-old female patient presented to the emergency department with complaints of shortness of breath, productive thick yellow/green cough, nausea/vomiting/diarrhea, temperature 102 yesterday, and negative Covid 19 PCR and flu negative. She reports she is a longtime smoker of 1 pack/day as well as peripheral artery disease, renal artery stenosis, and subclavian arterial stenosis. She was scheduled for stenting tomorrow She does report shortness of breath started yesterday morning and increased shortness of breath and productive cough until last night when she called EMS 07/26/21 CXR: FINDINGS: Lungs: Left mid lung field /left basilar opacity, may represent pneumonia inappropriate clinical setting. Pleural spaces: No pleural effusion. No pneumothorax. Heart/Mediastinum: Unremarkable cardiomediastinal silhouette. Bones/joints: No acute osseous findings. IMPRESSION: Left mid lung field / left basilar opacity, may represent pneumonia in appropriate clinical setting. Recommend close clinical and imaging follow-up to document complete resolution as malignancy may have a similar appearance Electronically signed by Adan Prasad MD 07/26/[address]: FINDINGS: HEART AND MEDIASTINAL STRUCTURES: Mild prominence of the main pulmonary arteries. Coronary artery calcification. No mediastinal or hilar mass or enlarged lymph nodes. LUNGS AND PLEURAL SPACES: Scattered areas of scarring. Stable 4 mm nodule right upper lobe image 01/28. Stable fissural nodule in the right minor fissure. Atelectatic changes are present in the right middle lobe and in the lung bases. There is evidence of old granulomatous disease. There is dense consolidation in the left lower lobe with some sparing of the superior segment and medial basilar and posterior basilar segment. Trace left pleural effusion. BONY STRUCTURES: No acute bony abnormalities apparent. UPPER ABDOMEN: Artifact is present from a subcutaneous metallic implanted device in the left flank. ADDITIONAL FINDINGS: No other significant abnormalities. IMPRESSION: Left lower lobe pneumonia Dictated by: Stefano Cowan MD 60-year-old female patient sitting up in bed, she does become short of breath when talking oxygenation currently 94% on 4 L per nasal cannula. She was experiencing hypotension and Levophed was started and is currently infusing. Hospital Course Hospital Course: pt sitting up on side of bed states doing well, has o2 at home Microbiology 07/26/21 04:08 Urine,Catheterized Urine Culture - Final NO GROWTH AFTER 48 HOURS 07/26/21 03:17 Blood Blood Culture - Preliminary NO GROWTH AFTER 48 HOURS 07/26/21 03:17 Blood Blood Culture - Preliminary NO GROWTH AFTER 48 HOURS Laboratory Tests 07/26/21 07/26/21 07/26/21 03:17 03:17 03:17 WBC 8.2 RBC 3.79 L Hgb 12.5 Hct 39.5 MCV 104.1 H MCH 32.9 H MCHC 31.6 L RDW 14.3 Plt Count 244 MPV 9.1 Neut % (Auto) 81.8 H Lymph % (Auto) 11.9 [place] % (Auto) 5.6 Eos % (Auto) 0.4 Baso % (Auto) 0.3 Neut # (Auto) 6.7 Lymph # (Auto) 1.0 [place] # (Auto) 0.5 Eos # (Auto) 0.0 Baso # (Auto) 0.0 Total Counted Neutrophils % (Manual) Lymphocytes % (Manual) Monocytes % (Manual) Nucleated RBCs Platelet Estimate Hypochromasia Macrocytosis ESR 57 H Specimen Source O2 % ABG pH ABG pCO2 ABG pO2 ABG HCO3 ABG Total CO2 ABG O2 Saturation ABG Base Excess Stefano Test ABG Sodium ABG Potassium ABG Chloride ABG Lactate PEEP Sodium 133 L Potassium 4.1 Chloride 95 L Carbon Dioxide 21 L Anion Gap 21.1 H BUN 22 H Creatinine 2.50 H Estimated Creat Clear 36 Estimated GF
--- NOTE | 2021-07-28 10:24 | HMH.OTEV ---
OT Inpatient Evaluation Rehab OT IP Evaluation Start: 07/28/21 07:17 Freq: ONCE Status: Complete Protocol: Document 07/28/21 10:10 [facility] (Rec: 07/28/21 10:24 [facility] [id number]) Rehab OT IP Assessment Subjective History Pt oriented x 3 on arrival. Pt agreeable to engage in therapy. Pt was admitted via ED on 07/26/21 due to SOB. Pt has a past medical history of Anxiety, Chronic Obstructive Pulmonary Disease (COPD), Coronary Artery Disease, Depression, Gastroesophageal Reflux Disease(GERD), Hyperlipidemia, Hypertension, Peripheral Artery Disease, Peripheral Vascular Disease. Pt reports prior to being hospitalized she lives at home with both of her sons. Pt claims before becoming sick she was completely independent with all ADLS and IADLs. Pt did not require AE during ambulation and pt still drove independently. She did use oxygen at night. Subjective I am ready to go home. Pt completed bed mobility with SBA and went from supine to sitting at EOB. Pt stood from eob with SBA. Pt transferred from bed to bathroom and sat down on toilet with sba. Pt stood from toilet with sba. Pt transferred back to bed with sba. Pt was sitting at eob and was SBA to complete lower body dressing by donning and doffing socks. Objective Patient Orientation Person,Place,Birthday Upper Extremity Gross ROM WFL Bed Mobility bed mobility-scooting,bed mobility - supine/sit,bed mobility - rolling Assist Level Supervision/Stand by Transfer Training Sit/Stand Transfer Assist Level Supervision/Stand by Chair Transfer Ability Supervision/Stand by Chair Transfer Technique Sit to/from Ambulatory Lower Body Dressing Ability Standby Assistance Ov
--- NOTE | 2021-07-28 10:46 | HMH.PHAINT ---
MEDICATION DISCHARGE COUNSELING COMPLETE. PATIENT HAD NO QUESTIONS. SHE IS BEING SENT HOME ON LEVOFLOXACIN AND PREDNISONE. I COUNSELED HER ON HOW TO TAKE, WHAT TO EXPECT AND ADVERSE REACTIONS TO BE AWARE OF.
== END 2021-07-28 12:47 | disposition home or self-care (01) | DRG 871 ==
LOC: ER 07:36 → 2ND 12:52
PROVIDERS: Internal Medicine Pulmonary Disease; Nurse Practitioner Family; Physician Assistant; Admitting Provider Emergency Medicine; Emergency Provider Emergency Medicine; PCP Physician Assistant; Visit Provider Emergency Medicine
DX: A41.9 Sepsis, unspecified organism (principal); J18.9 Pneumonia, unspecified organism; J96.21 Acute and chronic respiratory failure with hypoxia; R65.21 Severe sepsis with septic shock; N17.9 Acute kidney failure, unspecified; J44.0 Chronic obstructive pulmonary disease with (acute) lower respiratory infection; F17.210 Nicotine dependence, cigarettes, uncomplicated; I77.1 Stricture of artery; I70.1 Atherosclerosis of renal artery; Z20.822 Contact with and (suspected) exposure to COVID-19; F41.9 Anxiety disorder, unspecified; I25.10 Atherosclerotic heart disease of native coronary artery without angina pectoris; Z85.828 Personal history of other malignant neoplasm of skin; R19.5 Other fecal abnormalities; Z68.33 Body mass index [BMI] 33.0-33.9, adult; F32.9 Major depressive disorder, single episode, unspecified; E66.9 Obesity, unspecified; N28.9 Disorder of kidney and ureter, unspecified; E83.42 Hypomagnesemia
CPT/HCPCS: 36415; 71045; 71250; 80048; 80051; 80076; 81001; 82272; 82803; 83605; 83735; 83880; 84145; 84484; 85007; 85025; 85651; 86140; 87040; 87086; 87581; 87633; 87798; 87804; 93005; 93306; 94640; 94761; 96365; 97162; 97165; 99202; 99285; C9803; G0328; G0463; J0692; J2405; U0003; U0005

== ENCOUNTER 2021-08-15 13:31 | Day surgery (SDC) | payer MEDICARE, MEDICAID, SELFPAY ==
[2021-08-15 13:44] VITALS: BP 99/70; PULSE 89; RESP 20; TEMP 37.2; O2SAT 94; BMI 34.1
[2021-08-15 14:12] VITALS: BP 149/67; PULSE 87; RESP 18
[2021-08-15 14:18] VITALS: BP 149/67; PULSE 87; RESP 18; O2SAT 92
--- NOTE | 2021-08-15 14:24 | P.PCN_ITS ---
- Procedure Date: 08/15/21 Time: 14:24 Anesthesiologist:: Adrienne Stubbs APRN Complications:: None Pre-procedure Diagnosis:: Degenerative disc disease lumbar spine with lumbar radiculopathy symptoms Post-procedure Diagnosis:: Same Indications for Procedure:: Patient is a pleasant 60-year-old white female who presents today for intrathecal pain pump refill and reprogram. She is doing much better since her last visit. She was increased with her intrathecal therapy from 4.5 mg/day to 5 mg/day. She would like a small increase today. She denies any numbness. She says that she has a pain level of 4 out of 10 today. We will plan to increase the patient today to see if she gets further relief. She is planning to undergo stenting due to a blockage in her right arm. She has been advised that her intrathecal pump will not give her relief of any acute pain. She is not on an opiate in her pump and will likely need pain management control following her surgery. Physical exam General: Alert and oriented x3, no acute distress, pleasant and cooperative, [on room air] Lungs: Respirations even and unlabored, symmetrical chest expansion Eyes: PERRL Musculoskeletal: Flexion and extension of lumbar [spine] somewhat guarded secondary to pain, strength in upper and lower extremities [5/5], [antalgic gait noted] Neurological: Speech clear, [criminal judge equal], no gross sensory deficit Procedure Details:: Informed consent was obtained and the risk and benefits of the procedure were explained to the patient. The patient was taken to the procedure room where noninvasive monitoring was placed including noninvasive blood pressure cuff and pulse oximeter. Patient's pump was interrogated. The area over the pump was cleansed with chlorhexidine as a cleansing solution. In sterile fashion the pump was accessed with a 22-gauge needle. Approximately 8 mls of the pump solution was removed and discarded appropriately. The pump was then refilled wi th 20 mL's of bupivacaine 20 mg per male. The needle was withdrawn and a bandage was placed over the puncture site. The infusion rate was reprogrammed at increase to bupivacaine at 5.25 mg/day. The patient tolerated well with no complication. Plan and Disposition:: Patient was given his telemetry reading today to take with her to surgery this upcoming week. The patient will likely need oral medication for pain control following her surgery. She does not have an opiate in her intrathecal pump, therefore, cannot take oral medications at the discretion of her surgeon. We will see the patient back in the clinic at the next intrathecal refill. Patient has been instructed to contact the clinic with any concerns before the next appointment. Dr. Luevano has reviewed this note and agrees with this plan of care. This note was dictated using voice recognition software and make contain errors or omissions.
[2021-08-15 14:28] VITALS: BP 124/62; PULSE 90; RESP 20; O2SAT 94
== END 2021-08-15 14:29 | disposition home or self-care (01) ==
LOC: SC.PAINP 13:32
PROVIDERS: PCP Physician Assistant; Visit Provider Clinical Nurse Specialist Family Health
DX: M51.16 Intervertebral disc disorders with radiculopathy, lumbar region (principal); Z45.1 Encounter for adjustment and management of infusion pump
CPT/HCPCS: 62370; C9803; U0003; U0005

== ENCOUNTER → 2021-08-15 14:36 | Outpatient (CLI) | payer MEDICARE, MEDICAID, SELFPAY | PROVIDERS: Visit Provider Physician Assistant | DX: Z01.812 Encounter for preprocedural laboratory examination (principal); Z20.822 Contact with and (suspected) exposure to COVID-19 | CPT/HCPCS: C9803; U0003; U0005 ==

== ENCOUNTER 2021-08-17 09:11 | Day surgery (SDC) | payer MEDICARE, MEDICAID, SELFPAY ==
[2021-08-17] VITALS (13 sets, daily range): BP systolic 116–140; BP diastolic 61–76; PULSE 75–89; RESP 16–19; O2SAT 85–100; BMI 33.3
--- NOTE | 2021-08-17 07:22 | IR_ITS ---
APPROVED REPORT Patient Location: Outpatient PROCEDURES Catheter placement in the innominate artery Bare-metal stent deployment to the innominate artery Bilateral selective renal angiogram INDICATION Innominate artery stenosis, Symptomatic subclavian steal, Renal artery stenosis, Renovascular hypertension Informed consent was obtained prior to the procedure. COMPLICATIONS NONE Estimated Blood Loss: LESS THAN 10 ML TECHNIQUE 1% lidocaine used to anesthetize the right femoral groin. The right femoral artery was accessed via the Seldinger technique. A 5 [place]ian sheath was placed in the right femoral artery and a JR4 catheter was used to cannulate the innominate artery. Angiography demonstrated a greater than 90% stenosis. Therapeutic heparin was administered and a 450 cm hydrophilic wire was placed distal to the stenosis to out into the brachial artery of the right arm. Following this the 5 [place]erratian sheath was exchanged for a 90 cm 8 [place]ian sheath. Primary stenting could not be performed therefore a 6 mm x 20 mm balloon was used to predilate the stenosis in the innominate artery. A 9 mm x 27 mm bare-metal stent was deployed at 10 nilam reducing the stenosis. An additional 10 mm x 20 mm balloon was then deployed at 11 nilam in the distal mid and ostial segment of the stent post dilate. Excellent angiographic results were obtained with wide patency of the vessel. The sheath was then pulled back and a JR4 catheter was used to perform selective renal angiography. At the end of the procedure the apparatus was removed the groin was reprepped closure changed sheath was removed and hemostasis was achieved using Perclose device patient was transferred to the postop putting a stable addition ANGIOGRAPHIC RESULTS The innominate artery has an ostial calcified complex 90% stenosis The right common carotid artery and right subclavian artery are widely patent The right kidney has a dual arterial supply with both arteries being normal The left kidney has a solitary renal artery which is widely patent and normal IMPRESSION Severe innominate artery stenosis Successful percutaneous revascularization of the innominate artery 90% stenosis reduced to 10% with 1 bare-metal stent Normal renal arteries PLAN 1. Dual antiplatelet therapy for 1 month 2. Avoidance of tobacco products 3. Aggressive risk factor modification Electronically signed by : Binu Bowers MD 08/17/2021 14:54:19
[2021-08-17 09:44] LABS: Basophils # 0.1 K/mm3 (0-0.2); Basophils % 0.9 % (0.1-2.0); Eosinophils # 0.2 K/mm3 (0.0-0.4); Eosinophils % 3.8 % (0.1-12.0); Hematocrit 45.1 % (37.0-47.0); Hemoglobin 14.4 g/dL (12.2-16.2); Lymphocytes # 1.6 K/mm3 (0.7-4.5); Lymphocytes % 26.9 % (10-50); Mean Corpuscular HGB Conc 31.8 g/dL (31.8-35.4); Mean Corpuscular Hemoglobin 32.4 pg (27.0-31.2); Mean Corpuscular Volume 101.7 fl (81-99); Mean Platelet Volume 9.8 fl (7.4-10.4); Monocytes # 0.3 K/mm3 (0.1-1.0); Monocytes % 5.6 % (1.7-9.3); Neutrophils # 3.6 K/mm3 (1.8-7.8); Neutrophils % 62.8 % (37.0-80.0); Platelet Count 334 K/mm3 (142-424); Red Blood Count 4.44 M/mm3 (4.20-5.40); White Blood Count 5.8 K/mm3 (4.8-10.8)
[2021-08-17 09:49] LABS: Chloride 102 mmol/L (98-107); Potassium 3.6 mmoL/L (3.5-5.1); Sodium 140 mmol/L (136-145)
[2021-08-17 09:52] LABS: Anion Gap 14.6 mEq/L (5-15); Blood Urea Nitrogen 11 mg/dl (7-17); Calcium 9.5 mg/dl (8.4-10.2); Carbon Dioxide 27 mmol/L (22.0-30.0); Creatinine Clearance Estimated 152 mL/min (50-200); Estimated Glomerular Filt Rate 102 ml/min (>60); GFR (African American) 123 ML/MIN (>60); Glucose 130 mg/dl (74-100)
--- NOTE | 2021-08-17 13:55 | HMH.PHACLD ---
Martina Chamberlain has received discharge medication counseling on the following medications: LOSARTAN/HCTZ ASPIRIN PLAVIX (NEW) LOVASTATIN METOPROLOL PLAVIX IS THE ONLY NEW PRESCRIPTION. PATIENT IS TO CONTINUE ALL OTHER HOME MEDICATIONS. PATIENT VERBALIZED UNDERSTANDING AND HAD NO QUESTIONS AT THIS TIME. -THEO CAMPO, PHARMD
[2021-08-17 15:35] LABS: CATHL Activated Clotting Time 248 SEC (74-125)
[2021-08-17 15:35] LABS: CATHL Activated Clotting Time > 400 SEC (74-125)
== END 2021-08-17 14:11 | disposition home or self-care (01) ==
LOC: CATHLAB 09:12
PROVIDERS: PCP Physician Assistant; Visit Provider Internal Medicine
DX: I70.1 Atherosclerosis of renal artery (principal); I77.1 Stricture of artery; I77.4 Celiac artery compression syndrome; I70.8 Atherosclerosis of other arteries; I25.10 Atherosclerotic heart disease of native coronary artery without angina pectoris; Z79.899 Other long term (current) drug therapy; Z79.01 Long term (current) use of anticoagulants; Z88.8 Allergy status to other drugs, medicaments and biological substances; I10 Essential (primary) hypertension; J44.9 Chronic obstructive pulmonary disease, unspecified; F17.210 Nicotine dependence, cigarettes, uncomplicated
CPT/HCPCS: 36252; 37236; 80048; 85025; 85347; 99152; 99153; C1725; C1760; C1769; C1876; C1894; J1644; Q9967

== ENCOUNTER 2021-10-24 13:42 | Day surgery (SDC) | payer MEDICARE, MEDICAID, SELFPAY ==
[2021-10-24 13:56] VITALS: BP 116/71; PULSE 81; RESP 18; TEMP 36.6; O2SAT 93; BMI 31.4
[2021-10-24 14:13] VITALS: BP 133/74; PULSE 75; PULSE 76; RESP 18; RESP 74; O2SAT 94
--- NOTE | 2021-10-24 14:20 | HMH.PMPROC ---
- Procedure Date: 10/24/21 Time: 14:20 Anesthesiologist:: Adrienne Stubbs APRN Complications:: None Pre-procedure Diagnosis:: Degenerative disc disease of the lumbar spine with lumbar radiculopathy Post-procedure Diagnosis:: Same Indications for Procedure:: Patient is a pleasant 60-year-old female who presents today for intrathecal pain pump [refill] [and reprogram]. The patient is being treated for degenerative disc disease of the lumbar spine with lumbar radiculopathy symptoms. Patient is currently being managed with bupivacaine 20 mg/mL at a rate of 5.25 mg/day. Patient denies any side effects from this medication. Patient states this is not helping her pain on the right leg to see if she can get some oral medications. Patient is not taking any blood thinners. Patient denies any kidney issues. Patient rates pain a 6 out of 10. Drug screen is appropriate. [facility] [phone] has been reviewed with a morphine equivalent of zero. Drug screen has been reviewed and appropriate. Physical exam General: Alert and oriented x3, no acute distress, pleasant and cooperative, [on room air] Lungs: Respirations even and unlabored, symmetrical chest expansion Eyes: PERRL Musculoskeletal: Flexion and extension of lumbar [spine] somewhat guarded secondary to pain, [antalgic gait noted] Neurological: Speech clear, no gross sensory deficit Procedure Details:: Informed consent was obtained and the risk and benefits of the procedure were explained to the patient. The patient was taken to the procedure room where noninvasive monitoring was placed including noninvasive blood pressure cuff and pulse oximeter. Patient's pump was interrogated. The area over the pump was cleansed with chlorhexidine as a cleansing solution. In sterile fashion the pump was accessed with a 22-gauge needle. Approximately 1 mL of the pump solution was removed and discarded appropriately. The pump was then refilled with 20 mL's of bupivacaine 20 mg/mL. The needle was withdrawn and a bandage was placed over the puncture site. The infusion rate was reprogrammed at bupivacaine 5.25 mg/day. The patient tolerated well with no complication. Plan and Disposition:: We will prescribe the patient diclofenac 75 mg twice a day. Patient states that the bupivacaine is not helping her so we will try to see if we can change her pain medication to Prialt. We will see the patient back in the clinic at the next intrathecal refill. Patient has been instructed to contact the clinic with any concerns before the next appointment. Dr. Luevano has reviewed this note and agrees with this plan of care. This note was dictated using voice recognition software and make contain errors or omissions.
[2021-10-24 14:30] VITALS: BP 133/62; PULSE 82; RESP 20; O2SAT 91
== END 2021-10-24 14:30 | disposition home or self-care (01) ==
LOC: SC.PAINP 13:44
PROVIDERS: PCP Physician Assistant; Visit Provider Clinical Nurse Specialist Family Health
DX: M51.16 Intervertebral disc disorders with radiculopathy, lumbar region (principal); Z45.1 Encounter for adjustment and management of infusion pump; I10 Essential (primary) hypertension; E78.5 Hyperlipidemia, unspecified; J44.9 Chronic obstructive pulmonary disease, unspecified; K21.9 Gastro-esophageal reflux disease without esophagitis; I25.10 Atherosclerotic heart disease of native coronary artery without angina pectoris; I73.9 Peripheral vascular disease, unspecified; Z72.0 Tobacco use; Z99.81 Dependence on supplemental oxygen; F32.A Depression, unspecified; Z79.899 Other long term (current) drug therapy
CPT/HCPCS: 95991

== ENCOUNTER → 2021-11-15 17:56 | Outpatient (CLI) | payer MEDICARE, MEDICAID, SELFPAY ==
[2021-11-15 18:33] LABS: Basophils # 0.1 K/mm3 (0-0.2); Basophils % 1.3 % (0.1-2.0); Eosinophils # 0.1 K/mm3 (0.0-0.4); Eosinophils % 1.5 % (0.1-12.0); Hematocrit 45.8 % (37.0-47.0); Hemoglobin 14.9 g/dL (12.2-16.2); Lymphocytes # 1.8 K/mm3 (0.7-4.5); Lymphocytes % 29.4 % (10-50); Mean Corpuscular HGB Conc 32.5 g/dL (31.8-35.4); Mean Corpuscular Hemoglobin 32.3 pg (27.0-31.2); Mean Corpuscular Volume 99.3 fl (81-99); Mean Platelet Volume 9.3 fl (7.4-10.4); Monocytes # 0.5 K/mm3 (0.1-1.0); Monocytes % 7.5 % (1.7-9.3); Neutrophils # 3.7 K/mm3 (1.8-7.8); Neutrophils % 60.3 % (37.0-80.0); Platelet Count 275 K/mm3 (142-424); Red Blood Count 4.62 M/mm3 (4.20-5.40); Red Cell Distribution Width 15.9 % (11.5-17.5); White Blood Count 6.1 K/mm3 (4.8-10.8)
[2021-11-15 19:14] LABS: Alanine Aminotransferase 15 U/L (12-78); Albumin Level 4.4 g/dl (3.5-5.0); Albumin/Globulin Ratio 1.8 (1.1-1.8); Alkaline Phosphatase 84 U/L (38-126); Anion Gap 12.1 mEq/L (5-15); Aspartate Amino Transferase 23 U/L (14-36); Bilirubin,Total 0.5 mg/dl (0.2-1.3); Blood Urea Nitrogen 16 mg/dl (7-17); Calcium 9.7 mg/dl (8.4-10.2); Carbon Dioxide 28 mmol/L (22.0-30.0); Chloride 100 mmol/L (98-107); Chol/HDL Ratio 4.8 (1-3.5); Cholesterol 197 mg/dl (140-200); Estimated Glomerular Filt Rate 85 ml/min (>60); GFR (African American) 103 ML/MIN (>60); Globulin 2.5 g/dL (1.3-3.2); Glucose 91 mg/dl (74-100); HDL Cholesterol 41 mg/dl (40-60); Potassium 4.1 mmoL/L (3.5-5.1); Sodium 136 mmol/L (136-145); Total Protein,Serum 6.9 g/dl (6.3-8.2); Triglycerides 206 mg/dl (30-150); VLDL Cholesterol 41 mg/dL (0-40)
[2021-11-15 19:25] LABS: Direct LDL Cholesterol 119.19 mg/dL (100-129)
[2021-11-15 19:29] LABS: 25-OH Vitamin D, Total 19.9 ng/mL (30-100)
[2021-11-15 19:30] LABS: T4 (Thyroxine) 8.9 ug/dl (5.53-11.0)
[2021-11-15 19:44] LABS: Thyroid Stimulating Hormone 1.36 uIU/mL (0.465-4.68)
[2021-11-15 20:14] LABS: Vitamin B12 < 159 pg/mL (239-931)
== END ==
PROVIDERS: Visit Provider Nurse Practitioner Family
DX: L65.9 Nonscarring hair loss, unspecified (principal); R53.83 Other fatigue; E66.9 Obesity, unspecified; Z68.33 Body mass index [BMI] 33.0-33.9, adult; E55.9 Vitamin D deficiency, unspecified
CPT/HCPCS: 80053; 80061; 82306; 82607; 84436; 84443; 85025

== ENCOUNTER 2021-12-19 14:21 | Day surgery (SDC) | payer MEDICARE, MEDICAID, SELFPAY ==
[2021-12-19 14:28] VITALS: BP 157/68; PULSE 95; RESP 20; TEMP 37.1; O2SAT 90; BMI 34.4
--- NOTE | 2021-12-19 14:32 | HMH.PMPROC ---
- Procedure Date: 12/19/21 Time: 14:32 Anesthesiologist:: Adrienne Stubbs APRN Complications:: None Pre-procedure Diagnosis:: Degenerative disc disease lumbar spine with lumbar radiculopathy symptoms Post-procedure Diagnosis:: Same Indications for Procedure:: Patient is a pleasant 61-year-old female who comes in here today for intrathecal pain pump refill and reprogram. Patient is currently being treated for degenerative disc disease of the lumbar spine with lumbar radiculopathy symptoms. Patient is currently being managed with bupivacaine 20 mg/mL at a rate of 5.2 mg/day. Patient denies any side effects from this medication. Patient denies any change to location and type of pain. Patient rates her pain as 5 out of 10 and would like an adjustment today. Additionally, patient is complaining of bilateral toe numbness that has been going on for 3 months. We have discussed previously that the medication is not causing this numbness. Her point of care glucose today is 110. I advised the patient to talk to her PCP and see if she can get an [employer] vs Doppler ultrasound of her bilateral legs to see if there are any circulation issues. Patient states that her whole family has diabetes but she states that she has never been tested for diabetes before. Her A1c on March 31, 2020 was 5.8. Patient is also taking clonazepam 1 mg 3 times a day and gabapentin 800 mg 3 times a day that is prescribed by Lila Yan and Dr. Rob respectively. Her Ana number is [phone] with an active morphine equivalent of 0. Physical exam General: Alert and oriented x3, no acute distress, pleasant and cooperative Lungs: Respirations even and unlabored, symmetrical chest expansion Eyes: PERRL Musculoskeletal: Flexion and extension of lumbar [spine] somewhat guarded secondary to pain, [antalgic gait noted] Neurological: Speech clear, no gross sensory deficit Procedure Details:: Informed consent was obtained and the risk and benefits of the procedure were explained to the patient. The patient was taken to the procedure room where noninvasive monitoring was placed including noninvasive blood pressure cuff and pulse oximeter. Patient's pump was interrogated. The area over the pump was cleansed with chlorhexidine as a cleansing solution. In sterile fashion the pump was accessed with a 22-gauge needle. Approximately 5 mls of the pump solution was removed and discarded appropriately. The pump was then refilled with 20 mL's of bupivacaine 20 mg/mL. The needle was withdrawn and a bandage was placed over the puncture site. The infusion rate was reprogrammed at bupivacaine 5.7 mg. The patient tolerated well with no complication. Plan and Disposition:: We will see the patient back in the clinic at the next intrathecal refill. Patient has been instructed to contact the clinic with any concerns before the next appointment. Dr. Luevano has reviewed this note and agrees with this plan of care. This note was dictated using voice recognition software and make contain errors or omissions. Risks and benefits of the medication have been explained in detail to the patient. The patient does understand the risk of dependence on the medication when given over a prolonged period. Patient has been advised of risks of oversedation with the prescribed medication. Narcan has been offered to the paitent in the event of oversedation. Patient has been advised that a family member should also be educated regarding administration of Narcan. The patient has been advised to consult with his/her primary care provider and pharmacist regarding drug-drug interaction of medications currently prescribed. ANA report has been obtained and reviewed prior to prescription and found to be appropriate. Opioid contract was reviewed and signed by the patient, and that they have agreed to all of the terms set forth by our compliance program. Patient has been instructed to conta
[2021-12-19 14:57] VITALS: BP 134/76; PULSE 96; RESP 18; O2SAT 90
[2021-12-19 14:59] VITALS: BP 132/74; PULSE 89; RESP 18; O2SAT 90
[2021-12-19 15:10] VITALS: BP 147/71; PULSE 86; RESP 20; O2SAT 94
== END 2021-12-19 15:10 | disposition home or self-care (01) ==
LOC: SC.PAINP 14:22
PROVIDERS: PCP Physician Assistant; Visit Provider Clinical Nurse Specialist Family Health
DX: M51.16 Intervertebral disc disorders with radiculopathy, lumbar region (principal); Z45.1 Encounter for adjustment and management of infusion pump
CPT/HCPCS: 62370

== ENCOUNTER → 2021-12-31 12:08 | Outpatient (CLI) | payer MEDICARE, MEDICAID, SELFPAY | PROVIDERS: Visit Provider Ophthalmology | DX: Z01.812 Encounter for preprocedural laboratory examination (principal); Z11.52 Encounter for screening for COVID-19 | CPT/HCPCS: C9803; U0003; U0005 ==

== ENCOUNTER 2022-01-03 09:56 | Day surgery (SDC) | payer MEDICARE, MEDICAID, SELFPAY ==
[2021-12-28 10:41] VITALS: BMI 31.3
[2022-01-03 11:11] VITALS: BP 151/78; PULSE 74; RESP 18; TEMP 36.6; O2SAT 95
[2022-01-03 12:37] VITALS: BP 152/74; PULSE 61; RESP 22; O2SAT 96
[2022-01-03 12:42] VITALS: BP 148/69; PULSE 60; RESP 18; O2SAT 97
[2022-01-03 12:47] VITALS: BP 141/61; PULSE 60; RESP 18; O2SAT 99
[2022-01-03 12:52] VITALS: BP 145/69; PULSE 61; RESP 20; O2SAT 100
[2022-01-03 13:14] VITALS: BP 129/99; PULSE 79; RESP 18; TEMP 36.1; O2SAT 94
== END 2022-01-03 13:14 | disposition home or self-care (01) ==
LOC: OR 09:58
PROVIDERS: PCP Physician Assistant; Visit Provider Ophthalmology
DX: H25.813 Combined forms of age-related cataract, bilateral (principal); H02.831 Dermatochalasis of right upper eyelid; H02.834 Dermatochalasis of left upper eyelid; F41.9 Anxiety disorder, unspecified; J44.9 Chronic obstructive pulmonary disease, unspecified; F32.A Depression, unspecified; Z83.3 Family history of diabetes mellitus; Z80.9 Family history of malignant neoplasm, unspecified; Z82.3 Family history of stroke; Z82.49 Family history of ischemic heart disease and other diseases of the circulatory system
CPT/HCPCS: 66984; V2632

== ENCOUNTER → 2022-01-28 11:28 | Outpatient (CLI) | payer MEDICARE, MEDICAID, SELFPAY | PROVIDERS: PCP Emergency Medicine; Referring Provider Physician Assistant; Visit Provider Emergency Medicine | DX: Z01.812 Encounter for preprocedural laboratory examination (principal); Z11.52 Encounter for screening for COVID-19 | CPT/HCPCS: C9803; U0003; U0005 ==

== ENCOUNTER 2022-01-31 08:42 | Day surgery (SDC) | payer MEDICARE, MEDICAID, SELFPAY ==
[2022-01-27 12:10] VITALS: BMI 31.3
[2022-01-31 09:29] VITALS: BP 122/67; PULSE 75; RESP 18; TEMP 36.5; O2SAT 93
[2022-01-31 10:20] VITALS: BP 131/61; PULSE 67; RESP 16; O2SAT 96
[2022-01-31 10:25] VITALS: BP 150/70; PULSE 66; RESP 16; O2SAT 96
[2022-01-31 10:30] VITALS: BP 148/65; PULSE 65; RESP 16; O2SAT 100
[2022-01-31 10:35] VITALS: BP 158/70; PULSE 76; RESP 16; TEMP 36.2; O2SAT 95
== END 2022-01-31 10:48 | disposition home or self-care (01) ==
LOC: OR 08:44
PROVIDERS: PCP Physician Assistant; Visit Provider Ophthalmology
DX: H25.813 Combined forms of age-related cataract, bilateral (principal); H02.831 Dermatochalasis of right upper eyelid; H02.834 Dermatochalasis of left upper eyelid; J44.9 Chronic obstructive pulmonary disease, unspecified; F41.9 Anxiety disorder, unspecified; F32.A Depression, unspecified; I10 Essential (primary) hypertension; Z85.828 Personal history of other malignant neoplasm of skin; Z83.3 Family history of diabetes mellitus; Z80.9 Family history of malignant neoplasm, unspecified; Z82.49 Family history of ischemic heart disease and other diseases of the circulatory system; Z79.899 Other long term (current) drug therapy
CPT/HCPCS: 66984; V2632; V2788

== ENCOUNTER → 2022-02-22 08:12 | Outpatient (CLI) | payer MEDICARE, MEDICAID, SELFPAY ==
--- NOTE | 2022-02-22 08:12 | MM_ITS ---
PROCEDURE INFORMATION: Exam: MG Bilateral Screening 3D Mammography Exam date and time: 02/22/2022 8:21 AM Age: 61 years old Clinical indication: Screening examination; Family history of breast cancer in mother TECHNIQUE: Imaging protocol: Bilateral Screening tomosynthesis and 2D mammography including computer-aided detection (CAD) when performed. COMPARISON: 1. MG MM DIG SCREENING MAMM BI W/CAD 04/19/2020 1:19 PM 2. MG DMSB DIG MAMM-SCREEN GISEL W/CAD 12/22/2016 8:58 AM FINDINGS: MAMMOGRAPHY: Breast composition: The breast tissue is composed of scattered areas of fibroglandular density. Mass: None. Architectural distortion: None. Calcifications: Indeterminate clustered calcifications with a questionable associated 0.6 cm soft tissue mass in the middle third of the right approximate 3 o'clock axis. Asymmetric density: None. Skin thickening: None. Axillary adenopathy: None. IMPRESSION: Patient to be recalled for spot magnification views of the right breast in the CC and MLO projections for further evaluation of right breast calcifications. Targeted right breast ultrasound is also recommended ASSESSMENT: BI-RADS Category 0: Incomplete- Need Additional Imaging Evaluation and/or Prior Mammograms for Comparison
--- NOTE | 2022-02-22 08:12 | CT_ITS ---
FINAL REPORT CLINICAL HISTORY: current smoker COMPARISON: July 26, 2021 FINDINGS: Low-Dose Chest CT CTDI vol (mGy): 2.90 DLP (mGy-cm): 96.38 Axial images were obtained from the lung apex to the mid abdomen by computed tomography. Low-dose protocol was utilized. FINDINGS: CHEST: There is no axillary adenopathy. There is no hilar or mediastinal adenopathy. The heart is proper size. A metallic stent is seen within the right brachiocephalic artery which is stable. There is no pericardial or pleural effusion. Limited images of the upper abdomen are unremarkable. Lung window images demonstrate a stable small 4 mm noncalcified nodule in the periphery the right upper lobe which is well seen on image 21 of series 4. There is also a fissural nodule measuring approximately 5 mm which is well seen on image 42 series 4, stable. IMPRESSION: Stable right lung nodules. Lung RADS category 2. Recommend 12 month follow-up low-dose chest CT. Reviewed, Interpreted and Dictated by Matias May MD Transcribed by Amparo Mai Authenticated by Matias May MD on 02/22/2022 10:12:[address] [facility]
== END ==
PROVIDERS: PCP Emergency Medicine; Visit Provider Physician Assistant
DX: Z87.891 Personal history of nicotine dependence (principal); Z12.31 Encounter for screening mammogram for malignant neoplasm of breast; Z12.2 Encounter for screening for malignant neoplasm of respiratory organs
CPT/HCPCS: 71271; 77063; 77067

== ENCOUNTER → 2022-05-17 13:42 | Outpatient (CLI) | payer MEDICARE, MEDICAID, SELFPAY ==
--- NOTE | 2022-05-17 13:42 | MM_ITS ---
PROCEDURE INFORMATION: Exam: US Right Breast, Complete MG Right Diagnostic Breast Tomosynthesis Exam date and time: 05/17/2022 2:21 PM Age: 61 years old Clinical indication: Patient recalled for further evaluation of right breast calcifications and associated soft tissue mass TECHNIQUE: Imaging protocol: Complete ultrasound of all four quadrants of the Right breast and the retroareolar regions, including ultrasound of the axilla when performed. Right Diagnostic tomosynthesis and 2D mammography including computer-aided detection (CAD) when performed. Unilateral or bilateral exam. COMPARISON: Mammogram dated 02/22/2022 FINDINGS: MAMMOGRAPHY: Digital diagnostic magnification views of the right 3 o'clock axis demonstrates a cluster of indeterminate microcalcifications and a faint associated soft tissue mass measuring approximately 0.6 cm. ULTRASOUND: Sonographic images of the right breast including the retroareolar region, all 4 quadrants and the axilla demonstrates a questionable echogenic mass in the 3 o'clock axis 3 cm from the nipple possibly correlating with the faint soft tissue density seen on mammography. It measures 0.7 x 0.5 x 0.7 cm in dimension. No architectural distortion or acoustical shadowing. No skin thickening or axillary adenopathy. IMPRESSION: Indeterminate calcifications in the right breast. It is unclear if this correlates with the predominantly echogenic mass seen on sonography. Ultrasound-guided core biopsy with clip placement and subsequent diagnostic right mammogram are recommended for further evaluation and to ensure accurate correlation between the mammographic and sonographic findings. ASSESSMENT: BI-RADS Category 4: Suspicious
== END ==
PROVIDERS: PCP Physician Assistant; Visit Provider Physician Assistant
DX: M79.89 Other specified soft tissue disorders (principal); R92.8 Other abnormal and inconclusive findings on diagnostic imaging of breast
CPT/HCPCS: 76641; 77061; 77065; G0279

== ENCOUNTER → 2022-05-24 08:17 | Outpatient (CLI) | payer MEDICARE, MEDICAID, SELFPAY ==
--- NOTE | 2022-05-24 08:18 | US_ITS ---
FINAL REPORT CLINICAL HISTORY: RT BREAST BIOPSY; 300 FINDINGS: ULTRASOUND-GUIDED RIGHT BREAST CORE BIOPSY TECHNIQUE: Limited images were obtained to localize region of interest. The right breast was prepped in a routine sterile fashion and locally anesthetized with 1% lidocaine. Standard written informed consent was obtained. An 11-gauge vacuum assisted hand-held device was utilized. The needle was positioned posterior to the lesion. Multiple vacuum assisted core samples were obtained. The lesion was noted to be significantly smaller following biopsy. A biopsy marker clip was deployed in satisfactory position. Postbiopsy mammogram showed postbiopsy changes with clip in satisfactory position. However calcifications described on diagnostic mammography as potentially requiring biopsy were not removed at the time of this procedure. The biopsy clip was noted to be adjacent to the calcifications. Procedure was well tolerated . CONCLUSION: 1. Technically successful ultrasound guided vacuum assisted core biopsy of right breast lesion as above. 2. Biopsy marker clip deployed Pathology results revealed benign findings. However suspicious calcifications do remain in the right breast, separate from the sonographic lesion recently biopsied. Therefore stereotactic biopsy of right breast calcifications is recommended. Authenticated and ERN
--- NOTE | 2022-05-24 09:47 | MM_ITS ---
FINAL REPORT CLINICAL HISTORY: post biopsy, clip placement, biopsy of sonographic nodule FINDINGS: MAMMOGRAM RIGHT TECHNIQUE: Standard digital 2-D views COMPARISON: None DENSITY: There are scattered areas of fibroglandular density FINDINGS: Post biopsy marker clip is noted to be in satisfactory position in the right lower inner quadrant. The biopsy marker clip is noted to be immediately adjacent to calcifications that were described on prior diagnostic mammogram. However calcifications have not been removed within the sample. Postbiopsy changes are noted. IMPRESSION: Biopsy marker clip in good position RECOMMENDATION: Histopathology reveals benign findings for the sonographic nodule. However the sonographic biopsy did not include the calcifications seen on mammogram only. Therefore stereotactic biopsy of the right breast calcifications is recommended. Authenticated and ERN
== END ==
PROVIDERS: PCP Physician Assistant; Visit Provider Physician Assistant
DX: R92.8 Other abnormal and inconclusive findings on diagnostic imaging of breast (principal)
CPT/HCPCS: 19083; 77061; 77065; 88305; C2618; G0279

== ENCOUNTER → 2022-06-08 07:38 | Outpatient (CLI) | payer MEDICARE, MEDICAID, SELFPAY ==
--- NOTE | 2022-06-08 07:39 | MM_ITS ---
FINAL REPORT CLINICAL HISTORY: . right breast calcs FINDINGS: STEREOTACTIC GUIDED RIGHT BREAST BIOPSY, CLIP PLACEMENT, SPECIMEN RADIOGRAPH AND POST BIOPSY MAMMOGRAM Indication: Suspicious calcifications Findings: The stereotactic guided breast biopsy procedure was explained in detail to the patient including potential risk and benefits. The patient voiced an understanding of the procedure, was given an opportunity to ask questions, after which informed consent was obtained. The patient was positioned upon the stereotactic unit in the upright position. The breast was prepped in the usual sterile fashion. Subcutaneous soft tissues were anesthetized with lidocaine with epinephrine. Subsequently, with intermittent stereotactic guidance, the stereotactic biopsy needle was advanced into the breast in the region of the mammographic abnormality corresponding to recent diagnostic mammogram. Multiple vacuum assisted core samples were obtained. Sampling was thought to be adequate and the biopsy clip marker was deployed in the region of biopsy. Additional imaging as detailed below was performed. Specimen radiograph: Calcifications confirmed adequate. Biopsy marker clip from previous biopsy also noted contained within the specimen. Post procedure routine CC and MLO view mammogram: Post biopsy changes. Biopsy marker clip noted to be in the appropriate location. Calcifications no longer evident reflecting adequate sampling. Patient tolerated the procedure well. No immediate complications. IMPRESSION: 1. Technically successful stereotactic guided biopsy of right breast calcifications 2. Biopsy marker clip deployed 3. Post biopsy mammogram obtained as above Authenticated and ERN
--- NOTE | 2022-06-08 07:46 | MM_ITS ---
FINAL REPORT CLINICAL HISTORY: . specimen image, s/p stereotactic bx FINDINGS: Specimen radiograph History: Stereotactic biopsy right breast. Abnormal calcifications Findings: Specimen radiograph shows calcifications of interest contained within the tissue specimens. There is also a biopsy marker clip noted within the tissue specimen from prior biopsy of this region. IMPRESSION: Specimen radiograph shows calcifications of interest contained within the tissue samples Authenticated and ERN
--- NOTE | 2022-06-08 07:46 | MM_ITS ---
FINAL REPORT CLINICAL HISTORY: .clip placement after stereotactic bx FINDINGS: MAMMOGRAM RIGHT TECHNIQUE: Standard digital 2-D views COMPARISON: None DENSITY: There are scattered areas of fibroglandular density FINDINGS: Post biopsy marker clip is noted to be in satisfactory position. Calcifications are no longer remaining in the right breast at the site of interest reflective of adequate sampling. Postbiopsy changes are noted. IMPRESSION: Biopsy marker clip in good position with calcifications of interest no longer evident RECOMMENDATION: Pending histopathology evaluation Authenticated and ERN
[2022-06-08 08:30] VITALS: RESP 20
== END ==
PROVIDERS: PCP Physician Assistant; Visit Provider Physician Assistant
DX: R92.8 Other abnormal and inconclusive findings on diagnostic imaging of breast (principal)
CPT/HCPCS: 19081; 76098; 77065; 88305

== ENCOUNTER → 2022-08-03 16:38 | Outpatient (CLI) | payer MEDICARE, MEDICAID, SELFPAY ==
[2022-08-03 14:13] LABS: Basophils # 0.1 K/mm3 (0-0.2); Basophils % 1.4 % (0.1-2.0); Eosinophils # 0.1 K/mm3 (0.0-0.4); Eosinophils % 1.6 % (0.1-12.0); Hematocrit 43.6 % (37.0-47.0); Hemoglobin 14.2 g/dL (12.2-16.2); Lymphocytes # 1.4 K/mm3 (0.7-4.5); Lymphocytes % 24.5 % (10-50); Mean Corpuscular HGB Conc 32.6 g/dL (31.8-35.4); Mean Corpuscular Hemoglobin 32.9 pg (27.0-31.2); Mean Corpuscular Volume 100.6 fl (81-99); Mean Platelet Volume 9.4 fl (7.4-10.4); Monocytes # 0.5 K/mm3 (0.1-1.0); Monocytes % 8.1 % (1.7-9.3); Neutrophils # 3.6 K/mm3 (1.8-7.8); Neutrophils % 64.4 % (37.0-80.0); Platelet Count 239 K/mm3 (142-424); Red Blood Count 4.33 M/mm3 (4.20-5.40); Red Cell Distribution Width 14.3 % (11.5-17.5); White Blood Count 5.7 K/mm3 (4.8-10.8)
[2022-08-03 14:26] LABS: Hemoglobin A1C 5.8 % (4.0-6.0)
[2022-08-03 14:36] LABS: Alanine Aminotransferase 19 U/L (12-78); Albumin Level 3.8 g/dl (3.5-5.0); Albumin/Globulin Ratio 1.7 (1.1-1.8); Alkaline Phosphatase 134 U/L (38-126); Anion Gap 13.1 mEq/L (5-15); Aspartate Amino Transferase 24 U/L (14-36); Blood Urea Nitrogen 15 mg/dl (7-17); Carbon Dioxide 31 mmol/L (22.0-30.0); Chloride 99 mmol/L (98-107); Cholesterol 161 mg/dl (140-200); Estimated Glomerular Filt Rate 85 ml/min (>60); GFR (African American) 103 ML/MIN (>60); Globulin 2.3 g/dL (1.3-3.2); Glucose 110 mg/dl (74-100); HDL Cholesterol 53 mg/dl (40-60); Potassium 4.1 mmoL/L (3.5-5.1); Sodium 139 mmol/L (136-145); Total Protein,Serum 6.1 g/dl (6.3-8.2); Triglycerides 106 mg/dl (30-150); VLDL Cholesterol 21 mg/dL (0-40)
[2022-08-03 14:40] LABS: Bilirubin,Total < 0.1 mg/dl (0.2-1.3)
[2022-08-03 14:47] LABS: Direct LDL Cholesterol 85.92 mg/dL (100-129)
[2022-08-03 15:08] LABS: Thyroid Stimulating Hormone 2.37 uIU/mL (0.465-4.68)
[2022-08-03 15:27] LABS: Vitamin B12 329 pg/mL (239-931)
== END ==
PROVIDERS: PCP Physician Assistant; Visit Provider Physician Assistant
DX: E55.9 Vitamin D deficiency, unspecified (principal); E66.9 Obesity, unspecified; R73.09 Other abnormal glucose; F41.9 Anxiety disorder, unspecified
CPT/HCPCS: 80053; 80061; 82306; 82607; 83036; 84443; 85025

== ENCOUNTER → 2022-09-27 10:57 | Outpatient (CLI) | payer MEDICARE, MEDICAID, SELFPAY ==
[2022-09-27 12:46] LABS: Alanine Aminotransferase 16 U/L (12-78); Albumin Level 4.3 g/dl (3.5-5.0); Albumin/Globulin Ratio 1.9 (1.1-1.8); Alkaline Phosphatase 93 U/L (38-126); Anion Gap 14.6 mEq/L (5-15); Aspartate Amino Transferase 22 U/L (14-36); Bilirubin,Total 0.3 mg/dl (0.2-1.3); Blood Urea Nitrogen 16 mg/dl (7-17); Calcium 9.9 mg/dl (8.4-10.2); Carbon Dioxide 34 mmol/L (22.0-30.0); Chloride 95 mmol/L (98-107); Estimated Glomerular Filt Rate 73 ml/min (>60); GFR (African American) 88 ML/MIN (>60); Globulin 2.3 g/dL (1.3-3.2); Glucose 103 mg/dl (74-100); Potassium 4.6 mmoL/L (3.5-5.1); Sodium 139 mmol/L (136-145); Total Protein,Serum 6.6 g/dl (6.3-8.2)
== END ==
PROVIDERS: PCP Physician Assistant; Visit Provider Specialist
DX: I73.9 Peripheral vascular disease, unspecified (principal); R42 Dizziness and giddiness
CPT/HCPCS: 36415; 80053

== ENCOUNTER → 2022-10-10 08:49 | Outpatient (CLI) | payer MEDICARE, MEDICAID, SELFPAY ==
--- NOTE | 2022-10-10 08:50 | CT_ITS ---
FINAL REPORT CLINICAL HISTORY: PAD, Subclavian steal, s/p stent FINDINGS: Thin section axial CT with IV contrast supplemented with multiplanar reconstruction under CT angiogram protocol. This study was performed with techniques to keep radiation doses as low as reasonably achievable (ALARA). Individualized dose reduction techniques using automated exposure control or adjustment of mA and/or kV according to the patient''s size were employed. NASCET criteria was utilized during interpretation. Aortic arch: Stent in the brachiocephalic artery is widely patent extending from the origin to the distal 3rd. Left subclavian and left common carotid widely patent. Right carotid: No appreciable stenosis. Mild plaque disease. Left carotid: Approximately 20% stenosis of the proximal ICA due to plaque disease. Vertebral: Left vertebral artery is dominant. No significant stenosis is present. IMPRESSION: Patent stent of the brachial cephalic artery. 20% stenosis the proximal left ICA. Reviewed, Interpreted and Dictated by Teresa Bernal MD Transcribed by Gustavo Winter Authenticated and . [facility]
--- NOTE | 2022-10-10 08:50 | CT_ITS ---
FINAL REPORT TECHNIQUE: Multiple axial CT angiography images were performed from the foramen magnum to the vertex before and during IV contrast administration. This study was performed with techniques to keep radiation doses as low as reasonably achievable (ALARA). Individualized dose reduction techniques using automated exposure control or adjustment of mA and/or kV according to the patient's size were employed. 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 No acute hemorrhage, mass effect or edema. Ventricles are normal size. No midline shift. The basal cisterns are patent. Right maxillary sinusitis. CTA HEAD: The major intracranial arterial system is patent without hemodynamically significant stenosis or major vessel occlusion.No aneurysm is identified. IMPRESSION: No acute intracranial hemorrhage or large acute cortical infarct. No evidence of vascular injury, aneurysm, hemodynamically significant stenosis or major vessel occlusion of the intracranial arterial system. Reviewed, Interpreted and Dictated by Teresa Bernal MD Transcribed by Gustavo Winter Authenticated and [facility]
== END ==
PROVIDERS: PCP Physician Assistant; Visit Provider Specialist
DX: R42 Dizziness and giddiness (principal); I73.9 Peripheral vascular disease, unspecified
CPT/HCPCS: 70496; 70498; Q9967

== ENCOUNTER → 2022-10-25 10:09 | Outpatient (CLI) | payer MEDICARE, MEDICAID, SELFPAY ==
[2022-10-25 15:15] LABS: Amphetamine/Metha Screen,Urine Negative ng/ml (<1000)
[2022-10-25 15:16] LABS: Barbiturates Screen,Urine Negative ng/ml (<200); Benzodiazepines Screen,Urine Negative ng/ml (<200)
[2022-10-25 15:17] LABS: Cannabinoid Screen,Urine Negative ng/ml (<50)
[2022-10-25 15:18] LABS: Cocaine Screen,Urine Negative ng/ml (<300)
[2022-10-25 15:19] LABS: Methadone Screen,Urine Negative ng/ml (<300)
[2022-10-25 15:20] LABS: Opiate Screen,Urine Negative ng/ml (<300); Phencyclidine Screen,Urine Negative ng/ml (<25)
== END ==
PROVIDERS: PCP Physician Assistant; Visit Provider Physician Assistant
DX: M54.10 Radiculopathy, site unspecified (principal)
CPT/HCPCS: 80305

== ENCOUNTER → 2022-11-16 06:45 | Outpatient (CLI) | payer MEDICARE, MEDICAID, SELFPAY | PROVIDERS: PCP Student in an Organized Health Care Education/Training Program; Visit Provider Student in an Organized Health Care Education/Training Program | DX: R05.9 Cough, unspecified (principal) | CPT/HCPCS: C9803; U0003; U0005 ==

== ENCOUNTER → 2022-11-22 12:13 | Outpatient (CLI) | payer MEDICARE, MEDICAID, SELFPAY ==
--- NOTE | 2022-11-22 12:14 | NM_ITS ---
APPROVED REPORT Exam: Nuclear Stress Test Indication: HTN, HYPERLIPDIMIA, TOB USE, FM HX, FATIGUE, DIZZINESS Patient Location: Outpatient Stress Tech: Yelena Jiménez NM Tech:Mary Park ROSEANNTila RT (R)(N)(M) Ht: 5 ft 7 in Wt: 188 lbs Bra Size: 42D HR: 63 bpm BP: 167/76 mmHg BSA: 1.97 m2 TID: 1.34 BMI: 29.4 Procedure: Patient received a 0.4 mg of intravenous Lexiscan, resting heart rate 63 bpm, resting blood pressure 167/76 mmHg, with Lexiscan maximum heart rate achived was 85 bpm which is Less than 85 % of the maximum predicted heart rate and blood pressure was 129/87 mmHg. With Lexiscan, patient denied any complaint of chest pain. Electrocardiogram Resting electrocardiogram shows sinus rhythm, with Lexiscan there is less than 1.[address] segment depression noted from the baseline EKG. The EKG portion of the Lexiscan is nondiagnostic. Cardiac Stress and Resting SPECT Images: Cardiac Stress and Resting SPECT images were obtained using technetium 99m Myoview 30.8 mCi stress and 10.36 mCi at rest. Gated SPECT for analysis of segmental wall motion and calculation of the ejection fraction also done. Cardiac stress and rest SPECT images show uniform myocardial activity without segmental perfusion abnormality, computer derived ejection fraction is 58% with no regional wall motion abnormality, right ventricle is mildly enlarged with normal contractility, there is transient ischemic dilatation of the left ventricle seen, raising the concern for presence of balanced ischemia or multivessel coronary artery disease. Conclusion: 1. The EKG portion of the Lexiscan is nondiagnostic. 2. No scintigraphic evidence of reversible ischemia seen, computer derived ejection fraction is 58% with no regional wall motion abnormality, right ventricle is mildly enlarged with normal contractility, there is transient ischemic dilatation of the left ventricle seen, raising the concern for presence of present ischemia or multivessel coronary artery disease. 3. Abnormal Lexiscan Myoview study. Electronically signed by : Justin Holland MD 11/22/2022 17:52:13
--- NOTE | 2022-11-22 12:58 | CA_ITS ---
APPROVED REPORT EXAM: Comprehensive 2D, Doppler, and color-flow Echocardiogram Profiler: Otilia Gibson CRT Ht: 5 ft 7 in Wt: 192lbs BSA: 1.99 BP: 160/78 mmHg Indications: Chest Pain, Shortness of Breath, Hyperlipidemia, Hypertension/HDD, smoker 2D Dimensions LVOT 1.79 cm (M/F) 1.5-2.5 LA Volume 33.40 mL LA Volume Index 16.80 mL/m2 (M/F) 16-34 M-Mode Dimensions RVDd 3.42 cm (0.9-2.6) LA Diam 4.06 cm (1.9-4.0) LVDd 3.82 cm (3.5-5.7) Ao Diam 3.33 cm (2.0-3.7) LVDs 2.66 cm (3.5-5.7) IVSd 2.01 cm (0.6-1.1) PWd 1.17 cm (0.6-1.1) EF (Teich) 58.50% FS 30.40% EDV (Teich) 62.70 mL TAPSE 2.06 (<1.7) ESV (Teich) 26.00 mL LV Diastology E Decel Time 190.00 (160-240 msec) E/A Ratio 0.74 MED E' 7.50 (< 7 cm/sec) MED A' 9.00 cm/s E'/MED E' Ratio 8.00 (>14) LAT E' 6.30 (<10 cm/sec) LAT A' 8.90 cm/s E/LAT E' Ratio 9.52 (>14) Aortic Valve AO Peak GR. 5.30 mmHg Mitral Valve MV E Max Rafa. 60.00 (40-130 cm/s) MV A Velocity 81.00 (40-130 cm/s) E/A Ratio 0.74 MV Decel. Time 190.00 (160-240 ms) MV PHT 56.00 ms Pulmonary Valve PV Peak Velocity 146.00 (50-150 cm/s) Tricuspid Valve TR P. Velocity 219.00 cm/s RAP Estimate 10.00 mmHg RVSP 29.30 mmHg Left Ventricle Left atrium is mildly enlarged, left ventricle is normal size mild concentric left ventricular hypertrophy, estimated ejection fraction 55% with no regional wall motion abnormality, grade 1 diastolic dysfunction seen without tissue Doppler evidence of raise left atrial pressure. Right Ventricle Right atrium and right ventricle are mildly enlarged with normal contractility. Aortic Valve Aortic valve is minimally thickened and fibrosed there is no aortic stenosis aortic insufficiency. Mitral Valve Mitral valve grossly normal, there is trace mitral regurgitation. Tricuspid Valve Tricuspid valve grossly normal, there is trace tricuspid regurgitation, tricuspid regurgitation jet velocity is inadequate for calculation of the right ventricular systolic pressure. Pulmonic Valve Pulmonic valve is poorly visualized. Great Vessels Aortic root is normal size. Inferior vena cava is normal size with normal inspiratory collapse. Pericardium No significant pericardial effusion noted. Conclusion 1. Mildly enlarged atrium, normal left ventricular size mild concentric left ventricular hypertrophy, estimated ejection fraction 55% with no regional wall motion abnormality, grade 1 diastolic dysfunction seen without tissue Doppler evidence of raise left atrial pressure. 2. Trace mitral and tricuspid regurgitation. 3. No significant pericardial effusion noted. 4. Inferior vena cava is normal size with normal inspiratory collapse. Electronically signed by : Justin Holland MD 11/22/2022 14:57:33
--- NOTE | 2022-11-22 14:46 | CA_ITS ---
APPROVED REPORT Exam: Pharmacologic Technologist: Yelena Jiménez Ht: 5 ft 7 in Wt: 190 lbs BSA: 1.98 m2 HR: 63 bpm BP: 167/76 mmHg Indications: Angina, Shortness of Air Medical History Medications: Lisinopril,,,,, Omeprazole,,,,, Metoprolol,,,,, Lovastatin,,,,, Gabapentin,,,,, Vitamin D3,,,,, Duoneb,,,,, ClonAZEPAM,,,,, SyMBICORT,,,,, Albuterol,,,,, Ibuprofen,,,,, Meclizine,,,,, Stress Test Details Test: LEXISCAN HR Resting HR: 62 bpm Max Heart Rate (APMHR): 158.647346 bpm Max HR Achieved: 86 bpm Target HR (85% APMHR): 134.966501 bpm % of APMHR: 54.43 Recovery HR: 74 bpm BP Resting BP: 167.0/76.0 mmHg Max BP: 196.0/76.0 mmHg Recovery BP: 151.0/75.0 mmHg ECG Resting ECG: Normal sinus rhythm Clinical Exercise duration: 04:00 min Highest Stage Achieved: Stress ECG Conclusion Symptoms: Shortness of air, cough, stomach and head discomfort. No chest pain. Arrhythmias/Ectopy: None ST-T Changes: No significant changes. Conclusion: Unremarkable Lexiscan stress. Myoview images reported separately. Test Summary REST . . . . . . . Resting REST 03:16 . . 62 . 167/ 76 . . Stage 1 . . . . . . . Myoview Injected Stage 1 01:00 . . 74 . . . . Stage 2 01:00 . . 85 . . . . Stage 3 01:00 . . 82 . 129/ 87 . . Stage 4 01:00 . . 80 . 196/ 76 . Stop exercise at 04:00 RECOVERY 01:00 . . 74 . . . . RECOVERY 02:00 . . 74 . 169/ 73 . . RECOVERY 03:00 . . 72 . 169/ 73 . . RECOVERY 04:00 . . 75 . 178/ 76 . . RECOVERY 05:00 . . 72 . 151/ 75 . . RECOVERY 05:14 . . 72 . 151/ 75 . . Electronically signed by : Justin Holland MD 11/22/2022 14:58:38
== END ==
PROVIDERS: PCP Student in an Organized Health Care Education/Training Program; Visit Provider Physician Assistant
DX: E78.2 Mixed hyperlipidemia (principal); F17.200 Nicotine dependence, unspecified, uncomplicated; I10 Essential (primary) hypertension; I20.8 Other forms of angina pectoris; I73.9 Peripheral vascular disease, unspecified; I77.1 Stricture of artery; R06.00 Dyspnea, unspecified; R06.02 Shortness of breath
CPT/HCPCS: 78452; 93017; 93306; A9502; J2785

== ENCOUNTER → 2022-11-30 20:20 | Outpatient (CLI) | payer MEDICARE, MEDICAID, SELFPAY | PROVIDERS: Visit Provider Specialist | DX: G47.33 Obstructive sleep apnea (adult) (pediatric) (principal); R09.02 Hypoxemia | CPT/HCPCS: 95810 ==

== ENCOUNTER 2022-12-13 12:22 | Observation (INO) | payer MEDICARE, MEDICAID, SELFPAY ==
[2022-12-13] VITALS (51 sets, daily range): BP systolic 91–175; BP diastolic 53–93; PULSE 55–79; RESP 13–20; TEMP 36.6; O2SAT 90–98; BMI 29.4; BMI 29.9
--- NOTE | 2022-12-13 07:03 | IR_ITS ---
APPROVED REPORT Patient Location: Outpatient Balance Sheet Analyst: MIO Galicia RT (R) PROCEDURES Left heart catheterization Left ventriculogram Selective coronary angiogram Catheter placed into the distal abdominal aorta Distal abdominal aortography with bilateral iliofemoral angiogram Right femoral arterial access Bare-metal stent deployment to the distal abdominal aorta extending into the right common iliac artery Right retrograde femoral angiogram Pigtail catheter placement in the abdominal aorta post stent deployment Post stent deployment distal abdominal aortogram with bilateral iliofemoral angiogram INDICATION Known coronary artery disease, Angina pectoris, Abnormal Myoview, Known peripheral artery disease, Elicia claudication class III-IV, Abnormal AMERICO 0.8 right leg, 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 COMPLICATIONS None Estimated Blood Loss: Less than10 mls TECHNIQUE One percent lidocaine used to anesthetize the right anterior aspect of the wrist. The right radial artery was accessed via the Seldinger technique. A 6 [place] sheath was placed in the right radial artery. 2.5 mg of verapamil, 800 mcg of nitroglycerin, 1mg Lidocaine and 5000 U Heparin were given through the arterial sheath. The papa catheter was also used to perform left heart catheterization, left ventriculogram and selective coronary angiogram. At the end of the diagnostic angiogram the catheter was pulled back to the transverse aorta and the wire was directed down the descending aorta. The catheter was then removed and a PV multi curve catheter with was advanced to the distal abdominal aorta were distal abdominal aortography was performed. Antegrade wiring of the right common iliac artery cannot be performed with a 450 cm hydrophilic Glidewire. Because of this 1% lidocaine was used anesthetize right groin and the right femoral artery was accessed via the Salinger technique. A 6 [place] sheath was placed in the right femoral artery. Therapeutic heparin was administered giving a therapeutic ACT and the wire was used to traverse the stenosis in the right common iliac artery. An 8 mm x 37 mm balloon mounted stent was then placed under fluoroscopic guidance in the distal abdominal aorta extending to the right common iliac artery and deployed at 16 nilam reducing the severe stenosis to 0%. Retrograde angiography was performed through the femoral sheath followed by a pigtail catheter being placed in the abdominal aorta where abdominal aortography was performed with bilateral iliofemoral angiography. At the end of the procedure the apparatus was removed the radial sheath was removed and hemostasis was achieved using TR banding patient was transferred to the postop putting in stable condition for right femoral artery sheath removal. ANGIOGRAPHIC RESULTS The left main artery Normal The left anterior descending artery Has proximal 30 to 40% stenosis with mid vessel 30% stenoses. The circumflex artery Dominant with mild luminal irregularities The right coronary artery Nondominant yet still a large vessel with proximal 40% mid vessel 40 distal tandem 40 to 50% stenoses. The DAVIS ventriculogram reveals Hyperdynamic 75% The left ventricular end-diastolic pressure 20 mmHg Distal abdominal aorta is atheromatous but patent Bilateral common iliac arteries have kissing stents which originate from the distal abdominal aorta and extend into the external iliac arteries Right common iliac artery has severe in-stent restenosis in the proximal and mid segment while the left common iliac artery stent is widely patent Bilateral external and bilateral common femoral arteries are
[2022-12-13 12:44] LABS: CATHL Activated Clotting Time 282 SEC (74-125)
--- NOTE | 2022-12-13 13:50 | SUR.PHASEII ---
Asked MD if he wanted to continue all medications such as Plavix, asa, and xarelto, MD stated he did not wish to continue the plavix and only continue the xarelto and asa.
--- NOTE | 2022-12-13 14:14 | EXP.HP ---
History of Present Illness *Admission Date: 12/13/22 *Reason for visit:: Monitor for bleeding post cath *History of present illness: 62-year-old female with extensive cardiovascular and peripheral artery disease history who presented for elective outpatient cath. Taken to the [facility] with identification of coronary artery disease, not significant enough to necessitate stenting. Also noted to have right common iliac stenosis necessitating stent placement. After procedure, patient necessitates observation as she cannot get up for 6 to 8 hours and needs monitoring with femoral sheath for signs of bleeding. Patient at this time denies any shortness of breath, nausea, vomiting, chest pain, confusion. Has been having dyspnea with exertion prior to her left heart cath. Stable on room air. Supine in bed on evaluation. Cardiac catheterization findings as follows: Successful stent to the right common iliac artery severe stenosis reduced to 0% with 1 balloon mounted bare-metal stent [facility] Disclaimer: The information contained in this section may have been updated after the patient was seen, as this information can be updated by other users. Medical History Abnormal ankle brachial index ([place]) Acute and chronic respiratory failure with hypoxia AYANA (acute kidney injury) Anxiety Atypical angina Back Pain BMI 32.0-32.9,adult BMI 33.0-33.9,adult CAD (coronary artery disease) Claudication Claudication COPD (chronic obstructive pulmonary disease) Coronary artery calcification seen on CT scan Depression Dizziness Dyspnea Dyspnea Edema GERD (gastroesophageal reflux disease) HTN (hypertension) HTN (hypertension) Hypoxemia Occult blood in stools MARVA (obstructive sleep apnea) PAD (peripheral artery disease) Radiculopathy with lower extremity symptoms Restless legs syndrome (RLS) Right leg pain Septic shock Severe sepsis with acute organ dysfunction Smoker Tobacco abuse Tobacco dependence syndrome Family History Coronary artery disease Social History Smoking Status: Current every day smoker tobacco type: cigarettes packs per day: 1 second hand exposure: No alcohol intake: never substance use type: denies use current occupational status: disabled Travel in the last 8 weeks: None household members: spouse housing: house current occupational exposures/hazards: No caffeine: Yes Review of Systems Review of Systems Review of systems (narrative): 14 point review of systems performed, pertinent positives and negatives as per HPI Meds Home Medications and Allergies Home Medications Medication Instructions Recorded Confirmed Type ipratropium 0.5 mg-albuterol 3 mg 3 ml inhalation Q4H SHORTNESS OF 12/09/19 12/13/22 History (2.5 mg base)/3 mL nebulization BREATH soln rivaroxaban 2.5 mg tablet 2.5 mg PO BID Blood thinner #180 01/17/21 12/13/22 Rx tabs tiotropium bromide 2.5 4 g inhalation DAILY COPD 07/27/21 12/13/22 History mcg/actuation mist for inhalation albuterol sulfate 90 mcg/actuation See Rx Instructions .Route 01/31/22 12/13/22 History aerosol inhaler .COMPLEX COPD meclizine 25 mg tablet 25 mg PO TID PRN dizziness #30 tabs 08/30/22 12/13/22 Rx gabapentin 800 mg tablet 800 mg PO TID nerve pain #90 tabs 09/27/22 12/13/22 Rx clonazepam 1 mg tablet 1 mg PO TID mood 30 days #90 tabs 11/27/22 12/13/22 Rx budesonide-formoterol HFA 160 See Rx Instructions .Route 12/13/22 12/13/22 History mcg-4.5 mcg/actuation aerosol .COMPLEX . inhaler (Symbicort) cariprazine 1.5 mg capsule See Rx Instructions .Route 12/13/22 12/13/22 History (Vraylar) .COMPLEX . cholecalciferol (vitamin D3) 1,250 See Rx Instructions .Route 12/13/22 12/13/22 History mcg (50,000 unit) capsule .COMPLEX Supplement dextromethorphan-guaifenesin ER 60 1 tab PO Q12H . 12/13/22
[2022-12-13 14:26] LABS: CATHL Activated Clotting Time 147 SEC (74-125)
[2022-12-13 14:27] LABS: CATHL Activated Clotting Time 306 SEC (74-125)
[2022-12-13 14:45] LABS: Microscopic, Urine URINE MICROSCOPIC (MICROSCOPIC)
[2022-12-13 14:45] LABS: Coronavirus 19, PCR Not Detected (NotDetected); Influenza A, PCR Not Detected (NotDetected); Influenza B, PCR Not Detected (NotDetected)
--- NOTE | 2022-12-13 14:54 | PC.NURSE ---
arrived by grahamer from [facility]
[2022-12-13 15:07] LABS: Appearance,Urine CLEAR (Clear); Bilirubin,Urine Negative (Negative); Blood, Urine Negative (Negative); Color,Urine YELLOW (Yellow); Glucose,Urine (UA) Negative (Negative); Ketones,Urine Negative (Negative); Leukocyte Esterase,Urine Negative (Negative); Nitrate,Urine Negative (Negative); Protein,Urine Negative (Negative); Specific Gravity, Urine <= 1.005 (1.005-1.030); Urobilinogen,Urine 0.2 EU/dl (0.2)
[2022-12-13 15:36] LABS: Squamous Epithelial Cell,Urine Occasional #/hpf (0-5); WBC,Urine Occasional #/hpf (0-3)
[2022-12-13 17:46] LABS: POC Glucose,Bedside 138 (70-110)
--- NOTE | 2022-12-13 18:56 | PC.NURSE ---
home medications were asked to be brought in by family during admission. 1515
[2022-12-13 20:21] LABS: POC Glucose,Bedside 132 (70-110)
[2022-12-14] VITALS: BP 149/52; PULSE 65; RESP 18; TEMP 36.4; O2SAT 95
[2022-12-14 02:19] VITALS: PULSE 60
--- NOTE | 2022-12-14 02:47 | PC.NURSE ---
S/P CARDIAC CATH 12/13/22. NO COMPLICATIONS. VSS/AFEBRILE. HAS BEEN NPO SINCE NH ORDERED FOR CARDIAC CONSULT. NO C/O PAIN/SOA/DISCOMFORT. DRSG TO RIGHT WRIST AND RIGHT GROIN C/D/I.
[2022-12-14 04:00] VITALS: BP 143/81; PULSE 58; PULSE 61; RESP 18; TEMP 36.6; O2SAT 94; BMI 29.9
[2022-12-14 05:01] LABS: POC Glucose,Bedside 93 (70-110)
[2022-12-14 06:40] LABS: Basophils % 0.4 % (0.1-2.0); Eosinophils % 0.2 % (0.1-12.0); Hematocrit 42.6 % (37.0-47.0); Hemoglobin 13.6 g/dL (12.2-16.2); Lymphocytes # 2.2 K/mm3 (0.7-4.5); Lymphocytes % 25.1 % (10-50); Mean Corpuscular HGB Conc 31.8 g/dL (31.8-35.4); Mean Corpuscular Hemoglobin 30.5 pg (27.0-31.2); Mean Corpuscular Volume 95.8 fl (81-99); Mean Platelet Volume 8.2 fl (7.4-10.4); Monocytes # 0.6 K/mm3 (0.1-1.0); Monocytes % 7.1 % (1.7-9.3); Neutrophils # 5.9 K/mm3 (1.8-7.8); Neutrophils % 67.2 % (37.0-80.0); Platelet Count 249 K/mm3 (142-424); Red Blood Count 4.45 M/mm3 (4.20-5.40); Red Cell Distribution Width 14.3 % (11.5-17.5); White Blood Count 8.8 K/mm3 (4.8-10.8)
[2022-12-14 06:46] LABS: Chloride 100 mmol/L (98-107); Potassium 3.6 mmoL/L (3.5-5.1); Sodium 137 mmol/L (136-145)
[2022-12-14 06:49] LABS: Anion Gap 6.6 mEq/L (5-15); Blood Urea Nitrogen 15 mg/dl (7-17); Calcium 8.2 mg/dl (8.4-10.2); Carbon Dioxide 34 mmol/L (22.0-30.0); Creatinine Clearance Estimated 80 mL/min (50-200); Estimated Glomerular Filt Rate 85 ml/min (>60); GFR (African American) 103 ML/MIN (>60); Glucose 83 mg/dl (74-100)
[2022-12-14 07:29] VITALS: BP 133/85; PULSE 68; RESP 17; TEMP 36.7; O2SAT 96
[2022-12-14 08:00] VITALS: O2SAT 96
--- NOTE | 2022-12-14 08:15 | EXP.DC.SUM ---
General Admission date:: 12/13/22 Discharge date: 12/14/22 HPI HPI HPI: 62-year-old female with extensive cardiovascular and peripheral artery disease history who presented for elective outpatient cath. Taken to the [facility] with identification of coronary artery disease, not significant enough to necessitate stenting. Also noted to have right common iliac stenosis necessitating stent placement. After procedure, patient necessitates observation as she cannot get up for 6 to 8 hours and needs monitoring with femoral sheath for signs of bleeding. Patient at this time denies any shortness of breath, nausea, vomiting, chest pain, confusion. Has been having dyspnea with exertion prior to her left heart cath. Stable on room air. Supine in bed on evaluation. Cardiac catheterization findings as follows: Successful stent to the right common iliac artery severe stenosis reduced to 0% with 1 balloon mounted bare-metal stent Hospital Course Hospital Course Hospital Course: 62-year-old female with extensive cardiovascular and peripheral artery disease history.? Admitted after left heart cath and stenting of right common iliac.? Cardiology consulted for admission for observation, decision made to admit patient.? Patient required to lay flat for at least 6 hours after sheath removal from right femoral artery approach for stenting. Tolerated well. No issues with bleeding overnight. No complications during her procedure. Problems addressed during hospitalization as follows: Coronary artery disease Peripheral artery disease Essential hypertension -Tolerated heart cath and placement of common iliac stent well without complication. Monitoring for bleeding overnight with no episodes. Continue home med dose of lisinopril 20 mg daily, metoprolol succinate 50 mg daily, -Loaded with 325 mg of aspirin and 300 mg of Plavix.? Continue Plavix 75 mg daily at discharge and resume Xarelto 2.5 mg twice daily for peripheral artery disease. Continue patient's statin therapy per home regimen. Counseled on risk factor modification including smoking cessation. Patient amenable to patches, sent with 21 mg patch daily at discharge. Medically stable to discharge home. Close follow-up with cardiology as scheduled Mood disorder -Continue Vraylar 1.5 mg daily COPD -Continue Symbicort inhaler daily Exam Data for Last 24 hours Vital signs and Labs for Last 24 Hours: Temp Pulse Resp BP Pulse Ox 98.0 F 68 17 133/85 96 12/14/22 07:29 12/14/22 07:29 12/14/22 07:29 12/14/22 07:29 12/14/22 07:29 Laboratory Results - last 24 hr 12/13/22 12:40: Urine Color Yellow, Urine Appearance Clear, Urine pH 6.0, Ur Specific [place] <= 1.005, Urine Protein Negative, Urine Glucose (UA) Negative, Urine Ketones Negative, Urine Blood Negative, Urine Nitrate Negative, Urine Bilirubin Negative, Urine Urobilinogen 0.2, Ur Leukocyte Esterase Negative, Urine RBC None, Urine WBC Occasional, Ur Squamous Epith Cells Occasional, Urine Bacteria None 12/13/22 12:45: Activated Clotting Time 282 H* 12/13/22 13:17: Activated Clotting Time 306 H* 12/13/22 14:04: Activated Clotting Time 147 H D 12/13/22 14:30: SARS-CoV-2 (PCR) Not detected, Influenza A Untype (PCR) Not detected, Influenza Type B (PCR) Not detected 12/13/22 17:39: POC Glucose 138 H 12/13/22 20:13: POC Glucose 132 H 12/14/22 04:54: POC Glucose 93 12/14/22 05:57: WBC 8.8, RBC 4.45, Hgb 13.6, Hct 42.6, MCV 95.8, MCH 30.5, MCHC 31.8, RDW 14.3, Plt Count 249, MPV 8.2, Neut % (Auto) 67.2, Lymph % (Auto) 25.1, [place] % (Auto) 7.1, Eos % (Auto) 0.2, Baso % (Auto) 0.4, Neut # (Auto) 5.9, Lymph # (Auto) 2.2, [place] # (Auto) 0.6, Eos # (Auto) 0.0, Baso # (Auto) 0.0 12/14/22 05:57: Sodium 137, Potassium 3.6, Chloride 100, Carbon Dioxide 34 H, Anion Gap 6.6, BUN 15, Creatinine 0.70, Estimated Creat Clear 80, Estimated GFR 85, Est GFR ( Amer) 103, Glucose 83, Calcium 8.2 L I & O for Last 24 hours: Intake & Output 12/11/22 01
--- NOTE | 2022-12-14 09:18 | P.CONPHA_ITS ---
PHA Manager Materials Management Discharge Med Building Maintenance Repairer: Martina Chamberlain has received discharge medication counseling on the following medications: -ASPIRIN (,ANTIPLATELET, DAILY, BLEED/BRUISE RISK, BLEED LOCATION CHANGES APPEARANCE, BUMP HEAD = GO TO ER) -BISOPROLOL (HEART RATE/BLOOD PRESSURE, TWICE DAILY, DIZZINESS, LIGHTHEADEDNESS, HEADACHE, LOW BP, SLOWED HR) -PLAVIX (ANTIPLATELET, DAILY, BLEED/BRUISE RISK, SHORTNESS OF BREATH POSSIBLE, -LISINOPRIL (ON PREVIOUSLY, NO QUESTIONS) -LOVASTATIN (ON PREVIOUSLY, NO QUESTIONS) -XARELTO (CONTINUE PER DR HOPE, PATIENT PREVIOUSLY ON, NO QUESTIONS) -PANTOPRAZOLE (FOR REFLUX, REPLACES OMEPRAZOLE, AT BEDTIME) -STOP THE FOLLOWING: OMEPRAZOLE, METOPROLOL, IBUPROFEN PATIENT VERBALIZES NO QUESTIONS AT THIS TIME.
--- NOTE | 2022-12-15 13:47 | CARE MANAGER ---
Spoke with patient for post-discharge phone interview, no issues noted.
== END 2022-12-14 11:22 | disposition home or self-care (01) ==
LOC: 2ND 12:23
PROVIDERS: Internal Medicine; Admitting Provider Internal Medicine Adolescent Medicine; PCP Physician Assistant; Visit Provider Internal Medicine Adolescent Medicine
DX: R94.39 Abnormal result of other cardiovascular function study (principal); T82.856A Stenosis of peripheral vascular stent, initial encounter; I77.1 Stricture of artery; I25.118 Atherosclerotic heart disease of native coronary artery with other forms of angina pectoris; I10 Essential (primary) hypertension; F17.210 Nicotine dependence, cigarettes, uncomplicated; Z79.899 Other long term (current) drug therapy; Z79.01 Long term (current) use of anticoagulants; R29.6 Repeated falls; I70.223 Atherosclerosis of native arteries of extremities with rest pain, bilateral legs; Y83.1 Surgical operation with implant of artificial internal device as the cause of abnormal reaction of the patient, or of later complication, without mention of misadventure at the time of the procedure
CPT/HCPCS: G0378; 36415; 37221; 75625; 80048; 81001; 82962; 85025; 85347; 93458; 94640; 99152; 99153; C1725; C1769; C1876; C1894; C9803; J1644; J2720; Q9966; Q9967; U0003; U0005

== ENCOUNTER → 2023-01-26 08:58 | Outpatient (POV) | payer MEDICARE, MEDICAID, SELFPAY ==
[2023-01-26 09:10] VITALS: BP 157/55; PULSE 94; RESP 18; O2SAT 98; BMI 28.1
--- NOTE | 2023-01-26 09:30 | EXP.PAIN.SOA ---
[facility] Pain Management SOAP Note Subjective:: Patient is a pleasant 62-year-old female who presents today for 1 year follow-up. We are currently treating the patient for degenerative disc disease of lumbar spine with lumbar radiculopathy symptoms, lumbar facet arthropathy, lumbar spondylosis. Today she rates her pain a 4 out of 10. Patient denies any new trauma or injury. Patient denies any change location or type of pain she experiences. She does state that over the last 6 months she has had worsening pain in the middle of her back. She does describe this as a constant achy sensation that is worse with increased activity. She states that she cannot do activities of daily living such as sweeping or mopping or even doing the dishes. She states she has difficulty cooking and cannot tolerate any motions involving twisting or bending. She also states she has difficulty picking up objects. She is an at home refill patient with [facility]. She is currently managed with bupivacaine 20 mg/mL with a daily dose of 6.27 mg/day. Patient denies any side effects from her intrathecal pump medication. She states that overall it does do well. Patient does have a cardiac history and is seen Dr. Bowers's office and is prescribed Xarelto on a daily basis. Patient is currently managed with gabapentin 800 mg 3 times a day and clonazepam 1 mg 3 times a day from her primary care doctor. Patient denies any side effects from this medication. Her Isidro is [id number]. Its been reviewed and appropriate. Review of Systems: General: No recent weight changes, no fever, no sleep disturbances Respiratory: No cough, no shortness of air, no recurring pulmonary infections Cardiovascular/peripheral vascular: No chest pain, no palpitations, no edema, no shortness of breath Gastrointestinal: No new onset incontinence, normal bowel movements reported Genitourinary: No new onset incontinence Musculoskeletal: Low back pain Psychiatric: [Normal mood/affect] Neurological: [Denies weakness in extremities], [denies balance issues] Objective:: Physical Exam: General: Alert and oriented x3, no acute distress, pleasant and cooperative Lungs: Respirations even and unlabored, symmetrical chest expansion Eyes: PERRL Musculoskeletal: Flexion and extension of lumbar [spine] somewhat guarded secondary to pain, [antalgic gait noted] positive Kemps test Neurological: Speech clear, no gross sensory deficit Assessment:: Degenerative disc disease of lumbar spine with lumbar radiculopathy symptoms, lumbar facet arthropathy, lumbar spondylosis Plan:: She is experiencing significant pain in her low back with limited range of motion. Patient did have limited range of motion of her lumbar spine along with a positive Kemps test during today's exam. She cannot tolerate any movements involving bending, lifting, twisting due to her worsening pain symptoms. I have discussed with the patient that she may benefit from medial branch blocks of her lumbar spine. Risk and benefits were discussed with the patient and she would like to proceed forward with this plan of care. I have counseled the patient that we will contact Dr. Bowers's office to confirm that she can come off her Xarelto prior to these injections. We will schedule her for lumbar medial branch block bilaterally L1-L2 and L2-L3. Patient has been instructed to contact the clinic with any concerns before the next appointment. Dr. Luevano has reviewed this note and agrees with this plan of care. This note was dictated using voice recognition software and make contain errors or omissions. [facility] Disclaimer: The information contained in this section may have been updated after the patient was seen, as this information can be updated by other users. Medical History Abnormal ankle brachial index ([place]) Acute and chronic respiratory failure with hypoxia AYANA (acute kidney injury) Anxiety Atypical angina Mirela
== END ==
PROVIDERS: PCP Physician Assistant; Visit Provider Nurse Practitioner Family
DX: M51.16 Intervertebral disc disorders with radiculopathy, lumbar region (principal); M47.26 Other spondylosis with radiculopathy, lumbar region
CPT/HCPCS: 99212; G0463

== ENCOUNTER 2023-02-20 10:10 | Day surgery (SDC) | payer MEDICARE, MEDICAID, SELFPAY ==
[2023-02-20 10:21] VITALS: BP 138/77; PULSE 87; RESP 18; TEMP 36.4; O2SAT 90; BMI 27.8
[2023-02-20 10:25] VITALS: BP 157/77; PULSE 81; RESP 18; O2SAT 96
[2023-02-20 10:26] VITALS: BP 157/77; PULSE 81; RESP 18; O2SAT 96
[2023-02-20 10:29] VITALS: BP 147/71; PULSE 77; RESP 18; O2SAT 90
--- NOTE | 2023-02-20 10:29 | P.PCN_ITS ---
Procedure Date: 02/20/23 Time: 10:20 Anesthesiologist:: Philip Guy CRNA Complications:: None Pre-procedure Diagnosis:: Degenerative disc disease lumbar spine multilevels. Lumbar radiculopathy. Lumbar spondylosis. Multilevel lumbar facet arthropathy. Post-procedure Diagnosis:: Same. Indications for Procedure:: This patient is a pleasant 62-year-old female that comes our clinic today for L1-2, L2-3 medial branch blocks/facet block. She has upper lumbar pain that she describes as constant, dull, aching. Patient also being managed with intrathecal pain pump. Procedure Details:: Informed consent was obtained and the risk and benefits of the procedure was explained to the patient. Patient was taken to the procedure room where noninvasive monitors were placed, including noninvasive blood pressure cuff as well as pulse oximeter. The area over the lumbar spine was cleansed using chlorhexidine as a cleansing solution. I anesthetized the skin and subcutaneous tissues with 1% Lidocaine. I placed 22-gauge spinal needles into the facet joint/ medial branches of L1-2, L2-3 bilaterally. Needle placement was confirmed with fluoroscopy. After confirmation of needle placement, each site was injected with 1 mL of 1% lidocaine and 0.25 % Marcaine and 10 mg of Depo-Medrol. A total of 40 mg of depo medrol was used for bilateral medial branch blocks of L1-2, L2- 3 bilaterally. Patient tolerated the procedure without difficulty. There were no complications. Plan and Disposition:: Patient was discharged without incident.
== END 2023-02-20 10:29 | disposition home or self-care (01) ==
PROVIDERS: PCP Physician Assistant; Visit Provider Nurse Anesthetist, Certified Registered
DX: M51.16 Intervertebral disc disorders with radiculopathy, lumbar region (principal); M47.896 Other spondylosis, lumbar region; Z97.8 Presence of other specified devices
CPT/HCPCS: 64493; 64494; J1040

== ENCOUNTER → 2023-03-29 14:31 | Outpatient (POV) | payer MEDICARE, MEDICAID, SELFPAY ==
--- NOTE | 2023-03-29 14:48 | EXP.PAIN.SOA ---
[facility] Pain Management SOAP Note Subjective:: Patient is a pleasant 62-year-old female who presents today for follow-up of medial branch block of her lumbar spine bilaterally of L1-2 and L2-3 on 02/20/2023..? We are currently treating the patient for degenerative disc disease of lumbar spine with lumbar radiculopathy symptoms, lumbar facet arthropathy, lumbar spondylosis.? Today she rates her pain a 7 out of 10.? She states she did have 50% improvement following this injection however only lasting 5 days. During that time she was able to increase her activity somewhat with decreased pain symptoms. Patient denies any new trauma or injury.? Patient denies any change location or type of pain she experiences.? She does feel like she is back to her baseline today and continues to complain of mid to low back pain that is a constant achy, throbbing sensation that is worse with increased activity. Patient cannot tolerate activities of daily living such as sweeping or mopping or doing the dishes. She also states she frequently has to take multiple breaks and sit down due to her increasing pain. She states she is unable to even go to the grocery store due to not being able to walk but 5 feet before having to rest. She states when she has gone in the past she has had to use a motorized chair to help with her pain symptoms. She is an at home refill patient with [facility].? She is currently managed with bupivacaine 20 mg/mL with a daily dose of 6.27 mg/day.? Patient denies any side effects from her intrathecal pump medication.? She is on Xarelto daily for cardiac issues and is seen at Dr. Bowers's office. Patient is currently managed with gabapentin 800 mg 3 times a day and clonazepam 1 mg 3 times a day from her primary care doctor.? Patient denies any side effects from this medication.? Her Isidro is [id number].? Its been reviewed and appropriate. Review of Systems: General: No recent weight changes, no fever, no sleep disturbances Respiratory: No cough, no shortness of air, no recurring pulmonary infections Cardiovascular/peripheral vascular: No chest pain, no palpitations,? no edema, no shortness of breath Gastrointestinal: No new onset incontinence, normal bowel movements reported Genitourinary: No new onset incontinence Musculoskeletal: Low back pain Psychiatric: [Normal mood/affect] Neurological: [Denies weakness in extremities], [denies balance issues] Objective:: Physical Exam: General: Alert and oriented x3, no acute distress, pleasant and cooperative Lungs: Respirations even and unlabored, symmetrical chest expansion Eyes: PERRL Musculoskeletal: Flexion and extension of lumbar [spine] somewhat guarded secondary to pain, [antalgic gait noted] positive Kemps test, positive shopping cart sign, Neurological: Speech clear, no gross sensory deficit Assessment:: Degenerative disc disease of lumbar spine with lumbar radiculopathy symptoms, lumbar facet arthropathy, lumbar spondylosis, lumbar spinal stenosis with neurogenic claudication symptoms Plan:: Patient did have significant improvement of upwards of 50% following her first medial branch block. She is experiencing worsening pain in her back today with limited range of motion and a positive Kemps test. Patient also had a positive shopping cart sign during today's visit. I have discussed with the patient that she may benefit from a repeat medial branch block. Risk and benefits were discussed with the patient and she would like to proceed forward with this plan of care. Patient is on Xarelto and we will contact Dr. Bowers's office again to confirm she can come off this medication prior to this injection. Patient has tried and failed conservative therapy such as oral medications, heat and ice, topicals, at home exercising and stretching for longer than 6 weeks and physical therapy. I have also discussed with the patient that due to her positive shopping cart sign and symptoms consistent with spinal stenosis with neurogenic esmer
[2023-03-29 16:05] VITALS: BP 106/70; PULSE 87; RESP 18; O2SAT 98; BMI 27.7
== END ==
PROVIDERS: PCP Physician Assistant; Visit Provider Nurse Practitioner Family
DX: M51.16 Intervertebral disc disorders with radiculopathy, lumbar region (principal); M47.26 Other spondylosis with radiculopathy, lumbar region; M48.062 Spinal stenosis, lumbar region with neurogenic claudication
CPT/HCPCS: 99212; G0463

== ENCOUNTER → 2023-04-26 13:01 | Outpatient (POV) | payer MEDICARE, SELFPAY ==
--- NOTE | 2023-04-26 13:29 | EXP.PAIN.SOA ---
[facility] Pain Management SOAP Note Subjective:: Patient is a pleasant 62-year-old female who presents today for lumbar medial branch block denial. We are currently treating the patient for degenerative disc disease of lumbar spine with lumbar radiculopathy symptoms, lumbar facet arthropathy, lumbar spondylosis, spinal stenosis, ligamentum flavum hypertrophy. Today she rates her pain a 4 out of 10. Patient denies any new trauma or injury. Patient denies any change to the location or type of pain she experiences. She states she continues to have pain in her low back and describes it as a constant aching, throbbing sensation that is worse with increased activity. Patient cannot tolerate activities of daily living such as cooking and cleaning. She states that she frequently has to depend on her son to help around the house because she is unable to tolerate standing for very long periods of time. She also has to frequently lean over the sink when doing the dishes. At our previous visit we had discussed that she may be a beneficial candidate for the minimally invasive lumbar decompression. Patient states today that she has reviewed the educational materials and would like to proceed forward with this option. Patient is currently managed with bupivacaine 20 mg/mL with a daily dose of 6.27 mg/day. She has an at home refill patient with [facility]. Patient denies any side effects from this medication. Patient is on Xarelto and Plavix for her cardiac issues that is managed by Dr. Bowers's office. She is also managed with gabapentin 800 mg and clonazepam 1 mg 3 times a day from her primary care doctor. Patient denies any side effects from this medication. Her Isidro is [id number]. Objective:: Physical Exam: General: Alert and oriented x3, no acute distress, pleasant and cooperative Lungs: Respirations even and unlabored, symmetrical chest expansion Eyes: PERRL Musculoskeletal: Flexion and extension of lumbar [spine] somewhat guarded secondary to pain, [antalgic gait noted] Neurological: Speech clear, no gross sensory deficit TECHNIQUE:? Standard multiplanar multiecho sequences are performed without contrast. 3-D MIP and myelographic images are also rendered and reviewed FINDINGS: There is normal alignment. The spinal cord ends at the L2 level. There is mild lumbar scoliosis convex right. Artifact is present from the patient's pain pump in the left lower lumbar region posteriorly L1-L2: Unremarkable. L2-L3: Unremarkable. L3-L4: Mild facet and ligamentum hypertrophy L4-5: Mild bulging disc with mild facet and ligamentum hypertrophy and mild bilateral lateral recess and foraminal narrowing L5-S1: Degenerative disc disease with minimal bulging disc and mild facet and ligamentum hypertrophy with mild left-sided foraminal narrowing. No extruded herniated disc. No canal stenosis. Overall no significant change from the previous exam aside from artifact from the left sided pain pump IMPRESSION: 1. Mild lumbar spondylosis. Please see above for detailed description at each level. Overall no significant change. 2. Artifact now present from a left-sided pain pump. 3. Mild lumbar curvature convex right. Dictated by: ? Stefano Cowan MD? 03/17/2021 12:25 ?Stefano Cowan MD in [place] 03/17/2021 12:25 Assessment:: Degenerative disc disease of lumbar spine with lumbar radiculopathy symptoms, lumbar facet arthropathy, lumbar spondylosis, spinal stenosis with neurogenic claudication symptoms, ligamentum flavum hypertrophy multilevel Plan:: Patient continues to experience significant pain in her low back and legs with limited range of motion. I have discussed with the patient that she may benefit from a lumbar epidural steroid injection with epidurogram. Risk and benefits were discussed with the patient and she would like to proceed forward with this plan of care. Patient is on 2 blood thinners and will need to stop these medications prior to this injection. We will contact
[2023-04-26 13:55] VITALS: BP 124/66; PULSE 70; RESP 18; TEMP 36.9; O2SAT 93; BMI 27.2
== END ==
PROVIDERS: PCP Physician Assistant; Visit Provider Nurse Practitioner Family
DX: M51.16 Intervertebral disc disorders with radiculopathy, lumbar region (principal); M47.26 Other spondylosis with radiculopathy, lumbar region; M48.061 Spinal stenosis, lumbar region without neurogenic claudication
CPT/HCPCS: 99212; G0463

== ENCOUNTER 2023-05-04 13:39 | Day surgery (SDC) | payer MEDICARE, SELFPAY ==
[2023-05-04 13:45] VITALS: BP 131/60; PULSE 81; RESP 20; TEMP 36.9; O2SAT 91; BMI 27.1
[2023-05-04 14:02] VITALS: BP 136/88; PULSE 83; RESP 18; O2SAT 97
[2023-05-04 14:15] VITALS: BP 153/78; PULSE 78; RESP 20
--- NOTE | 2023-05-04 14:45 | EXP.PAIN.PRO ---
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 The patient does have an intrathecal bupivacaine pain pump. She is doing very well with the pump it is helping her back pain tremendously. However she does have significant pain walking and standing especially in her back and down her legs. We will do a lumbar epidural steroid injection with epidurogram to assess levels of stenosis and candidacy for minimally invasive lumbar decompression. Procedure Details:: Informed consent was obtained and the risk and benefits of the procedure was explained to the patient. The patient was taken to the procedure room. The patient was placed prone on the procedure table. The patient was prepped and draped in sterile fashion. C-arm fluoroscopy was used to view the lumbar spine. Skin and subcutaneous tissues were anesthetized using lidocaine. I placed an 18-gauge epidural needle and advanced into the L4-L5 interspace using fluoroscopic guidance and [id number] to air. After confirmation of needle placement in the epidural space with dye I injected 2 mL of lidocaine 1.5% with Depo-Medrol 80 mg. Patient tolerated the procedure well with no complications. Plan and Disposition:: Based on epidurogram patient is a good candidate for minimally invasive lumbar decompression at L3-L4 and L4-L5. We will need the patient to be off of her Plavix and Xarelto prior to this procedure for 7 days. When approved we will schedule for bilateral L3-L4 and L4-L5 minimally invasive lumbar decompression. We will use steroid on this procedure.
== END 2023-05-04 14:15 | disposition home or self-care (01) ==
LOC: SC.PAINP 13:40
PROVIDERS: PCP Physician Assistant; Visit Provider Nurse Anesthetist, Certified Registered
DX: M48.062 Spinal stenosis, lumbar region with neurogenic claudication (principal); M51.36 Other intervertebral disc degeneration, lumbar region
CPT/HCPCS: 62323; J1040; Q9966

== ENCOUNTER → 2023-07-03 12:22 | Outpatient (CLI) | payer MEDICARE, SELFPAY ==
[2023-07-03 12:49] LABS: Basophils % 0.5 % (0.1-2.0); Eosinophils # 0.1 K/mm3 (0.0-0.4); Eosinophils % 1.8 % (0.1-12.0); Hemoglobin 13.2 g/dL (12.2-16.2); Lymphocytes # 1.4 K/mm3 (0.7-4.5); Mean Corpuscular HGB Conc 33.1 g/dL (31.8-35.4); Mean Corpuscular Hemoglobin 32.1 pg (27.0-31.2); Mean Corpuscular Volume 96.9 fl (81-99); Mean Platelet Volume 9.1 fl (7.4-10.4); Monocytes # 0.4 K/mm3 (0.1-1.0); Monocytes % 6.4 % (1.7-9.3); Neutrophils # 3.8 K/mm3 (1.8-7.8); Neutrophils % 66.3 % (37.0-80.0); Platelet Count 257 K/mm3 (142-424); Red Blood Count 4.12 M/mm3 (4.20-5.40); Red Cell Distribution Width 13.6 % (11.5-17.5); White Blood Count 5.7 K/mm3 (4.8-10.8)
[2023-07-03 13:24] LABS: Alanine Aminotransferase 18 U/L (12-78); Albumin Level 3.9 g/dl (3.5-5.0); Alkaline Phosphatase 77 U/L (38-126); Aspartate Amino Transferase 24 U/L (14-36); Bilirubin,Indirect 0.4 mg/dL (0.0-0.9); Bilirubin,Total 0.4 mg/dl (0.2-1.3); Bilirubin,Unconjugated 0.5 mg/dL (0.0-1.1); Chol/HDL Ratio 3.3 (1-3.5); Cholesterol 154 mg/dl (140-200); HDL Cholesterol 46 mg/dl (40-60); Total Protein,Serum 6.2 g/dl (6.3-8.2); Triglycerides 115 mg/dl (30-150); VLDL Cholesterol 23 mg/dL (0-40)
[2023-07-03 13:26] LABS: Anion Gap 13.1 mEq/L (5-15); Blood Urea Nitrogen 10 mg/dl (7-17); Calcium 8.4 mg/dl (8.4-10.2); Carbon Dioxide 32 mmol/L (22.0-30.0); Chloride 100 mmol/L (98-107); Estimated Glomerular Filt Rate 73 ml/min (>60); GFR (African American) 88 ML/MIN (>60); Glucose 93 mg/dl (74-100); Potassium 3.1 mmoL/L (3.5-5.1); Sodium 142 mmol/L (136-145)
[2023-07-03 13:36] LABS: Direct LDL Cholesterol 83.63 mg/dL (100-129)
== END ==
PROVIDERS: Nurse Practitioner Family; PCP Physician Assistant; Visit Provider Anesthesiology
DX: E78.5 Hyperlipidemia, unspecified (principal); I73.9 Peripheral vascular disease, unspecified; J44.9 Chronic obstructive pulmonary disease, unspecified; I11.9 Hypertensive heart disease without heart failure
CPT/HCPCS: 36415; 80048; 80061; 80076; 85025

== ENCOUNTER 2023-07-06 06:10 | Day surgery (SDC) | payer MEDICARE, SELFPAY ==
[2023-07-03 16:39] VITALS: BMI 27.1
[2023-07-06 06:28] VITALS: BP 140/71; PULSE 73; RESP 18; TEMP 37; O2SAT 93
--- NOTE | 2023-07-06 06:48 | EXP.ANES.CKL ---
[facility] Disclaimer: The information contained in this section may have been updated after the patient was seen, as this information can be updated by other users. Medical History Abnormal ankle brachial index ([place]) Acute and chronic respiratory failure with hypoxia AYANA (acute kidney injury) Anxiety Atypical angina Back Pain BMI 32.0-32.9,adult BMI 33.0-33.9,adult CAD (coronary artery disease) Claudication Claudication COPD (chronic obstructive pulmonary disease) Coronary artery calcification seen on CT scan Depression Dizziness Dyspnea Dyspnea Edema GERD (gastroesophageal reflux disease) HTN (hypertension) HTN (hypertension) Hypoxemia Occult blood in stools AMRVA (obstructive sleep apnea) PAD (peripheral artery disease) Radiculopathy with lower extremity symptoms Restless legs syndrome (RLS) Right leg pain Septic shock Severe sepsis with acute organ dysfunction Smoker Tobacco abuse Tobacco dependence syndrome Surgical History No significant past surgical history Family History Other Coronary artery disease Social History Smoking Status: Current every day smoker tobacco type: cigarettes packs per day: 1 second hand exposure: No alcohol intake: never substance use type: denies use current occupational status: retired Travel in the last 8 weeks: None household members: spouse housing: house current occupational exposures/hazards: No caffeine: Yes [facility] Anesthesia Checklist Patient Identification Patient Identification: Arm Band and Verbal (Name & ) Structural Data Admitted From: Home Planned Operative Procedure/s: Lumbar decompression Consent for Planned Operative Procedure(s) Verified: Yes Verified Documents: Surgical Consent NPO Status Verified Time NPO: 00:00 Additional verifications Patient : No Anesthesia Reactions: No Hx Blood Transfusions: No Blood Transfusion Reaction: No Airway Assessment Mallampati Score:: Class I C-Spine Mobility Assessed: Yes TMJ Mobility Assessed: Yes Dentition: Dentures-poor fitting Neurological Assessment Level of Consciousness: Awake and Alert Hx Seizures: No Anesthesia Plan ASA Class: III Anesthesia Type: IV sedation
[2023-07-06 08:55] VITALS: TEMP 43
[2023-07-06 09:30] VITALS: BP 106/66; PULSE 82; RESP 18; TEMP 36.5; O2SAT 95
[2023-07-06 09:45] VITALS: BP 134/66; PULSE 81; RESP 18; TEMP 36.5; O2SAT 95
--- NOTE | 2023-07-06 09:48 | EXP.OP.NOTE ---
Date of procedure: 07/06/23 Pre-op Diagnosis:: Degenerative disc disease of lumbar spine with lumbar spinal stenosis and neurogenic claudication symptoms Post-op Diagnosis:: Same Procedure performed:: Minimally invasive lumbar decompression bilateral L3-L4 and L4-L5 Surgeon:: Usama Luevano MD BUILDING TRADES INSTRUCTOR:: Other Anesthesia: MAC Estimated blood loss (mL): 1 Clinical Note:: Patient is a pleasant 62-year-old white female who we have been treating for low back pain with lumbar spinal stenosis and neurogenic claudication symptoms as well as lumbar radiculopathy symptoms. She does have an intrathecal pain pump in place. This is helping however she has significant neurogenic claudication symptoms worse pain in her back and legs when she is standing and walking. We reviewed her MRI and also done epidurogram she does have significant stenosis at L3-4 L4-L5 bilaterally. She has been off her Plavix and Xarelto for 7 days. She presents for minimally invasive lumbar decompression bilateral L3-4 and L4-L5 today. Operative findings:: None Operative note:: Informed consent was obtained and the risk and benefits of the procedure was explained to the patient. The patient was taken to the operating room and placed prone on the procedure table. The patient was prepped and draped in sterile fashion. C-arm fluoroscopy was used to view the lumbar spine. The skin and subcutaneous tissues were anesthetized using lidocaine. A epidural needle was inserted and advanced into the L3-L4 interspace. After confirmation of needle placement in the epidural space, dye was injected in a contralateral oblique view. There was an epidurogram seen at L3-L4 and L4-L5. Significant stenosis was seen at L3-L4 and L4-L5. The skin and subcutaneous tissues again were anesthetized using lidocaine. An incision was made and a access trocar was inserted and advanced to contact at the superior aspect of the L4 lamina on the left side. And a contralateral oblique view the side was viewed. Using a bone rongeur and tissue sculptor we debulked bone from the L3-L4 and L4-L5 interspace on the left side. We then used the tissue sculptor to debulk ligament at the L3-L4 and L4-L5 interspace on the left side. We then moved over to the right side and debulked bone and ligament from L3-L4 and L4-L5 on the right side. There is opening of the stenosis at L3-L4 and L4-L5 bilaterally. The access trocar was removed. A total of 3 mL's of dye was used. There is good spread of dye above and below this level as well. We injected 80 mg Depo-Medrol through the epidural needle. The epidural needle was removed and dressings were placed. This encounter for exam is for normal comparison and control in a clinical research program Patient was taken to recovery in stable condition. Patient was discharged home neurologically intact and with good relief of pain symptoms. Plan and disposition: We will follow-up with this patient in 2 weeks. Will reevaluate symptoms at that time. Condition: stable Disposition: PACU Complications:: None
[2023-07-06 10:00] VITALS: BP 142/62; PULSE 78; RESP 18; TEMP 36.5; O2SAT 98
[2023-07-06 10:30] VITALS: BP 129/57; PULSE 69; RESP 18; TEMP 36.5; O2SAT 99
== END 2023-07-06 10:30 | disposition home or self-care (01) ==
PROVIDERS: PCP Physician Assistant; Visit Provider Anesthesiology
DX: M48.062 Spinal stenosis, lumbar region with neurogenic claudication (principal); Z00.6 Encounter for examination for normal comparison and control in clinical research program
CPT/HCPCS: 0275T; 96374; C1889; J1040; Q9966

== ENCOUNTER → 2023-07-20 11:35 | Outpatient (POV) | payer MEDICARE, SELFPAY ==
[2023-07-20 13:29] VITALS: BP 148/71; PULSE 74; RESP 18; O2SAT 92; BMI 26.6
--- NOTE | 2023-07-20 13:38 | EXP.PAIN.SOA ---
[facility] Pain Management SOAP Note Subjective:: This patient is a very pleasant 62-year-old female that comes our clinic today for follow-up visit after receiving L3-4, L4-5 MILD procedure. She reports 80% improvement in terms of her overall low back pain as well as bilateral hip and leg radicular symptoms. She rates her pain today 2/10. Patient states she is able to walk through [employer] for 30 to 60 minutes without pain. This was not possible prior to having the procedure. Patient also has bupivacaine pump 20 mg/mL at a daily dose of 6.27 mg/day. Patient continues taking gabapentin 800 mg 1 p.o. 3 times daily from her PCP. Also clonazepam 1 mg 3 times daily from her PCP. Her pump was refilled at home by [facility]. Patient's Isidro #[id number] is been reviewed and appropriate. Objective:: Patient is awake alert [place] x3 no acute distress. Flexion-extension lumbar spine normal. Deep tendon reflexes upper and lower extremities normal. Motor strength upper and lower extremities normal. There is no gross sensory deficit. Gait is normal. Assessment:: Degenerative disc lumbar spine multilevels. Lumbar radiculopathy. Lumbar spinal stenosis. Neurogenic claudication lumbar spine. Plan:: Patient will return to see us in 2 months. [facility] Disclaimer: The information contained in this section may have been updated after the patient was seen, as this information can be updated by other users. Medical History Abnormal ankle brachial index ([place]) Acute and chronic respiratory failure with hypoxia AYANA (acute kidney injury) Anxiety Atypical angina Back Pain BMI 32.0-32.9,adult BMI 33.0-33.9,adult CAD (coronary artery disease) Claudication Claudication COPD (chronic obstructive pulmonary disease) Coronary artery calcification seen on CT scan Depression Dizziness Dyspnea Dyspnea Edema GERD (gastroesophageal reflux disease) HTN (hypertension) HTN (hypertension) Hypoxemia Occult blood in stools MARVA (obstructive sleep apnea) PAD (peripheral artery disease) Radiculopathy with lower extremity symptoms Restless legs syndrome (RLS) Right leg pain Septic shock Severe sepsis with acute organ dysfunction Smoker Tobacco abuse Tobacco dependence syndrome Surgical History No significant past surgical history Family History Other Coronary artery disease Social History Smoking Status: Current every day smoker tobacco type: cigarettes packs per day: 1 second hand exposure: No alcohol intake: never substance use type: denies use current occupational status: retired Travel in the last 8 weeks: None household members: spouse housing: house current occupational exposures/hazards: No caffeine: Yes
== END ==
PROVIDERS: PCP Physician Assistant; Visit Provider Nurse Anesthetist, Certified Registered
DX: M51.16 Intervertebral disc disorders with radiculopathy, lumbar region (principal); M48.062 Spinal stenosis, lumbar region with neurogenic claudication
CPT/HCPCS: 99212; G0463

== ENCOUNTER 2023-10-27 05:11 | Emergency (ER) | payer MEDICARE, SELFPAY ==
[2023-10-27] VITALS (14 sets, daily range): BP systolic 79–126; BP diastolic 43–69; PULSE 65–87; RESP 18–20; TEMP 36.4–36.6; O2SAT 94–98; BMI 25.0
--- NOTE | 2023-10-27 05:18 | CT_ITS ---
PROCEDURE INFORMATION: Exam: CT Head Without Contrast Exam date and time: 10/27/2023 5:39 AM Age: 62 years old Clinical indication: Syncope and collapse; Additional info: Abd pain syncope TECHNIQUE: Imaging protocol: Computed tomography of the head without contrast. Radiation optimization: All CT scans at this facility use at least one of these dose optimization techniques: automated exposure control; mA and/or kV adjustment per patient size (includes targeted exams where dose is matched to clinical indication); or iterative reconstruction. REPORTING DATA: Count of CT and Cardiac NM exams in prior 12 months: This patient has received 0 known CTs and 0 known cardiac nuclear medicine studies in the 12 months prior to the current study. COMPARISON: CT ANGIO HEAD WITH W/O 10/10/2022 9:08 AM FINDINGS: Brain: There is no evidence for mass effect, midline shift, acute hemorrhage, extra-axial fluid collection or acute lobar infarct. 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 Mild periventricular white matter hypodensity most likely represents chronic microvascular ischemic change. Cerebral ventricles: No ventriculomegaly. Paranasal sinuses: There is subtotal opacification of the right maxillary antrum with thickening of the bony kaye suggesting chronic disease. Patchy mucosal thickening is noted within anterior ethmoid air cells on the right. Mastoid air cells: Visualized mastoid air cells are well aerated. Orbital cavities: The patient is post bilateral cataract surgery. Bones/joints: No acute fracture. Soft tissues: Unremarkable. IMPRESSION: No acute intracranial process.
--- NOTE | 2023-10-27 05:18 | CT_ITS ---
PROCEDURE INFORMATION: Exam: CTA Abdomen and Pelvis With Contrast Exam date and time: 10/27/2023 6:03 AM Age: 62 years old Clinical indication: Abdominal pain; Acute; Additional info: Fall, abd pain syncope TECHNIQUE: Imaging protocol: Computed tomographic angiography of the abdomen and pelvis with contrast. Exam focused on the arteries. 3D rendering (Not supervised by radiologist): MIP and/or 3D reconstructed images were created by the technologist. Radiation optimization: All CT scans at this facility use at least one of these dose optimization techniques: automated exposure control; mA and/or kV adjustment per patient size (includes targeted exams where dose is matched to clinical indication); or iterative reconstruction. Contrast material: ISOVUE; Contrast volume: 100 ml; Contrast route: INTRAVENOUS (IV); REPORTING DATA: Count of CT and Cardiac NM exams in prior 12 months: This patient has received 0 known CTs and 0 known cardiac nuclear medicine studies in the 12 months prior to the current study. COMPARISON: CT ANGIO CHEST 10/27/2023 6:03 AM FINDINGS: Tubes, catheters and devices: Neuro catheter terminates in the thoracic canal Aorta: No aortic aneurysm. No aortic dissection. Celiac trunk and mesenteric arteries: Normal celiac artery. Normal SMA artery. Renal arteries: Mild stenosis at the origin of both renal arteries Right iliac arteries: Endovascular stents in the distal aorta and common iliac arteries and right external iliac artery. The stents are patent Left iliac arteries: No occlusion or significant stenosis. Veins: Portal vein is patent. Splenic vein is patent Liver: No mass. Gallbladder and bile ducts: Unremarkable. No calcified stones. No ductal dilation. Pancreas: Unremarkable. No mass. No ductal dilation. Spleen: Unremarkable. No splenomegaly. Adrenal glands: Unremarkable. No mass. Kidneys and ureters: There is no evidence of renal or ureteral calcifications. Stomach and bowel: 2.2 cm collection of air and debris projecting off of the 3rd duodenum. 2.8 cm collection of air and debris projecting off the 2nd duodenum. The structures most likely represent duodenal diverticulum., Less likely duodenal ulcer. Findings consistent with constipation. Appendix: Normal appendix Intraperitoneal space: Unremarkable. No free air. No significant fluid collection. Lymph nodes: Unremarkable. No enlarged lymph nodes. Urinary bladder: Unremarkable. No mass. Reproductive: Unremarkable as visualized. Bones/joints: No acute fracture. Soft tissues: Unremarkable. IMPRESSION: 2.2 cm collection of air and debris projecting off of the 3rd duodenum. 2.8 cm collection of air and debris projecting off the 2nd duodenum. The structures most likely represent duodenal diverticulum., Less likely duodenal ulcer.
--- NOTE | 2023-10-27 05:18 | CT_ITS ---
PROCEDURE INFORMATION: Exam: CTA Chest With Contrast Exam date and time: 10/27/2023 6:03 AM Age: 62 years old Clinical indication: Pain; Other: Fall; Additional info: Fall, abd pain syncope TECHNIQUE: Imaging protocol: Computed tomographic angiography of the chest with contrast. Exam focused on the arteries. 3D rendering (Not supervised by radiologist): MIP and/or 3D reconstructed images were created by the technologist. Radiation optimization: All CT scans at this facility use at least one of these dose optimization techniques: automated exposure control; mA and/or kV adjustment per patient size (includes targeted exams where dose is matched to clinical indication); or iterative reconstruction. Contrast material: ISOVUE; Contrast volume: 100 ml; Contrast route: INTRAVENOUS (IV); REPORTING DATA: Count of CT and Cardiac NM exams in prior 12 months: This patient has received 0 known CTs and 0 known cardiac nuclear medicine studies in the 12 months prior to the current study. COMPARISON: CT ANGIO CHEST 04/27/2021 2:02 PM FINDINGS: Pulmonary arteries: No evidence of pulmonary embolus to the segmental level. Aorta: No aneurysm of the aorta. No dissection of the aorta. Lungs: Mild panlobular emphysematous changes Pleural spaces: Unremarkable. No pneumothorax. No pleural effusion. Heart: Unremarkable. No cardiomegaly. No pericardial effusion. Coronary arteries: Coronary artery calcifications may indicate coronary artery disease. Lymph nodes: Unremarkable. No enlarged lymph nodes. Bones/joints: Unremarkable. No acute fracture. Soft tissues: Unremarkable. IMPRESSION: 1. No evidence of pulmonary embolus to the segmental level. 2. No aneurysm of the aorta. 3. No dissection of the aorta. COMMENTS: In the absence of a history or active diagnosis of lung cancer, it is recommended that this patient with emphysema be evaluated for enrollment in a low dose CT lung cancer screening program.
--- NOTE | 2023-10-27 05:18 | CT_ITS ---
PROCEDURE INFORMATION: Exam: CT Cervical Spine Without Contrast Exam date and time: 10/27/2023 5:42 AM Age: 62 years old Clinical indication: Neck pain; Additional info: Fall TECHNIQUE: Imaging protocol: Computed tomography of the cervical spine without contrast. Radiation optimization: All CT scans at this facility use at least one of these dose optimization techniques: automated exposure control; mA and/or kV adjustment per patient size (includes targeted exams where dose is matched to clinical indication); or iterative reconstruction. REPORTING DATA: Count of CT and Cardiac NM exams in prior 12 months: This patient has received 0 known CTs and 0 known cardiac nuclear medicine studies in the 12 months prior to the current study. COMPARISON: [facility] RIPPER/O MRI-C-SPINE W/O 11/15/2016 2:43 PM FINDINGS: Bones/joints: There is a mild levoconvex curvature of the cervical spine. There is no evidence for acute cervical fracture. Overall bony mineralization is within normal limits. There is no significant cervical canal or foraminal narrowing. Lungs: Lung apices are normal. Soft tissues: Unremarkable. IMPRESSION: No evidence for acute cervical fracture.
[2023-10-27 05:28] LABS: Basophils # 0.1 K/mm3 (0-0.2); Basophils % 0.6 % (0.1-2.0); Eosinophils # 0.2 K/mm3 (0.0-0.4); Eosinophils % 1.3 % (0.1-12.0); Hematocrit 42.4 % (37.0-47.0); Hemoglobin 14.1 g/dL (12.2-16.2); Lymphocytes # 1.4 K/mm3 (0.7-4.5); Lymphocytes % 11.6 % (10-50); Mean Corpuscular HGB Conc 33.1 g/dL (31.8-35.4); Mean Corpuscular Hemoglobin 32.2 pg (27.0-31.2); Mean Corpuscular Volume 97.3 fl (81-99); Mean Platelet Volume 8.2 fl (7.4-10.4); Monocytes # 0.8 K/mm3 (0.1-1.0); Monocytes % 6.3 % (1.7-9.3); Neutrophils # 9.8 K/mm3 (1.8-7.8); Neutrophils % 80.2 % (37.0-80.0); Platelet Count 258 K/mm3 (142-424); Red Blood Count 4.36 M/mm3 (4.20-5.40); Red Cell Distribution Width 14.9 % (11.5-17.5); White Blood Count 12.2 K/mm3 (4.8-10.8)
[2023-10-27 05:33] LABS: Chloride 106 mmol/L (98-107); Potassium 4.1 mmoL/L (3.5-5.1); Sodium 138 mmol/L (136-145)
[2023-10-27 05:35] LABS: Blood Urea Nitrogen 14 mg/dl (7-17); Creatinine Clearance Estimated 67 mL/min (50-200); Estimated Glomerular Filt Rate 85 ml/min (>60); GFR (African American) 103 ML/MIN (>60)
[2023-10-27 05:36] LABS: Alanine Aminotransferase 22 U/L (12-78); Albumin Level 3.9 g/dl (3.5-5.0); Albumin/Globulin Ratio 1.4 (1.1-1.8); Alkaline Phosphatase 54 U/L (38-126); Anion Gap 9.1 mEq/L (5-15); Aspartate Amino Transferase 32 U/L (14-36); Bilirubin,Total 0.7 mg/dl (0.2-1.3); Calcium 8.3 mg/dl (8.4-10.2); Carbon Dioxide 27 mmol/L (22.0-30.0); Globulin 2.7 g/dL (1.3-3.2); Glucose 125 mg/dl (74-100); Lipase 40 U/L (23-300); Total Protein,Serum 6.6 g/dl (6.3-8.2)
[2023-10-27 05:37] LABS: Lactic Acid 1.7 mmol/L (0.7-2.1)
--- NOTE | 2023-10-27 05:54 | PC.NURSE ---
pt. to radiology
[2023-10-27 06:03] LABS: Troponin I < 0.01 ng/ml (0.00-0.034)
--- NOTE | 2023-10-27 06:11 | HMH.EDGENADL ---
Discharge Plan Disposition Patient Disposition: Home, Self-Care Condition: Good Prescriptions Prescriptions: New polyethylene glycol 3350 [Miralax] 17 gram/dose powder 17 g PO DAILY 30 Days Qty: 510 0RF No Action lovastatin 40 mg tablet 40 mg PO DAILY Qty: 30 5RF rivaroxaban 2.5 mg tablet 2.5 mg PO BID Qty: 180 3RF clopidogrel 75 mg tablet 75 mg PO DAILY Qty: 90 3RF naltrexone 50 mg tablet 50 mg PO DAILY Qty: 30 2RF omeprazole 40 mg capsule,delayed release(DR/EC) See Rx Instructions .ROUTE .COMPLEX Qty: 90 2RF Dose Instruction: TAKE 1 CAPSULE BY MOUTH EVERY DAY FOR GERD Rx Instructions: TAKE 1 CAPSULE BY MOUTH EVERY DAY FOR GERD Ozempic 1 mg/dose (4 mg/3 mL) pen injector See Rx Instructions .ROUTE .COMPLEX Qty: 3 2RF Dose Instruction: INJECT 1MG (0.75 ML) UNDER THE SKIN ONCE WEEKLY Rx Instructions: INJECT 1MG (0.75 ML) UNDER THE SKIN ONCE WEEKLY clonazepam 1 mg tablet 1 mg PO TID 30 Days Qty: 90 0RF duloxetine 60 mg capsule,delayed release(DR/EC) See Rx Instructions .ROUTE .COMPLEX Qty: 30 2RF Dose Instruction: TAKE 1 CAPSULE BY MOUTH EVERY DAY Rx Instructions: TAKE 1 CAPSULE BY MOUTH EVERY DAY cyanocobalamin (vitamin B-12) 500 mcg tablet See Rx Instructions .ROUTE .COMPLEX Qty: 90 1RF Dose Instruction: TAKE 1 TABLET BY MOUTH DAILY FOR SUPPLEMENT Rx Instructions: TAKE 1 TABLET BY MOUTH DAILY FOR SUPPLEMENT quetiapine 25 mg tablet See Rx Instructions .ROUTE .COMPLEX Qty: 90 3RF Dose Instruction: TAKE 1 TABLET BY MOUTH EVERY DAY AT BEDTIME Rx Instructions: TAKE 1 TABLET BY MOUTH EVERY DAY AT BEDTIME gabapentin 800 mg tablet 800 mg PO TID Qty: 90 2RF olanzapine 2.5 mg tablet See Rx Instructions .ROUTE .COMPLEX Qty: 90 0RF Dose Instruction: TAKE 1 TABLET BY MOUTH EVERY DAY Rx Instructions: TAKE 1 TABLET BY MOUTH EVERY DAY ipratropium-albuterol 3 ML solution for nebulization 3 ml IH Q4H tiotropium bromide 4 GM mist 4 g IH DAILY albuterol sulfate 90 mcg/actuation HFA aerosol inhaler See Rx Instructions .ROUTE .COMPLEX Rx Instructions: FOR COPD- INHALE 2 PUFFS EVERY 6 HOURS FOR ASTHMA budesonide-formoterol [Symbicort] 160-4.5 mcg/actuation HFA aerosol inhaler See Rx Instructions .ROUTE .COMPLEX Rx Instructions: TAKE 2 PUFFS BY MOUTH EVERY DAY FOR ASTHMA RINSE MOUTH AFTER USE cholecalciferol (vitamin D3) 1,250 mcg (50,000 unit) capsule See Rx Instructions .ROUTE .COMPLEX Rx Instructions: TAKE 1 CAPSULE BY MOUTH ONCE A WEEK Referrals Follow up/Referrals: Provider,Referral, MD [Primary Care Provider] - See instructions Activity Restrictions/Add. Instructions Additional Instructions/Restrictions: You were evaluated in the emergency department today. Please cloth picker your prescription for MiraLAX and take as prescribed for constipation. Continue taking your omeprazole at home. Follow-up closely with your primary care doctor. I also recommend close follow-up with gastroenterology given that you have outpouchings of your duodenum, which is the first portion of your small intestine. Return to the emergency department for new or worsening symptoms. Clinical Impressions Clinical Impression: Syncope and collapse, Fall, Abdominal pain, Hypotension, Diverticulosis of duodenum, Constipation Instructions Patient Instructions: DI for Syncope in Adults (Fainting), DI for Abdominal Pain-Adult, DI for Constipation Discharge ED Provider: Cheri Zarate General Adult HPI <Pablo Ruiz MD - Last Filed: 10/27/23 06:48> General Chief complaint: Shortness of Breath/Dyspnea Stated complaint: nausea/dyspnea/hypotension Time Seen by Provider: 10/27/23 05:17 Mode of Arrival: EMS Source of Information: Patient Limitations: No Limitations Description of Symptoms (Recalled from ER Triage Doc. by RN): Patient reports she awoke and
--- NOTE | 2023-10-27 06:21 | PC.NURSE ---
ER DOCTOR OVER RODE POLICY DID NOT WANT TO WAIT ON LABS BEFORE SCANNING THE PATIENT FOR CTA CHEST , ABD ,PELVIS.
--- NOTE | 2023-10-27 06:22 | ECG_ITS ---
APPROVED REPORT Exam: Resting ECG HR:65 bpm ECG Measurements Heart Rate 65 AXES NV 198 P 77 QRSd 88 QRS 71 QT 401 T 70 QTc 412 Conclusion SINUS RHYTHM NORMAL ECG UNCONFIRMED REPORT Electronically signed by : Michael Saab MD 10/28/2023 07:34:27
[2023-10-27 08:52] LABS: Microscopic, Urine URINE MICROSCOPIC (MICROSCOPIC)
[2023-10-27 09:04] LABS: Troponin I < 0.01 ng/ml (0.00-0.034)
[2023-10-27 09:09] LABS: Appearance,Urine CLEAR (Clear); Bilirubin,Urine Negative (Negative); Blood, Urine Negative (Negative); Color,Urine YELLOW (Yellow); Glucose,Urine (UA) Negative (Negative); Ketones,Urine Negative (Negative); Leukocyte Esterase,Urine Negative (Negative); Nitrate,Urine Negative (Negative); Protein,Urine Negative (Negative); Urobilinogen,Urine 0.2 EU/dl (0.2)
--- NOTE | 2023-10-27 09:21 | PC.NURSE ---
PT AND FAMILY UPDATED
[2023-10-27 09:32] LABS: Bacteria,Urine Trace /lpf; Squamous Epithelial Cell,Urine Occasional #/hpf (0-5); WBC,Urine Occasional #/hpf (0-3)
== END 2023-10-27 09:48 | disposition home or self-care (01) ==
PROVIDERS: Emergency Medicine; Emergency Provider Emergency Medicine
DX: R55 Syncope and collapse (principal); R42 Dizziness and giddiness; R10.13 Epigastric pain; R11.2 Nausea with vomiting, unspecified; I95.9 Hypotension, unspecified; K57.10 Diverticulosis of small intestine without perforation or abscess without bleeding; K59.00 Constipation, unspecified; I73.9 Peripheral vascular disease, unspecified; J44.9 Chronic obstructive pulmonary disease, unspecified; I25.119 Atherosclerotic heart disease of native coronary artery with unspecified angina pectoris; F17.210 Nicotine dependence, cigarettes, uncomplicated
CPT/HCPCS: 70450; 71275; 72125; 74174; 80053; 81001; 83605; 83690; 84484; 85025; 93005; 96361; 96374; 99285; J2405; Q9967

== ENCOUNTER → 2023-10-29 09:34 | Outpatient (POV) | payer MEDICARE, SELFPAY ==
--- NOTE | 2023-10-29 09:42 | EXP.PAIN.SOA ---
[facility] Pain Management SOAP Note Subjective:: Patient is a pleasant 62-year-old female who presents today for 2-month follow-up. We are currently treating the patient for degenerative disc disease of lumbar spine with lumbar radiculopathy symptoms, lumbar spinal stenosis with neurogenic claudication symptoms. Today she rates her pain a 3 out of 10. Patient states overall she is doing well and has had improvement following her minimally invasive lumbar decompression procedure. Patient states she has been able to increase the frequency of walking and feels overall more functional. She states between this procedure and some weight loss in her pump that she is doing extremely well. Patient does state she has recently experienced an episode where she fell related to her blood pressure going too low and it did cause her to black out. She was sent to the ER for evaluation. She states that they did run multiple scans as well as blood work and that they found something in her intestines. She states that she is scheduled for follow-up to review the findings coming up. Patient does have an intrathecal bupivacaine pump with 20 mg/mL at a daily dose of 6.27 mg/day. She denies any side effects from this medication. She is an at home refill patient. She is also prescribed gabapentin 800 mg 3 times lindsay and clonazepam 1 mg 3 times daily from her PCP. Her Isidro has been reviewed and appropriate. Review of Systems: General: No recent weight changes, no fever, no sleep disturbances Respiratory: No cough, no shortness of air, no recurring pulmonary infections Cardiovascular/peripheral vascular: No chest pain, no palpitations, no edema, no shortness of breath Gastrointestinal: No new onset incontinence, normal bowel movements reported Genitourinary: No new onset incontinence Musculoskeletal: Low back pain Psychiatric: [Normal mood/affect] Neurological: [Denies weakness in extremities], [denies balance issues] Objective:: Physical Exam: General: Alert and oriented x3, no acute distress, pleasant and cooperative Lungs: Respirations even and unlabored, symmetrical chest expansion Eyes: PERRL Musculoskeletal: Flexion and extension of lumbar [spine] somewhat guarded secondary to pain, [antalgic gait noted] Neurological: Speech clear, no gross sensory deficit Assessment:: Degenerative disc disease of lumbar spine with lumbar radiculopathy symptoms, lumbar spinal stenosis with neurogenic claudication symptoms status post minimally invasive lumbar decompression bilaterally L3-L4 and L4-L5. Plan:: Patient continues to do well with her low back pain. I have discussed with the patient that we will plan on seeing her back in 6 months for reevaluation of symptoms and plan of care. Patient has been instructed to contact the clinic with any concerns before the next appointment. Dr. Luevano has reviewed this note and agrees with this plan of care. This note was dictated using voice recognition software and make contain errors or omissions. -- It Is medically necessary for this patient to continue to have their intrathecal pump refilled at regular intervals. This patient had an intrathecal pain pump implanted after meeting criteria of chronic intractable pain for greater than 3 months and failing conservative treatments. Patient has committed and been compliant to the treatment plan and all planned follow up care. Since implantation of the intrathecal pain pump, the patient has had decreased pain and been more functional. Oral medications have been reduced including intake of oral opioids. Patient continues to do well with intrathecal therapy with decrease in pain symptoms and increase in functional status. Stopping intrathecal medications can lead to life threatening withdrawal, seizures, cardiac arrest, severe pain, and possible . Pumps that are not refilled at regular intervals can be damages and cause and need for replacement. We continually titrate dose and concentration to optimize pain
[2023-10-29 10:37] VITALS: BP 128/52; PULSE 74; RESP 18; O2SAT 91; BMI 24.7
== END ==
PROVIDERS: PCP Physician Assistant; Visit Provider Nurse Practitioner Family
DX: M51.16 Intervertebral disc disorders with radiculopathy, lumbar region (principal); M48.062 Spinal stenosis, lumbar region with neurogenic claudication; Z97.8 Presence of other specified devices
CPT/HCPCS: 99212; G0463

== ENCOUNTER 2023-11-26 18:13 | Outpatient (CLI) | payer MEDICARE, SELFPAY ==
[2023-11-26 20:15] LABS: Amphetamine/Metha Screen,Urine Negative ng/ml (<1000)
[2023-11-26 20:16] LABS: Barbiturates Screen,Urine Negative ng/ml (<200)
[2023-11-26 20:17] LABS: Benzodiazepines Screen,Urine Negative ng/ml (<200); Cannabinoid Screen,Urine Negative ng/ml (<50)
[2023-11-26 20:18] LABS: Methadone Screen,Urine Negative ng/ml (<300); Opiate Screen,Urine Negative ng/ml (<300)
[2023-11-26 20:19] LABS: Cocaine Screen,Urine Negative ng/ml (<300)
[2023-11-26 20:20] LABS: Phencyclidine Screen,Urine Negative ng/ml (<25)
[2023-11-30 03:36] LABS: Alprazolam Negative (Cutoff=100); Benzodiazepines Positive ng/mL (Cutoff=100); Clonazepam Positive (.); Clonazepam Confirm 191 ng/mL (Cutoff=100); Flurazepam Negative (Cutoff=100); Lorazepam Negative (Cutoff=100); Midazolam Negative (Cutoff=100); Temazepam Negative (Cutoff=100); Triazolam Negative (Cutoff=100)
[2023-12-03 09:07] LABS: 7-Aminoclonazepam 149
== END 2023-11-26 23:59 ==
LOC: LAB.DROPOF 18:14
PROVIDERS: PCP Physician Assistant; Visit Provider Physician Assistant
DX: Z79.899 Other long term (current) drug therapy (principal)
CPT/HCPCS: 80307; 80346

== ENCOUNTER 2023-12-11 13:50 | Outpatient (CLI) | payer MEDICARE, SELFPAY ==
--- NOTE | 2023-12-11 13:58 | CA_ITS ---
APPROVED REPORT EXAM: Comprehensive 2D, Doppler, and color-flow Echocardiogram Gas Pumper: Otilia Gibson CRT Ht: 5 ft 7 in Wt: 162lbs BSA: 1.85 BP: 141/67 mmHg Indications: pad, Iliac stent, MARVA, HTN, HLD, Smoker, syncope, SOB 2D Dimensions LA Volume 17.40 mL LA Volume Index 9.20 mL/m2 (M/F) 16-34 M-Mode Dimensions RVDd 2.96 cm (0.9-2.6) LA Diam 3.34 cm (1.9-4.0) LVDd 3.50 cm (3.5-5.7) LVDs 2.50 cm (3.5-5.7) IVSd 1.57 cm (0.6-1.1) PWd 1.07 cm (0.6-1.1) EF (Teich) 56.20% FS 28.60% EDV (Teich) 50.90 mL TAPSE 2.05 (<1.7) ESV (Teich) 22.30 mL LV Diastology E Decel Time 260 (160-240 msec) E/A Ratio 0.59 MED A' 10.70 cm/s LAT A' 10.80 cm/s Aortic Valve AO Peak GR. 4.80 mmHg Mitral Valve MV A Velocity 73.0 (40-130 cm/s) E/A Ratio 0.59 Pulmonary Valve PV Peak Velocity 121.0 (50-150 cm/s) Tricuspid Valve TR P. Velocity 136.00 cm/s RAP Estimate 10.00 mmHg RVSP 17.40 mmHg Left Ventricle The left ventricle is normal size. The left ventricular systolic function is normal. The left ventricular ejection fraction is within the normal range. There is increased LV wall thickness. There is normal LV segmental wall motion. Transmitral Doppler flow pattern suggests impaired LV relaxation. LVEF is 60%. Right Ventricle The right ventricle is normal size. The right ventricular systolic function is normal. Atria The left atrium size is normal. The right atrium size is normal. The interatrial septum is not well-visualized. Aortic Valve The aortic valve is mildly thickened. There is no aortic valvular stenosis. No aortic regurgitation is present. Mitral Valve The mitral valve leaflets are mildly thickened. No evidence of mitral valve stenosis. There is no mitral valve regurgitation noted. Tricuspid Valve The tricuspid valve leaflets are thin and pliable. Trace tricuspid regurgitation. There is insufficient TR jet to estimate RVSP. Pulmonic Valve The pulmonary valve is normal in structure. Trace pulmonic regurgitation. Great Vessels The aortic root is normal in size. The ascending aorta is normal in size. The IVC is not well-visualized. Pericardium There is no pericardial effusion. Other Information Study Quality: Fair Conclusion Normal biventricular systolic function. No significant valvular stenosis or regurgitation. Electronically signed by : Dinah Reed MD 12/13/2023 11:50:22
== END 2023-12-11 23:59 ==
LOC: RT 13:51
PROVIDERS: PCP Physician Assistant; Visit Provider Nurse Practitioner Family
DX: I51.89 Other ill-defined heart diseases (principal); R55 Syncope and collapse
CPT/HCPCS: 93306

== ENCOUNTER 2023-12-27 12:44 | Day surgery (SDC) | payer MEDICARE, SELFPAY ==
--- NOTE | 2023-12-21 16:03 | SUR.PREOP ---
Spoke to pt regarding Cards recommendation of stopping blood thinners 5 days prior to procedure. Pt verbalized understanding.
[2023-12-27 13:03] VITALS: BP 102/64; PULSE 71; RESP 18; TEMP 36.4; O2SAT 94
[2023-12-27] MEDS: LACTATED RINGERS 1000ML 1,000 ML 100 ML IV (13:09)
--- NOTE | 2023-12-27 13:16 | P.PNANES_ITS ---
[facility] Disclaimer: The information contained in this section may have been updated after the patient was seen, as this information can be updated by other users. Medical History Abnormal ankle brachial index ([place]) Acute and chronic respiratory failure with hypoxia AYANA (acute kidney injury) Anxiety Atypical angina Back Pain BMI 32.0-32.9,adult BMI 33.0-33.9,adult CAD (coronary artery disease) Claudication Claudication COPD (chronic obstructive pulmonary disease) Coronary artery calcification seen on CT scan Depression Diastolic dysfunction Dizziness Dyspnea Dyspnea Edema GERD (gastroesophageal reflux disease) HTN (hypertension) HTN (hypertension) Hypoxemia Occult blood in stools MARVA (obstructive sleep apnea) PAD (peripheral artery disease) Radiculopathy with lower extremity symptoms Restless legs syndrome (RLS) Right leg pain Septic shock Severe sepsis with acute organ dysfunction Smoker Tobacco abuse Tobacco dependence syndrome Surgical History No significant past surgical history Family History Other Coronary artery disease Social History Smoking Status: Current every day smoker tobacco type: cigarettes packs per day: 1 second hand exposure: No alcohol intake: never substance use type: denies use current occupational status: disabled Travel in the last 8 weeks: None household members: spouse housing: house current occupational exposures/hazards: No caffeine: Yes [facility] Anesthesia Checklist Patient Identification Patient Identification: Arm Band and Verbal (Name & ) Structural Data Admitted From: Home Planned Operative Procedure/s: EGD Consent for Planned Operative Procedure(s) Verified: Yes NPO Status Verified Time NPO: 00:00 Additional verifications Anesthesia Reactions: No Hx Blood Transfusions: No Blood Transfusion Reaction: No Airway Assessment Mallampati Score:: Class II C-Spine Mobility Assessed: Yes TMJ Mobility Assessed: Yes Dentition: Dentures-poor fitting Neurological Assessment Level of Consciousness: Awake Hx Seizures: No Numbness or tingling in extremities: No Anesthesia Plan Anesthesia Risk discussed: Yes Anesthesia Plan: Verified ASA Class: III Anesthesia Type: MAC
[2023-12-27 13:45] VITALS: O2SAT 90
[2023-12-27 13:55] VITALS: BP 101/50; PULSE 68; RESP 16; TEMP 36.1; O2SAT 90
--- NOTE | 2023-12-27 13:58 | HMH.SCOPE ---
Procedure: Date: 12/27/23 Patient Date of :: 1960 Procedure Performed:: Diagnostic EGD Indications:: Abnormal CT scan Performing Provider:: Fermin Elizalde MD Referring Provider:: Lila Yan Sedation:: Propofol Procedure:: The gastroscope was gently passed through the incisoral orifice into the oral cavity and under direct visualization the esophagus was intubated. The endoscope was passed down the esophagus, through the stomach, and into the duodenum. Color, texture, mucosa, and anatomy of the esophagus, stomach, and duodenum were carefully examined with the scope. Findings:: Oropharynx: normal Esophagus: normal EG Junction: intact at 40 cm Cardia: normal Fundus: normal Body: normal Antrum: normal Duodenal bulb: normal Duodenum (second and third portion): Large diverticulum located in the second portion of the duodenum No evidence of ulcer disease or mucosal abnormalities Overall unremarkable EGD Recommendations:: F/U PRN Complications:: None Estimated blood obtained (mL): 0 Colonoscopy Component Colonoscopy Component Was a colonoscopy performed during today's procedure?: No
[2023-12-27 14:05] VITALS: BP 106/54; PULSE 70; RESP 17; O2SAT 96
[2023-12-27 14:15] VITALS: BP 116/56; PULSE 77; RESP 16; O2SAT 96
[2023-12-27 14:25] VITALS: BP 107/77; PULSE 75; RESP 17; O2SAT 95
== END 2023-12-27 14:30 | disposition home or self-care (01) ==
PROVIDERS: PCP Physician Assistant; Visit Provider Internal Medicine Gastroenterology
PROC: 0DJ08ZZ Inspection of Upper Intestinal Tract, Via Natural or Artificial Opening Endoscopic (ICD-10-PCS; CPT 43235; principal; 2023-12-27 13:30)
DX: K57.11 Diverticulosis of small intestine without perforation or abscess with bleeding (principal); R93.5 Abnormal findings on diagnostic imaging of other abdominal regions, including retroperitoneum
CPT/HCPCS: 43235

== ENCOUNTER 2024-01-03 16:16 | Outpatient (CLI) | payer MEDICARE, SELFPAY ==
--- NOTE | 2024-01-03 16:19 | XR_ITS ---
PROCEDURE INFORMATION: Exam: XR Chest Exam date and time: 01/03/2024 4:27 PM Age: 63 years old Clinical indication: Shortness of breath; Patient HX: Smoker TECHNIQUE: Imaging protocol: Radiologic exam of the chest. Views: 2 views. COMPARISON: CT ANGIO CHEST 10/27/2023 6:03 AM FINDINGS: Lungs: Unremarkable. No consolidation. Pleural spaces: Unremarkable. No pleural effusion. No pneumothorax. Heart/Mediastinum: Unremarkable. No cardiomegaly. Vasculature: Atherosclerosis. Diaphragm: Flattening of the hemidiaphragms. Bones/joints: Unremarkable. IMPRESSION: 1. Flattening of the hemidiaphragms may indicate underlying emphysematous changes. 2. Atherosclerosis.
[2024-01-03 18:16] LABS: Adenovirus,PCR Not Detected (NotDetected); Coronavirus 19, PCR Not Detected (NotDetected); Coronavirus 229E Not Detected (NotDetected); Coronavirus NL63 Not Detected (NotDetected); Coronavirus OC43 Not Detected (NotDetected); Coronovirus HKU1,PCR Not Detected (NotDetected); Human Metapneumovirus Not Detected (NotDetected); Influenza A, PCR Not Detected (NotDetected); Influenza AH1, 2009 Not Detected (NotDetected); Influenza AH1, PCR Not Detected (NotDetected); Influenza AH3,PCR Not Detected (NotDetected); Influenza B, PCR Not Detected (NotDetected); Parainfluenza 1, PCR Not Detected (NotDetected); Parainfluenza 2, PCR Not Detected (NotDetected); Parainfluenza 3, PCR Not Detected (NotDetected); Parainfluenza 4, PCR Not Detected (NotDetected); Respiratory Syncytial Virus Not Detected (NotDetected); Rhinovirus/Enterovirus Not Detected (NotDetected)
[2024-01-03 18:21] LABS: Basophils % 0.2 % (0.1-2.0); Eosinophils # 0.1 K/mm3 (0.0-0.4); Eosinophils % 0.6 % (0.1-12.0); Hematocrit 43.3 % (37.0-47.0); Hemoglobin 14.2 g/dL (12.2-16.2); Lymphocytes # 2.1 K/mm3 (0.7-4.5); Lymphocytes % 20.5 % (10-50); Mean Corpuscular HGB Conc 32.9 g/dL (31.8-35.4); Mean Corpuscular Hemoglobin 33.2 pg (27.0-31.2); Mean Platelet Volume 9.1 fl (7.4-10.4); Monocytes # 0.8 K/mm3 (0.1-1.0); Monocytes % 7.8 % (1.7-9.3); Neutrophils # 7.4 K/mm3 (1.8-7.8); Platelet Count 268 K/mm3 (142-424); Red Blood Count 4.29 M/mm3 (4.20-5.40); Red Cell Distribution Width 14.5 % (11.5-17.5); White Blood Count 10.4 K/mm3 (4.8-10.8)
[2024-01-03 19:07] LABS: Alanine Aminotransferase 20 U/L (12-78); Albumin Level 4.2 g/dl (3.5-5.0); Albumin/Globulin Ratio 1.8 (1.1-1.8); Alkaline Phosphatase 99 U/L (38-126); Anion Gap 12.4 mEq/L (5-15); Aspartate Amino Transferase 26 U/L (14-36); Bilirubin,Total 0.5 mg/dl (0.2-1.3); Blood Urea Nitrogen 13 mg/dl (7-17); Calcium 9.6 mg/dl (8.4-10.2); Carbon Dioxide 28 mmol/L (22.0-30.0); Chloride 98 mmol/L (98-107); Chol/HDL Ratio 3.3 (1-3.5); Cholesterol 175 mg/dl (140-200); Estimated Glomerular Filt Rate 101 ml/min (>60); GFR (African American) 122 ML/MIN (>60); Globulin 2.4 g/dL (1.3-3.2); Glucose 113 mg/dl (74-100); HDL Cholesterol 53 mg/dl (40-60); Potassium 4.4 mmoL/L (3.5-5.1); Sodium 134 mmol/L (136-145); Total Protein,Serum 6.6 g/dl (6.3-8.2); Triglycerides 120 mg/dl (30-150); VLDL Cholesterol 24 mg/dL (0-40)
[2024-01-03 19:18] LABS: Direct LDL Cholesterol 84.97 mg/dL (100-129)
== END 2024-01-03 23:59 ==
LOC: RAD 16:17
PROVIDERS: PCP Physician Assistant; Visit Provider Student in an Organized Health Care Education/Training Program
DX: J44.9 Chronic obstructive pulmonary disease, unspecified (principal); R05.9 Cough, unspecified; E78.5 Hyperlipidemia, unspecified; I25.10 Atherosclerotic heart disease of native coronary artery without angina pectoris; R06.02 Shortness of breath; Z79.899 Other long term (current) drug therapy
CPT/HCPCS: 71046; 80053; 80061; 85025; 87632; 87635

== ENCOUNTER 2024-06-04 15:10 | Outpatient (POV) | payer MEDICARE, SELFPAY ==
--- NOTE | 2024-06-04 15:28 | EXP.PAIN.SOA ---
[facility] Disclaimer: The information contained in this section may have been updated after the patient was seen, as this information can be updated by other users. Medical History Diastolic dysfunction Smoker GERD (gastroesophageal reflux disease) MARVA (obstructive sleep apnea) HTN (hypertension) CAD (coronary artery disease) Dyspnea Atypical angina BMI 32.0-32.9,adult Dyspnea Occult blood in stools AYANA (acute kidney injury) Septic shock Severe sepsis with acute organ dysfunction Acute and chronic respiratory failure with hypoxia Dizziness Hypoxemia Depression BMI 33.0-33.9,adult Tobacco dependence syndrome Advised smoking cessation Edema Coronary artery calcification seen on CT scan Claudication Right leg stent placement 11/2022 Anxiety Back Pain Right leg pain Abnormal ankle brachial index ([place]) Restless legs syndrome (RLS) Tobacco abuse COPD (chronic obstructive pulmonary disease) O2 dependent at night 2 L/min HTN (hypertension) Radiculopathy with lower extremity symptoms PAD (peripheral artery disease) Claudication Surgical History No significant past surgical history Family History Other Coronary artery disease Social History Smoking Status: Current every day smoker tobacco type: cigarettes packs per day: 1 second hand exposure: No alcohol intake: never substance use type: denies use current occupational status: disabled Travel in the last 8 weeks: None housing: house current occupational exposures/hazards: No caffeine: Yes PM Subjective & Objective Subjective Subjective:: Patient is a pleasant 63-year-old female who presents today for 6-month follow-up. Today she rates her pain a 3 out of 10 in her low back however she does right her mid back pain at an 8 out of 10. Patient states that the mid back pain has been going on the last few months unrelated to any specific trauma or injury. She states that it runs across all of her mid back both sides and is tender to touch. She does describe it as a constant pain with increased activity such as doing things around the house. She states that she has difficulty performing activities of daily living such as cooking and cleaning due to the pain. She does also state that she takes care of her sister 2 days a week and does a lot of pulling and feels like this may have aggravated this pain. Patient does state overall she is still continue to do well from her minimally invasive lumbar decompression as well as the combination of her pump. She does currently have intrathecal bupivacaine 15 mg/mL with a daily dose of 6.27 mg/day. She denies any side effects from this medication. She is not at home refill client. Patient is prescribed gabapentin and clonazepam from her PCP. Her Isidro has been reviewed and is appropriate. Review of Systems: General: No recent weight changes, no fever, no sleep disturbances Respiratory: No cough, no shortness of air, no recurring pulmonary infections Cardiovascular/peripheral vascular: No chest pain, no palpitations, no edema, no shortness of breath Gastrointestinal: No new onset incontinence, normal bowel movements reported Genitourinary: No new onset incontinence Musculoskeletal: Mid back pain Psychiatric: [Normal mood/affect] Neurological: [Denies weakness in extremities], [denies balance issues] Pain at rest (0-10 scale): 8 Objective Objective:: Physical Exam: General: Alert and oriented x3, no acute distress, pleasant and cooperative Lungs: Respirations even and unlabored, symmetrical chest expansion Eyes: PERRL Musculoskeletal: Flexion and extension of thoracic [spine] somewhat guarded secondary to pain, [antalgic gait noted] point tenderness along bilateral thoracic paraspinous muscles Neurological: Speech clear, no gross sensory deficit Has patient had previous pain injection?: No Conservative treatment options previously tried: Home exercise plan Length of treatment: Longer than 6 weeks and Prescription medications Length of treatment: Longer than 6 weeks Meds Home Medications and Allergies Home Medications ?Medication ?Instructions ?Recorded ?Confirmed ?Type ipratropium 0.5 mg-albuterol 3 mg 3 ml inhalation Q4H SHORTNESS OF 12/09/19 04/16/24 History (2.5 mg base)/3 mL nebulization BREATH soln tiotropium bromide 2.5 4 g inhalation DAILY COPD 07/27/21 04/16/24 History mcg/actuation mist for inhalation budesonide-formoterol HFA 160 See Rx Instructions .Route 04/26/23 04/16/24 History mcg-4.5 mcg/actuation aerosol .COMPLEX Breathing problems inhaler (Symbicort) rivaroxaban 2.5 mg tablet 2.5 mg PO BID Blood thinner #180 05/10/23 04/16/24 Rx tabs omeprazole 40 mg capsule,delayed See Rx Instructions .Route 08/15/23 04/16/24 Rx release .COMPLEX #90 caps cyanocobalamin (vitamin B-12) 500 See Rx Instructions .Route 10/17/23 04/16/24 Rx mcg tablet .COMPLEX #90 tabs polyethylene glycol 3350 17 17 g PO DAILY 30 days #510 grams 10/27/23 04/16/24 Rx gram/dose oral powder (Miralax) lovastatin 40 mg tablet See Rx Instructions .Route 12/21/23 04/16/24 Rx .COMPLEX #90 tabs aspirin 81 mg tablet,delayed 81 mg PO DAILY #30 tabs 12/25/23 04/16/24 Rx release (Adult Low Dose Aspirin) cholecalciferol (vitamin D3) 1,250 See Rx Instructions .Route 12/31/23 04/16/24 Rx mcg (50,000 unit) capsule .COMPLEX #7 caps albuterol sulfate 90 mcg/actuation See Rx Instructions .Route 02/18/24 04/16/24 Rx aerosol inhaler .COMPLEX #8.5 ea duloxetine 60 mg capsule,delayed See Rx Instructions .Route 02/18/24 04/16/24 Rx release .COMPLEX #30 caps quetiapine 25 mg tablet 50 mg (2 x 25 mg) PO HS #60 tabs 02/20/24 04/16/24 Rx naltrexone 50 mg tablet See Rx Instructions .Route 04/04/24 04/16/24 Rx .COMPLEX #90 tabs hydroxyzine HCl 25 mg tablet 25 mg PO TID PRN anxiety #90 tabs 04/16/24 04/16/24 Rx New Prescriptions to Start Prescriptions: Allergies Allergy/AdvReac Type Severity Reaction Status Date / Time tetanus and diphtheria Allergy Severe I-HIVES Verified 04/16/24 10:58 toxoids [TETANUS & DIPHTHERIA TOXOIDS] cefazolin [From Ancef] Allergy Intermediate Hives Verified 04/16/24 10:58 atorvastatin AdvReac Intermediate Headache Verified 04/16/24 10:58 Assessment and Plan *Assessment and plan (1) Myofascial pain: Status: Acute Category: Medical Code(s): M79.18 - Myalgia, other site Plan Patient is experiencing worsening pain around her mid back bilaterally. She did have point tenderness at her bilateral thoracic paraspinous muscles. I did discuss with patient that she may benefit from trigger point injections at this location. Risk and benefits were discussed with the patient and she would like to proceed forward with this plan of care. I will also order the patient a compounded cream. Patient has tried and failed conservative therapy and has been experiencing this pain for longer than 3 months. We will schedule the patient for trigger point injections of her bilateral thoracic paraspinous muscles. This injection will not be done with ultrasound or fluoroscopy. Patient has been instructed to contact the clinic with any concerns before the next appointment. Dr. Luevano has reviewed this note and agrees with this plan of care. This note was dictated using voice recognition software and make contain errors or omissions. All injections are used with Lidocaine or Bupivacaine and Depo Medrol.
[2024-06-04 15:45] VITALS: BP 133/78; PULSE 78; RESP 18; O2SAT 98; BMI 24.5
== END 2024-06-04 23:59 | disposition home or self-care (01) ==
LOC: SC.PAIN 15:12
PROVIDERS: PCP Family Medicine; Visit Provider Nurse Practitioner Family
DX: M79.18 Myalgia, other site (principal)
CPT/HCPCS: 99212; G0463

== ENCOUNTER 2024-06-17 10:45 | Day surgery (SDC) | payer MEDICARE, SELFPAY ==
[2024-06-17 11:10] VITALS: BP 131/65; PULSE 76; RESP 16; O2SAT 94; BMI 24.3
[2024-06-17] MEDS: LIDOCAINE 1% 5ML PF VIAL 5 ML (11:16)
[2024-06-17 11:17] VITALS: BP 106/57; PULSE 72; RESP 18; O2SAT 97
[2024-06-17] MEDS: methylPREDNISolone ACETATE 80MG/ML VIAL 80 MG (11:17)
[2024-06-17] MEDS: BUPIVACAINE 0.25% 10ML INJ 25 MG IJ (11:17)
[2024-06-17 11:18] VITALS: BP 106/57; PULSE 72; RESP 18; O2SAT 97
[2024-06-17 11:22] VITALS: BP 121/59; PULSE 66; RESP 18; O2SAT 95
--- NOTE | 2024-06-17 11:28 | EXP.PAIN.PRO ---
Procedure Date: 06/17/24 Time: 11:15 Anesthesiologist:: Philip Guy CRNA Complications:: None Pre-procedure Diagnosis:: Myofascial pain bilateral lumbar paraspinous muscle. Post-procedure Diagnosis:: Name. Indications for Procedure:: Patient is a pleasant 63-year-old female who comes to our clinic this morning for trigger point injections into the bilateral lumbar paraspinous muscles. She describes the pain as constant, dull, aching. She rates her pain 7/10. Procedure Details:: Details of the procedure explained to the patient. The patient taken procedure and patient seated position. The air over the bilateral lumbar paraspinous muscle was cleansed using chlorhexidine as cleansing solution. Using a 25-gauge inch and half needle the bilateral paraspinous muscles were injected in 3 separate areas. 3 cc of 1% lidocaine +0.25% Marcaine and cortisone was injected into 3 separate areas on the left and right lumbar paraspinous muscle. Patient tolerated procedure without difficulty. There are no complications. Plan and Disposition:: Patient was discharged without incident.
== END 2024-06-17 11:22 | disposition home or self-care (01) ==
PROVIDERS: PCP Family Medicine; Visit Provider Nurse Anesthetist, Certified Registered
DX: M79.18 Myalgia, other site (principal)
CPT/HCPCS: 20552; J1010

== ENCOUNTER 2024-08-07 13:22 | Outpatient (POV) | payer MEDICARE, SELFPAY ==
[2024-08-07 13:54] VITALS: BP 130/66; PULSE 71; RESP 16; O2SAT 95; BMI 25.0
--- NOTE | 2024-08-07 14:38 | A.OFFVIS_ITS ---
[facility] Disclaimer: The information contained in this section may have been updated after the patient was seen, as this information can be updated by other users. Medical History Diastolic dysfunction Smoker GERD (gastroesophageal reflux disease) MARVA (obstructive sleep apnea) HTN (hypertension) CAD (coronary artery disease) Dyspnea Atypical angina BMI 32.0-32.9,adult Dyspnea Occult blood in stools AYANA (acute kidney injury) Septic shock Severe sepsis with acute organ dysfunction Acute and chronic respiratory failure with hypoxia Dizziness Hypoxemia Depression BMI 33.0-33.9,adult Tobacco dependence syndrome Advised smoking cessation Edema Coronary artery calcification seen on CT scan Claudication Right leg stent placement 11/2022 Anxiety Back Pain Right leg pain Abnormal ankle brachial index ([place]) Restless legs syndrome (RLS) Tobacco abuse COPD (chronic obstructive pulmonary disease) O2 dependent at night 2 L/min HTN (hypertension) Radiculopathy with lower extremity symptoms PAD (peripheral artery disease) Claudication Surgical History No significant past surgical history Family History Other Coronary artery disease Social History Smoking Status: Current every day smoker tobacco type: cigarettes packs per day: 1 second hand exposure: No alcohol intake: never substance use type: denies use current occupational status: other Travel in the last 8 weeks: None housing: house current occupational exposures/hazards: No caffeine: Yes PM Subjective & Objective Subjective Subjective:: Patient is a pleasant 63-year-old female who presents today for follow-up of trigger point injections of her bilateral lumbar paraspinous muscles on 06/17/2024. Today she rates her pain a 6 out of 10. She does state that the injections did give at least 50% improvement lasting about 2 weeks. Today however she does feel like she is back to her baseline. Patient states she has pain throughout her mid to low back and is also complaining of increased leg symptoms and numbness in her feet and toes. Patient denies any new injury or trauma. She does state that she is still taking care of her bedridden sister and that she does do a lot of pulling and tugging on her. Patient does state between the mid to low back pain she has to state that the mid back pain is worse. She describes it as an aching, throbbing sensation that does radiate into and around her ribs towards her abdomen. Patient does state this pain interferes with her ability to perform activities of daily living such as cooki ng and cleaning. Patient on her last visit was ordered compounded cream however it was not covered by her insurance. Patient does also have a intrathecal bupivacaine pump with 15 mg/mL and a daily dose of 6.27 mg/day. She denies any side effects from this medication. Her Isidro has been reviewed and is appropriate. Review of Systems: General: No recent weight changes, no fever, no sleep disturbances Respiratory: No cough, no shortness of air, no recurring pulmonary infections Cardiovascular/peripheral vascular: No chest pain, no palpitations, no edema, no shortness of breath Gastrointestinal: No new onset incontinence, normal bowel movements reported Genitourinary: No new onset incontinence Musculoskeletal: Mid back pain, rib pain, low back pain Psychiatric: [Normal mood/affect] Neurological: [Denies weakness in extremities], [denies balance issues] Pain at rest (0-10 scale): 6 Objective Objective:: Physical Exam: General: Alert and oriented x3, no acute distress, pleasant and cooperative Lungs: Respirations even and unlabored, symmetrical chest expansion Eyes: PERRL Musculoskeletal: Flexion and extension of thoracic [spine] somewhat guarded secondary to pain, [antalgic gait noted] point tenderness around the T9-T10 level with point tenderness also noted at her bilateral thoracic paraspinous muscles Neurological: Speech clear, no gross sensory deficit Has patient had previous pain injection?: Yes Percent improvement in pain since last injection: 50% Conservative treatment options previously tried: Home exercise plan Length of treatment: Longer than 12 weeks Meds Home Medications and Allergies Home Medications ?Medication ?Instructions ?Recorded ?Confirmed ?Type ipratropium 0.5 mg-albuterol 3 mg 3 ml inhalation Q4H SHORTNESS OF 12/09/19 08/07/24 History (2.5 mg base)/3 mL nebulization BREATH soln tiotropium bromide 2.5 4 g inhalation DAILY COPD 07/27/21 08/07/24 History mcg/actuation mist for inhalation budesonide-formoterol HFA 160 See Rx Instructions .Route 04/26/23 08/07/24 History mcg-4.5 mcg/actuation aerosol .COMPLEX Breathing problems inhaler (Symbicort) omeprazole 40 mg capsule,delayed See Rx Instructions .Route 08/15/23 08/07/24 Rx release .COMPLEX #90 caps cyanocobalamin (vitamin B-12) 500 See Rx Instructions .Route 10/17/23 08/07/24 Rx mcg tablet .COMPLEX #90 tabs polyethylene glycol 3350 17 17 g PO DAILY 30 days #510 grams 10/27/23 08/07/24 Rx gram/dose oral powder (Miralax) lovastatin 40 mg tablet See Rx Instructions .Route 12/21/23 08/07/24 Rx .COMPLEX #90 tabs aspirin 81 mg tablet,delayed 81 mg PO DAILY #30 tabs 12/25/23 08/07/24 Rx release (Adult Low Dose Aspirin) albuterol sulfate 90 mcg/actuation See Rx Instructions .Route 02/18/24 08/07/24 Rx aerosol inhaler .COMPLEX #8.5 ea duloxetine 60 mg capsule,delayed See Rx Instructions .Route 02/18/24 08/07/24 Rx release .COMPLEX #30 caps quetiapine 25 mg tablet 50 mg (2 x 25 mg) PO HS #60 tabs 02/20/24 08/07/24 Rx naltrexone 50 mg tablet See Rx Instructions .Route 04/04/24 08/07/24 Rx .COMPLEX #90 tabs hydroxyzine HCl 25 mg tablet 25 mg PO TID PRN anxiety #90 tabs 04/16/24 08/07/24 Rx cholecalciferol (vitamin D3) 1,250 See Rx Instructions .Route 06/16/24 08/07/24 Rx mcg (50,000 unit) capsule .COMPLEX #7 caps rivaroxaban 2.5 mg tablet 2.5 mg PO BID Blood thinner #180 08/06/24 08/07/24 Rx tabs New Prescriptions to Start Prescriptions: Allergies Allergy/AdvReac Type Severity Reaction Status Date / Time tetanus and diphtheria Allergy Severe I-HIVES Verified 06/17/24 11:11 toxoids [TETANUS & DIPHTHERIA TOXOIDS] cefazolin [From Anc] Allergy Intermediate Hives Verified 06/17/24 11:11 atorvastatin AdvReac Intermediate Headache Verified 06/17/24 11:11 Assessment and Plan *Assessment and plan (1) Mid back pain: Status: Acute Category: Medical Code(s): M54.9 - Dorsalgia, unspecified (2) Thoracic radiculopathy: Status: Acute Category: Medical Code(s): M54.14 - Radiculopathy, thoracic region (3) Lumbar radiculopathy: Status: Acute Category: Medical Code(s): M54.16 - Radiculopathy, lumbar region Plan Patient is experiencing more pain in and around her mid back with limited range of motion and point tenderness approximately around the T9-T10 level with tenderness all across her thoracic paraspinous muscles going towards her abdomen. I did discuss with the patient that I do believe she would benefit from a thoracic epidural at this location. Risk and benefits were discussed with the patient and she would like to proceed forward with this plan of care. Patient has tried and failed conservative therapy including oral medications, heat and ice, topicals, at home stretching exercise for longer than 12 weeks. Patient will be submitted for a T SOFIYA T9-T10 under fluoroscopy. Patient has been instructed to contact the clinic with any concerns before the next appointment. Dr. Luevano has reviewed this note and agrees with this plan of care. This note was dictated using voice recognition software and make contain errors or omissions. All injections are used with Lidocaine or Bupivacaine and Depo Medrol.
== END 2024-08-07 23:59 | disposition home or self-care (01) ==
LOC: SC.PAIN 13:24
PROVIDERS: PCP Nurse Practitioner Family; Visit Provider Nurse Practitioner Family
DX: M54.9 Dorsalgia, unspecified (principal); M54.14 Radiculopathy, thoracic region; M54.16 Radiculopathy, lumbar region; Z95.5 Presence of coronary angioplasty implant and graft; Z97.8 Presence of other specified devices; I25.10 Atherosclerotic heart disease of native coronary artery without angina pectoris; I10 Essential (primary) hypertension; F17.210 Nicotine dependence, cigarettes, uncomplicated; Z73.89 Other problems related to life management difficulty; Z79.899 Other long term (current) drug therapy
CPT/HCPCS: 99212; G0463

== ENCOUNTER 2024-09-02 11:52 | Day surgery (SDC) | payer MEDICARE, SELFPAY ==
[2024-09-02 12:17] VITALS: BP 141/65; PULSE 63; RESP 16; O2SAT 97; BMI 25.0
[2024-09-02] MEDS: methylPREDNISolone ACETATE 80MG/ML VIAL 80 MG (13:00)
[2024-09-02 13:01] VITALS: BP 152/64; PULSE 59; RESP 18; O2SAT 97
[2024-09-02 13:02] VITALS: BP 152/64; PULSE 59; RESP 18; O2SAT 97
--- NOTE | 2024-09-02 13:13 | EXP.PAIN.PRO ---
Procedure Date: 09/02/24 Time: 12:45 Anesthesiologist:: Philip Guy CRNA Complications:: None Pre-procedure Diagnosis:: Degenerative disc thoracic spine. Thoracic radiculopathy. Post-procedure Diagnosis:: Same. Indications for Procedure:: Patient is a pleasant 63-year-old female comes our clinic today for a T9-10 thoracic epidural steroid injection. She reports midline low thoracic back pain as constant, dull, aching. Patient also reports pain across the thoracic spine laterally. She rates her pain 7/10. Procedure Details:: Procedure:Thoracic epidural steroid injection under fluoroscopy Informed consent was obtained and the risks and benefits of the procedure were explained to the patient. The patient was taken to the procedure room and noninvasive monitors placed, including noninvasive blood pressure cuff and pulse oximeter. The back was viewed using C-Arm fluoroscopy and prepped using Betadine as a cleansing solution and the T9-T10 interspace was palpated. Skin and subcutaneous tissues were anesthetized using lidocaine 1.5% and a 25-gauge needle. After this, an 18-gauge Touhy epidural needle was placed into the T9-T10 interspace and advanced using fluoroscopic guidance and loss of resistance to air until the epidural space was encountered. After confirmation of needle placement in the epidural space, with dye, a solution containing lidocaine 1.5%, 4 mL and Depo-Medrol 80 mg were incrementally injected into the thoracic epidural space. The patient tolerated the procedure well with no complications. The patient was observed in the Pain Clinic and then discharged home neurologically intact. Plan and Disposition:: Patient was discharged without incident.
[2024-09-02 13:18] VITALS: BP 136/75; PULSE 63; RESP 16; O2SAT 95
== END 2024-09-02 13:18 | disposition home or self-care (01) ==
PROVIDERS: PCP Nurse Practitioner Family; Visit Provider Nurse Anesthetist, Certified Registered
DX: M51.14 Intervertebral disc disorders with radiculopathy, thoracic region (principal)
CPT/HCPCS: 62321; J1010

== ENCOUNTER 2024-09-18 09:42 | Outpatient (POV) | payer MEDICARE, SELFPAY ==
[2024-09-18 09:58] VITALS: BP 122/86; PULSE 82; RESP 16; O2SAT 93; BMI 25.0
--- NOTE | 2024-09-18 10:12 | EXP.PAIN.SOA ---
[facility] Disclaimer: The information contained in this section may have been updated after the patient was seen, as this information can be updated by other users. Medical History (Updated 09/18/24 @ 10:14 by Cheri Plummer APRN) Diastolic dysfunction Smoker GERD (gastroesophageal reflux disease) MARVA (obstructive sleep apnea) HTN (hypertension) CAD (coronary artery disease) Dyspnea Atypical angina BMI 32.0-32.9,adult Dyspnea Occult blood in stools AYANA (acute kidney injury) Septic shock Severe sepsis with acute organ dysfunction Acute and chronic respiratory failure with hypoxia Dizziness Hypoxemia Depression BMI 33.0-33.9,adult Tobacco dependence syndrome Edema Coronary artery calcification seen on CT scan Claudication Anxiety Back Pain Right leg pain Abnormal ankle brachial index ([place]) Restless legs syndrome (RLS) Tobacco abuse COPD (chronic obstructive pulmonary disease) HTN (hypertension) Radiculopathy with lower extremity symptoms PAD (peripheral artery disease) Claudication Surgical History No significant past surgical history Family History Other Coronary artery disease Social History Smoking Status: Current every day smoker tobacco type: cigarettes packs per day: 1 second hand exposure: No alcohol intake: never substance use type: denies use current occupational status: other Travel in the last 8 weeks: None housing: house current occupational exposures/hazards: No caffeine: Yes PM Subjective & Objective Subjective Subjective:: Patient is a pleasant 63-year-old female who presents today for follow-up of thoracic epidural steroid injection T9-T10 on 09/02/2024. Today she does rate her pain in this area 0 out of 10 and states that she did have 60% improvement and feels like it is still helping. Patient did have a fall coming into our office today and ended up landing on her right knee and caught herself with her left wrist. She does state that she has some pain at these locations. She did not break any skin on that elbow of the left arm or her wrist however did break the skin on her right knee. Patient does state primarily it is the knee that is really sore currently. Patient denies any other issues or changes from her last visit. She is currently managed with bupivacaine intrathecally 15 mg/mL and a daily dose of 6.27. She denies any side effects from this medication and states that she does still do the at home refills with [facility]. Her Isidro has been reviewed and is appropriate. Review of Systems: General: No recent weight changes, no fever, no sleep disturbances Respiratory: No cough, no shortness of air, no recurring pulmonary infections Cardiovascular/peripheral vascular: No chest pain, no palpitations, no edema, no shortness of breath Gastrointestinal: No new onset incontinence, normal bowel movements reported Genitourinary: No new onset incontinence Musculoskeletal: Right knee pain, left wrist pain Psychiatric: [Normal mood/affect] Neurological: [Denies weakness in extremities], [denies balance issues] Pain at rest (0-10 scale): 5 Objective Objective:: Physical Exam: General: Alert and oriented x3, no acute distress, pleasant and cooperative Lungs: Respirations even and unlabored, symmetrical chest expansion Eyes: PERRL Musculoskeletal: Flexion and extension of right knee somewhat guarded secondary to pain, [antalgic gait noted] Neurological: Speech clear, no gross sensory deficit Has patient had previous pain injection?: Yes Percent improvement in pain since last injection: 60% Conservative treatment options previously tried: Home exercise plan Length of treatment: Longer than 12 weeks Meds Home Medications and Allergies Home Medications ?Medication ?Instructions ?Recorded ?Confirmed ?Type ipratropium 0.5 mg-albuterol 3 mg 3 ml inhalation Q4H SHORTNESS OF 12/09/19 09/18/24 History (2.5 mg base)/3 mL nebulization BREATH soln budesonide-formoterol HFA 160 See Rx Instructions .Route 04/26/23 09/18/24 History mcg-4.5 mcg/actuation aerosol .COMPLEX Breathing problems inhaler (Symbicort) omeprazole 40 mg capsule,delayed See Rx Instructions .Route 08/15/23 09/18/24 Rx release .COMPLEX #90 caps polyethylene glycol 3350 17 17 g PO DAILY 30 days #510 grams 10/27/23 09/18/24 Rx gram/dose oral powder (Miralax) lovastatin 40 mg tablet See Rx Instructions .Route 12/21/23 09/18/24 Rx .COMPLEX #90 tabs aspirin 81 mg tablet,delayed 81 mg PO DAILY #30 tabs 12/25/23 09/18/24 Rx release (Adult Low Dose Aspirin) albuterol sulfate 90 mcg/actuation See Rx Instructions .Route 02/18/24 09/18/24 Rx aerosol inhaler .COMPLEX #8.5 ea duloxetine 60 mg capsule,delayed See Rx Instructions .Route 02/18/24 09/18/24 Rx release .COMPLEX #30 caps quetiapine 25 mg tablet 50 mg (2 x 25 mg) PO HS #60 tabs 02/20/24 09/18/24 Rx cholecalciferol (vitamin D3) 1,250 See Rx Instructions .Route 06/16/24 09/18/24 Rx mcg (50,000 unit) capsule .COMPLEX #7 caps rivaroxaban 2.5 mg tablet 2.5 mg PO BID Blood thinner #180 08/06/24 09/18/24 Rx tabs gabapentin 300 mg capsule 300 mg PO TID 08/12/24 09/18/24 History varenicline 0.5 mg (11)-1 mg (42) See Rx Instructions PO PER PKG DIR 08/12/24 09/18/24 Rx tablets in a dose pack (Chantix #53 tabs Starting Month Box) New Prescriptions to Start Prescriptions: Allergies Allergy/AdvReac Type Severity Reaction Status Date / Time tetanus and diphtheria Allergy Severe I-HIVES Verified 08/12/24 11:14 toxoids [TETANUS & DIPHTHERIA TOXOIDS] cefazolin [From Ancef] Allergy Intermediate Hives Verified 08/12/24 11:14 atorvastatin AdvReac Intermediate Headache Verified 08/12/24 11:14 Assessment and Plan *Assessment and plan (1) Right knee pain: Status: Acute Category: Medical Code(s): M25.561 - Pain in right knee Plan I did discuss with the patient at length due to the fall coming down the hallway to our office that I would like to order x-ray imaging of the right knee and left wrist to rule out any fractures. Patient agrees with this plan of care. Patient denies any vision changes or feelings that she passed out during this episode. Patient was just walking down the [place] and felt like her leg slipped however there was nothing on the floor. Patient states she is just not really sure what exactly happened. We did check all of her vitals and they were within normal limits. I did discuss with the patient that I will keep an eye out on the x-ray imaging and that we will call her to let her know the results. Patient will return to clinic in 2 months for reevaluation of her mid back pain. Patient has been instructed to contact the clinic with any concerns before the next appointment. Dr. Luevano has reviewed this note and agrees with this plan of care. This note was dictated using voice recognition software and make contain errors or omissions. All injections are used with Lidocaine or Bupivacaine and Depo Medrol.
--- NOTE | 2024-09-18 10:27 | XR_ITS ---
FINAL REPORT CLINICAL HISTORY: fall left wrist pain COMPARISON: None FINDINGS: LEFT WRIST Three views demonstrate no acute fracture or dislocation. There is mild degenerative change of the radial aspect of the wrist. The visualized joint spaces are normally aligned. The soft tissues are unremarkable. IMPRESSION: No acute bony abnormality. Reviewed, Interpreted and Dictated by Myke Raines III, MD Transcribed by Windy Cruz Authenticated and [facility]
--- NOTE | 2024-09-18 10:27 | XR_ITS ---
FINAL REPORT CLINICAL HISTORY: PAIN; fall COMPARISON: None FINDINGS: Three views of the right knee reveal a comminuted fracture of the mid and lower pole of the patella with mild distraction. The bony alignment is normal. The joint spaces are preserved. There is a moderate joint effusion. No localized soft tissue abnormality is identified. IMPRESSION: Comminuted fracture of the patella as described with moderate joint effusion. Reviewed, Interpreted and Dictated by Myke Raines III, MD Transcribed by Windy Cruz Authenticated and [facility]
--- NOTE | 2024-09-18 12:11 | PC.NURSE ---
5272- Destiny Horan MA was in front of patient escorting pt to the pain management office area . Destiny heard a noise, and then observed the patient on the ground. Myself and provider responded. Pt alert and oriented, denies dizziness, denies headache, denies vision changes, and denies being diabetic. Pt states unsure how she fell. Stock Lifter LICO Ramirez assessed pt prior to pt being moved from where she had fallen. Staff assisted pt into wheelchair. Noted that pt shoe was partially off when assisting pt into wheelchair. Pt reported knee pain when getting into wheelchair. LICO Ramirez stated to pt she was going to order xrays for pt-pt agreeable to this. Vitals obtained on pt BP 126/88 HR 82 RR 18 SaO2 93% on RA. Pt given bottle of water. Provider ordered xrays for pt, pt was taken to radiology per pain management staff. approx 1030-radiology staff called and spoke with provider LICO Ramirez to notify her of pt xray, provider states pt has a patella fracture. Provider requested that I call the ortho office for john appt for pt. Appt obtained for 1:30 pm for pt. Asked provider if any sort of bracing was needed for pt, states ortho would need to decide that. I went to radiology department to speak with pt, notified pt of xrays per provider request. Notified pt I had made her an appt for orthopedics here at 1:30 if she was okay with that, pt reported that she is. Asked pt if someone could come to drive her home r/t pt had told me she drove herself. Pt reports she could call her friend. Offerred to take pt to cafeteria for lunch. Pt reports she had food in her car she had just gotten and would like to go to her vehicle to wait. Pt assisted to her vehicle in wheelchair per her request. Pt given phone number to call for assistance. I notified pt I would come back out an assist pt to her appt at 1:30 if she was okay with that, pt agreeable
== END 2024-09-18 23:59 | disposition home or self-care (01) ==
PROVIDERS: PCP Nurse Practitioner Family; Visit Provider Nurse Practitioner Family
DX: M25.561 Pain in right knee (principal); S82.001A Unspecified fracture of right patella, initial encounter for closed fracture; F17.210 Nicotine dependence, cigarettes, uncomplicated; Z79.899 Other long term (current) drug therapy; M25.532 Pain in left wrist
CPT/HCPCS: 73110; 73562; 99212; G0463

== ENCOUNTER 2024-09-18 14:31 | Outpatient (RCR) | payer MEDICARE, SELFPAY | END 2024-09-18 15:30 | disposition home or self-care (01) | LOC: PT 14:31 | PROVIDERS: Visit Provider Physician Assistant Surgical | DX: M25.561 Pain in right knee (principal); S82.001A Unspecified fracture of right patella, initial encounter for closed fracture | CPT/HCPCS: 97760 ==

== ENCOUNTER 2024-09-24 13:01 | Outpatient (CLI) | payer MEDICARE, SELFPAY ==
--- NOTE | 2024-09-24 13:02 | CT_ITS ---
FINAL REPORT TECHNIQUE: Thin section axial CT images with coronal and sagittal reformats were performed. 3D reconstructed images were obtained and reviewed. This study was performed with techniques to keep radiation doses as low as reasonably achievable (ALARA). Individualized dose reduction techniques using automated exposure control or adjustment of mA and/or kV according to the patient''s size were employed. CLINICAL HISTORY: patella fx FINDINGS: There is a comminuted fracture of the mid patella with 4 mm of distraction of the main fracture fragments. Large joint effusion is identified. There is prepatellar soft tissue swelling. IMPRESSION: Comminuted fracture of the patella. Reviewed, Interpreted and Dictated by Myke Raines III, MD Transcribed by Mayra Osullivan Authenticated and [facility]
== END 2024-09-24 23:59 | disposition home or self-care (01) ==
LOC: RAD 13:02
PROVIDERS: PCP Nurse Practitioner Family; Visit Provider Physician Assistant Surgical
DX: S82.041A Displaced comminuted fracture of right patella, initial encounter for closed fracture (principal)
CPT/HCPCS: 73700

== ENCOUNTER 2024-10-03 11:13 | Outpatient (CLI) | payer MEDICARE, SELFPAY ==
[2024-10-03 11:43] VITALS: BMI 24.5
[2024-10-03 12:26] LABS: Basophils # 0.1 K/mm3 (0-0.2); Basophils % 0.6 % (0.1-2.0); Eosinophils # 0.1 K/mm3 (0.0-0.4); Eosinophils % 0.9 % (0.1-12.0); Hematocrit 38.8 % (37.0-47.0); Hemoglobin 13.5 g/dL (12.2-16.2); Lymphocytes # 1.6 K/mm3 (0.7-4.5); Mean Corpuscular HGB Conc 34.9 g/dL (31.8-35.4); Mean Corpuscular Hemoglobin 33.5 pg (27.0-31.2); Mean Corpuscular Volume 96.1 fl (81-99); Mean Platelet Volume 7.8 fl (7.4-10.4); Monocytes # 0.5 K/mm3 (0.1-1.0); Neutrophils # 5.4 K/mm3 (1.8-7.8); Neutrophils % 71.4 % (37.0-80.0); Platelet Count 248 K/mm3 (142-424); Red Blood Count 4.04 M/mm3 (4.20-5.40); Red Cell Distribution Width 14.2 % (11.5-17.5); White Blood Count 7.5 K/mm3 (4.8-10.8)
[2024-10-03 12:36] LABS: Chloride 101 mmol/L (98-107); Potassium 3.8 mmoL/L (3.5-5.1); Sodium 136 mmol/L (136-145)
[2024-10-03 12:38] LABS: Blood Urea Nitrogen 8 mg/dl (7-17); Creatinine Clearance Estimated 65 mL/min (50-200); Estimated Glomerular Filt Rate 85 ml/min (>60); GFR (African American) 102 ML/MIN (>60)
[2024-10-03 12:39] LABS: Anion Gap 8.8 mEq/L (5-15); Calcium 9.7 mg/dl (8.4-10.2); Carbon Dioxide 30 mmol/L (22.0-30.0); Glucose 93 mg/dl (74-100)
== END 2024-10-03 23:59 | disposition home or self-care (01) ==
LOC: PREOP 11:14
PROVIDERS: Nurse Anesthetist, Certified Registered; PCP Nurse Practitioner Family; Visit Provider Orthopaedic Surgery
DX: E55.9 Vitamin D deficiency, unspecified (principal)
CPT/HCPCS: 80048; 85025

== ENCOUNTER 2024-10-06 06:15 | Day surgery (SDC) | payer MEDICARE, SELFPAY ==
[2024-10-03 11:41] VITALS: BMI 24.5
[2024-10-06] VITALS (10 sets, daily range): BP systolic 97–149; BP diastolic 50–71; PULSE 74–89; RESP 16–18; TEMP 36.3–43; O2SAT 92–100
--- NOTE | 2024-10-06 07:12 | EXP.ANES.CKL ---
[facility] Disclaimer: The information contained in this section may have been updated after the patient was seen, as this information can be updated by other users. Medical History Diastolic dysfunction Smoker GERD (gastroesophageal reflux disease) MARVA (obstructive sleep apnea) HTN (hypertension) CAD (coronary artery disease) Dyspnea Atypical angina BMI 32.0-32.9,adult Dyspnea Occult blood in stools AYANA (acute kidney injury) Septic shock Severe sepsis with acute organ dysfunction Acute and chronic respiratory failure with hypoxia Dizziness Hypoxemia Depression BMI 33.0-33.9,adult Tobacco dependence syndrome Edema Coronary artery calcification seen on CT scan Claudication Anxiety Back Pain Right leg pain Abnormal ankle brachial index ([place]) Restless legs syndrome (RLS) Tobacco abuse COPD (chronic obstructive pulmonary disease) HTN (hypertension) Radiculopathy with lower extremity symptoms PAD (peripheral artery disease) Claudication Surgical History History of back surgery Family History Other Coronary artery disease Family history of CVA Family history of diabetes mellitus Social History Smoking Status: Current every day smoker tobacco type: cigarettes packs per day: 1 second hand exposure: No alcohol intake: never substance use type: denies use current occupational status: disabled Travel in the last 8 weeks: None housing: house current occupational exposures/hazards: No caffeine: Yes [facility] Anesthesia Checklist Patient Identification Patient Identification: Arm Band and Verbal (Name & ) Structural Data Admitted From: Home Planned Operative Procedure/s: ORIF patella - R Consent for Planned Operative Procedure(s) Verified: Yes Verified Documents: Surgical Consent, History and Physical and Cardiac Clearance NPO Status Verified Time NPO: 00:00 Chart Verification Results Verified: CBC and BMP Additional verifications Anesthesia Reactions: No Hx Blood Transfusions: No Blood Transfusion Reaction: No Respiratory Assessment Right Upper Lobe: Breath Sounds: Expiratory Wheezing Airway Assessment Mallampati Score:: Class III C-Spine Mobility Assessed: Yes TMJ Mobility Assessed: Yes Dentition: Dentures-poor fitting (Removed) Neurological Assessment Level of Consciousness: Awake Hx Seizures: No Numbness or tingling in extremities: No Anesthesia Plan Anesthesia Risk discussed: Yes Anesthesia Plan: Verified ASA Class: III Anesthesia Type: General w/block
[2024-10-06] MEDS: LACTATED RINGERS 1000ML 1,000 ML 100 ML IV (07:17)
[2024-10-06] MEDS: CLINDAMYCIN PHOSPHATE/D5W 900 MG/50 ML PIGGYBACK 50 MG (07:55)
--- NOTE | 2024-10-06 09:17 | XR_ITS ---
FINAL REPORT CLINICAL HISTORY: 48.9 ORIF fluoro 48.9 2.00 mGy COMPARISON: None FINDINGS: FLUOROSCOPY LESS THAN 1 HOUR HISTORY: ORIF patellar fracture FINDINGS: Fluoroscopic guidance was provided for operative reduction and internal fixation of a patellar fracture. 3 spot films were obtained. 48.9 seconds of fluoroscopy time were used, with dosage of 2.0 mGy. IMPRESSION: As above. Reviewed, Interpreted and Dictated by Cynthia Simpson MD Transcribed by Carmencita Caicedo Authenticated and . [facility]
--- NOTE | 2024-10-06 09:18 | P.PNANES_ITS ---
[facility] Anesthesia Record Part I Anesthesia Record I Intake, IV Amount: 900 Hydration: Adequate Estimated blood loss (mL): 20 Urine output (mL): 0 Blood Pressure: 149/71 SaO2: 100 Pulse Rate: 76 Airway Patency: Patent Respiratory Rate: 16 Temperature: 97.5 F Patient is:: Awake Stable to PACU at:: 09:15
--- NOTE | 2024-10-06 09:19 | P.OP_ITS ---
Date of procedure: 10/06/24 Pre-op Diagnosis:: Displaced right patella fracture Post-op Diagnosis:: Same Procedure performed:: Open reduction internal fixation right patella Surgeon:: Gavino Plummer DO Chief Revenue Officer(s):: Miki VELAZQUEZ [employer]:: Miesha Borja Anesthesia: GETA and regional Estimated blood loss (mL): 0 Clinical Note:: Implants Arthrex patella fracture system with 4.0 cannulated screws and cerclage system fiber tape Operative findings:: Displaced transverse patella fracture and right Operative note:: Patient identified preoperatively. Right knee marked with yes and my initials. Transported operative suite after undergoing a block with anesthesia. Placed on the operating bed. General anesthesia ministered airway secured. Right lower extremity prepped and draped normal sterile fashion. Once prepped and draped final operative timeout performed to identify proper patient procedure and extremity. Everyone involved the case agreed. There is no counter indications beginning. Did receive preoperative antibiotics clindamycin. Marking pen was used to make planned incision of the midline of the patella bony patella was also marked. Esmarch was used to exsanguinate the extremity pneumatic tourniquet inflated to 300 mmHg. X-ray was brought into identify and confirm displaced mid patella fracture tra nsverse in nature with comminution distally Skin knife was used to incise through skin dissection was taken down to identify the capsule of the knee. There is a small rent in the anterior aspect of the capsule arthrotomy made medially fracture hematoma evacuated. Reduction was performed with a large [id number] clamp. X-rays were taken AP and lateral views to confirm adequate reduction of the joint. I was also able to feel through the arthrotomy the articular surface. 2 parallel K wires were placed in the patella and measured with the C-clamp. Once wires in proper position they were overdrilled with a cannulated drill and then to 4.0 mm cannulated screws were placed with the screw heads distally to give compression across the fracture site. This fixation was then backed up with cerclage fixation with fiber tape. Fiber tape was placed through the cannulated screw and use needed tensioning device cerclage tensioning was performed This was repeated on both sides through both cannulated screws. Knee was then flexed there is no displacement of the fracture or loosening of the cerclage. Irrigation performed arthrotomy closed with 0 Ethibond suture. Deep layers with 0 Vicryl subcutaneous 2-0 Vicryl surgical clips in the skin for closure. Sterile dressing placed from toe to thigh patient placed in a knee immobilizer taken recovery in stable condition. Condition: stable Disposition: PACU Complications:: None apparent
--- NOTE | 2024-10-07 07:47 | EXP.ANES.II ---
[facility] Anesthesia Record Part II Anesthesia Record Part II Discharge Time: 09:45 Destination: Surgical Day Care (OP Surgery) PACU nurse assessment reviewed?: Yes Patient Condition:: Good Anesthesia Complications:: None Swallowing reflex intact?: Yes Airway Patency: Patent Cyanosis?: No Blood Pressure: 135/70 SaO2: 96 Respiratory Rate: 16 Pulse Rate: 89 Temperature: 97.6 F Mental Status: Alert & Oriented Pain level:: 0 Nausea and/or vomitting:: None Intake, IV Amount: 0 Hydration: Adequate
[2024-10-07 07:48] VITALS: BP 135/70; PULSE 89; RESP 16; TEMP 36.4; O2SAT 96
== END 2024-10-06 10:16 | disposition home or self-care (01) ==
PROVIDERS: PCP Nurse Practitioner Family; Visit Provider Orthopaedic Surgery
PROC: (CPT 27524; principal; 2024-10-06 07:30)
DX: S82.031A Displaced transverse fracture of right patella, initial encounter for closed fracture (principal); W19.XXXA Unspecified fall, initial encounter
CPT/HCPCS: 27524; 73560; 96374; C1713; C9144; J0736; J1100; J1885; J2250; J2405; J3010; J7120

== ENCOUNTER 2024-10-22 13:28 | Outpatient (CLI) | payer MEDICARE, SELFPAY ==
--- NOTE | 2024-10-22 13:31 | XR_ITS ---
FINAL REPORT CLINICAL HISTORY: ORIF right Patella fx COMPARISON: 09/18/2024 FINDINGS: Left knee Two views were obtained. There are postoperative changes of the patella with a patellar fracture. Prepatellar soft tissue swelling is seen. IMPRESSION: Postsurgical changes as above. Reviewed, Interpreted and Dictated by Myke Raines III, MD Transcribed by Mayra Osullivan Authenticated and [facility]
== END 2024-10-22 23:59 | disposition home or self-care (01) ==
LOC: RAD 13:29
PROVIDERS: PCP Nurse Practitioner Family; Visit Provider Physician Assistant
DX: S82.041D Displaced comminuted fracture of right patella, subsequent encounter for closed fracture with routine healing (principal)
CPT/HCPCS: 73560

== ENCOUNTER 2024-10-29 13:13 | Outpatient (CLI) | payer MEDICARE, SELFPAY ==
--- NOTE | 2024-10-29 13:17 | XR_ITS ---
FINAL REPORT CLINICAL HISTORY: right patella fx COMPARISON: 10/22/2024 FINDINGS: 2 views of the right knee were obtained. There are post-ORIF changes of a comminuted fracture of the inferior patella. The fracture appears stable compared to the prior study without significant displacement. There is a moderate joint effusion. There is no dislocation or subluxation. There is no soft tissue abnormality. IMPRESSION: Stable ORIF changes of the patella. Reviewed, Interpreted and Dictated by Teresa Bernal MD Transcribed by Windy Cruz Authenticated and [facility]
== END 2024-10-29 23:59 | disposition home or self-care (01) ==
LOC: RAD 13:14
PROVIDERS: PCP Nurse Practitioner Family; Visit Provider Orthopaedic Surgery
DX: M25.561 Pain in right knee (principal); S82.041D Displaced comminuted fracture of right patella, subsequent encounter for closed fracture with routine healing
CPT/HCPCS: 73560

== ENCOUNTER 2024-11-11 10:10 | Outpatient (CLI) | payer MEDICARE, SELFPAY ==
--- NOTE | 2024-11-11 10:15 | XR_ITS ---
FINAL REPORT CLINICAL HISTORY: right patella fx COMPARISON: 10/29/2024 FINDINGS: 2 views of the right knee were obtained. Again seen are postoperative changes from ORIF of the patella. Fracture fragments are well aligned. There is no significant callus formation. No acute osseous abnormality is identified. There has been interval resolution of the previously seen small joint effusion. There is no soft tissue abnormality. IMPRESSION: Postoperative changes with no significant callus formation. Reviewed, Interpreted and Dictated by Cynthia Simpson MD Transcribed by Windy Cruz Authenticated and [facility]
== END 2024-11-11 23:59 | disposition home or self-care (01) ==
LOC: RAD 10:11
PROVIDERS: PCP Nurse Practitioner Family; Visit Provider Orthopaedic Surgery
DX: S82.041D Displaced comminuted fracture of right patella, subsequent encounter for closed fracture with routine healing (principal)
CPT/HCPCS: 73560

== ENCOUNTER 2024-12-09 09:46 | Outpatient (CLI) | payer MEDICARE, SELFPAY ==
--- NOTE | 2024-12-09 09:49 | XR_ITS ---
FINAL REPORT CLINICAL HISTORY: Rt Knee pain COMPARISON: 11/11/2024 FINDINGS: Three views of the right knee were obtained. There are 2 orthopedic screws securing a patellar fracture. The fragments demonstrate near anatomic alignment. There is no acute fracture or dislocation. The medial and lateral joint spaces are preserved. The bones are well mineralized. Mild soft tissue swelling is noted anterior to the patella. IMPRESSION: Soft tissue swelling without acute bony abnormality. Reviewed, Interpreted and Dictated by Matias May MD Transcribed by Windy Cruz Authenticated and [facility]
== END 2024-12-09 23:59 | disposition home or self-care (01) ==
LOC: RAD 09:47
PROVIDERS: PCP Nurse Practitioner Family; Visit Provider Physician Assistant
DX: M25.561 Pain in right knee (principal); S82.041D Displaced comminuted fracture of right patella, subsequent encounter for closed fracture with routine healing
CPT/HCPCS: 73562

== ENCOUNTER 2024-12-30 13:36 | Outpatient (CLI) | payer MEDICARE, SELFPAY ==
[2024-12-30 15:19] LABS: Basophils % 0.5 % (0.1-2.0); Eosinophils # 0.1 K/mm3 (0.0-0.4); Hematocrit 44.1 % (37.0-47.0); Hemoglobin 14.6 g/dL (12.2-16.2); Lymphocytes # 1.7 K/mm3 (0.7-4.5); Lymphocytes % 20.2 % (10-50); Mean Corpuscular HGB Conc 33.1 g/dL (31.8-35.4); Mean Corpuscular Hemoglobin 32.2 pg (27.0-31.2); Mean Corpuscular Volume 97.1 fl (81-99); Mean Platelet Volume 10.1 fl (7.4-10.4); Monocytes # 0.6 K/mm3 (0.1-1.0); Neutrophils # 5.9 K/mm3 (1.8-7.8); Neutrophils % 69.9 % (37.0-80.0); Platelet Count 287 K/mm3 (142-424); Red Blood Count 4.54 M/mm3 (4.20-5.40); Red Cell Distribution Width 13.6 % (11.5-17.5); White Blood Count 8.4 K/mm3 (4.8-10.8)
[2024-12-30 15:31] LABS: Albumin Level 4.4 g/dl (3.5-5.0)
[2024-12-30 15:32] LABS: Chloride 101 mmol/L (98-107); Potassium 4.6 mmoL/L (3.5-5.1); Sodium 139 mmol/L (136-145)
[2024-12-30 15:34] LABS: Alanine Aminotransferase 16 U/L (12-78); Anion Gap 9.6 mEq/L (5-15); Aspartate Amino Transferase 23 U/L (14-36); Bilirubin,Unconjugated 0.2 mg/dL (0.0-1.1); Blood Urea Nitrogen 14 mg/dl (7-17); Carbon Dioxide 33 mmol/L (22.0-30.0); Estimated Glomerular Filt Rate 72 ml/min (>60); GFR (African American) 87 ML/MIN (>60)
[2024-12-30 15:35] LABS: Alkaline Phosphatase 90 U/L (38-126); Bilirubin,Indirect 0.2 mg/dL (0.0-0.9); Bilirubin,Total 0.2 mg/dl (0.2-1.3); Calcium 9.8 mg/dl (8.4-10.2); Chol/HDL Ratio 3.8 (1-3.5); Cholesterol 178 mg/dl (140-200); Glucose 106 mg/dl (74-100); HDL Cholesterol 47 mg/dl (40-60); Magnesium 1.6 mg/dl (1.6-2.3); Total Protein,Serum 6.7 g/dl (6.3-8.2); Triglycerides 255 mg/dl (30-150); VLDL Cholesterol 51 mg/dL (0-40)
[2024-12-30 15:47] LABS: Direct LDL Cholesterol 80.32 mg/dL (100-129)
[2024-12-30 15:52] LABS: Free T4 (Free Thyroxine) 0.75 ng/dl (0.78-2.19)
[2024-12-30 16:13] LABS: Thyroid Stimulating Hormone 1.71 uIU/mL (0.465-4.68)
== END 2024-12-30 23:59 | disposition home or self-care (01) ==
LOC: LAB 13:36
PROVIDERS: PCP Nurse Practitioner Family; Visit Provider Nurse Practitioner
DX: R55 Syncope and collapse (principal); R42 Dizziness and giddiness; I25.10 Atherosclerotic heart disease of native coronary artery without angina pectoris; I73.9 Peripheral vascular disease, unspecified; J44.9 Chronic obstructive pulmonary disease, unspecified; I10 Essential (primary) hypertension
CPT/HCPCS: 36415; 80048; 80061; 80076; 83735; 84439; 84443; 85025; 93270

== ENCOUNTER 2025-01-07 11:18 | Outpatient (POV) | payer MEDICARE, SELFPAY ==
--- NOTE | 2025-01-07 11:34 | EXP.PAIN.SOA ---
[facility] Disclaimer: The information contained in this section may have been updated after the patient was seen, as this information can be updated by other users. Medical History (Updated 01/07/25 @ 11:36 by Cheri Plummer APRN) Dizziness Syncope Diastolic dysfunction Smoker GERD (gastroesophageal reflux disease) MARVA (obstructive sleep apnea) HTN (hypertension) CAD (coronary artery disease) Dyspnea Atypical angina BMI 32.0-32.9,adult Dyspnea Occult blood in stools AYANA (acute kidney injury) Septic shock Severe sepsis with acute organ dysfunction Acute and chronic respiratory failure with hypoxia Hypoxemia Depression BMI 33.0-33.9,adult Tobacco dependence syndrome Edema Coronary artery calcification seen on CT scan Claudication Anxiety Back Pain Right leg pain Abnormal ankle brachial index ([place]) Restless legs syndrome (RLS) Tobacco abuse COPD (chronic obstructive pulmonary disease) HTN (hypertension) Radiculopathy with lower extremity symptoms PAD (peripheral artery disease) Claudication Surgical History History of back surgery Family History Other Coronary artery disease Family history of CVA Family history of diabetes mellitus Social History Smoking Status: Current every day smoker tobacco type: cigarettes packs per day: 1 second hand exposure: No alcohol intake: never substance use type: denies use current occupational status: disabled Travel in the last 8 weeks: None housing: house current occupational exposures/hazards: No caffeine: Yes PM Subjective & Objective Subjective Subjective:: Patient is a pleasant 64-year-old female who presents today for worsening pain in her mid back. She rates it at a 5 out of 10. Patient denies any new falls or injuries. She states that it is still that same pain that we have been treating in the past however feels like her official thoracic epidural has worn off from the last 1 and it is producing worsening pain that does radiate out towards her ribs and does interfere with her ability to perform activities of daily living. Patient's last thoracic epidural was back in August and did provide 60% improvement and lasted for longer than 3 months. Patient does state that she did end up also having to have surgery on her right kneecap fracture and had some screws and wire placed and that she is still very sore in that joint and still recovering slowly. Patient is currently managed with intrathecal bupivacaine 15 mg/mL with a daily dose of 6.27 mg/day. She denies any side effects and feels like this is still working well for her. She is prescribed gabapentin and [place] from an outside provider. Her Isidro has been reviewed and is appropriate. Review of Systems: General: No recent weight changes, no fever, no sleep disturbances Respiratory: No cough, no shortness of air, no recurring pulmonary infections Cardiovascular/peripheral vascular: No chest pain, no palpitations, no edema, no shortness of breath Gastrointestinal: No new onset incontinence, normal bowel movements reported Genitourinary: No new onset incontinence Musculoskeletal: Mid back pain, rib pain Psychiatric: [Normal mood/affect] Neurological: [Denies weakness in extremities], [denies balance issues] Pain at rest (0-10 scale): 5 Objective Objective:: Physical Exam: General: Alert and oriented x3, no acute distress, pleasant and cooperative Lungs: Respirations even and unlabored, symmetrical chest expansion Eyes: PERRL Musculoskeletal: Flexion and extension of thoracic [spine] somewhat guarded secondary to pain, [antalgic gait noted] Neurological: Speech clear, no gross sensory deficit Has patient had previous pain injection?: No Conservative treatment options previously tried: Home exercise plan Length of treatment: Longer than 12 weeks Meds Home Medications and Allergies Home Medications ?Medication ?Instructions ?Recorded ?Confirmed ?Type budesonide-formoterol HFA 160 See Rx Instructions .Route 04/26/23 12/30/24 History mcg-4.5 mcg/actuation aerosol .COMPLEX Breathing problems inhaler (Symbicort) omeprazole 40 mg capsule,delayed See Rx Instructions .Route 08/15/23 12/30/24 Rx release .COMPLEX #90 caps lovastatin 40 mg tablet See Rx Instructions .Route 12/21/23 12/30/24 Rx .COMPLEX #90 tabs aspirin 81 mg tablet,delayed 81 mg PO DAILY #30 tabs 12/25/23 12/30/24 Rx release (Adult Low Dose Aspirin) albuterol sulfate 90 mcg/actuation See Rx Instructions .Route 02/18/24 12/30/24 Rx aerosol inhaler .COMPLEX #8.5 ea duloxetine 60 mg capsule,delayed See Rx Instructions .Route 02/18/24 12/30/24 Rx release .COMPLEX #30 caps quetiapine 25 mg tablet 50 mg (2 x 25 mg) PO HS #60 tabs 02/20/24 12/30/24 Rx cholecalciferol (vitamin D3) 1,250 See Rx Instructions .Route 06/16/24 12/30/24 Rx mcg (50,000 unit) capsule .COMPLEX #7 caps rivaroxaban 2.5 mg tablet 2.5 mg PO BID Blood thinner #180 08/06/24 12/30/24 Rx tabs gabapentin 300 mg capsule 300 mg PO TID 08/12/24 12/30/24 History New Prescriptions to Start Prescriptions: Allergies Allergy/AdvReac Type Severity Reaction Status Date / Time tetanus and diphtheria Allergy Severe I-HIVES Verified 12/30/24 13:15 toxoids (TETANUS & DIPHTHERIA TOXOIDS) cefazolin (From Ancef) Allergy Intermediate Hives Verified 12/30/24 13:15 atorvastatin AdvReac Intermediate Headache Verified 12/30/24 13:15 Assessment and Plan *Assessment and plan (1) Thoracic radiculopathy: Status: Acute Category: Medical Code(s): M54.14 - Radiculopathy, thoracic region (2) Degenerative disc disease, thoracic: Status: Acute Category: Medical Code(s): M51.34 - Other intervertebral disc degeneration, thoracic region Plan Patient is experiencing worsening pain in her mid back with numbness and tingling into her ribs. Patient did have limited range of motion of her thoracic spine with point tenderness. I did discuss with patient that I do believe they would benefit from a repeat thoracic epidural steroid injection. Risk and benefits were discussed with patient and the patient would like to proceed forward with this plan of care. Patient is on Xarelto written by Dr. Bowers's office. We will reach out to this provider and confirm that she can stop this medication prior to this injection. Patient has tried and failed conservative therapy including continued at home stretching exercise for longer than 12 weeks between injections. Patient did previously have a thoracic epidural back in August that provided 60% relief and lasted longer than 3 months. We will schedule the patient for an tESI T9-T10 under fluoroscopy. I will also order the patient a compounded cream and order updated x-ray imaging as it has been sometime. Patient has been instructed to contact the clinic with any concerns before the next appointment. Dr. Luevano has reviewed this note and agrees with this plan of care. This note was dictated using voice recognition software and make contain errors or omissions. All injections are used with Lidocaine, Bupivacaine and Depo Medrol. Occasionally urine drug screen is needed to verify patient's compliance with our office pain contract. This is ordered based off specific treatments related to chronic pain with the potential to abuse certain medications.
[2025-01-07 11:54] VITALS: BP 127/58; PULSE 80; RESP 18; O2SAT 94; BMI 25.0
--- NOTE | 2025-01-07 12:24 | XR_ITS ---
FINAL REPORT TECHNIQUE: 3 views CLINICAL HISTORY: mid back pain FINDINGS: There is no fracture present. There is no malalignment. There are mild degenerative disc changes. There is minimal S-shaped scoliosis of the upper and mid thoracic spine. IMPRESSION: Mild degenerative changes. Reviewed, Interpreted and Dictated by Teresa Bernal MD Transcribed by Mayra Osullivan Authenticated and . [facility]
--- NOTE | 2025-01-07 12:37 | CA_ITS ---
APPROVED REPORT EXAM: Comprehensive 2D, Doppler, and color-flow Echocardiogram Strip Stamp Straightener: Haylie Valerio RCS, RVS Ht: 5 ft 7 in Wt: 161lbs BSA: 1.84 BP: 122/56 mmHg Indications: Syncope, COPD, Smoker, Edema, SOB 2D Dimensions IVSd 0.84 cm F: 0.6-1.0 LVEF (Visual) 65.90 % PWd 0.80 cm F: 0.6 - 1.0 LA Volume 48.80 mL LVDd 4.87 cm F: 3.9 - 5.3 LA Volume Index [id number] mL/m2 (M/F) 16-34 LVDs 3.10 cm F: 2.2 - 3.5 Left Atrium 3.25 cm F: 2.7 - 3.8 M-Mode Dimensions RVDd 3.12 cm (0.9-2.6) LA Diam 3.75 cm (1.9-4.0) LVDd 4.45 cm (3.5-5.7) LVDs 2.96 cm (3.5-5.7) IVSd 0.95 cm (0.6-1.1) PWd 0.95 cm (0.6-1.1) EF (Teich) 62.40% EPSs 0.27 cm FS 33.50% EDV (Teich) 90.10 mL TAPSE 2.13 (<1.7) ESV (Teich) 33.90 mL LV Diastology E Decel Time 283 (160-240 msec) E/A Ratio 1.02 MED A' 12.00 cm/s LAT A' 10.80 cm/s Aortic Valve CANDICE Index 1.01 cm2/m2 AoV Peak Rafa. 136.0 (50-130 cm/s) AO Peak GR. 7.40 mmHg AO Mean GR. 3.90 (<5 mmHg) AO VTI 29.1 (18-25 cm) CANDICE (VTI) 1.90 (2.5-4.5 cm2) Mitral Valve MV A Velocity 62.0 (40-130 cm/s) E/A Ratio 1.02 Tricuspid Valve TR P. Velocity 165.00 cm/s RAP Estimate 10.00 mmHg RVSP 20.80 mmHg Left Ventricle The left ventricle is normal size. The left ventricular systolic function is normal. The left ventricular ejection fraction is within the normal range. There is increased LV wall thickness. There is normal LV segmental wall motion. The left ventricular diastolic function is normal. LVEF is 55%. Right Ventricle The right ventricle is normal size. The right ventricular systolic function is normal. Atria The left atrium size is normal. The right atrium size is normal. Color Doppler demonstrates presence of left to right interatrial shunt. Aortic Valve The aortic valve is mildly thickened. There is no aortic valvular stenosis. No aortic regurgitation is present. Mitral Valve The mitral valve is normal in structure. No evidence of mitral valve stenosis. Trace mitral regurgitation. Tricuspid Valve Tricuspid valve is grossly normal in structure and function. Trace tricuspid regurgitation. There is insufficient TR jet to estimate RVSP. Pulmonic Valve The pulmonary valve is normal in structure. Trace pulmonic regurgitation. Great Vessels The aortic root is normal in size. IVC is normal in size and collapses >50% with inspiration. Pericardium There is no pericardial effusion. Other Information Study Quality: Fair Conclusion Normal biventricular systolic function. No significant valvular stenosis or regurgitation. Color Doppler demonstrates presence of left to right interatrial shunt. In the setting of interatrial shunt but with normal right sided chamber size and function, no further evaluation is required. Clinical correlation is recommended. Electronically signed by : Dinah Reed MD 01/15/2025 22:59:31
== END 2025-01-07 23:59 | disposition home or self-care (01) ==
LOC: SC.PAIN 12:17 → RAD 12:18
PROVIDERS: PCP Nurse Practitioner Family; Visit Provider Nurse Practitioner Family
DX: M54.14 Radiculopathy, thoracic region (principal); M54.9 Dorsalgia, unspecified; G89.29 Other chronic pain; M51.34 Other intervertebral disc degeneration, thoracic region; R55 Syncope and collapse; R42 Dizziness and giddiness
CPT/HCPCS: 72072; 93306; 99212; G0463

== ENCOUNTER 2025-01-20 09:52 | Outpatient (CLI) | payer MEDICARE, SELFPAY ==
--- NOTE | 2025-01-20 09:56 | XR_ITS ---
FINAL REPORT CLINICAL HISTORY: Rt Knee pain,,f/u from surgery back in nov COMPARISON: 12/09/2024 FINDINGS: RIGHT KNEE 3 views of the right knee were obtained. There is no acute fracture or dislocation. There are 2 new orthopedic screws securing a healing patellar fracture. Fracture fragments are in anatomic alignment. A trace joint effusion is noted. Visualized joint spaces are normally aligned. Soft tissues are unremarkable. IMPRESSION: Interval internal fixation o of patellar fracture. Reviewed, Interpreted and Dictated by Matias May MD Transcribed by Megan Brothers Authenticated and [facility]
== END 2025-01-20 23:59 | disposition home or self-care (01) ==
PROVIDERS: PCP Nurse Practitioner Family; Visit Provider Orthopaedic Surgery
DX: M25.561 Pain in right knee (principal); S82.041D Displaced comminuted fracture of right patella, subsequent encounter for closed fracture with routine healing
CPT/HCPCS: 73562

== ENCOUNTER 2025-01-27 12:08 | Day surgery (SDC) | payer MEDICARE, SELFPAY ==
[2025-01-27 12:13] VITALS: BP 112/55; PULSE 74; RESP 16; TEMP 36.6; O2SAT 94; BMI 25.0
[2025-01-27 12:42] VITALS: BP 104/62; PULSE 79; RESP 16; O2SAT 96
--- NOTE | 2025-01-27 12:58 | P.PCN_ITS ---
Procedure Date: 01/27/25 Time: 12:00 Anesthesiologist:: Philip Guy CRNA Complications:: None Pre-procedure Diagnosis:: Degenerative disc thoracic spine. Thoracic radiculopathy. Post-procedure Diagnosis:: Same Indications for Procedure:: Patient very pleasant 64-year-old female who comes our clinic today for a T9-10 thoracic epidural steroid injection. Patient describes thoracic spine pain as constant, dull, aching. She also reports bilateral rib cage radiculopathy. She rates her pain 7/10. Procedure Details:: Procedure:Thoracic epidural steroid injection under fluoroscopy Informed consent was obtained and the risks and benefits of the procedure were explained to the patient. The patient was taken to the procedure room and noninvasive monitors placed, including noninvasive blood pressure cuff and pulse oximeter. The back was viewed using C-Arm fluoroscopy and prepped using Betadine as a cleansing solution and the T9-T10 interspace was palpated. Skin and subcutaneous tissues were anesthetized using lidocaine 1.5% and a 25-gauge needle. After this, an 18-gauge Touhy epidural needle was placed into the T9-T10 interspace and advanced using fluoroscopic guidance and loss of resistance to air until the epidural space was encountered. After confirmation of needle placement in the epidural space, with dye, a solution containing lidocaine 1.5%, 4 mL and Depo-Medrol 80 mg were incrementally injected into the thoracic epid ural space. The patient tolerated the procedure well with no complications. The patient was observed in the Pain Clinic and then discharged home neurologically intact. Plan and Disposition:: Patient was discharged without incident.
[2025-01-27 13:04] VITALS: BP 103/49; PULSE 76; RESP 18; O2SAT 91
[2025-01-27] MEDS: methylPREDNISolone ACETATE 80MG/ML VIAL 80 MG (13:04)
[2025-01-27 13:07] VITALS: BP 103/49; PULSE 76; RESP 18; O2SAT 91
== END 2025-01-27 12:42 | disposition home or self-care (01) ==
LOC: SC.PAINP 12:09
PROVIDERS: PCP Nurse Practitioner Family; Visit Provider Nurse Anesthetist, Certified Registered
DX: M51.14 Intervertebral disc disorders with radiculopathy, thoracic region (principal)
CPT/HCPCS: 62321; J1010

== ENCOUNTER 2025-02-11 14:27 | Outpatient (POV) | payer MEDICARE, SELFPAY ==
--- NOTE | 2025-02-11 15:04 | A.OFFVIS_ITS ---
[facility] Disclaimer: The information contained in this section may have been updated after the patient was seen, as this information can be updated by other users. Medical History Dizziness Syncope Diastolic dysfunction Smoker GERD (gastroesophageal reflux disease) MARVA (obstructive sleep apnea) HTN (hypertension) CAD (coronary artery disease) Dyspnea Atypical angina BMI 32.0-32.9,adult Dyspnea Occult blood in stools AYANA (acute kidney injury) Septic shock Severe sepsis with acute organ dysfunction Acute and chronic respiratory failure with hypoxia Hypoxemia Depression BMI 33.0-33.9,adult Tobacco dependence syndrome Advised smoking cessation Edema Coronary artery calcification seen on CT scan Claudication Right leg stent placement 11/2022 Anxiety Back Pain Right leg pain Abnormal ankle brachial index ([place]) Restless legs syndrome (RLS) Tobacco abuse COPD (chronic obstructive pulmonary disease) O2 dependent at night 2 L/min HTN (hypertension) Radiculopathy with lower extremity symptoms PAD (peripheral artery disease) Claudication Surgical History History of back surgery Family History Other Coronary artery disease Family history of CVA Family history of diabetes mellitus Social History Smoking Status: Current every day smoker tobacco type: cigarettes packs per day: 1 second hand exposure: No alcohol intake: never substance use type: denies use current occupational status: disabled Travel in the last 8 weeks: None housing: house current occupational exposures/hazards: No caffeine: Yes PM Subjective & Objective Subjective Subjective:: Patient is a pleasant 64-year-old female who presents today for follow-up of patient is experiencing worsening pain in T9-T10 on 01/27/2025. She does rate her pain today a 0 out of 10. She states that she has had at least 75% improvement following that injection feels like it is still working well. Patient does also have a bupivacaine pump in place with bupivacaine 15 mg/mL with a daily dose of 6.27 mg/day. She is prescribed gabapentin and [place] from an outside provider. Patient did previously have morphine and then Dilaudid and her pump however had an episode of overdosing with the Dilaudid patient does state due to that she is very leery about having any pain medications in the pump. Patient is scheduled for her next intrathecal refill with [facility] tomorrow. Patient is asking if there is adjustments that can be done to her pump as well as follow-up from her x-ray imaging of her thoracic spine. Her Isidro has been reviewed and is appropriate. Review of Systems: General: No recent weight changes, no fever, no sleep disturbances Respiratory: No cough, no shortness of air, no recurring pulmonary infections Cardiovascular/peripheral vascular: No chest pain, no palpitations, no edema, no shortness of breath Gastrointestinal: No new onset incontinence, normal bowel movements reported Genitourinary: No new onset incontinence Musculoskeletal: Mid back pain Psychiatric: [Normal mood/affect] Neurological: [Denies weakness in extremities], [denies balance issues] Pain at rest (0-10 scale): 0 Objective Objective:: Physical Exam: General: Alert and oriented x3, no acute distress, pleasant and cooperative Lungs: Respirations even and unlabored, symmetrical chest expansion Eyes: PERRL Musculoskeletal: Flexion and extension of thoracic [spine] within normal limits Neurological: Speech clear, no gross sensory deficit Has patient had previous pain injection?: Yes Percent improvement in pain since last injection: 75% Conservative treatment options previously tried: Home exercise plan Length of treatment: Longer than 12 weeks Meds Home Medications and Allergies Home Medications ?Medication ?Instructions ?Recorded ?Confirmed ?Type budesonide-formoterol HFA 160 See Rx Instructions .Route 04/26/23 01/27/25 History mcg-4.5 mcg/actuation aerosol .COMPLEX Breathing problems inhaler (Symbicort) omeprazole 40 mg capsule,delayed See Rx Instructions .Route 08/15/23 01/27/25 Rx release .COMPLEX #90 caps lovastatin 40 mg tablet See Rx Instructions .Route 12/21/23 01/27/25 Rx .COMPLEX #90 tabs aspirin 81 mg tablet,delayed 81 mg PO DAILY #30 tabs 12/25/23 01/27/25 Rx release (Adult Low Dose Aspirin) albuterol sulfate 90 mcg/actuation See Rx Instructions .Route 02/18/24 01/27/25 Rx aerosol inhaler .COMPLEX #8.5 ea duloxetine 60 mg capsule,delayed See Rx Instructions .Route 02/18/24 01/27/25 Rx release .COMPLEX #30 caps quetiapine 25 mg tablet 50 mg (2 x 25 mg) PO HS #60 tabs 02/20/24 01/27/25 Rx cholecalciferol (vitamin D3) 1,250 See Rx Instructions .Route 06/16/24 01/27/25 Rx mcg (50,000 unit) capsule .COMPLEX #7 caps rivaroxaban 2.5 mg tablet 2.5 mg PO BID Blood thinner #180 08/06/24 01/27/25 Rx tabs gabapentin 300 mg capsule 300 mg PO TID 08/12/24 01/27/25 History bupropion HCl 75 mg tablet 75 mg PO BID 01/27/25 01/27/25 History magnesium oxide 400 mg (241.3 mg 400 mg PO DAILY 01/27/25 01/27/25 History magnesium) tablet New Prescriptions to Start Prescriptions: Allergies Allergy/AdvReac Type Severity Reaction Status Date / Time tetanus and diphtheria Allergy Severe I-HIVES Verified 01/27/25 13:10 toxoids (TETANUS & DIPHTHERIA TOXOIDS) cefazolin (From Ancef) Allergy Intermediate Hives Verified 01/27/25 13:10 atorvastatin AdvReac Intermediate Headache Verified 01/27/25 13:10 Assessment and Plan *Assessment and plan (1) Degenerative disc disease, thoracic: Status: Acute Category: Medical Code(s): M51.34 - Other intervertebral disc degeneration, thoracic region (2) Thoracic radiculopathy: Status: Acute Category: Medical Code(s): M54.14 - Radiculopathy, thoracic region Plan Patient has had significant improvement following her thoracic epidural and does not require any additional injection therapy at this time. Patient was counseled that there still can be additional adjustment made with her bupivacaine pump. I did review over with her that she can have [facility] make an adjustment to the dose setting tomorrow at her refill. Patient agrees with this plan of care. I did review over with her x-ray imaging that did show degenerative disc and scoliosis of her thoracic spine. I did also discuss with the patient in future if she ever decides that she would like to try an opioid in her pump again that we can proceed forward with a low starting dose. Patient will return to clinic in 6 weeks for reevaluation of symptoms and plan of care. Patient has been instructed to contact the clinic with any concerns before the next appointment. Dr. Bux has reviewed this note and agrees with this plan of care. This note was dictated using voice recognition software and make contain errors or omissions. All injections are used with Lidocaine, Bupivacaine and Depo Medrol. Occasionally urine drug screen is needed to verify patient's compliance with our office pain contract. This is ordered based off specific treatments related to chronic pain with the potential to abuse certain medications.
[2025-02-11 15:18] VITALS: BP 137/62; PULSE 78; RESP 16; O2SAT 92; BMI 25.0
[2025-02-11 16:37] LABS: Blood Urea Nitrogen 20 mg/dl (7-17); Creatinine Clearance Estimated 65 mL/min (50-200); Estimated Glomerular Filt Rate 63 ml/min (>60); GFR (African American) 76 ML/MIN (>60)
== END 2025-02-11 23:59 | disposition home or self-care (01) ==
PROVIDERS: Nurse Practitioner; PCP Nurse Practitioner Family; Visit Provider Nurse Practitioner Family
DX: M51.14 Intervertebral disc disorders with radiculopathy, thoracic region (principal); F17.210 Nicotine dependence, cigarettes, uncomplicated
CPT/HCPCS: 36415; 82565; 84520; 99212; G0463

== ENCOUNTER 2025-02-16 08:59 | Outpatient (CLI) | payer MEDICARE, SELFPAY ==
--- NOTE | 2025-02-16 09:15 | CT_ITS ---
FINAL REPORT TECHNIQUE: NASCET technique utilized for stenosis evaluation. CLINICAL HISTORY: dizziness, near syncope COMPARISON: 10/10/2022 FINDINGS: AORTIC ARCH: There is a right brachiocephalic artery stent present, which is widely patent. The origins of the right common and subclavian arteries are unremarkable. RIGHT CAROTID: There is minimal calcification in the right carotid bulb without evidence of significant stenosis. LEFT CAROTID: There is moderate calcification in the left proximal internal carotid artery, with approximately 20% left proximal ICA stenosis, stable when compared to the prior exam of 2021. VERTEBRALS: The left vertebral is dominant. No significant stenosis is present. There are moderate changes of centrilobular emphysema present in the upper lobes. There is a nodule in the peripheral right upper lobe, 4 mm in size, best seen on image #69 of series 2, stable when compared to the prior exam. IMPRESSION: 20% left internal carotid artery stenosis, stable when compared to the prior exam of 2021. The vertebral arteries and right carotid artery do not demonstrate significant stenosis. 4 mm right upper lobe nodule, stable since the prior CT of 2021. Recommend follow-up CT of the chest in 1 year to document stability. Reviewed, Interpreted and Dictated by Matias May MD Transcribed by Carmencita Caicedo Authenticated and . [facility]
[2025-02-16] MEDS: SODIUM CHLORIDE 0.9% 10ML SYR (RAD ONLY) 10 ML IV (09:17)
[2025-02-16] MEDS: 0.9 % SODIUM CHLORIDE 50 ML VIAL IV (09:17)
[2025-02-16] MEDS: IOPAMIDOL-370 (76%);100ML BOTTLE 80 ML IV (09:17)
== END 2025-02-16 23:59 | disposition home or self-care (01) ==
LOC: RAD 09:01
PROVIDERS: PCP Nurse Practitioner Family; Visit Provider Nurse Practitioner
DX: R42 Dizziness and giddiness (principal); R55 Syncope and collapse; I95.9 Hypotension, unspecified; I73.9 Peripheral vascular disease, unspecified; J44.9 Chronic obstructive pulmonary disease, unspecified; I10 Essential (primary) hypertension
CPT/HCPCS: 70498; Q9967

== ENCOUNTER 2025-02-26 13:54 | Outpatient (CLI) | payer MEDICARE, SELFPAY ==
--- NOTE | 2025-02-26 13:56 | XR_ITS ---
FINAL REPORT CLINICAL HISTORY: cough, dyspnea COMPARISON: 01/03/2024 FINDINGS: CHEST 2 VIEWS PA AND LATERAL The heart is normal in size. The mediastinum is unremarkable. There is scarring in the anterior portion of the right middle lobe and lingula. There is no pneumothorax. IMPRESSION: No acute process. Reviewed, Interpreted and Dictated by Matias May MD Transcribed by Mayra Osullivan Authenticated and [facility]
== END 2025-02-26 23:59 | disposition home or self-care (01) ==
LOC: RAD 13:55
PROVIDERS: PCP Nurse Practitioner Family; Visit Provider Nurse Practitioner
DX: R05.9 Cough, unspecified (principal); R06.00 Dyspnea, unspecified
CPT/HCPCS: 71046

== ENCOUNTER 2025-08-12 13:47 | Outpatient (CLI) | payer MEDICARE, SELFPAY ==
--- NOTE | 2025-08-12 13:49 | XR_ITS ---
FINAL REPORT CLINICAL HISTORY: Low back pain, numbness tingling radicular symptom COMPARISON: None FINDINGS: 3 views of the lumbar spine were obtained. There is no evidence of fracture. There is no malalignment. There is moderate loss of height at L5-S1. The vertebrae are normal in height otherwise. Bilateral iliac artery stents are present, more extensive on the right than left. An intrathecal pump is present posteriorly. IMPRESSION: No acute bony abnormality. Moderate loss of height L5-S1. Reviewed, Interpreted and Dictated by Matias May MD Transcribed by Windy Cruz Authenticated and [facility]
--- OUTSIDE RECORDS SUMMARY | 2025-08-12 13:49 | XMS_ITS | Clinical Summary ---
Author Organization Healthcare Address [address] [id number] Care Team Providers Care Material Control Specialist Name Role Phone Bud Rob MD Primary Care Provider [phone] Immunizations Immunization Administration Dates Next Due Influenza, Unspecified 08/10/2017,07/25/2011 Influenza, seasonal, injectable 08/13/2012 Pneumococcal Polysaccharide PPV23 09/23/2010,11/2009 Pneumococcal, Unspecified 08/10/2017 Family History Medical History Relation Name Comments Arthritis Father Conversions - Other Father Reported Family History Of Mental Illness (Not Retardation) Diabetes Father Hypertension Father Breast cancer Mother Diabetes Mother Hypertension Mother Conversions - Other Other Other Sp ecified Family Circumstances Conversions - Other Sister 1 Carcinom a Of The Liver Heart failure Sister 2 Cardiomyopathy Sister 3 Cardiomyopathy Sister 4 Diabetes Sister 5 Hypertension Sister 6 Relation Name Status Comments Father Mother Other Sister 1 Sister 2 Sister 3 Sister 4 Sister 5 Sister 6 Social History Tobacco Use Types Packs/Day Years Used Date Smoking Tobacco: Every Day Alcohol Use Standard Drinks/Week Comments No 0 (1 standard drink = 0.6 oz pure alcohol) Alcoholic Drinks/day: Never Drank Alcohol Comments Unknown Sex and Gender Information Value Date Recorded Sex Assigned at Not on file Legal Sex Female 7:28 PM EDT Gender Identity Not on file Sexual Orientation Not on file Last Filed Vital Signs Vital Sign Reading Time Taken Comments Blood Pressure 166/95 02/18/2019 1:59 PM EDT Pulse 106 02/18/2019 1:59 PM EDT Temperature 37.1 C (98.7 F) 02/18/2019 1:59 PM EDT Respiratory Rate 16 12/04/2017 11:36 AM EST Oxygen Saturation - - Inhaled Oxygen Concentration - - Weight 91.8 kg (202 lb 6.1 oz) 02/18/2019 1:59 P M EDT Height 170.2 cm (5' 7 ) 02/18/2019 1:59 PM EDT Body Mass Index 31.7 02/18/2019 1:59 PM EDT Plan of Treatment Health Maintenance Due Date Last Done Comments [facility]-Depression Screening 1960 [facility]-/Child/Adol SDOH Screenings 1960 [facility]- SDOH Screenings 1978 [facility]-Adult SDOH Screenings 1978 [facility]-DTaP,Tdap,and Td Vaccine s (1 - Tdap) 1979 [facility]-Pap Smear 09/19/1994 09/19/1991, 03/13/1991 [facility]-Cervical Cancer Screening 09/19/1996 [facility]-HPV/Cotest 09/19/1996 09/19/1991, 03/13/1991 CT Colonography 2005 Colonoscopy 2005 FIT-DNA 2005 FIT 2005 FOBT 2005 Sigmoidoscopy 2005 [facility]-Colorectal Cancer Screening 2005 [facility]-Zoster Vaccines (1 of 2) 2010 [facility]-Pneumococcal Vaccine: 50 + Years (2 of 2 - PCV) 08/10/2018 08/10/2017, 09/23/2010, 02/10/2010 [id number] Vaccine (1 - 2023- season) 2025 [facility]-Influenza Vaccine (#1) 07/13/202508/10, 08/13/2012, 07/25/2011 [facility]-RSV Vaccine: 60+ Years o r (1 - 1-dose 75+ series) 2035 HPV Vaccines Aged Out No longer eligi ble based on patient's age to complete this topic [facility]-HIB Vaccines Aged Out No longer e ligible based on patient's age to complete this topic [facility]-Hepatitis A Vaccines Aged Out No longer eligible based on patient's age to complete this topic [facility]-IPV Vaccines Aged Out No longer e ligible based on patient's age to complete this topic [facility]-Rotavirus Vaccines Aged Out No lo nger eligible based on patient's age to complete this topic Procedures Procedure Name Priority Date/Time Associated Diagnosis Comments CYTO DATA CONVERSION Routine 09/19/1991 12:00 AM EST from Last 3 Months or Most Recently Relevant to Health Maintenance Results * (ABNORMAL) Cytology (09/19/1991 12:00 AM EST) 09/19/1991 09/22/1991 Narrative SUNQUEST - 09/30/1991 12:00 AM EST [facility] MR #: [id number] [facility] [address] [place], [place] [address] 1960 (Age: 30) FW Collect Date: 09/19/1991 00:00 Receipt Date: 09/22/1991 00:00 Page 1 DEPARTMENT OF PATHOLOGY AND LABORATORY MEDICINE CYTOPATHOLOGY REPORT Email: [email or web address] [phone] * Converted Case * This report may not match the original report format ATTENDING MD/Practitioner: Hebert Lama MD Service: IEN Location: Reported: 09/30/1991 00:00 Collected: 09/19/1991 00:00 INTERPRETATION CERVICAL SCRAPE/ENDOCERVICAL SWAB MILD DYSPLASIA (LOW GRADE GAEL). SATISFACTORY FOR INTERPRETATION. Electronically Signed Out LESLEY Trevizo (ASCP) Jenny Ladd MD Cervical cytology is a screening test primarily for squamous cancers and precursors and has associated false negative and positive results. New technologies such as liquid based sampling may decrease but will not eliminate all false negative results. Regular screening and follow-up of unexplained clinical signs and symptoms are recommended to minimize false negative results. Please see the ASCCP website (www.asccp.org) for followup recommendations. If HPV testing was requested, correlation with the results is suggested (please call Microbiology at [phone] for results). CLINICAL INFORMATION: Menstrual History: {Not Provided} Date of Last Menstrual Period: {Not Provided} SPECIMEN DESCRIPTION: A: CERVICAL/VAGINAL SMEAR, PAP ICD: F: {Not Entered} SNOMED CODES: 1; [id number] In cases where a pathologist has signed out the report, the service has been rendered in part by a resident. The signing pathologist has performed and is responsible for the reported pathologic evaluation. us Historical Provider LAB PATHOLOGY ORDERABLES Fin al Result SUNQUEST from Last 3 Months or Most Recently Relevant to Health Maintenance Care Teams Material Control Specialist Relationship Specialty Start Date End Date Bud Rob MD [address] [place] [address] PCP - General 03/25/21
--- OUTSIDE RECORDS SUMMARY | 2025-08-12 13:50 | XMS_ITS | Clinical Summary ---
Author Organization [facility] Address [address] [place] [id number] Care Team Providers Care Process Controller Name Role Phone Bud Rob MD Primary Care Provider [phone] Allergies Active Allergy Reactions Criticality Noted Date Comments Dtap-Ipv Vaccine Hives 10/17/2017 Medications Budesonide-Formo terol Fumarate (SYMBICORT IN) Inhale. Activ e ALBUTEROL IN Inhale. Active O2 (OXYGEN) Inhale 1 (One) Time. Active ClonazePAM (KLONOPIN PO) Take by mouth. Active Escitalopram Oxalate (LEXAPRO PO) Take by mouth. Active Family History Medical History Relation Name Comments Diabetes Father Heart disease Father Cancer Mother Diabetes Mother Relation Name Status Comments Father Mother Social History Tobacco Use Types Packs/Day Years Used Date Smoking Tobacco: Every Day Cigarettes Abuse Screen Answer Date Recorded Unsafe at Home or Work/School Not on file Feels Threatened by Someone? Not on file 09/2023 Does Anyone Keep You from Co ntacting Others or Doint Things Outside the Home? Not on file 08/22/2023 Physical Sign of Abuse Present Not on file 1 Housing Stability Answer Date Recorded Current Living Arrangements Not on file 08/12 Potentially Unsafe Housing Conditions Not on brandon e 08/22/2023 Family and Community Support Answer Josafat e Recorded Help with Day-to-Day Activities Not on file 08/22/2023 Lonely or Isolated Not on file 08/22/2023 Employment Answer Date Recorded Do you want help finding or keeping work or a ashley b? Not on file 08/22/2023 Disabilities Answer Date Recorded Concentrating, Remembering, or Making Decisions Difficulty Not on file 08/22/2023 Doing Errands Independently Difficulty Not on fi le 08/22/2023 Education Answer Date Recorded Help with school or training? Not on file Preferred Language Not on file 08/22/2023 Comments Unknown Sex and Gender Information Value Date Recorded Sex Assigned at Not on file Legal Sex Female 2:20 PM EST Gender Identity Not on file Sexual Orientation Not on file Last Filed Vital Signs Vital Sign Reading Time Taken Comments Blood Pressure - - Pulse - - Temperature 36.8 C (98.3 F) 10/17/2017 2:37 PM EST Respiratory Rate 16 10/17/2017 2:37 PM EST Oxygen Saturation 94% 10/17/2017 2:37 PM EST Inhaled Oxygen Concentration - - Weight 89.8 kg (198 lb) 10/17/2017 2:37 PM EST Height - - Body Mass Index - - Plan of Treatment Health Maintenance Due Date Last Done Comments Annual Gynecologic Pelvic and Breast Exam 1960 TDAP/TD VACCINES (1 - Tdap) 1979 MAMMOGRAM 2000 COLOGUARD 2005 COLON CANCER SCREENING 5 YEAR SIGMOIDOSCOPY 2005 COLONOSCOPY [address] CANCER SCREENING [address] COLONOGRAPHY 2005 FECAL OCCULT BLOOD TEST 2005 FIT Testing (1 year) 2005 Pneumococcal Vaccine 50+ (1 of 1 - PCV) 2010 ZOSTER VACCINE (1 of 2) 2010 ANNUAL PHYSICAL 10/17/2017 HEPATITIS C SCREENING 10/17/2017 INFLUENZA VACCINE 06/12/2025 Insurance MEDICARE A & B Care Teams Process Controller Relationship Specialty Start Date End Date Bud Rob MD [address] ATTN: [place] [address] PCP - General Emergency Medicine 10/17/17
== END 2025-08-12 23:59 | disposition home or self-care (01) ==
LOC: RAD 13:48
PROVIDERS: PCP Nurse Practitioner Family; Visit Provider Nurse Practitioner Family
DX: M48.8X7 Other specified spondylopathies, lumbosacral region (principal); M54.16 Radiculopathy, lumbar region
CPT/HCPCS: 72100

== ENCOUNTER 2025-09-10 08:25 | Day surgery (SDC) | payer MEDICARE, SELFPAY ==
[2025-09-10] VITALS (12 sets, daily range): BP systolic 109–186; BP diastolic 62–103; PULSE 58–97; RESP 16–18; O2SAT 93–98; BMI 26.7
--- NOTE | 2025-09-10 07:03 | IR_ITS ---
APPROVED REPORT Patient Location: Outpatient PROCEDURES Catheter placed in the abdominal aorta Abdominal aortography Repositioning of the catheter in the abdominal aorta Bilateral iliofemoral runoff INDICATION Known peripheral artery disease, Recurrent vascular claudication Informed consent was obtained prior to the procedure. COMPLICATIONS NONE Estimated Blood Loss: LESS THAN 10 ML TECHNIQUE 1% lidocaine used anesthetize the right groin the right femoral artery was accessed via the Salinger technique and a 4 Brazilian sheath is placed in the right femoral artery. Pigtail catheter was advanced and abdominal aortography was performed. The catheter was then repositioned and bilateral iliofemoral was performed. At the end the procedure the apparatus was removed the patient was transferred to the postop putting in stable condition for sheath removal ANGIOGRAPHIC RESULTS Distal abdominal aorta is patent Bilateral common and external iliac arteries are patent with bare-metal stents being widely patent with excellent proximal distal transitioning Bilateral internal iliac arteries are patent Bilateral common femoral arteries have mild to moderate atheromatous plaque with no stenosis greater than 30% Right superficial femoral artery and right profunda femoris artery are patent Right popliteal artery is patent which gives three-vessel runoff below the knee Left superficial femoral artery and left profunda femoris arteries are patent Left popliteal artery is patent with three-vessel runoff in the proximal portion of the calf and two-vessel runoff from the mid calf down IMPRESSION Peripheral artery disease as described above PLAN 1. Continue medical management with risk factor modification Electronically signed by : Binu Bowers MD 09/11/2025 14:15:39
[2025-09-10 08:46] LABS: Hematocrit 41.3 % (37.0-47.0); Hemoglobin 13.6 g/dL (12.2-16.2); Immature Granulocytes % 0.3 %; Mean Corpuscular HGB Conc 32.9 g/dL (31.8-35.4); Mean Corpuscular Hemoglobin 32.4 pg (27.0-31.2); Mean Corpuscular Volume 98.3 fl (81-99); Nucleated Red Blood Cells % 0 %; Platelet Count 196 K/mm3 (142-424); Red Blood Count 4.20 M/mm3 (4.20-5.40); Red Cell Distribution Width-SD 44.5 fL; White Blood Count 6.1 K/mm3 (4.8-10.8)
[2025-09-10 09:11] LABS: Anion Gap 10.4 mEq/L (5-15); Blood Urea Nitrogen 12 mg/dl (7-17); Calcium 9.2 mg/dl (8.4-10.2); Carbon Dioxide 33 mmol/L (22.0-30.0); Chloride 98 mmol/L (98-107); Creatinine Clearance Estimated 70 mL/min (50-200); Creatinine,Serum 0.90 mg/dl (0.52-1.04); Estimated Glomerular Filt Rate 63 ml/min (>60); GFR (African American) 76 ML/MIN (>60); Glucose 105 mg/dl (74-100); Potassium 3.4 mmoL/L (3.5-5.1); Sodium 138 mmol/L (136-145)
[2025-09-10] MEDS: HEPARIN 1,000 UNITS/500ML NS (CATH LAB) 3000 UNIT IV (10:32)
[2025-09-10] MEDS: MIDAZOLAM HCL 1MG/ML 5ML VIAL 1 MG IV (10:33)
[2025-09-10] MEDS: LIDOCAINE 1% 10ML MDV 10 ML IJ (10:33)
[2025-09-10] MEDS: 0.9 % SODIUM CHLORIDE 500 ML 25 ML IV (10:33)
[2025-09-10] MEDS: FENTANYL 100MCG/2ML VIAL 50 MCG IV (10:34)
[2025-09-10] MEDS: IOPAMIDOL-250 (51%) 100ML BOT 100 ML IV (11:23)
[2025-09-10] MEDS: HYDROCODONE/APAP 5/325 MG TABLET 2 TAB PO (12:47)
== END 2025-09-10 14:34 | disposition home or self-care (01) ==
PROVIDERS: PCP Nurse Practitioner; Visit Provider Internal Medicine
DX: I70.213 Atherosclerosis of native arteries of extremities with intermittent claudication, bilateral legs (principal); R09.89 Other specified symptoms and signs involving the circulatory and respiratory systems; I10 Essential (primary) hypertension; J44.9 Chronic obstructive pulmonary disease, unspecified; I25.118 Atherosclerotic heart disease of native coronary artery with other forms of angina pectoris; K21.9 Gastro-esophageal reflux disease without esophagitis; G47.33 Obstructive sleep apnea (adult) (pediatric); R06.00 Dyspnea, unspecified; F17.210 Nicotine dependence, cigarettes, uncomplicated; Z79.02 Long term (current) use of antithrombotics/antiplatelets; Z79.82 Long term (current) use of aspirin; Z79.899 Other long term (current) drug therapy; Z88.1 Allergy status to other antibiotic agents; Z88.7 Allergy status to serum and vaccine; Z88.8 Allergy status to other drugs, medicaments and biological substances; Z82.49 Family history of ischemic heart disease and other diseases of the circulatory system
CPT/HCPCS: 36200; 80048; 85025; 99152; C1725; C1769; J1200; J1644; J2003; J3010; J7040; Q9966